=== PATIENT | male | born 1955 | race American Indian/Alaskan Native ===

== ENCOUNTER 2017-05-17 18:49 | Emergency (ER) | payer MEDICARE ==
--- NOTE | 2017-05-17 23:46 | Emergency Department Report ---
- General Chief Complaint: Extremity Injury, Lower Stated Complaint: WOUND ON RIGHT FOOT Time Seen by Provider: 05/17/17 23:05 Source: patient Mode of arrival: Wheelchair Limitations: Physical Limitation - History of Present Illness Initial Comments: 61 YO WITH MULTIPLE VISITS TO THE ER FOR RIGHT FOOT ULCER BUT REFUSES XRAY AND REFUSES LAB WORK BUT WANTS ULCER WRAPED UP AND ANTIBIOTICS. -: month(s) Location: other (RIGHT FOOT ULCERATION MOST OF THE HEEL AND PLANTAR AREA IN MID FOOT) Extremity Location: Right: Foot Place: home Patient Tetanus UTD: Yes Associated Symptoms: pain - Related Data Previous Rx's Medication Instructions Recorded Last Taken Type Levofloxacin [Levaquin TAB] 500 mg PO QDAY #14 tablet 05/18/17 Unknown Rx Allergies Allergy/AdvReac Type Severity Reaction Status Date / Time No Known Allergies Allergy Unverified 05/17/17 20:22 ED Review of Systems ROS: Stated complaint: WOUND ON RIGHT FOOT Other details as noted in HPI Constitutional: denies: chills, fever Eyes: denies: eye pain, eye discharge, vision change ENT: denies: ear pain, throat pain Respiratory: denies: cough, shortness of breath, wheezing Cardiovascular: denies: chest pain, palpitations Endocrine: no symptoms reported Gastrointestinal: denies: abdominal pain, nausea, diarrhea Genitourinary: denies: urgency, dysuria Musculoskeletal: arthralgia. denies: back pain, joint swelling Skin: lesions (LARGE ULCERATION ). denies: rash Neurological: denies: headache, weakness, paresthesias Psychiatric: denies: anxiety, depression Hematological/Lymphatic: denies: easy bleeding, easy bruising ED Past Medical Hx - Past Medical History Previous Medical History?: Yes Hx Hypertension: Yes Hx Congestive Heart Failure: Yes Hx Diabetes: Yes Hx COPD: Yes Additional medical history: Right foot diabetic ulcer, Recently admitted for right diabetic foot ulcer March 2017 - Surgical History Past Surgical History?: Yes Additional Surgical History: Bilateral knee surgeries - Social History Smoking Status: Never Smoker - Medications Home Medications: Home Medications Medication Instructions Recorded Confirmed Last Taken Type Levofloxacin [Levaquin TAB] 500 mg PO QDAY #14 tablet 05/18/17 Unknown Rx ED Physical Exam - General Limitations: Physical Limitation General appearance: alert, in no apparent distress - Head Head exam: Present: atraumatic, normocephalic - Eye Eye exam: Present: normal appearance, EOMI - ENT ENT exam: Present: mucous membranes moist - Neck Neck exam: Present: normal inspection - Respiratory Respiratory exam: Present: normal lung sounds bilaterally. Absent: respiratory distress - Cardiovascular Cardiovascular Exam: Present: regular rate, normal rhythm. Absent: systolic murmur, diastolic murmur, rubs, gallop - GI/Abdominal GI/Abdominal exam: Present: soft, normal bowel sounds - Rectal Rectal exam: Present: deferred - External exam: Present: other (URINATED ON HIMSELF) - Extremities Exam Extremities exam: Present: normal inspection, tenderness (RIGHT HEEL,LARGE ULCERATION ENCOMPASSING ALL OF THE HEEL AND HALD OF PLANTAR SURFACE) - Back Exam Back exam: Present: full ROM - Neurological Exam Neurological exam: Present: alert, oriented X3 - Psychiatric Psychiatric exam: Present: normal affect, normal mood - Skin Skin exam: Present: warm, dry, intact, normal color. Absent: rash ED Course Vital Signs 05/17/17 05/17/17 05/17/17 19:34 20:36 23:53 Temperature 98.5 F 98.5 F 98 F Pulse Rate 76 75 83 Respiratory 18 18 18 Rate Blood Pressure 180/77 180/77 Blood Pressure 122/79 [Left] O2 Sat by Pulse 100 100 97 Oximetry Critical care attestation.: If time is entered above; I have spent that time in minutes in the direct care of this critically ill patient, excluding procedure time. ED Disposition Clinical Impression: Hyperglycemia, Morbid obesity Diabetic foot ulcers Qualifiers: Diabetic foot ulcer location: heel Diabetes mellitus type: type 2 Laterality: right Non-pressure ulcer stage: unspecified non-pressure ulcer stage Qualified Code(s): E11.621 - Type 2 diabetes mellitus with foot ulcer Disposition: -01 TO HOME OR SELFCARE Is pt being admited?: No Does the pt Need Aspirin: No Condition: Stable Instructions: Diabetes Mellitus Type 2 in Adults (ED), Levofloxacin (By mouth) Prescriptions: Levofloxacin [Levaquin TAB] 500 mg PO QDAY #14 tablet Referrals: PRIMARY CARE, [Referring] - 3-5 Days Time of Disposition: 00:07
[2017-05-18] MEDS ORDERED: LEVAQUIN PO ONE (00:05)
[2017-05-18] MEDS ORDERED: XYLOCAINE 1% MPF 5 mL INFILTRATI ONE (00:05)
[2017-05-18] MEDS ORDERED: ROCEPHIN IM ONE (00:05)
[2017-05-18 01:12] VITALS: BP 134/72
== END 2017-05-18 01:11 | disposition home or self-care (01) ==
LOC: EDSEX → ED 18:49
DX: E11.621 Type 2 diabetes mellitus with foot ulcer (principal); E11.65 Type 2 diabetes mellitus with hyperglycemia; E66.01 Morbid (severe) obesity due to excess calories; I10 Essential (primary) hypertension; I50.9 Heart failure, unspecified; J44.9 Chronic obstructive pulmonary disease, unspecified
CPT/HCPCS: 82962; 96372; 99283; J0696

== ENCOUNTER 2017-05-23 23:11 | Inpatient (IN) | payer MEDICARE ==
--- NOTE | 2017-05-24 06:55 | Emergency Department Report ---
HPI - General Chief Complaint: Extremity Injury, Lower Time Seen by Provider: 05/24/17 06:24 - HPI HPI: The patient's is 61-year-old male with a history of diabetes presents for evaluation of pain and wound to the left foot. The patient reports progressive pain and open ulcer to the sole of the right foot, 10/10 in severity, throbbing in quality, worse with weightbearing. He admits to worsening redness, swelling , and drainage from the wound. He has not sought wound care and has been non- compliant. He denies trauma to the foot, penetrating wound to the foot, fever, loss of sensation or motor function. ED Past Medical Hx - Past Medical History Previous Medical History?: Yes Hx Hypertension: Yes Hx Congestive Heart Failure: Yes Hx Diabetes: Yes Hx Deep Vein Thrombosis: No Hx Renal Disease: Yes (RUPA) Hx Arthritis: Yes Hx Kidney Stones: Yes Hx Asthma: No Hx COPD: Yes Hx HIV: No Additional medical history: Right foot diabetic ulcer, Recently admitted for right diabetic foot ulcer March 2017 - Surgical History Past Surgical History?: Yes Hx Pacemaker: No Hx Internal Defibrillator: No Additional Surgical History: Bilateral knee surgeries - Social History Smoking Status: Current Every Day Smoker Substance Use Type: None - Medications Home Medications: Home Medications Medication Instructions Recorded Confirmed Last Taken Type Gabapentin [Neurontin] 300 mg PO Q8HR #90 capsule 11/04/15 04/05/17 1 Day Ago Rx ~03/01/17 AtorvaSTATin [Lipitor] 20 mg PO QHS 04/09/16 04/05/17 1 Day Ago History ~03/01/17 Ergocalciferol(Vitamin D2)(Nf) 50,000 unit PO QWEEK 04/09/16 04/05/17 1 Day Ago History [Vitamin D (Nf)] ~03/01/17 Insulin Lispro Prot/Lispro 30 unit SQ BID 03/05/17 04/05/17 Unknown History [HumaLOG Mix 75/25 Vial] Leucovorin/Pyridox/Mecobalamin 1 tab PO QDAY 03/12/17 04/05/17 Unknown History [Folinic-Plus Caplet] hydrALAZINE [Apresoline TAB] 100 mg PO TID 03/12/17 04/05/17 Unknown History Carvedilol [Coreg] 12.5 mg PO BID #30 tablet 04/14/17 Unknown Rx Fluconazole [Diflucan TAB] 100 mg PO QDAY #7 tablet 04/14/17 Unknown Rx Folic Acid/Vit Bcomp&C/Cu/Znox 1 each PO QDAY #30 tablet 04/14/17 Unknown Rx [Folbee Plus Cz] Furosemide [Lasix TAB] 40 mg PO BID@0600,1800 #14 tablet 04/14/17 Unknown Rx Levofloxacin [Levaquin TAB] 750 mg PO Q24HR #8 tablet 04/14/17 Unknown Rx Sodium Bicarbonate 1,300 mg PO BID #14 tablet 04/14/17 Unknown Rx amLODIPine [Norvasc] 10 mg PO DAILY #30 tablet 04/14/17 Unknown Rx oxyCODONE /ACETAMINOPHEN [Percocet 1 tab PO Q6H PRN #10 tablet 04/14/17 Unknown Rx 5/325 mg] Levofloxacin [Levaquin TAB] 500 mg PO QDAY #14 tablet 05/18/17 Unknown Rx ED Review of Systems ROS: Stated complaint: DIABETIC FOOT ULCER Other details as noted in HPI Constitutional: denies: fever ENT: denies: throat or neck pain Respiratory: denies: cough, shortness of breath Cardiovascular: denies: chest pain Endocrine: denies unexplained weight loss or gain Gastrointestinal: denies: abdominal pain, nausea Genitourinary: denies: dysuria Musculoskeletal: foot pain and swelling denies: leg swelling Skin: denies: rash Neurological: denies: headache Hematological/Lymphatic: denies: easy bleeding or easy bruising Psych: denies sadness or hopelessness Physical Exam - Physical Exam Vital Signs: Vital Signs 05/23/17 05/24/17 05/24/17 23:59 00:43 03:54 Temperature 97.3 F L 97.3 F L Pulse Rate 81 81 85 Respiratory 18 17 15 Rate Blood Pressure 221/98 221/98 Blood Pressure [Left] O2 Sat by Pulse 100 99 Oximetry 05/24/17 05/24/17 05/24/17 04:01 04:06 04:15 Temperature 98.3 F Pulse Rate 85 84 81 Respiratory 10 L 18 11 L Rate Blood Pressure 175/73 175/73 Blood Pressure 175/73 [Left] O2 Sat by Pulse 100 100 100 Oximetry 05/24/17 05/24/17 05/24/17 04:31 04:45 05:01 Temperature Pulse Rate 80 82 83 Respiratory 13 12 13 Rate Blood Pressure 175/73 175/73 160/72 Blood Pressure [Left] O2 Sat by Pulse 100 100 99 Oximetry 05/24/17 05/24/17 05/24/17 05:15 05:31 05:45 Temperature Pulse Rate 83 84 83 Respiratory 10 L 13 14 Rate Blood Pressure 160/72 160/72 160/72 Blood Pressure [Left] O2 Sat by Pulse 100 100 100 Oximetry 05/24/17 05/24/17 06:00 06:20 Temperature Pulse Rate 81 Respiratory 16 20 Rate Blood Pressure 154/67 Blood Pressure [Left] O2 Sat by Pulse 98 100 Oximetry Physical Exam: General: well-nourished, well-developed, no acute distress Head: Normocephalic, atraumatic Eyes: normal sclera ENT: Mucous membranes are pink and moist Neck: trachea midline, neck supple, No neck stiffness, no cervical adenopathy Respiratory: Breath sounds equal bilaterally, no wheezing, rales, or rhonchi Cardio: S1 and S2 present, no murmurs, rubs, gallops, capillary refill is brisk Abdomen: Normoactive bowel sounds, soft abdomen, no tenderness Musc: Large superficial ulcer presents to the sole of the right foot, surrounding erythema present, copious drainage present, no crepitus or fluctuance at this time, distal pulses intact Skin: No rash Neuro: no facial drooping, normal speech Psych: Normal affect ED Course Vital Signs 05/23/17 05/24/17 05/24/17 23:59 00:43 03:54 Temperature 97.3 F L 97.3 F L Pulse Rate 81 81 85 Respiratory 18 17 15 Rate Blood Pressure 221/98 221/98 Blood Pressure [Left] O2 Sat by Pulse 100 99 Oximetry 05/24/17 05/24/17 05/24/17 04:01 04:06 04:15 Temperature 98.3 F Pulse Rate 85 84 81 Respiratory 10 L 18 11 L Rate Blood Pressure 175/73 175/73 Blood Pressure 175/73 [Left] O2 Sat by Pulse 100 100 100 Oximetry 05/24/17 05/24/17 05/24/17 04:31 04:45 05:01 Temperature Pulse Rate 80 82 83 Respiratory 13 12 13 Rate Blood Pressure 175/73 175/73 160/72 Blood Pressure [Left] O2 Sat by Pulse 100 100 99 Oximetry 05/24/17 05/24/17 05/24/17 05:15 05:31 05:45 Temperature Pulse Rate 83 84 83 Respiratory 10 L 13 14 Rate Blood Pressure 160/72 160/72 160/72 Blood Pressure [Left] O2 Sat by Pulse 100 100 100 Oximetry 05/24/17 05/24/17 06:00 06:20 Temperature Pulse Rate 81 Respiratory 16 20 Rate Blood Pressure 154/67 Blood Pressure [Left] O2 Sat by Pulse 98 100 Oximetry ED Medical Decision Making - Lab Data Result diagrams: 05/24/17 13:00 05/24/17 13:00 - Medical Decision Making The patient was seen and examined by myself. The patient is placed on a career services officer and continuous pulse ox. On initial evaluation, the patient was found to be in no distress. The patient is given pain medicine. X-ray of the right foot reveals soft tissue swelling and an ulcer to the sole of the right foot. Evaluation orders were placed. Lab results revealed elevated CRP 2.8, low hemoglobin of 7.5, and electrolyte disturbance. The patient is given IV clindamycin and Rocephin for treatment of cellulitis. The on-call hospitalist service was contacted. They agreed to admit the patient for further treatment and close monitoring. The ED admit order was placed. The patient was admitted in guarded condition. Critical care attestation.: If time is entered above; I have spent that time in minutes in the direct care of this critically ill patient, excluding procedure time. ED Disposition Clinical Impression: Cellulitis of foot without toes, right Diabetic foot ulcers Qualifiers: Diabetic foot ulcer location: heel Diabetes mellitus type: type 2 Laterality: right Non-pressure ulcer stage: limited to breakdown of skin Qualified Code(s): E11.621 - Type 2 diabetes mellitus with foot ulcer; L97.411 - Non-pressure chronic ulcer of right heel and midfoot limited to breakdown of skin; L97.411 - Non-pressure chronic ulcer of right heel and midfoot limited to breakdown of skin; L97.411 - Non-pressure chronic ulcer of right heel and midfoot limited to breakdown of skin; L97.411 - Non-pressure chronic ulcer of right heel and midfoot limited to breakdown of skin Disposition: OP ADMIT IP TO THIS HOSP Is pt being admited?: Yes Does the pt Need Aspirin: Yes Condition: Serious Instructions: Diabetes Mellitus Type 2 in Adults (ED) Referrals: PRIMARY CARE, [Primary Care Provider] - 3-5 Days Time of Disposition: 07:16
[2017-05-24] MEDS ORDERED: NACL 0.9% 1000 ML 1,000 ML IV ONE (07:52)
[2017-05-24] MEDS ORDERED: MORPHINE IV ONE (07:52)
[2017-05-24] MEDS ORDERED: CLEOCIN 600 MG/50 mL 600 MG/50 ML BAG IV ONE ×2 (07:52→11:27)
[2017-05-24] MEDS ORDERED: BABY ASPIRIN PO ONE (07:54)
[2017-05-24] MEDS ORDERED: ROCEPHIN/NS 1 GM/50 ML 1 GM/50 ML BAG IV SCH (08:00)
[2017-05-24] MEDS ORDERED: cefTRIAXone 1 GM in NACL 0.9% 20 ML IV ONE (08:00)
--- NOTE | 2017-05-24 11:09 | XRay Report ---
FINAL REPORT EXAM: XR FOOT 2V RT HISTORY: plantar pain and ulcer TECHNIQUE: AP and lateral radiographs of the right foot. PRIORS: None. FINDINGS: No fracture. No dislocation. There is diffuse osteopenia. Vascular calculi are seen. No bony erosion or periosteal reaction. There is soft tissue swelling over the dorsum of the right foot. Plantar calcaneal enthesophyte is seen superiorly. There is an ulceration posterior to the calcaneus. IMPRESSION: Soft tissue swelling of the right foot without acute osseous abnormality. Ulceration posterior to the calcaneus.
[2017-05-24] MEDS ORDERED: BABY ASPIRIN ONE (11:28)
[2017-05-24] MEDS ORDERED: NACL 0.9% 1000 ML 1,000 ML ONE (11:29)
[2017-05-24] MEDS ORDERED: MORPHINE ONE (11:35)
[2017-05-24] MEDS ORDERED: D50W (25GM) Vial IV PRN (13:00)
[2017-05-24 13:15] LABS: Basophils # (Auto) 0.1 K/mm3 (0.0-0.1); Basophils % (Auto) 1.1 % (0.0-1.8); Eosinophils # (Auto) 0.8 K/mm3 (0.0-0.4); Eosinophils % (Auto) 10.3 % (0.0-4.3); Hematocrit 23.9 % (35.5-45.6); Hemoglobin 7.5 gm/dl (11.8-15.2); Lymphocytes # (Auto) 1.7 K/mm3 (1.2-5.4); Lymphocytes % (Auto) 22.8 % (13.4-35.0); Mean Corpuscular HGB Conc 31 % (32-34); Mean Corpuscular Hemoglobin 26 pg (28-32); Mean Corpuscular Volume 84 fl (84-94); Monocytes # (Auto) 0.7 K/mm3 (0.0-0.8); Monocytes % (Auto) 9.6 % (0.0-7.3); Platelet Count 352 K/mm3 (140-440); Red Blood Count 2.86 M/mm3 (3.65-5.03); Red Cell Distribution Width 17.2 % (13.2-15.2)
[2017-05-24 13:33] LABS: C-Reactive Protein 2.8 mg/dL (0.00-1.30); Calcium 8.6 mg/dL (8.4-10.2)
[2017-05-24] MEDS: HEPARIN SUB-Q SCH ×3 (14:15→22:27)
[2017-05-24] MEDS: NORVASC PO SCH (14:16)
[2017-05-24] MEDS: NEURONTIN PO SCH ×2 (14:18→22:25)
[2017-05-24] MEDS: APRESOLINE PO SCH ×2 (14:18→20:12)
[2017-05-24] MEDS: PERCOCET 5/325 PO PRN (14:31)
--- NOTE | 2017-05-24 14:45 | History and Physical Report ---
History of Present Illness Date of examination: 05/24/17 Date of admission: 05/24/17 12:21 Chief complaint: Right foot pain History of present illness: 61-year-old -[place] male with past medical history significant for DM, CHF, COPD, hypertension, hyperlipidemia, homelessness presented to the emergency department complaining of right foot pain. Patient claimed he has ulcer in the right foot for the last one and half years, and has chronic pain but getting worse recently. The patient is to being, to [facility], with no radiation, worse with weightbearing, but denied fever, chills. Patient said he has been compliant with his medications. Patient was uncooperative. Per Chart review the patient has been admitted a month ago and he was evaluated by vascular surgery, ID, general surgery, wound care and was discharged home with antibiotics. Patient said she has been run out of his medications. REVIEW OF SYSTEMS: GENERAL: no weight change, no fatigue, no fever HEAD: no head ache EYES: no blurry vision, no acute visual loss EARS: no hearing loss, no discharge, no earache NOSE: no stuffiness, no sneezing, no discharge MOUTH, THROAT AND NECK: no bleeding gums, no sore throat, no swollen neck CARDIAC: no palpitations, no dyspnea on exertion, no orthopnea, no PND, no edema , no chest pain RESPIRATORY: no shortness of breath, no wheeze, no cough, no sputum, no hemoptysis, no asthma GI: no decreased appetite, no nausea, no vomiting, no dysphagia, no diarrhea, no constipation, no abdominal pain URINARY: no change in frequency, no urgency, no polyuria, no hematuria, no incontinence MUSCULOSKELETAL: As stated in the HPI. NEUROLOGIC: no loss of sensation/numbness, no tingling, no tremors, no weakness/ paralysis HEMATOLOGIC: no anemia, no easy bruising SKIN: no rashes ENDOCRINE: no heat/cold intolerance, no polyuria, no polydipsia, no thyroid problems, + diabetes PSYCHIATRIC: no anxiety, no depression, no suicidal ideations Past History Past Medical History: COPD, diabetes, heart failure, hypertension, hyperlipidemia Past Surgical History: Other (bilateral knee surgery, wound debridement) Social history: full code. denies: smoking, alcohol abuse, prescription drug abuse, IV drug use Family history: CAD, hypertension Medications and Allergies Allergies Allergy/AdvReac Type Severity Reaction Status Date / Time No Known Allergies Allergy Verified 05/18/17 00:10 Home Medications Medication Instructions Recorded Confirmed Last Taken Type Gabapentin [Neurontin] 300 mg PO Q8HR #90 capsule 11/04/15 04/05/17 1 Day Ago Rx ~03/01/17 AtorvaSTATin [Lipitor] 20 mg PO QHS 04/09/16 04/05/17 1 Day Ago History ~03/01/17 Ergocalciferol(Vitamin D2)(Nf) 50,000 unit PO QWEEK 04/09/16 04/05/17 1 Day Ago History [Vitamin D (Nf)] ~03/01/17 Insulin Lispro Prot/Lispro 30 unit SQ BID 03/05/17 04/05/17 Unknown History [HumaLOG Mix 75/25 Vial] Leucovorin/Pyridox/Mecobalamin 1 tab PO QDAY 03/12/17 04/05/17 Unknown History [Folinic-Plus Caplet] hydrALAZINE [Apresoline TAB] 100 mg PO TID 03/12/17 04/05/17 Unknown History Carvedilol [Coreg] 12.5 mg PO BID #30 tablet 04/14/17 Unknown Rx Fluconazole [Diflucan TAB] 100 mg PO QDAY #7 tablet 04/14/17 Unknown Rx Folic Acid/Vit Bcomp&C/Cu/Znox 1 each PO QDAY #30 tablet 04/14/17 Unknown Rx [Folbee Plus Cz] Furosemide [Lasix TAB] 40 mg PO BID@0600,1800 #14 tablet 04/14/17 Unknown Rx Levofloxacin [Levaquin TAB] 750 mg PO Q24HR #8 tablet 04/14/17 Unknown Rx Sodium Bicarbonate 1,300 mg PO BID #14 tablet 04/14/17 Unknown Rx amLODIPine [Norvasc] 10 mg PO DAILY #30 tablet 04/14/17 Unknown Rx oxyCODONE /ACETAMINOPHEN [Percocet 1 tab PO Q6H PRN #10 tablet 04/14/17 Unknown Rx 5/325 mg] Levofloxacin [Levaquin TAB] 500 mg PO QDAY #14 tablet 05/18/17 Unknown Rx Active Meds: Active Medications Amlodipine Besylate (Norvasc) 10 mg PO DAILY [facility] Last Admin: 05/24/17 14:16 Dose: 10 mg Atorvastatin Calcium (Lipitor) 20 mg PO QHS [facility] Carvedilol (Coreg) 12.5 mg PO BID [facility] Dextrose (D50w (25gm) Vial) 25 gm IV PRN PRN PRN Reason: HYPOGLYCEMIA Furosemide (Lasix) 40 mg PO BID@0600,1800 [facility] Gabapentin (Neurontin) 300 mg PO Q8HR [facility] Last Admin: 05/24/17 14:18 Dose: 300 mg Heparin Sodium (Porcine) (Heparin) 5,000 unit SUB-Q BID [facility] Last Admin: 05/24/17 14:30 Dose: Not Given Hydralazine HCl (Apresoline) 100 mg PO TID [facility] Last Admin: 05/24/17 14:18 Dose: 100 mg Levofloxacin/Dextrose (Levaquin 750mg/150ml) 750 mg in 150 mls @ 100 mls/hr IV Q24HR [facility] PRN Reason: Protocol Insulin Aspart (Novolog) 0 units SUB-Q ACHS [facility] PRN Reason: Protocol Insulin Human Isoph/Insulin Regular (Novolin 70/30) 30 unit SUB-Q BIDDIAB [facility] Oxycodone/Acetaminophen (Percocet 5/325) 1 tab PO Q6H PRN PRN Reason: Pain, Moderate (4-6) Last Admin: 05/24/17 14:31 Dose: 1 tab Vitamin B Complex/Folic Acid (Folbee Plus Cz) 1 each PO QDAY [facility] Exam - Physical Exam Narrative exam: Not in cardiopulmonary distress. The patient appeared well nourished and normally developed. Vital signs as documented. Head exam is unremarkable. No scleral icterus . Neck is without jugular venous distension, thyromegaly, or carotid bruits. Lungs are clear to auscultation. Cardiac exam reveals regular rate and Rhythm. First and second heart sounds normal. No murmurs, rubs or gallops. Abdominal exam reveals normal bowel sounds, no masses, no organomegaly and no aortic enlargement. Extremities right foot ulcer with offensive discharge. 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 No focal weakness. - Constitutional Vitals: Temp Pulse Resp BP Pulse Ox 98.3 F 87 12 170/89 100 05/24/17 04:06 05/24/17 14:16 05/24/17 14:15 05/24/17 14:16 05/24/17 13:39 Results - Labs CBC & Chem 7: 05/24/17 13:00 05/24/17 13:00 Labs: Laboratory Last Values WBC 7.6 K/mm3 (4.5-11.0) 05/24/17 13:00 RBC 2.86 M/mm3 (3.65-5.03) L 05/24/17 13:00 Hgb 7.5 gm/dl (11.8-15.2) L 05/24/17 13:00 Hct 23.9 % (35.5-45.6) L 05/24/17 13:00 MCV 84 fl (84-94) 05/24/17 13:00 MCH 26 pg (28-32) L 05/24/17 13:00 MCHC 31 % (32-34) L 05/24/17 13:00 RDW 17.2 % (13.2-15.2) H 05/24/17 13:00 Plt Count 352 K/mm3 (140-440) 05/24/17 13:00 Lymph % (Auto) 22.8 % (13.4-35.0) 05/24/17 13:00 [place] % (Auto) 9.6 % (0.0-7.3) H 05/24/17 13:00 Eos % (Auto) 10.3 % (0.0-4.3) H 05/24/17 13:00 Baso % (Auto) 1.1 % (0.0-1.8) 05/24/17 13:00 Lymph # 1.7 K/mm3 (1.2-5.4) 05/24/17 13:00 [place] # 0.7 K/mm3 (0.0-0.8) 05/24/17 13:00 Eos # 0.8 K/mm3 (0.0-0.4) H 05/24/17 13:00 Baso # 0.1 K/mm3 (0.0-0.1) 05/24/17 13:00 Seg Neutrophils % 56.2 % (40.0-70.0) 05/24/17 13:00 Seg Neutrophils # 4.3 K/mm3 (1.8-7.7) 05/24/17 13:00 VBG pH 7.346 (7.320-7.420) 05/24/17 13:00 Sodium 141 mmol/L (137-145) 05/24/17 13:00 Potassium 4.7 mmol/L (3.6-5.0) 05/24/17 13:00 Chloride 107.4 mmol/L (98-107) H 05/24/17 13:00 Carbon Dioxide 21 mmol/L (22-30) L 05/24/17 13:00 Anion Gap 17 mmol/L 05/24/17 13:00 BUN 33 mg/dL (9-20) H 05/24/17 13:00 Creatinine 1.5 mg/dL (0.8-1.5) 05/24/17 13:00 Estimated GFR 57 ml/min 05/24/17 13:00 BUN/Creatinine Ratio 22 % 05/24/17 13:00 Glucose 178 mg/dL (75-100) H 05/24/17 13:00 Lactic Acid 0.70 mmol/L (0.7-2.0) 05/24/17 13:00 Calcium 8.6 mg/dL (8.4-10.2) 05/24/17 13:00 C-Reactive Protein 2.80 mg/dL (0.00-1.30) H 05/24/17 13:00 NT-Pro-B Natriuret Pep 469.5 pg/mL (0-900) 05/24/17 13:00 - Imaging and Cardiology Imaging and Cardiology: X-ray of the right foot: Soft tissue swelling of the right foot. Ulceration of the posterior calcaneus. Assessment and Plan Assessment and plan: Right foot ulcer Cellulitis of the right foot Diabetes mellitus with hyperglycemia Anemia Hypertension Homelessness Noncompliant with medications - Patient is on IV Levaquin, based on his previous culture result, ID consult - Wound care consulted, Dr. Ly consulted for possible debridement - Vascular surgery consulted, had evaluated him and didn't do further study because of his renal insufficiency but currently stable - Continue home dose of insulin and add sliding scale insulin - Continue appropriate home medications - Anemia is likely multifactorial and need further workup, follow H&H DVT prophylaxis Heparin Disposition Admit to [facility]. Advance Directives: Yes VTE prophylaxis?: Chemical Plan of care discussed with patient/family: Yes
[2017-05-24] MEDS ORDERED: NOVOLOG SUB-Q ONE (14:51)
[2017-05-24] MEDS: NOVOLOG SUB-Q SCH ×3 (14:58→22:44)
[2017-05-24] MEDS: COREG PO SCH ×2 (14:59→22:26)
[2017-05-24] MEDS: LEVAQUIN 750MG/150ML 750 MG/150 ML BAG IV SCH (18:15)
[2017-05-24] MEDS: LASIX PO SCH (20:10)
[2017-05-24] MEDS ORDERED: INSULIN LISPRO PROT SQ SCH (22:00)
[2017-05-24] MEDS ORDERED: LISPRO SQ SCH (22:00)
[2017-05-25 06:04] LABS: Basophils # (Auto) 0.1 K/mm3 (0.0-0.1); Basophils % (Auto) 1.7 % (0.0-1.8); Eosinophils # (Auto) 0.7 K/mm3 (0.0-0.4); Eosinophils % (Auto) 9.5 % (0.0-4.3); Hematocrit 21.4 % (35.5-45.6); Lymphocytes # (Auto) 1.7 K/mm3 (1.2-5.4); Lymphocytes % (Auto) 21.2 % (13.4-35.0); Mean Corpuscular HGB Conc 33 % (32-34); Mean Corpuscular Hemoglobin 27 pg (28-32); Mean Corpuscular Volume 83 fl (84-94); Monocytes # (Auto) 0.8 K/mm3 (0.0-0.8); Monocytes % (Auto) 9.6 % (0.0-7.3); Platelet Count 348 K/mm3 (140-440); Red Blood Count 2.58 M/mm3 (3.65-5.03); Red Cell Distribution Width 17.1 % (13.2-15.2)
[2017-05-25 06:24] LABS: Calcium 8.3 mg/dL (8.4-10.2)
[2017-05-25] MEDS: NEURONTIN PO SCH ×3 (06:53→21:34)
[2017-05-25] MEDS: LASIX PO SCH ×2 (06:53→17:23)
[2017-05-25] MEDS: APRESOLINE PO SCH ×3 (08:08→21:35)
[2017-05-25] MEDS: NOVOLOG SUB-Q SCH ×4 (08:09→21:33)
--- NOTE | 2017-05-25 08:49 | XRay Report ---
AP CHEST: HISTORY: CHF There is poor inspiration. AP view of the chest demonstrates a normal mediastinal and cardiac contour with clear lungs and normal bony and soft tissue structures. IMPRESSION: Unremarkable AP chest.
[2017-05-25] MEDS: NORVASC PO SCH (09:14)
[2017-05-25] MEDS: COREG PO SCH ×2 (09:14→21:35)
[2017-05-25] MEDS: HEPARIN SUB-Q SCH ×2 (09:15→22:53)
--- NOTE | 2017-05-25 10:02 | Event Note ---
Date: 05/25/17 cr is 1.5 to 1.7, and at baseline, no acute renal issues and has history of refusing labs and renal workup. if emergent indication of nephrology consult needed, please call directly.
[2017-05-25] MEDS: FOLBEE PLUS CZ PO SCH (11:51)
--- NOTE | 2017-05-25 12:15 | Consultation ---
History of Present Illness Consult date: 05/25/17 Reason for consult: other (Right heel ulcer) - History of present illness History of present illness: 61 yo male with a chronic right heel ulcer. I have debrided this in the past. Pt has Type II DM and CHF. Past History Past Medical History: COPD, diabetes, heart failure, hypertension, hyperlipidemia Past Surgical History: Other (bilateral knee surgery, wound debridement) Social history: full code. denies: smoking, alcohol abuse, prescription drug abuse, IV drug use Family history: CAD, hypertension Medications and Allergies Allergies Allergy/AdvReac Type Severity Reaction Status Date / Time No Known Allergies Allergy Verified 05/18/17 00:10 Home Medications Medication Instructions Recorded Confirmed Last Taken Type Gabapentin [Neurontin] 300 mg PO Q8HR #90 capsule 11/04/15 04/05/17 1 Day Ago Rx ~03/01/17 AtorvaSTATin [Lipitor] 20 mg PO QHS 04/09/16 04/05/17 1 Day Ago History ~03/01/17 Ergocalciferol(Vitamin D2)(Nf) 50,000 unit PO QWEEK 04/09/16 04/05/17 1 Day Ago History [Vitamin D (Nf)] ~03/01/17 Insulin Lispro Prot/Lispro 30 unit SQ BID 03/05/17 04/05/17 Unknown History [HumaLOG Mix 75/25 Vial] Leucovorin/Pyridox/Mecobalamin 1 tab PO QDAY 03/12/17 04/05/17 Unknown History [Folinic-Plus Caplet] hydrALAZINE [Apresoline TAB] 100 mg PO TID 03/12/17 04/05/17 Unknown History Carvedilol [Coreg] 12.5 mg PO BID #30 tablet 04/14/17 Unknown Rx Fluconazole [Diflucan TAB] 100 mg PO QDAY #7 tablet 04/14/17 Unknown Rx Folic Acid/Vit Bcomp&C/Cu/Znox 1 each PO QDAY #30 tablet 04/14/17 Unknown Rx [Folbee Plus Cz] Furosemide [Lasix TAB] 40 mg PO BID@0600,1800 #14 tablet 04/14/17 Unknown Rx Levofloxacin [Levaquin TAB] 750 mg PO Q24HR #8 tablet 04/14/17 Unknown Rx Sodium Bicarbonate 1,300 mg PO BID #14 tablet 04/14/17 Unknown Rx amLODIPine [Norvasc] 10 mg PO DAILY #30 tablet 04/14/17 Unknown Rx oxyCODONE /ACETAMINOPHEN [Percocet 1 tab PO Q6H PRN #10 tablet 04/14/17 Unknown Rx 5/325 mg] Levofloxacin [Levaquin TAB] 500 mg PO QDAY #14 tablet 05/18/17 Unknown Rx Active Meds: Active Medications Amlodipine Besylate (Norvasc) 10 mg PO DAILY [facility] Last Admin: 05/25/17 09:14 Dose: 10 mg Atorvastatin Calcium (Lipitor) 20 mg PO QHS [facility] Last Admin: 05/24/17 22:24 Dose: 20 mg Carvedilol (Coreg) 12.5 mg PO BID [facility] Last Admin: 05/25/17 09:14 Dose: 12.5 mg Dextrose (D50w (25gm) Vial) 25 gm IV PRN PRN PRN Reason: HYPOGLYCEMIA Furosemide (Lasix) 40 mg PO BID@0600,1800 [facility] Last Admin: 05/25/17 06:53 Dose: 40 mg Gabapentin (Neurontin) 300 mg PO Q8HR [facility] Last Admin: 05/25/17 06:53 Dose: 300 mg Heparin Sodium (Porcine) (Heparin) 5,000 unit SUB-Q BID [facility] Last Admin: 05/25/17 09:15 Dose: Not Given Hydralazine HCl (Apresoline) 100 mg PO TID [facility] Last Admin: 05/25/17 08:08 Dose: 100 mg Levofloxacin/Dextrose (Levaquin 750mg/150ml) 750 mg in 150 mls @ 100 mls/hr IV Q24H [facility] PRN Reason: Protocol Last Admin: 05/24/17 18:15 Dose: 100 mls/hr Insulin Aspart (Novolog) 0 units SUB-Q ACHS [facility] PRN Reason: Protocol Last Admin: 05/25/17 11:51 Dose: Not Given Insulin Human Isoph/Insulin Regular (Novolin 70/30) 30 unit SUB-Q BIDDIAB [facility] Last Admin: 05/25/17 08:08 Dose: 30 unit Oxycodone/Acetaminophen (Percocet 5/325) 1 tab PO Q6H PRN PRN Reason: Pain, Moderate (4-6) Last Admin: 05/24/17 14:31 Dose: 1 tab Vitamin B Complex/Folic Acid (Folbee Plus Cz) 1 each PO QDAY [facility] Last Admin: 05/25/17 11:51 Dose: 1 each Review of Systems All systems: negative Exam Vital Signs Temp Pulse Resp BP Pulse Ox 97.3 F L 81 18 221/98 100 05/23/17 23:59 05/23/17 23:59 05/23/17 23:59 05/23/17 23:59 05/23/17 23:59 - General physical appearance Positive: well developed, well nourished, no distress - Eyes Positive: PERRL, normal occular movement - ENT Positive: normal pinna, normal nares, normal mucosa, no hearing loss, no congestion - Neck Positive: no masses, no bruits, trachea midline, no venous distension - Respiratory Positive: normal expansion, normal respiratory effort, clear to auscultation - Cardiovascular Rhythm: regular Heart Sounds: Present: S1 & S2. Absent: rub, click - Extremities Extremities: abnormal (There is a large full thickness ulcer over his right heel with just a small amount of non-viable SQ fat over the calcaneus bone. There is necrotic skin and SQ tissue involving the wound as well but this does not seem to be a source of systemic infection.) Extremity abnormal: other (Right DP and PT pulses are non-palpable and this may be secondary to 2-3+ edema of the right foot.) Results - Labs 05/25/17 05:42 05/25/17 05:42 Abnormal lab results 05/24/17 05/24/17 05/24/17 Range/Units 13:00 13:00 14:42 RBC 2.86 L (3.65-5.03) M/mm3 Hgb 7.5 L (11.8-15.2) gm/dl Hct 23.9 L (35.5-45.6) % MCV (84-94) fl MCH 26 L (28-32) pg MCHC 31 L (32-34) % RDW 17.2 H (13.2-15.2) % [place] % (Auto) 9.6 H (0.0-7.3) % Eos % (Auto) 10.3 H (0.0-4.3) % Eos # 0.8 H (0.0-0.4) K/mm3 Potassium (3.6-5.0) mmol/L Chloride 107.4 H (98-107) mmol/L Carbon Dioxide 21 L (22-30) mmol/L BUN 33 H (9-20) mg/dL Creatinine (0.8-1.5) mg/dL Glucose 178 H (75-100) mg/dL POC Glucose 172 H (70-105) Calcium (8.4-10.2) mg/dL C-Reactive Protein 2.80 H (0.00-1.30) mg/dL 05/24/17 05/24/17 05/25/17 Range/Units 17:37 22:26 05:42 RBC 2.58 L (3.65-5.03) M/mm3 Hgb 7.0 L (11.8-15.2) gm/dl Hct 21.4 L (35.5-45.6) % MCV 83 L (84-94) fl MCH 27 L (28-32) pg MCHC (32-34) % RDW 17.1 H (13.2-15.2) % [place] % (Auto) 9.6 H (0.0-7.3) % Eos % (Auto) 9.5 H (0.0-4.3) % Eos # 0.7 H (0.0-0.4) K/mm3 Potassium (3.6-5.0) mmol/L Chloride (98-107) mmol/L Carbon Dioxide (22-30) mmol/L BUN (9-20) mg/dL Creatinine (0.8-1.5) mg/dL Glucose (75-100) mg/dL POC Glucose 177 H 167 H (70-105) Calcium (8.4-10.2) mg/dL C-Reactive Protein (0.00-1.30) mg/dL 05/25/17 05/25/17 Range/Units 05:42 11:49 RBC (3.65-5.03) M/mm3 Hgb (11.8-15.2) gm/dl Hct (35.5-45.6) % MCV (84-94) fl MCH (28-32) pg MCHC (32-34) % RDW (13.2-15.2) % [place] % (Auto) (0.0-7.3) % Eos % (Auto) (0.0-4.3) % Eos # (0.0-0.4) K/mm3 Potassium 5.2 H (3.6-5.0) mmol/L Chloride 107.2 H (98-107) mmol/L Carbon Dioxide 21 L (22-30) mmol/L BUN 34 H (9-20) mg/dL Creatinine 1.7 H (0.8-1.5) mg/dL Glucose 136 H (75-100) mg/dL POC Glucose 110 H (70-105) Calcium 8.3 L (8.4-10.2) mg/dL C-Reactive Protein (0.00-1.30) mg/dL Diabetes panel 05/24/17 05/25/17 Range/Units 13:00 05:42 Sodium 141 141 (137-145) mmol/L Potassium 4.7 5.2 H (3.6-5.0) mmol/L Chloride 107.4 H 107.2 H (98-107) mmol/L Carbon Dioxide 21 L 21 L (22-30) mmol/L BUN 33 H 34 H (9-20) mg/dL Creatinine 1.5 1.7 H (0.8-1.5) mg/dL Glucose 178 H 136 H (75-100) mg/dL Calcium 8.6 8.3 L (8.4-10.2) mg/dL Calcium panel 05/24/17 05/25/17 Range/Units 13:00 05:42 Calcium 8.6 8.3 L (8.4-10.2) mg/dL Pituitary panel 05/24/17 05/25/17 Range/Units 13:00 05:42 Sodium 141 141 (137-145) mmol/L Potassium 4.7 5.2 H (3.6-5.0) mmol/L Chloride 107.4 H 107.2 H (98-107) mmol/L Carbon Dioxide 21 L 21 L (22-30) mmol/L BUN 33 H 34 H (9-20) mg/dL Creatinine 1.5 1.7 H (0.8-1.5) mg/dL Glucose 178 H 136 H (75-100) mg/dL Calcium 8.6 8.3 L (8.4-10.2) mg/dL Adrenal panel 05/24/17 05/25/17 Range/Units 13:00 05:42 Sodium 141 141 (137-145) mmol/L Potassium 4.7 5.2 H (3.6-5.0) mmol/L Chloride 107.4 H 107.2 H (98-107) mmol/L Carbon Dioxide 21 L 21 L (22-30) mmol/L BUN 33 H 34 H (9-20) mg/dL Creatinine 1.5 1.7 H (0.8-1.5) mg/dL Glucose 178 H 136 H (75-100) mg/dL Calcium 8.6 8.3 L (8.4-10.2) mg/dL
--- NOTE | 2017-05-25 12:24 | Consultation ---
History of Present Illness - Reason for Consult Consult date: 05/25/17 foot ulcer Requesting physician: MINA COBB - History of Present Illness 61 year old male with history of CHF, COPD, DVT, diabetes, hypertension, HLP and a chronic right heel decubitus ulcer; well known to ID service, recently admitted on 03/31 - 04/14/17 due to worsening right foot pain. He had arterial ultrasound which shows monophasic flow in the right popliteal artery and the anterior and posterior tibial arteries. However, velocities are only marginally diminished in the proximal and mid sections of these vessels. MRI + dorsal foot cellulitis no osteo but increased marrow edema in the calcaneous ? osteo. He underwent Right heel debridement finding +necrotic skin, SQ and ligaments. OR tissue cx + Proteus and Enterobacter both sensitive to levaquin. He could not have revascularization due to kidney failure. He was discharged on PO levaquin total 21 days from 03/31-04/20. It is unclear if he took it. Patient is not a good historian, very argumentative and keeps asking for "pain meds" so unable to provide a full history. In the emergency room, his initial temperature was 97.3, heart rate 81, blood pressure 221/98. Initial white count was 7.6. Hemoglobin 7.5. Creatinine was 1.5. Urinalysis was negative for infection. XR foot no evidence of osteo. +ulcer in the calcaneous. CXR neg. Micro: none Antimicrobial: levaquin 05/24 Past History Past Medical History: COPD, diabetes, heart failure, hypertension, hyperlipidemia Past Surgical History: Other (bilateral knee surgery, wound debridement) Social history: full code. denies: smoking, alcohol abuse, prescription drug abuse, IV drug use Family history: CAD, hypertension Medications and Allergies Allergies Allergy/AdvReac Type Severity Reaction Status Date / Time No Known Allergies Allergy Verified 05/18/17 00:10 Home Medications Medication Instructions Recorded Confirmed Last Taken Type Gabapentin [Neurontin] 300 mg PO Q8HR #90 capsule 11/04/15 04/05/17 1 Day Ago Rx ~03/01/17 AtorvaSTATin [Lipitor] 20 mg PO QHS 04/09/16 04/05/17 1 Day Ago History ~03/01/17 Ergocalciferol(Vitamin D2)(Nf) 50,000 unit PO QWEEK 04/09/16 04/05/17 1 Day Ago History [Vitamin D (Nf)] ~03/01/17 Insulin Lispro Prot/Lispro 30 unit SQ BID 03/05/17 04/05/17 Unknown History [HumaLOG Mix 75/25 Vial] Leucovorin/Pyridox/Mecobalamin 1 tab PO QDAY 03/12/17 04/05/17 Unknown History [Folinic-Plus Caplet] hydrALAZINE [Apresoline TAB] 100 mg PO TID 03/12/17 04/05/17 Unknown History Carvedilol [Coreg] 12.5 mg PO BID #30 tablet 04/14/17 Unknown Rx Fluconazole [Diflucan TAB] 100 mg PO QDAY #7 tablet 04/14/17 Unknown Rx Folic Acid/Vit Bcomp&C/Cu/Znox 1 each PO QDAY #30 tablet 04/14/17 Unknown Rx [Folbee Plus Cz] Furosemide [Lasix TAB] 40 mg PO BID@0600,1800 #14 tablet 04/14/17 Unknown Rx Levofloxacin [Levaquin TAB] 750 mg PO Q24HR #8 tablet 04/14/17 Unknown Rx Sodium Bicarbonate 1,300 mg PO BID #14 tablet 04/14/17 Unknown Rx amLODIPine [Norvasc] 10 mg PO DAILY #30 tablet 04/14/17 Unknown Rx oxyCODONE /ACETAMINOPHEN [Percocet 1 tab PO Q6H PRN #10 tablet 04/14/17 Unknown Rx 5/325 mg] Levofloxacin [Levaquin TAB] 500 mg PO QDAY #14 tablet 05/18/17 Unknown Rx Active Meds: Active Medications Amlodipine Besylate (Norvasc) 10 mg PO DAILY [facility] Last Admin: 05/25/17 09:14 Dose: 10 mg Atorvastatin Calcium (Lipitor) 20 mg PO QHS [facility] Last Admin: 05/24/17 22:24 Dose: 20 mg Carvedilol (Coreg) 12.5 mg PO BID [facility] Last Admin: 05/25/17 09:14 Dose: 12.5 mg Dextrose (D50w (25gm) Vial) 25 gm IV PRN PRN PRN Reason: HYPOGLYCEMIA Furosemide (Lasix) 40 mg PO BID@0600,1800 [facility] Last Admin: 05/25/17 06:53 Dose: 40 mg Gabapentin (Neurontin) 300 mg PO Q8HR [facility] Last Admin: 12/04/17 06:53 Dose: 300 mg Heparin Sodium (Porcine) (Heparin) 5,000 unit SUB-Q BID [facility] Last Admin: 05/25/17 09:15 Dose: Not Given Hydralazine HCl (Apresoline) 100 mg PO TID [facility] Last Admin: 05/25/17 08:08 Dose: 100 mg Levofloxacin/Dextrose (Levaquin 750mg/150ml) 750 mg in 150 mls @ 100 mls/hr IV Q24H [facility] PRN Reason: Protocol Last Admin: 05/24/17 18:15 Dose: 100 mls/hr Insulin Aspart (Novolog) 0 units SUB-Q ACHS [facility] PRN Reason: Protocol Last Admin: 05/25/17 11:51 Dose: Not Given Insulin Human Isoph/Insulin Regular (Novolin 70/30) 30 unit SUB-Q BIDDIAB [facility] Last Admin: 05/25/17 08:08 Dose: 30 unit Oxycodone/Acetaminophen (Percocet 5/325) 1 tab PO Q6H PRN PRN Reason: Pain, Moderate (4-6) Last Admin: 05/24/17 14:31 Dose: 1 tab Vitamin B Complex/Folic Acid (Folbee Plus Cz) 1 each PO QDAY [facility] Last Admin: 05/25/17 11:51 Dose: 1 each Review of Systems ROS unobtainable: due to mental status Physical Examination - Physical Exam Narrative exam: General appearance: Alert in NAD, conversant Eyes: anicteric sclerae, moist conjunctivae; no lid-lag; PERRLA HENT: Atraumatic; oropharynx clear with moist mucous membranes and no mucosal ulcerations/no oral thrush; normal hard and soft palate. Normal external ears. Neck: Trachea midline; supple, no thyromegaly or lymphadenopathy Lungs: CTA, with normal respiratory effort and no intercostal retractions CV: RRR, no murmurs Abdomen: Soft, non-tender; no masses or hepatosplenomegaly Extremities: marked elton leg edema. Right heel with ulcer with necrotic tissue and purulence Skin: Normal temperature, turgor and texture; no rash, ulcers or subcutaneous nodules Psych: Appropriate affect, alert and oriented to person, place and time. Neuro: alert and oriented x 3. Moving all extermities Lines: No CVL / PICC - Constitutional Vitals: Vital Signs Temp Pulse Resp BP Pulse Ox 98.8 F 71 18 94/41 98 05/25/17 08:26 05/25/17 08:26 05/25/17 08:26 05/25/17 08:26 05/25/17 08:26 Temperature -Last 24 Hours Temperature 98.8 F Temperature 98.9 F Temperature 99.0 F Results - Labs CBC & Chem 7: 05/25/17 05:42 05/25/17 05:42 Labs: Abnormal lab results 05/24/17 05/24/17 05/24/17 Range/Units 13:00 13:00 14:42 RBC 2.86 L (3.65-5.03) M/mm3 Hgb 7.5 L (11.8-15.2) gm/dl Hct 23.9 L (35.5-45.6) % MCV (84-94) fl MCH 26 L (28-32) pg MCHC 31 L (32-34) % RDW 17.2 H (13.2-15.2) % [place] % (Auto) 9.6 H (0.0-7.3) % Eos % (Auto) 10.3 H (0.0-4.3) % Eos # 0.8 H (0.0-0.4) K/mm3 Potassium (3.6-5.0) mmol/L Chloride 107.4 H (98-107) mmol/L Carbon Dioxide 21 L (22-30) mmol/L BUN 33 H (9-20) mg/dL Creatinine (0.8-1.5) mg/dL Glucose 178 H (75-100) mg/dL POC Glucose 172 H (70-105) Calcium (8.4-10.2) mg/dL C-Reactive Protein 2.80 H (0.00-1.30) mg/dL 05/24/17 05/24/17 05/25/17 Range/Units 17:37 22:26 05:42 RBC 2.58 L (3.65-5.03) M/mm3 Hgb 7.0 L (11.8-15.2) gm/dl Hct 21.4 L (35.5-45.6) % MCV 83 L (84-94) fl MCH 27 L (28-32) pg MCHC (32-34) % RDW 17.1 H (13.2-15.2) % [place] % (Auto) 9.6 H (0.0-7.3) % Eos % (Auto) 9.5 H (0.0-4.3) % Eos # 0.7 H (0.0-0.4) K/mm3 Potassium (3.6-5.0) mmol/L Chloride (98-107) mmol/L Carbon Dioxide (22-30) mmol/L BUN (9-20) mg/dL Creatinine (0.8-1.5) mg/dL Glucose (75-100) mg/dL POC Glucose 177 H 167 H (70-105) Calcium (8.4-10.2) mg/dL C-Reactive Protein (0.00-1.30) mg/dL 05/25/17 05/25/17 Range/Units 05:42 11:49 RBC (3.65-5.03) M/mm3 Hgb (11.8-15.2) gm/dl Hct (35.5-45.6) % MCV (84-94) fl MCH (28-32) pg MCHC (32-34) % RDW (13.2-15.2) % [place] % (Auto) (0.0-7.3) % Eos % (Auto) (0.0-4.3) % Eos # (0.0-0.4) K/mm3 Potassium 5.2 H (3.6-5.0) mmol/L Chloride 107.2 H (98-107) mmol/L Carbon Dioxide 21 L (22-30) mmol/L BUN 34 H (9-20) mg/dL Creatinine 1.7 H (0.8-1.5) mg/dL Glucose 136 H (75-100) mg/dL POC Glucose 110 H (70-105) Calcium 8.3 L (8.4-10.2) mg/dL C-Reactive Protein (0.00-1.30) mg/dL Assessment and Plan Assessment: 1) Right heel pressure ulcer likely necrotic and infected: - Per Vascular arterial ultrasound has monophasic flow in the right popliteal artery and the anterior and posterior tibial arteries. However, velocities are only marginally diminished in the proximal and mid sections of these vessels. - Previous MRI + dorsal foot cellulitis no osteo but increased marrow edema in the calcaneous ? osteo -S/P Right heel debridement on 04/08/17 finding +necrotic skin, SQ and ligaments. OR tissue cx + Proteus and Enterobacter both sensitive to levaquin 2) RUPA 3) NON-compliance Plan: -needs revascularization and debridement -continue levaquin renally dosed -continue legs elevation Poor prognosis ultimately he may need amputation due to non compliance Thank you Dr Dove for your consultation, will follow up with you. Soniya Contreras MD Infectious Diseases Specialist [facility] M [phone] O [phone]
--- NOTE | 2017-05-25 13:52 | Progress Note ---
<ROGERAGUEDA COOPER - Last Filed: 05/25/17 14:26> Assessment and Plan Assessment and plan: 61-year-old -[place] male with past medical history significant for DM , CHF, COPD, hypertension, hyperlipidemia, homelessness presented to the emergency department complaining of right foot pain. Right heel pressure ulcer likely necrotic and infected S/P Right heel debridement on 04/08/17 finding +necrotic skin, SQ and ligaments. Previous MRI + dorsal foot cellulitis no osteo but increased marrow edema in the calcaneous ? osteo Continue on Levaquin as Following by Vascular surgery Following by Wound care; Dr. Ly for possible debridement Diabetes mellitus Accu-Chek before meals and at bedtime Sliding scale insulin/NovoLog ADA carbohydrate consistent diet Anemia Stable at this time, transfusion not needed. Closely monitor H&H Hypertensive urgency Continue home antihypertensive medications Closely monitor blood pressure Homelessness Patient needs SNF placement Case management aware Hyperlipidemia Continue on home antilipid agents Noncompliant with medications Counseled Chronic renal failure Serum creatinine 1.6 but DVT prophylaxis -Heparin History Interval history: Patient complaints lower leg pain and he rated his pain level 10/10. Labs and nursing notes reviewed. Hospitalist Physical - Constitutional Vitals: Temp Pulse Resp BP Pulse Ox 98.8 F 71 18 94/41 98 05/25/17 08:26 05/25/17 08:26 05/25/17 08:26 05/25/17 08:26 05/25/17 08:26 General appearance: Present: no acute distress - EENT Eyes: Present: PERRL ENT: hearing intact - Neck Neck: Present: supple - Respiratory Respiratory effort: normal - Extremities Extremity abnormal: edema, other (marked elton leg edema. Right heel with ulcer with necrotic tissue and purulence) - Abdominal General gastrointestinal: soft, non-tender - Integumentary Integumentary: Present: clear ( Right heel with ulcer with necrotic tissue and purulence), warm - Psychiatric Psychiatric: appropriate mood/affect - Neurologic Neurologic: moves all extremities - Allied Health Allied health notes reviewed: nursing Results - Labs CBC & Chem 7: 05/25/17 05:42 05/25/17 05:42 Labs: Laboratory Last Values WBC 7.9 K/mm3 (4.5-11.0) 05/25/17 05:42 RBC 2.58 M/mm3 (3.65-5.03) L 05/25/17 05:42 Hgb 7.0 gm/dl (11.8-15.2) L 05/25/17 05:42 Hct 21.4 % (35.5-45.6) L 05/25/17 05:42 MCV 83 fl (84-94) L 05/25/17 05:42 MCH 27 pg (28-32) L 05/25/17 05:42 MCHC 33 % (32-34) 05/25/17 05:42 RDW 17.1 % (13.2-15.2) H 05/25/17 05:42 Plt Count 348 K/mm3 (140-440) 05/25/17 05:42 Lymph % (Auto) 21.2 % (13.4-35.0) 05/25/17 05:42 [place] % (Auto) 9.6 % (0.0-7.3) H 05/25/17 05:42 Eos % (Auto) 9.5 % (0.0-4.3) H 05/25/17 05:42 Baso % (Auto) 1.7 % (0.0-1.8) 05/25/17 05:42 Lymph # 1.7 K/mm3 (1.2-5.4) 05/25/17 05:42 [place] # 0.8 K/mm3 (0.0-0.8) 05/25/17 05:42 Eos # 0.7 K/mm3 (0.0-0.4) H 05/25/17 05:42 Baso # 0.1 K/mm3 (0.0-0.1) 05/25/17 05:42 Seg Neutrophils % 58.0 % (40.0-70.0) 05/25/17 05:42 Seg Neutrophils # 4.6 K/mm3 (1.8-7.7) 05/25/17 05:42 VBG pH 7.346 (7.320-7.420) 05/24/17 13:00 Sodium 141 mmol/L (137-145) 05/25/17 05:42 Potassium 5.2 mmol/L (3.6-5.0) H 05/25/17 05:42 Chloride 107.2 mmol/L (98-107) H 05/25/17 05:42 Carbon Dioxide 21 mmol/L (22-30) L 05/25/17 05:42 Anion Gap 18 mmol/L 05/25/17 05:42 BUN 34 mg/dL (9-20) H 05/25/17 05:42 Creatinine 1.7 mg/dL (0.8-1.5) H 05/25/17 05:42 Estimated GFR 50 ml/min 05/25/17 05:42 BUN/Creatinine Ratio 20 % 05/25/17 05:42 Glucose 136 mg/dL (75-100) H 05/25/17 05:42 POC Glucose 110 (70-105) H 05/25/17 11:49 Lactic Acid 0.70 mmol/L (0.7-2.0) 05/24/17 13:00 Calcium 8.3 mg/dL (8.4-10.2) L 05/25/17 05:42 C-Reactive Protein 2.80 mg/dL (0.00-1.30) H 05/24/17 13:00 NT-Pro-B Natriuret Pep 469.5 pg/mL (0-900) 05/24/17 13:00 <MAYELIN WHITLOCK - Last Filed: 05/25/17 17:18> Assessment and Plan Assessment and plan: I saw and evaluated the patient. I agree with the findings and the plan of care as documented in the Nurse Practitioner's~note, with the following corrections and additions. Patient with infected foot ulcer. [place] Physician and vascular surgery consulted. Hospitalist Physical - Constitutional Vitals: Temp Pulse Resp BP Pulse Ox 98.4 F 71 20 124/67 98 05/25/17 13:04 05/25/17 13:04 05/25/17 13:04 05/25/17 13:04 05/25/17 13:04 Results - Labs CBC & Chem 7: 05/25/17 05:42 05/25/17 05:42 Labs: Laboratory Last Values WBC 7.9 K/mm3 (4.5-11.0) 05/25/17 05:42 RBC 2.58 M/mm3 (3.65-5.03) L 05/25/17 05:42 Hgb 7.0 gm/dl (11.8-15.2) L 05/25/17 05:42 Hct 21.4 % (35.5-45.6) L 05/25/17 05:42 MCV 83 fl (84-94) L 05/25/17 05:42 MCH 27 pg (28-32) L 05/25/17 05:42 MCHC 33 % (32-34) 05/25/17 05:42 RDW 17.1 % (13.2-15.2) H 05/25/17 05:42 Plt Count 348 K/mm3 (140-440) 05/25/17 05:42 Lymph % (Auto) 21.2 % (13.4-35.0) 05/25/17 05:42 [place] % (Auto) 9.6 % (0.0-7.3) H 05/25/17 05:42 Eos % (Auto) 9.5 % (0.0-4.3) H 05/25/17 05:42 Baso % (Auto) 1.7 % (0.0-1.8) 05/25/17 05:42 Lymph # 1.7 K/mm3 (1.2-5.4) 05/25/17 05:42 [place] # 0.8 K/mm3 (0.0-0.8) 05/25/17 05:42 Eos # 0.7 K/mm3 (0.0-0.4) H 05/25/17 05:42 Baso # 0.1 K/mm3 (0.0-0.1) 05/25/17 05:42 Seg Neutrophils % 58.0 % (40.0-70.0) 05/25/17 05:42 Seg Neutrophils # 4.6 K/mm3 (1.8-7.7) 05/25/17 05:42 VBG pH 7.346 (7.320-7.420) 05/24/17 13:00 Sodium 141 mmol/L (137-145) 05/25/17 05:42 Potassium 5.2 mmol/L (3.6-5.0) H 05/25/17 05:42 Chloride 107.2 mmol/L (98-107) H 05/25/17 05:42 Carbon Dioxide 21 mmol/L (22-30) L 05/25/17 05:42 Anion Gap 18 mmol/L 05/25/17 05:42 BUN 34 mg/dL (9-20) H 05/25/17 05:42 Creatinine 1.7 mg/dL (0.8-1.5) H 05/25/17 05:42 Estimated GFR 50 ml/min 05/25/17 05:42 BUN/Creatinine Ratio 20 % 05/25/17 05:42 Glucose 136 mg/dL (75-100) H 05/25/17 05:42 POC Glucose 204 (70-105) H 05/25/17 16:42 Lactic Acid 0.70 mmol/L (0.7-2.0) 05/24/17 13:00 Calcium 8.3 mg/dL (8.4-10.2) L 05/25/17 05:42 C-Reactive Protein 2.80 mg/dL (0.00-1.30) H 05/24/17 13:00 NT-Pro-B Natriuret Pep 469.5 pg/mL (0-900) 05/24/17 13:00
[2017-05-25] MEDS ORDERED: KIONEX PO ONE (15:00)
[2017-05-25] MEDS: PERCOCET 5/325 PO PRN (15:15)
--- NOTE | 2017-05-25 15:17 | Consultation ---
History of Present Illness - Reason for Consult Consult date: 05/25/17 Requesting physician: MAYELIN WHITLOCK - History of Present Illness This patient is a 61-year-old male that was admitted via the emergency room on 05/24/2017 due to right foot pain. He has a chronic wound to his right foot which has been present for the last 1-2 years. He was recently admitted to the hospital. He was followed by the wound care service. A Vascular surgery consult had been placed. He had underlying peripheral vascular disease, but he was unable to undergo angiography given underlying kidney failure and the risk of contrast nephropathy. Despite abnormal blood flow to his right lower extremity, with good inpatient wound care his wounds showed improvement with granulation tissue formation. The patient was discharged to a "custodial house" and subsequently "kicked out" until cleared medically to live unsupervised. He has returned to the hospital for further evaluation. Following admission vascular surgery, wound care, ID, and nephrology consult have been reconsulted. The patient states following discharge, he was unable to follow-up with the outpt wound care clinic. He reports having difficulty removing the bandages, and has not receive routine dressing changes. Past History Past Medical History: COPD, diabetes, heart failure, hypertension, hyperlipidemia Past Surgical History: Other (bilateral knee surgery, wound debridement) Social history: Lives alone (Homeless), full code. denies: smoking, alcohol abuse, prescription drug abuse, IV drug use Family history: CAD, hypertension Medications and Allergies Allergies Allergy/AdvReac Type Severity Reaction Status Date / Time No Known Allergies Allergy Verified 05/18/17 00:10 Home Medications Medication Instructions Recorded Confirmed Last Taken Type Gabapentin [Neurontin] 300 mg PO Q8HR #90 capsule 11/04/15 04/05/17 1 Day Ago Rx ~03/01/17 AtorvaSTATin [Lipitor] 20 mg PO QHS 04/09/16 04/05/17 1 Day Ago History ~03/01/17 Ergocalciferol(Vitamin D2)(Nf) 50,000 unit PO QWEEK 04/09/16 04/05/17 1 Day Ago History [Vitamin D (Nf)] ~03/01/17 Insulin Lispro Prot/Lispro 30 unit SQ BID 03/05/17 04/05/17 Unknown History [HumaLOG Mix 75/25 Vial] Leucovorin/Pyridox/Mecobalamin 1 tab PO QDAY 03/12/17 04/05/17 Unknown History [Folinic-Plus Caplet] hydrALAZINE [Apresoline TAB] 100 mg PO TID 03/12/17 04/05/17 Unknown History Carvedilol [Coreg] 12.5 mg PO BID #30 tablet 04/14/17 Unknown Rx Fluconazole [Diflucan TAB] 100 mg PO QDAY #7 tablet 04/14/17 Unknown Rx Folic Acid/Vit Bcomp&C/Cu/Znox 1 each PO QDAY #30 tablet 04/14/17 Unknown Rx [Folbee Plus Cz] Furosemide [Lasix TAB] 40 mg PO BID@0600,1800 #14 tablet 04/14/17 Unknown Rx Levofloxacin [Levaquin TAB] 750 mg PO Q24HR #8 tablet 04/14/17 Unknown Rx Sodium Bicarbonate 1,300 mg PO BID #14 tablet 04/14/17 Unknown Rx amLODIPine [Norvasc] 10 mg PO DAILY #30 tablet 04/14/17 Unknown Rx oxyCODONE /ACETAMINOPHEN [Percocet 1 tab PO Q6H PRN #10 tablet 04/14/17 Unknown Rx 5/325 mg] Levofloxacin [Levaquin TAB] 500 mg PO QDAY #14 tablet 05/18/17 Unknown Rx Active Meds: Active Medications Amlodipine Besylate (Norvasc) 10 mg PO DAILY [facility] Last Admin: 05/25/17 09:14 Dose: 10 mg Atorvastatin Calcium (Lipitor) 20 mg PO QHS [facility] Last Admin: 05/24/17 22:24 Dose: 20 mg Carvedilol (Coreg) 12.5 mg PO BID [facility] Last Admin: 05/25/17 09:14 Dose: 12.5 mg Dextrose (D50w (25gm) Vial) 25 gm IV PRN PRN PRN Reason: HYPOGLYCEMIA Furosemide (Lasix) 40 mg PO BID@0600,1800 [facility] Last Admin: 05/25/17 06:53 Dose: 40 mg Gabapentin (Neurontin) 300 mg PO Q8HR [facility] Last Admin: 05/25/17 13:19 Dose: 300 mg Heparin Sodium (Porcine) (Heparin) 5,000 unit SUB-Q BID [facility] Last Admin: 05/25/17 09:15 Dose: Not Given Hydralazine HCl (Apresoline) 100 mg PO TID [facility] Last Admin: 05/25/17 13:19 Dose: 100 mg Levofloxacin/Dextrose (Levaquin 750mg/150ml) 750 mg in 150 mls @ 100 mls/hr IV Q24H [facility] PRN Reason: Protocol Last Admin: 05/24/17 18:15 Dose: 100 mls/hr Insulin Aspart (Novolog) 0 units SUB-Q ACHS [facility] PRN Reason: Protocol Last Admin: 05/25/17 11:51 Dose: Not Given Insulin Human Isoph/Insulin Regular (Novolin 70/30) 30 unit SUB-Q BIDDIAB [facility] Last Admin: 05/25/17 08:08 Dose: 30 unit Oxycodone/Acetaminophen (Percocet 5/325) 1 tab PO Q6H PRN PRN Reason: Pain, Moderate (4-6) Last Admin: 05/24/17 14:31 Dose: 1 tab Vitamin B Complex/Folic Acid (Folbee Plus Cz) 1 each PO QDAY [facility] Last Admin: 05/25/17 11:51 Dose: 1 each Review of Systems All systems: negative Exam - Constitutional Vitals: Temp Pulse Resp BP Pulse Ox 98.4 F 71 20 124/67 98 05/25/17 13:04 05/25/17 13:04 05/25/17 13:04 05/25/17 13:04 05/25/17 13:04 General appearance: Present: no acute distress, disheveled - EENT Eyes: Present: EOM intact - Neck Neck: Present: supple - Respiratory Respiratory effort: normal - Extremities Extremities: no ischemia, normal temperature, abnormal (Large posterior right heel wound. Red granulation wound base with yellow/brown fibrinous slough. See pictures.) Extremity abnormal: black (blackened eschar to the distal tip of the right great toe), other (superficial ulceration of the crease across the dorsum of his right foot) - Psychiatric Psychiatric: no appropriate mood/affect (frequently confrontational with other members of staff), cooperative - Additional findings Additional findings: Results - Labs CBC & Chem 7: 05/25/17 05:42 05/25/17 05:42 Labs: Abnormal lab results 05/24/17 05/24/17 05/24/17 Range/Units 14:42 17:37 22:26 RBC (3.65-5.03) M/mm3 Hgb (11.8-15.2) gm/dl Hct (35.5-45.6) % MCV (84-94) fl MCH (28-32) pg RDW (13.2-15.2) % [place] % (Auto) (0.0-7.3) % Eos % (Auto) (0.0-4.3) % Eos # (0.0-0.4) K/mm3 Potassium (3.6-5.0) mmol/L Chloride (98-107) mmol/L Carbon Dioxide (22-30) mmol/L BUN (9-20) mg/dL Creatinine (0.8-1.5) mg/dL Glucose (75-100) mg/dL POC Glucose 172 H 177 H 167 H (70-105) Calcium (8.4-10.2) mg/dL 05/25/17 05/25/17 05/25/17 Range/Units 05:42 05:42 11:49 RBC 2.58 L (3.65-5.03) M/mm3 Hgb 7.0 L (11.8-15.2) gm/dl Hct 21.4 L (35.5-45.6) % MCV 83 L (84-94) fl MCH 27 L (28-32) pg RDW 17.1 H (13.2-15.2) % [place] % (Auto) 9.6 H (0.0-7.3) % Eos % (Auto) 9.5 H (0.0-4.3) % Eos # 0.7 H (0.0-0.4) K/mm3 Potassium 5.2 H (3.6-5.0) mmol/L Chloride 107.2 H (98-107) mmol/L Carbon Dioxide 21 L (22-30) mmol/L BUN 34 H (9-20) mg/dL Creatinine 1.7 H (0.8-1.5) mg/dL Glucose 136 H (75-100) mg/dL POC Glucose 110 H (70-105) Calcium 8.3 L (8.4-10.2) mg/dL Assessment and Plan This patient has mild underlying peripheral vascular disease with a chronic ulceration to his right foot. However, despite this his wounds show granulation tissue. The risk of contrast nephropathy likely outweigh the benefit of improved arterial flow to his right lower extremity. Continue with local wound care. Should his wounds fail to improve, angiography could be reconsidered. This was discussed with the patient. - Patient Problems (1) Atherosclerosis of [place] arteries of the extremities with ulceration Current Visit: Yes Status: Acute (2) Noncompliance Current Visit: No Status: Suspected (3) HTN (hypertension) Current Visit: No Status: Acute (4) IDDM (insulin dependent diabetes mellitus) Current Visit: No Status: Acute (5) Renal insufficiency Current Visit: No Status: Acute (6) Diabetes mellitus Current Visit: No Status: Chronic Qualifiers: Diabetes mellitus type: other specified (including ZAINA) Diabetes mellitus complication status: with hyperglycemia
[2017-05-25] MEDS: LEVAQUIN 750MG/150ML 750 MG/150 ML BAG IV SCH (15:23)
[2017-05-26] MEDS: LASIX PO SCH ×2 (05:22→18:01)
[2017-05-26] MEDS: NEURONTIN PO SCH ×3 (05:22→21:04)
--- NOTE | 2017-05-26 08:30 | Progress Note ---
<AGUEDA CUNHA - Last Filed: 05/26/17 15:21> Assessment and Plan Assessment and plan: Patient is a 61-year-old -Chinese male with past medical history significant for DM, CHF, COPD, hypertension, hyperlipidemia, homelessness presented to the emergency department complaining of right foot pain. Right heel pressure ulcer likely necrotic and infected S/P Right heel debridement on 04/08/17 finding +necrotic skin, SQ and ligaments. Previous MRI + dorsal foot cellulitis no osteo but increased marrow edema in the calcaneous ? osteo Continue on Levaquin as Following by Vascular surgery Following by Wound care; Dr. Ly for possible debridement Infectious diseases following Diabetes mellitus Accu-Chek before meals and at bedtime Sliding scale insulin/NovoLog ADA carbohydrate consistent diet Anemia Stable at this time, transfusion not needed. Closely monitor H&H Hypertensive urgency Continue home antihypertensive medications Closely monitor blood pressure Homelessness Patient needs SNF placement Case management aware Hyperlipidemia Continue on home antilipid agents Noncompliant with medications Counseled Chronic renal failure Serum creatinine 1.6 today if renal function not improve with fluid we will consider nephrology Repeat BMP Closely monitor DVT prophylaxis -Heparin History Interval history: Patient denies having pain at present time. labs and nursing notes reviewed. Hospitalist Physical - Constitutional Vitals: Temp Pulse Resp BP Pulse Ox 99.4 F 84 20 114/62 99 05/26/17 08:19 05/26/17 08:19 05/26/17 08:19 05/26/17 08:19 05/26/17 08:19 General appearance: Present: no acute distress, disheveled - EENT Eyes: Present: PERRL ENT: hearing intact - Neck Neck: Present: supple - Respiratory Respiratory effort: normal Respiratory: bilateral: CTA - Cardiovascular Rhythm: regular Heart Sounds: Present: S1 & S2 - Extremities Extremities: no ischemia Extremity abnormal: other (marked elton leg edema. Right heel with ulcer with necrotic tissue and purulence) - Abdominal General gastrointestinal: soft, non-tender - Integumentary Integumentary: Present: clear (Right heel with ulcer with necrotic tissue and purulence) - Psychiatric Psychiatric: appropriate mood/affect - Neurologic Neurologic: CNII-XII intact - Allied Health Allied health notes reviewed: nursing Results - Labs CBC & Chem 7: 05/25/17 05:42 05/25/17 05:42 Labs: Laboratory Last Values WBC 7.9 K/mm3 (4.5-11.0) 05/25/17 05:42 RBC 2.58 M/mm3 (3.65-5.03) L 05/25/17 05:42 Hgb 7.0 gm/dl (11.8-15.2) L 05/25/17 05:42 Hct 21.4 % (35.5-45.6) L 05/25/17 05:42 MCV 83 fl (84-94) L 05/25/17 05:42 MCH 27 pg (28-32) L 05/25/17 05:42 MCHC 33 % (32-34) 05/25/17 05:42 RDW 17.1 % (13.2-15.2) H 05/25/17 05:42 Plt Count 348 K/mm3 (140-440) 05/25/17 05:42 Lymph % (Auto) 21.2 % (13.4-35.0) 05/25/17 05:42 [place] % (Auto) 9.6 % (0.0-7.3) H 05/25/17 05:42 Eos % (Auto) 9.5 % (0.0-4.3) H 05/25/17 05:42 Baso % (Auto) 1.7 % (0.0-1.8) 05/25/17 05:42 Lymph # 1.7 K/mm3 (1.2-5.4) 05/25/17 05:42 [place] # 0.8 K/mm3 (0.0-0.8) 05/25/17 05:42 Eos # 0.7 K/mm3 (0.0-0.4) H 05/25/17 05:42 Baso # 0.1 K/mm3 (0.0-0.1) 05/25/17 05:42 Seg Neutrophils % 58.0 % (40.0-70.0) 05/25/17 05:42 Seg Neutrophils # 4.6 K/mm3 (1.8-7.7) 05/25/17 05:42 VBG pH 7.346 (7.320-7.420) 05/24/17 13:00 Sodium 141 mmol/L (137-145) 05/25/17 05:42 Potassium 5.2 mmol/L (3.6-5.0) H 05/25/17 05:42 Chloride 107.2 mmol/L (98-107) H 05/25/17 05:42 Carbon Dioxide 21 mmol/L (22-30) L 05/25/17 05:42 Anion Gap 18 mmol/L 05/25/17 05:42 BUN 34 mg/dL (9-20) H 05/25/17 05:42 Creatinine 1.7 mg/dL (0.8-1.5) H 05/25/17 05:42 Estimated GFR 50 ml/min 05/25/17 05:42 BUN/Creatinine Ratio 20 % 05/25/17 05:42 Glucose 136 mg/dL (75-100) H 05/25/17 05:42 POC Glucose 206 (70-105) H 05/26/17 05:21 Lactic Acid 0.70 mmol/L (0.7-2.0) 05/24/17 13:00 Calcium 8.3 mg/dL (8.4-10.2) L 05/25/17 05:42 C-Reactive Protein 2.80 mg/dL (0.00-1.30) H 05/24/17 13:00 NT-Pro-B Natriuret Pep 469.5 pg/mL (0-900) 05/24/17 13:00 <MAYELIN WHITLOCK - Last Filed: 05/26/17 16:04> Assessment and Plan Assessment and plan: I saw and evaluated the patient. I agree with the findings and the plan of care as documented in the Nurse Practitioner's~note, with the following corrections and additions. Patient is 61 yo with infected right heel ulcer. For surgery tomorrow. Hospitalist Physical - Constitutional Vitals: Temp Pulse Resp BP Pulse Ox 99.4 F 84 20 114/62 99 05/26/17 08:19 05/26/17 08:19 05/26/17 08:19 05/26/17 08:19 05/26/17 08:19 Results - Labs CBC & Chem 7: 05/25/17 05:42 05/25/17 05:42 Labs: Laboratory Last Values WBC 7.9 K/mm3 (4.5-11.0) 05/25/17 05:42 RBC 2.58 M/mm3 (3.65-5.03) L 05/25/17 05:42 Hgb 7.0 gm/dl (11.8-15.2) L 05/25/17 05:42 Hct 21.4 % (35.5-45.6) L 05/25/17 05:42 MCV 83 fl (84-94) L 05/25/17 05:42 MCH 27 pg (28-32) L 05/25/17 05:42 MCHC 33 % (32-34) 05/25/17 05:42 RDW 17.1 % (13.2-15.2) H 05/25/17 05:42 Plt Count 348 K/mm3 (140-440) 05/25/17 05:42 Lymph % (Auto) 21.2 % (13.4-35.0) 05/25/17 05:42 [place] % (Auto) 9.6 % (0.0-7.3) H 05/25/17 05:42 Eos % (Auto) 9.5 % (0.0-4.3) H 05/25/17 05:42 Baso % (Auto) 1.7 % (0.0-1.8) 05/25/17 05:42 Lymph # 1.7 K/mm3 (1.2-5.4) 05/25/17 05:42 [place] # 0.8 K/mm3 (0.0-0.8) 05/25/17 05:42 Eos # 0.7 K/mm3 (0.0-0.4) H 05/25/17 05:42 Baso # 0.1 K/mm3 (0.0-0.1) 05/25/17 05:42 Seg Neutrophils % 58.0 % (40.0-70.0) 05/25/17 05:42 Seg Neutrophils # 4.6 K/mm3 (1.8-7.7) 05/25/17 05:42 VBG pH 7.346 (7.320-7.420) 05/24/17 13:00 Sodium 141 mmol/L (137-145) 05/25/17 05:42 Potassium 5.2 mmol/L (3.6-5.0) H 05/25/17 05:42 Chloride 107.2 mmol/L (98-107) H 05/25/17 05:42 Carbon Dioxide 21 mmol/L (22-30) L 05/25/17 05:42 Anion Gap 18 mmol/L 05/25/17 05:42 BUN 34 mg/dL (9-20) H 05/25/17 05:42 Creatinine 1.7 mg/dL (0.8-1.5) H 05/25/17 05:42 Estimated GFR 50 ml/min 05/25/17 05:42 BUN/Creatinine Ratio 20 % 05/25/17 05:42 Glucose 136 mg/dL (75-100) H 05/25/17 05:42 POC Glucose 205 (70-105) H 05/26/17 11:53 Lactic Acid 0.70 mmol/L (0.7-2.0) 05/24/17 13:00 Calcium 8.3 mg/dL (8.4-10.2) L 05/25/17 05:42 C-Reactive Protein 2.80 mg/dL (0.00-1.30) H 05/24/17 13:00 NT-Pro-B Natriuret Pep 469.5 pg/mL (0-900) 05/24/17 13:00
[2017-05-26] MEDS: APRESOLINE PO SCH ×3 (09:09→21:04)
[2017-05-26] MEDS: NOVOLOG SUB-Q SCH ×4 (09:09→23:00)
[2017-05-26] MEDS: FOLBEE PLUS CZ PO SCH (09:10)
[2017-05-26] MEDS: NORVASC PO SCH (09:10)
[2017-05-26] MEDS: HEPARIN SUB-Q SCH ×2 (09:10→23:00)
[2017-05-26] MEDS: COREG PO SCH ×2 (09:10→21:04)
--- NOTE | 2017-05-26 14:23 | Progress Note ---
Assessment and Plan - Patient Problems (1) Diabetic foot ulcers Current Visit: Yes Status: Acute Qualifiers: Diabetic foot ulcer location: heel Diabetes mellitus type: type 2 Laterality: right Non-pressure ulcer stage: limited to breakdown of skin Qualified Code(s): E11.621 - Type 2 diabetes mellitus with foot ulcer; L97.411 - Non-pressure chronic ulcer of right heel and midfoot limited to breakdown of skin; L97.411 - Non-pressure chronic ulcer of right heel and midfoot limited to breakdown of skin; L97.411 - Non-pressure chronic ulcer of right heel and midfoot limited to breakdown of skin; L97.411 - Non-pressure chronic ulcer of right heel and midfoot limited to breakdown of skin Plan to address problem: 1) NPO after MN 2) Debride in the OR tomorrow Subjective Date of service: 05/26/17 Patient Reports: Positive: no new complaints Narrative: Vascular has decided not to pursue angiography. Objective Vital Signs - 12hr 05/26/17 08:19 Temperature 99.4 F Pulse Rate 84 Respiratory 20 Rate Blood Pressure 114/62 O2 Sat by Pulse 99 Oximetry - Integumentary other (Right foot ulcer is without change.) - Labs 05/25/17 05:42 05/25/17 05:42
[2017-05-26] MEDS: LEVAQUIN 750MG/150ML 750 MG/150 ML BAG IV SCH (18:00)
[2017-05-27] MEDS: NEURONTIN PO SCH ×3 (05:05→22:29)
[2017-05-27] MEDS: LASIX PO SCH ×2 (05:05→18:24)
[2017-05-27] MEDS: NOVOLOG SUB-Q SCH ×4 (07:30→22:48)
--- NOTE | 2017-05-27 08:52 | Anesthesia Day of Surgery ---
Anesthesia Day of Surgery - Day of Surgery Patient Examined: Yes Patient H&P Reviewed: Yes Patient is NPO: Yes
--- NOTE | 2017-05-27 08:52 | Anesthesia Consultation ---
Anesthesia Consult and Med Hx Date of service: 05/27/17 - Airway Anesthetic Teeth Evaluation: Poor ROM Head & Neck: Adequate Mental/Hyoid Distance: Adequate Mallampati Class: Class II Intubation Access Assessment: Good - Pulmonary Exam CTA: Yes - Cardiac Exam Cardiac Exam: RRR - Pre-Operative Health Status ASA Pre-Surgery Classification: ASA3 Proposed Anesthetic Plan: MAC - Pulmonary Hx Smoking: Yes (former smoker) Hx Asthma: No COPD: Yes Hx Pneumonia: Yes Hx Sleep Apnea: No (high risk) - Cardiovascular System Hx Hypertension: Yes Hx Pacemaker: No Hx Internal Defibrillator: No Hx Peripheral Vascular Disease: Yes - Endocrine Hx Renal Disease: Yes (RUPA) Hx End Stage Renal Disease: No Hx Insulin Dependent Diabetes: Yes Hx Non-Insulin Dependent Diabetes: Yes - Hematic Hx Anemia: Yes - Other Systems Hx Alcohol Use: Yes Hx Cancer: No Hx Obesity: Yes (BMI > 40)
[2017-05-27] MEDS ORDERED: DIPRIVAN 10 MG/ML IV ONE ×2 (08:54→09:50)
[2017-05-27] MEDS ORDERED: SUBLIMAZE ONE (08:54)
[2017-05-27] MEDS ORDERED: XYLOCAINE MPF 2% ONE (08:54)
[2017-05-27] MEDS ORDERED: MARCAINE 0.25% INFILTRATI ONE (09:15)
[2017-05-27] MEDS: NACL 0.9% 1000 ML 1,000 ML IV SCH ×2 (09:20→13:41)
[2017-05-27] MEDS ORDERED: NACL 0.9% IR ONE (09:34)
--- NOTE | 2017-05-27 09:36 | Progress Note ---
<AGUEDA CUNHA - Last Filed: 05/27/17 16:31> Assessment and Plan Assessment and plan: Patient is a 61-year-old -[place] male with past medical history significant for DM, CHF, COPD, hypertension, hyperlipidemia, homelessness presented to the emergency department complaining of right foot pain. Right heel pressure ulcer likely necrotic and infected S/P repeat debridement today05/27/17. S/P Right heel debridement on 04/08/17 finding +necrotic skin, SQ and ligaments. Previous MRI + dorsal foot cellulitis no osteo but increased marrow edema in the calcaneous ? osteo Continue on Levaquin as Following by Vascular surgery Following by Wound care; Dr. Ly for possible debridement Infectious diseases following Diabetes mellitus Accu-Chek before meals and at bedtime Sliding scale insulin/NovoLog ADA carbohydrate consistent diet Anemia Stable at this time, transfusion not needed. Closely monitor H&H Hypertensive urgency Continue home antihypertensive medications Closely monitor blood pressure Homelessness Patient needs SNF placement Case management aware Hyperlipidemia Continue on home antilipid agents Noncompliant with medications Counseled Chronic renal failure Elevated Serum creatinine Nephrology following Repeat BMP Closely monitor DVT prophylaxis -Heparin History Interval history: Patient denies having pain at present time. labs and nursing notes reviewed. Hospitalist Physical - Constitutional Vitals: Temp Pulse Resp BP Pulse Ox 98.5 F 71 19 111/42 90 05/27/17 07:35 05/27/17 07:35 05/27/17 07:35 05/27/17 07:35 05/27/17 07:35 General appearance: Present: no acute distress, disheveled - EENT Eyes: Present: PERRL ENT: hearing intact - Neck Neck: Present: supple - Respiratory Respiratory effort: normal Respiratory: bilateral: CTA - Cardiovascular Rhythm: regular Heart Sounds: Present: S1 & S2 - Extremities Extremity abnormal: other (marked [place] leg edema. Right heel with ulcer with necrotic tissue and purulence) - Abdominal General gastrointestinal: soft, non-tender - Integumentary Integumentary: Present: clear ( Right heel with ulcer with necrotic tissue and purulence) - Psychiatric Psychiatric: appropriate mood/affect - Allied Health Allied health notes reviewed: nursing Results - Labs CBC & Chem 7: 05/25/17 05:42 05/25/17 05:42 Labs: Laboratory Last Values WBC 7.9 K/mm3 (4.5-11.0) 05/25/17 05:42 RBC 2.58 M/mm3 (3.65-5.03) L 05/25/17 05:42 Hgb 7.0 gm/dl (11.8-15.2) L 05/25/17 05:42 Hct 21.4 % (35.5-45.6) L 05/25/17 05:42 MCV 83 fl (84-94) L 05/25/17 05:42 MCH 27 pg (28-32) L 05/25/17 05:42 MCHC 33 % (32-34) 05/25/17 05:42 RDW 17.1 % (13.2-15.2) H 05/25/17 05:42 Plt Count 348 K/mm3 (140-440) 05/25/17 05:42 Lymph % (Auto) 21.2 % (13.4-35.0) 05/25/17 05:42 [place] % (Auto) 9.6 % (0.0-7.3) H 05/25/17 05:42 Eos % (Auto) 9.5 % (0.0-4.3) H 05/25/17 05:42 Baso % (Auto) 1.7 % (0.0-1.8) 05/25/17 05:42 Lymph # 1.7 K/mm3 (1.2-5.4) 05/25/17 05:42 [place] # 0.8 K/mm3 (0.0-0.8) 05/25/17 05:42 Eos # 0.7 K/mm3 (0.0-0.4) H 05/25/17 05:42 Baso # 0.1 K/mm3 (0.0-0.1) 05/25/17 05:42 Seg Neutrophils % 58.0 % (40.0-70.0) 05/25/17 05:42 Seg Neutrophils # 4.6 K/mm3 (1.8-7.7) 05/25/17 05:42 VBG pH 7.346 (7.320-7.420) 05/24/17 13:00 Sodium 141 mmol/L (137-145) 05/25/17 05:42 Potassium 5.2 mmol/L (3.6-5.0) H 05/25/17 05:42 Chloride 107.2 mmol/L (98-107) H 05/25/17 05:42 Carbon Dioxide 21 mmol/L (22-30) L 05/25/17 05:42 Anion Gap 18 mmol/L 05/25/17 05:42 BUN 34 mg/dL (9-20) H 05/25/17 05:42 Creatinine 1.7 mg/dL (0.8-1.5) H 05/25/17 05:42 Estimated GFR 50 ml/min 05/25/17 05:42 BUN/Creatinine Ratio 20 % 05/25/17 05:42 Glucose 136 mg/dL (75-100) H 05/25/17 05:42 POC Glucose 159 (70-105) H 05/27/17 09:32 Lactic Acid 0.70 mmol/L (0.7-2.0) 05/24/17 13:00 Calcium 8.3 mg/dL (8.4-10.2) L 05/25/17 05:42 C-Reactive Protein 2.80 mg/dL (0.00-1.30) H 05/24/17 13:00 NT-Pro-B Natriuret Pep 469.5 pg/mL (0-900) 05/24/17 13:00 <MAYELIN WHITLOCK O - Last Filed: 05/28/17 06:19> Assessment and Plan Assessment and plan: I saw and evaluated the patient. I agree with the findings and the plan of care as documented in the Nurse Practitioner's~note, with the following corrections and additions. Patient with infected diabetic right heel ulcer. For debridement by Malachi Narayanan today. Hospitalist Physical - Constitutional Vitals: Temp Pulse Resp BP Pulse Ox 98.9 F 79 16 111/54 97 05/27/17 20:34 05/27/17 22:34 05/27/17 20:34 05/27/17 22:34 05/27/17 16:14 Results - Labs CBC & Chem 7: 05/25/17 05:42 05/25/17 05:42 Labs: Laboratory Last Values WBC 7.9 K/mm3 (4.5-11.0) 05/25/17 05:42 RBC 2.58 M/mm3 (3.65-5.03) L 05/25/17 05:42 Hgb 7.0 gm/dl (11.8-15.2) L 05/25/17 05:42 Hct 21.4 % (35.5-45.6) L 05/25/17 05:42 MCV 83 fl (84-94) L 05/25/17 05:42 MCH 27 pg (28-32) L 05/25/17 05:42 MCHC 33 % (32-34) 05/25/17 05:42 RDW 17.1 % (13.2-15.2) H 05/25/17 05:42 Plt Count 348 K/mm3 (140-440) 05/25/17 05:42 Lymph % (Auto) 21.2 % (13.4-35.0) 05/25/17 05:42 [place] % (Auto) 9.6 % (0.0-7.3) H 05/25/17 05:42 Eos % (Auto) 9.5 % (0.0-4.3) H 05/25/17 05:42 Baso % (Auto) 1.7 % (0.0-1.8) 05/25/17 05:42 Lymph # 1.7 K/mm3 (1.2-5.4) 05/25/17 05:42 [place] # 0.8 K/mm3 (0.0-0.8) 05/25/17 05:42 Eos # 0.7 K/mm3 (0.0-0.4) H 05/25/17 05:42 Baso # 0.1 K/mm3 (0.0-0.1) 05/25/17 05:42 Seg Neutrophils % 58.0 % (40.0-70.0) 05/25/17 05:42 Seg Neutrophils # 4.6 K/mm3 (1.8-7.7) 05/25/17 05:42 VBG pH 7.346 (7.320-7.420) 05/24/17 13:00 Sodium 141 mmol/L (137-145) 05/25/17 05:42 Potassium 5.2 mmol/L (3.6-5.0) H 05/25/17 05:42 Chloride 107.2 mmol/L (98-107) H 05/25/17 05:42 Carbon Dioxide 21 mmol/L (22-30) L 05/25/17 05:42 Anion Gap 18 mmol/L 05/25/17 05:42 BUN 34 mg/dL (9-20) H 05/25/17 05:42 Creatinine 1.7 mg/dL (0.8-1.5) H 05/25/17 05:42 Estimated GFR 50 ml/min 05/25/17 05:42 BUN/Creatinine Ratio 20 % 05/25/17 05:42 Glucose 136 mg/dL (75-100) H 05/25/17 05:42 POC Glucose 158 (70-105) H 05/27/17 22:33 Lactic Acid 0.70 mmol/L (0.7-2.0) 05/24/17 13:00 Calcium 8.3 mg/dL (8.4-10.2) L 05/25/17 05:42 C-Reactive Protein 2.80 mg/dL (0.00-1.30) H 05/24/17 13:00 NT-Pro-B Natriuret Pep 469.5 pg/mL (0-900) 05/24/17 13:00
[2017-05-27] MEDS ORDERED: LEVAQUIN 750MG/150ML 750 MG/150 ML BAG IV SCH (10:00)
--- NOTE | 2017-05-27 10:10 | Post Operative Note ---
Pre-op diagnosis: Non-healing diabetic right heel ulcer with necrotic skin, SQ and fascia Post-op diagnosis: same Procedure: Debridement of necrotic skin, SQ and fascia, right heel, 25 cm Anesthesia: MAC Surgeon: ISHA ABRAHAM Estimated blood loss: minimal Pathology: none Condition: stable Disposition: PACU (Pt will probably need a BKA the next time he presents as he has minimal soft tissue covering his calcaneus.)
[2017-05-27] MEDS: NORVASC PO SCH (13:32)
[2017-05-27] MEDS: COREG PO SCH ×2 (13:32→22:34)
[2017-05-27] MEDS: APRESOLINE PO SCH ×3 (13:33→22:33)
[2017-05-27] MEDS: FOLBEE PLUS CZ PO SCH (13:33)
[2017-05-27] MEDS: HEPARIN SUB-Q SCH ×2 (13:36→22:39)
--- NOTE | 2017-05-27 14:36 | Progress Note ---
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 However, velocities are only marginally diminished in the proximal and mid sections of these vessels. - Previous MRI + dorsal foot cellulitis no osteo but increased marrow edema in the calcaneous ? osteo -S/P Right heel debridement on 04/08/17 finding +necrotic skin, SQ and ligaments. OR tissue cx + Proteus and Enterobacter both sensitive to levaquin -S/P repeat debridement today-wound Cx + Staph 2) RUPA - worsneing 3) NON-compliance Plan: -add linezolid for now -continue levaquin renally dosed -wound cx Poor prognosis ultimately he may need amputation due to non compliance Thank you Dr Dove for your consultation, will follow up with you. Soniya Contreras MD Infectious Diseases Specialist [facility], [place], [facility] ([facility]) M [phone] O [phone] Subjective Date of service: 05/27/17 Interval history: Feels ok non verbal, alert no fever, went tot the OR Micro: Wound cx 05/25 Staph aureus Antimicrobial: levaquin 05/24 Objective - Exam Narrative Exam: General appearance: Alert in NAD, conversant Eyes: anicteric sclerae, moist conjunctivae; no lid-lag; PERRLA HENT: Atraumatic; oropharynx clear with moist mucous membranes and no mucosal ulcerations/no oral thrush; normal hard and soft palate. Normal external ears. Neck: Trachea midline; supple, no thyromegaly or lymphadenopathy Lungs: CTA, with normal respiratory effort and no intercostal retractions CV: RRR, no murmurs Abdomen: Soft, non-tender; no masses or hepatosplenomegaly Extremities: marked elton leg edema. Right heel with ulcer with necrotic tissue and purulence Skin: Normal temperature, turgor and texture; no rash, ulcers or subcutaneous nodules Psych: Appropriate affect, alert and oriented to person, place and time. Neuro: alert and oriented x 3. Moving all extermities Lines: No CVL / PICC - Constitutional Vitals: Vital Signs Temp Pulse Resp BP Pulse Ox 98.6 F 72 18 139/64 100 05/27/17 10:14 05/27/17 13:32 05/27/17 10:35 05/27/17 13:32 05/27/17 10:35 Temperature -Last 24 Hours Temperature 98.6 F Temperature 97.6 F Temperature 98.6 F Temperature 98.5 F Temperature 99.8 F - Labs CBC & Chem 7: 05/25/17 05:42 05/25/17 05:42 Labs: Abnormal lab results 05/26/17 05/26/17 05/27/17 Range/Units 18:10 21:14 05:33 POC Glucose 153 H 189 H 264 H (70-105) 05/27/17 05/27/17 05/27/17 Range/Units 09:32 10:23 11:29 POC Glucose 159 H 165 H 240 H (70-105)
[2017-05-27] MEDS: PERCOCET 5/325 PO PRN (15:37)
[2017-05-27] MEDS: ZYVOX 600MG/300ML 600 MG/300 ML BAG IV SCH ×2 (18:23→22:30)
[2017-05-28] MEDS: NEURONTIN PO SCH ×3 (05:58→22:56)
[2017-05-28] MEDS: LASIX PO SCH ×2 (05:58→17:07)
[2017-05-28] MEDS: NOVOLOG SUB-Q SCH ×3 (08:16→16:55)
--- NOTE | 2017-05-28 09:35 | Progress Note ---
<AGUEDA CUNHA - Last Filed: 05/28/17 15:47> Assessment and Plan Assessment and plan: Patient is a 61-year-old -F[place]ish male with past medical history significant for DM, CHF, COPD, hypertension, hyperlipidemia, homelessness presented to the emergency department complaining of right foot pain. Right heel pressure ulcer likely necrotic and infected S/P repeat debridement today05/27/17. S/P Right heel debridement on 04/08/17 finding +necrotic skin, SQ and ligaments. Previous MRI + dorsal foot cellulitis no osteo but increased marrow edema in the calcaneous ? osteo Continue on Levaquin as Following by Vascular surgery Following by Wound care; Dr. Ly for possible debridement Started vancomycin 1 g IV q day for now total 6 weeks from 05/25 until 07/05/17. Keep vanco trough 14-18 per ID Patient awaiting for placement he might be discharge today or tomorrow Infectious diseases following Diabetes mellitus Accu-Chek before meals and at bedtime Sliding scale insulin/NovoLog ADA carbohydrate consistent diet Anemia Stable at this time, transfusion not needed. Closely monitor H&H Hypertensive urgency Continue home antihypertensive medications Closely monitor blood pressure Homelessness Patient needs SNF placement Case management aware Hyperlipidemia Continue on home antilipid agents Noncompliant with medications Counseled Chronic renal failure Elevated Serum creatinine Nephrology following Repeat BMP Closely monitor DVT prophylaxis Heparin History Interval history: Patient denies having pain at present time. labs and nursing notes reviewed. Hospitalist Physical - Constitutional Vitals: Temp Pulse Resp BP Pulse Ox 98.7 F 72 16 112/50 98 05/28/17 07:24 05/28/17 07:24 05/28/17 07:24 05/28/17 07:24 05/28/17 07:24 General appearance: Present: no acute distress, disheveled - EENT Eyes: Present: PERRL ENT: hearing intact - Neck Neck: Present: supple - Respiratory Respiratory effort: normal Respiratory: bilateral: CTA - Cardiovascular Rhythm: regular Heart Sounds: Present: S1 & S2 - Extremities Extremity abnormal: other (marked elton leg edema. Right heel with ulcer with necrotic tissue and purulence) - Abdominal General gastrointestinal: soft, non-tender - Integumentary Integumentary: Present: clear (Right heel with ulcer with necrotic tissue and purulence), warm, dry - Psychiatric Psychiatric: appropriate mood/affect - Neurologic Neurologic: CNII-XII intact - Allied Health Allied health notes reviewed: nursing Results - Labs CBC & Chem 7: 05/28/17 12:15 05/28/17 12:15 Labs: Laboratory Last Values WBC 7.9 K/mm3 (4.5-11.0) 05/25/17 05:42 RBC 2.58 M/mm3 (3.65-5.03) L 05/25/17 05:42 Hgb 7.0 gm/dl (11.8-15.2) L 05/25/17 05:42 Hct 21.4 % (35.5-45.6) L 05/25/17 05:42 MCV 83 fl (84-94) L 05/25/17 05:42 MCH 27 pg (28-32) L 05/25/17 05:42 MCHC 33 % (32-34) 05/25/17 05:42 RDW 17.1 % (13.2-15.2) H 05/25/17 05:42 Plt Count 348 K/mm3 (140-440) 05/25/17 05:42 Lymph % (Auto) 21.2 % (13.4-35.0) 05/25/17 05:42 Denali % (Auto) 9.6 % (0.0-7.3) H 05/25/17 05:42 Eos % (Auto) 9.5 % (0.0-4.3) H 05/25/17 05:42 Baso % (Auto) 1.7 % (0.0-1.8) 05/25/17 05:42 Lymph # 1.7 K/mm3 (1.2-5.4) 05/25/17 05:42 Denali # 0.8 K/mm3 (0.0-0.8) 05/25/17 05:42 Eos # 0.7 K/mm3 (0.0-0.4) H 05/25/17 05:42 Baso # 0.1 K/mm3 (0.0-0.1) 05/25/17 05:42 Seg Neutrophils % 58.0 % (40.0-70.0) 05/25/17 05:42 Seg Neutrophils # 4.6 K/mm3 (1.8-7.7) 05/25/17 05:42 VBG pH 7.346 (7.320-7.420) 05/24/17 13:00 Sodium 141 mmol/L (137-145) 05/25/17 05:42 Potassium 5.2 mmol/L (3.6-5.0) H 05/25/17 05:42 Chloride 107.2 mmol/L (98-107) H 05/25/17 05:42 Carbon Dioxide 21 mmol/L (22-30) L 05/25/17 05:42 Anion Gap 18 mmol/L 05/25/17 05:42 BUN 34 mg/dL (9-20) H 05/25/17 05:42 Creatinine 1.7 mg/dL (0.8-1.5) H 05/25/17 05:42 Estimated GFR 50 ml/min 05/25/17 05:42 BUN/Creatinine Ratio 20 % 05/25/17 05:42 Glucose 136 mg/dL (75-100) H 05/25/17 05:42 POC Glucose 93 (70-105) 05/28/17 06:29 Lactic Acid 0.70 mmol/L (0.7-2.0) 05/24/17 13:00 Calcium 8.3 mg/dL (8.4-10.2) L 05/25/17 05:42 C-Reactive Protein 2.80 mg/dL (0.00-1.30) H 05/24/17 13:00 NT-Pro-B Natriuret Pep 469.5 pg/mL (0-900) 05/24/17 13:00 <NE NETTLES R - Last Filed: 05/28/17 22:49> Assessment and Plan Assessment and plan: I saw and evaluated the patient. I agree with the findings and the plan of care as documented in the Nurse Practitioner's~note. Hospitalist Physical - Constitutional Vitals: Temp Pulse Resp BP Pulse Ox 98.0 F 78 20 127/65 80 L 05/28/17 18:00 05/28/17 18:00 05/28/17 18:00 05/28/17 18:00 05/28/17 18:00 Results - Labs CBC & Chem 7: 05/28/17 12:15 05/28/17 12:15 Labs: Laboratory Last Values WBC 13.8 K/mm3 (4.5-11.0) H 05/28/17 12:15 RBC 3.10 M/mm3 (3.65-5.03) L 05/28/17 12:15 Hgb 8.1 gm/dl (11.8-15.2) L 05/28/17 12:15 Hct 26.3 % (35.5-45.6) L 05/28/17 12:15 MCV 85 fl (84-94) 05/28/17 12:15 MCH 26 pg (28-32) L 05/28/17 12:15 MCHC 31 % (32-34) L 05/28/17 12:15 RDW 17.1 % (13.2-15.2) H 05/28/17 12:15 Plt Count 350 K/mm3 (140-440) 05/28/17 12:15 Lymph % (Auto) 21.2 % (13.4-35.0) 05/25/17 05:42 Denali % (Auto) 9.6 % (0.0-7.3) H 05/25/17 05:42 Eos % (Auto) 9.5 % (0.0-4.3) H 05/25/17 05:42 Baso % (Auto) 1.7 % (0.0-1.8) 05/25/17 05:42 Lymph # 1.7 K/mm3 (1.2-5.4) 05/25/17 05:42 Denali # 0.8 K/mm3 (0.0-0.8) 05/25/17 05:42 Eos # 0.7 K/mm3 (0.0-0.4) H 05/25/17 05:42 Baso # 0.1 K/mm3 (0.0-0.1) 05/25/17 05:42 Add Manual Diff Complete 05/28/17 12:15 Total Counted 100 05/28/17 12:15 Seg Neutrophils % 58.0 % (40.0-70.0) 05/25/17 05:42 Seg Neuts % (Manual) 72.0 % (40.0-70.0) H 05/28/17 12:15 Band Neutrophils % 3.0 % 05/28/17 12:15 Lymphocytes % (Manual) 16.0 % (13.4-35.0) 05/28/17 12:15 Reactive Lymphs % (Man) 0 % 05/28/17 12:15 Monocytes % (Manual) 2.0 % (0.0-7.3) 05/28/17 12:15 Eosinophils % (Manual) 7.0 % (0.0-4.3) H 05/28/17 12:15 Basophils % (Manual) 0 % (0.0-1.8) 05/28/17 12:15 Metamyelocytes % 0 % 05/28/17 12:15 Myelocytes % 0 % 05/28/17 12:15 Promyelocytes % 0 % 05/28/17 12:15 Blast Cells % 0 % 05/28/17 12:15 Nucleated RBC % Not Reportable 05/28/17 12:15 Seg Neutrophils # 4.6 K/mm3 (1.8-7.7) 05/25/17 05:42 Seg Neutrophils # Man 0.0 K/mm3 (1.8-7.7) L 05/28/17 12:15 Band Neutrophils # 0.0 K/mm3 05/28/17 12:15 Lymphocytes # (Manual) 0.0 K/mm3 (1.2-5.4) L 05/28/17 12:15 Abs React Lymphs (Man) 0.0 K/mm3 05/28/17 12:15 Monocytes # (Manual) 0.0 K/mm3 (0.0-0.8) 05/28/17 12:15 Eosinophils # (Manual) 0.0 K/mm3 (0.0-0.4) 05/28/17 12:15 Basophils # (Manual) 0.0 K/mm3 (0.0-0.1) 05/28/17 12:15 Metamyelocytes # 0.0 K/mm3 05/28/17 12:15 Myelocytes # 0.0 K/mm3 05/28/17 12:15 Promyelocytes # 0.0 K/mm3 05/28/17 12:15 Blast Cells # 0.0 K/mm3 05/28/17 12:15 WBC Morphology Not Reportable 05/28/17 12:15 Hypersegmented Neuts Not Reportable 05/28/17 12:15 Hyposegmented Neuts Not Reportable 05/28/17 12:15 Hypogranular Neuts Not Reportable 05/28/17 12:15 Smudge Cells Not Reportable 05/28/17 12:15 Toxic Granulation Not Reportable 05/28/17 12:15 Toxic Vacuolation Not Reportable 05/28/17 12:15 Dohle Bodies Not Reportable 05/28/17 12:15 Pelger-Huet Anomaly Not Reportable 05/28/17 12:15 May Rods Not Reportable 05/28/17 12:15 Platelet Estimate Not Reportable 05/28/17 12:15 Clumped Platelets Not Reportable 05/28/17 12:15 Plt Clumps, EDTA Not Reportable 05/28/17 12:15 Large Platelets Not Reportable 05/28/17 12:15 Giant Platelets Not Reportable 05/28/17 12:15 Platelet Satelliting Not Reportable 05/28/17 12:15 Plt Morphology Comment Not Reportable 05/28/17 12:15 RBC Morphology Not Reportable 05/28/17 12:15 Dimorphic RBCs Not Reportable 05/28/17 12:15 Polychromasia Not Reportable 05/28/17 12:15 Hypochromasia 1+ 05/28/17 12:15 Poikilocytosis Not Reportable 05/28/17 12:15 Anisocytosis 1+ 05/28/17 12:15 Microcytosis Not Reportable 05/28/17 12:15 Macrocytosis Not Reportable 05/28/17 12:15 Spherocytes Not Reportable 05/28/17 12:15 Pappenheimer Bodies Not Reportable 05/28/17 12:15 Sickle Cells Not Reportable 05/28/17 12:15 Target Cells Not Reportable 05/28/17 12:15 Tear Drop Cells Not Reportable 05/28/17 12:15 Ovalocytes Not Reportable 05/28/17 12:15 Helmet Cells Not Reportable 05/28/17 12:15 Bennett-Deanville Bodies Not Reportable 05/28/17 12:15 Weaver Rings Not Reportable 05/28/17 12:15 Matthieu Cells Not Reportable 05/28/17 12:15 Bite Cells Not Reportable 05/28/17 12:15 Crenated Cell Not Reportable 05/28/17 12:15 Elliptocytes Not Reportable 05/28/17 12:15 Acanthocytes (Spur) Not Reportable 05/28/17 12:15 Rouleaux Not Reportable 05/28/17 12:15 Hemoglobin C Crystals Not Reportable 05/28/17 12:15 Schistocytes Not Reportable 05/28/17 12:15 Malaria parasites Not Reportable 05/28/17 12:15 Carlitos Bodies Not Reportable 05/28/17 12:15 Hem Pathologist Commnt No 05/28/17 12:15 VBG pH 7.346 (7.320-7.420) 05/24/17 13:00 Sodium 142 mmol/L (137-145) 05/28/17 12:15 Potassium 5.2 mmol/L (3.6-5.0) H 05/28/17 12:15 Chloride 104.1 mmol/L (98-107) 05/28/17 12:15 Carbon Dioxide 20 mmol/L (22-30) L 05/28/17 12:15 Anion Gap 23 mmol/L 05/28/17 12:15 BUN 43 mg/dL (9-20) H 05/28/17 12:15 Creatinine 2.1 mg/dL (0.8-1.5) H 05/28/17 12:15 Estimated GFR 39 ml/min 05/28/17 12:15 BUN/Creatinine Ratio 20 % 05/28/17 12:15 Glucose 166 mg/dL (75-100) H 05/28/17 12:15 POC Glucose 237 (70-105) H 05/28/17 22:41 Lactic Acid 0.70 mmol/L (0.7-2.0) 05/24/17 13:00 Calcium 8.9 mg/dL (8.4-10.2) 05/28/17 12:15 C-Reactive Protein 2.80 mg/dL (0.00-1.30) H 05/24/17 13:00 NT-Pro-B Natriuret Pep 469.5 pg/mL (0-900) 05/24/17 13:00
[2017-05-28] MEDS: NORVASC PO SCH (09:59)
[2017-05-28] MEDS ORDERED: LEVAQUIN PO SCH (10:00)
[2017-05-28] MEDS: COREG PO SCH ×2 (10:00→22:57)
[2017-05-28] MEDS: HEPARIN SUB-Q SCH ×2 (10:01→22:00)
[2017-05-28] MEDS: APRESOLINE PO SCH ×3 (10:08→20:00)
[2017-05-28] MEDS: PERCOCET 5/325 PO PRN ×3 (10:35→22:56)
--- NOTE | 2017-05-28 11:10 | Progress Note ---
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 However, velocities are only marginally diminished in the proximal and mid sections of these vessels. - Previous MRI + dorsal foot cellulitis no osteo but increased marrow edema in the calcaneous ? osteo -S/P Right heel debridement on 04/08/17 finding +necrotic skin, SQ and ligaments. OR tissue cx + Proteus and Enterobacter both sensitive to levaquin -S/P repeat debridement 05/25 -wound Cx + MRSA 2) RUPA - worsening 3) NON-compliance Plan: -stop linezolid -contact isolation -start vancomycin 1 g IV q day for now total 6 weeks from 05/25 until 07/05/17. Keep vanco trough -place a PICC -wound care Poor prognosis ultimately he may need amputation due to non compliance Thank you Dr Dove for your consultation, will follow up with you. Soniya Contreras MD Infectious Diseases Specialist [facility] ([facility] ([facility]) M [phone] O [phone] Subjective Date of service: 05/28/17 Principal diagnosis: heel infection Interval history: Feels ok no complaints, alert no fever, went tot the OR Micro: Wound cx 05/25 MRSA Antimicrobial: zyvox 05/26 Previous: levaquin 05/24 Objective - Exam Narrative Exam: General appearance: Alert in NAD, conversant Eyes: anicteric sclerae, moist conjunctivae; no lid-lag; PERRLA HENT: Atraumatic; oropharynx clear Neck: Trachea midline; supple, no thyromegaly or lymphadenopathy Lungs: CTA CV: RRR Abdomen: Soft, non-tender; no masses or hepatosplenomegaly Extremities: marked elton leg edema. Right heel with ulcer with dressings Skin: Normal temperature, turgor and texture; no rash, ulcers or subcutaneous nodules Psych: Appropriate affect, alert and oriented to person, place and time. Neuro: alert and oriented x 3. Moving all extermities Lines: No CVL / PICC - Constitutional Vitals: Vital Signs Temp Pulse Resp BP Pulse Ox 98.7 F 72 16 112/50 98 05/28/17 07:24 05/28/17 07:24 05/28/17 07:24 05/28/17 07:24 05/28/17 07:24 Temperature -Last 24 Hours Temperature 98.7 F Temperature 98.9 F Temperature 98.5 F Temperature 99.0 F - Labs CBC & Chem 7: 05/25/17 05:42 05/25/17 05:42 Labs: Abnormal lab results 05/27/17 05/27/17 05/27/17 Range/Units 10:23 11:29 16:23 POC Glucose 165 H 240 H 304 H (70-105) 05/27/17 Range/Units 22:33 POC Glucose 158 H (70-105)
[2017-05-28] MEDS ORDERED: VANCOMYCIN PHARMACY TO DOSE IV SCH (12:00)
[2017-05-28] MEDS ORDERED: VANCOMYCIN VIAL 1,000 MG in NACL 0.9% 100 ML IV SCH (12:00)
[2017-05-28 12:53] LABS: Hematocrit 26.3 % (35.5-45.6); Hemoglobin 8.1 gm/dl (11.8-15.2); Mean Corpuscular HGB Conc 31 % (32-34); Mean Corpuscular Hemoglobin 26 pg (28-32); Mean Corpuscular Volume 85 fl (84-94); Red Cell Distribution Width 17.1 % (13.2-15.2)
[2017-05-28 13:11] LABS: Calcium 8.9 mg/dL (8.4-10.2)
[2017-05-28] MEDS: ZYVOX 600MG/300ML 600 MG/300 ML BAG IV SCH (13:42)
[2017-05-28 14:15] LABS: Anisocytosis 1+; Basophils % (Manual) 0 % (0.0-1.8); Hypochromasia 1+; Total Cells Counted 100
[2017-05-28 14:34] LABS: Platelet Count 350 K/mm3 (140-440)
[2017-05-28] MEDS: VANCOMYCIN 2,000 MG in NACL 0.9% 500 ML 500 ML IV ONE ×2 (16:39→17:53)
[2017-05-28] MEDS: FOLBEE PLUS CZ PO SCH (16:54)
--- NOTE | 2017-05-28 17:05 | XRay Report ---
FINAL REPORT PROCEDURE: XR CHEST 1V AP TECHNIQUE: Chest radiograph anteroposterior view. CPT 48693 HISTORY: R arm PICC placement COMPARISON: No prior studies are available for comparison. FINDINGS: Left CP angle is partially excluded. Right-sided PICC line terminates in the region of the right atrium of the heart. It is located approximately 4.8 cm distal to the mid SVC. The heart is normal in size. There is no focal infiltrate, pneumothorax or pleural effusion. IMPRESSION: Right-sided PICC line terminates in the region of the right atrium of the heart, approximately 4.8 cm distal to the mid SVC.
[2017-05-28] MEDS ORDERED: KIONEX PO PRN (22:46)
[2017-05-29] MEDS: NOVOLOG SUB-Q SCH ×5 (00:32→22:41)
[2017-05-29] MEDS: NEURONTIN PO SCH ×3 (06:04→22:16)
[2017-05-29] MEDS: LASIX PO SCH ×2 (06:05→18:31)
[2017-05-29] MEDS: APRESOLINE PO SCH ×3 (09:58→22:16)
[2017-05-29] MEDS: COREG PO SCH ×2 (10:01→22:16)
[2017-05-29] MEDS: NORVASC PO SCH (10:02)
[2017-05-29] MEDS: FOLBEE PLUS CZ PO SCH (10:04)
[2017-05-29] MEDS: HEPARIN SUB-Q SCH ×2 (10:12→22:11)
--- NOTE | 2017-05-29 10:16 | Progress Note ---
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 However, velocities are only marginally diminished in the proximal and mid sections of these vessels. - Previous MRI + dorsal foot cellulitis no osteo but increased marrow edema in the calcaneous ? osteo -S/P Right heel debridement on 04/08/17 finding +necrotic skin, SQ and ligaments. OR tissue cx + Proteus and Enterobacter both sensitive to levaquin -S/P repeat debridement 05/25 -wound Cx + MRSA and GNRs 2) RUPA - worsening 3) NON-compliance Plan: -contact isolation -continue vancomycin 1 g IV q day for now total 6 weeks from 05/25 until . Keep vanco trough -add levaquin PO in view of GNR growing on cultures -place a PICC -wound care I will be off this weekend, but available over the phone. Poor prognosis ultimately he may need amputation due to non compliance Thank you Dr Dove for your consultation, will follow up with you. Soniya Contreras MD Infectious Diseases Specialist [facility] ([facility]) M [phone] O [phone] Subjective Date of service: 05/29/17 Principal diagnosis: heel infection Interval history: Feels ok no complaints, alert no fever Micro: Wound cx 05/25 MRSA + GNR Antimicrobial: zyvox 05/26 Previous: levaquin 05/24 Objective - Exam Narrative Exam: General appearance: Alert in NAD, conversant Eyes: anicteric sclerae, moist conjunctivae; no lid-lag; PERRLA HENT: Atraumatic; oropharynx clear Neck: Trachea midline; supple, no thyromegaly or lymphadenopathy Lungs: CTA CV: RRR Abdomen: Soft, non-tender; no masses or hepatosplenomegaly Extremities: marked elton leg edema. Right heel with ulcer with dressings Skin: Normal temperature, turgor and texture; no rash, ulcers or subcutaneous nodules Psych: Appropriate affect, alert and oriented to person, place and time. Neuro: alert and oriented x 3. Moving all extermities Lines: No CVL / PICC - Constitutional Vitals: Vital Signs Temp Pulse Resp BP Pulse Ox 98.4 F 79 18 132/63 98 05/29/17 08:46 05/29/17 10:02 05/29/17 08:46 05/29/17 10:02 05/29/17 08:46 Temperature -Last 24 Hours Temperature 98.4 F Temperature 98.2 F Temperature 98.4 F Temperature 98.0 F - Labs CBC & Chem 7: 05/28/17 12:15 05/28/17 12:15 Labs: Abnormal lab results 05/28/17 05/28/17 05/28/17 Range/Units 12:15 12:15 12:46 WBC 13.8 H (4.5-11.0) K/mm3 RBC 3.10 L (3.65-5.03) M/mm3 Hgb 8.1 L (11.8-15.2) gm/dl Hct 26.3 L (35.5-45.6) % MCH 26 L (28-32) pg MCHC 31 L (32-34) % RDW 17.1 H (13.2-15.2) % Seg Neuts % (Manual) 72.0 H (40.0-70.0) % Eosinophils % (Manual) 7.0 H (0.0-4.3) % Seg Neutrophils # Man 0.0 L (1.8-7.7) K/mm3 Lymphocytes # (Manual) 0.0 L (1.2-5.4) K/mm3 Potassium 5.2 H (3.6-5.0) mmol/L Carbon Dioxide 20 L (22-30) mmol/L BUN 43 H (9-20) mg/dL Creatinine 2.1 H (0.8-1.5) mg/dL Glucose 166 H (75-100) mg/dL POC Glucose 184 H (70-105) 05/28/17 05/28/17 05/29/17 Range/Units 15:47 22:41 06:25 WBC (4.5-11.0) K/mm3 RBC (3.65-5.03) M/mm3 Hgb (11.8-15.2) gm/dl Hct (35.5-45.6) % MCH (28-32) pg MCHC (32-34) % RDW (13.2-15.2) % Seg Neuts % (Manual) (40.0-70.0) % Eosinophils % (Manual) (0.0-4.3) % Seg Neutrophils # Man (1.8-7.7) K/mm3 Lymphocytes # (Manual) (1.2-5.4) K/mm3 Potassium (3.6-5.0) mmol/L Carbon Dioxide (22-30) mmol/L BUN (9-20) mg/dL Creatinine (0.8-1.5) mg/dL Glucose (75-100) mg/dL POC Glucose 264 H 237 H 168 H (70-105)
[2017-05-29] MEDS ORDERED: LEVAQUIN PO SCH (11:00)
[2017-05-29 11:35] LABS: Basophils # (Auto) 0.1 K/mm3 (0.0-0.1); Basophils % (Auto) 1.1 % (0.0-1.8); Eosinophils # (Auto) 0.7 K/mm3 (0.0-0.4); Hematocrit 23.6 % (35.5-45.6); Hemoglobin 7.4 gm/dl (11.8-15.2); Lymphocytes # (Auto) 1.4 K/mm3 (1.2-5.4); Lymphocytes % (Auto) 17.9 % (13.4-35.0); Mean Corpuscular HGB Conc 31 % (32-34); Mean Corpuscular Hemoglobin 26 pg (28-32); Mean Corpuscular Volume 84 fl (84-94); Monocytes # (Auto) 0.7 K/mm3 (0.0-0.8); Monocytes % (Auto) 8.6 % (0.0-7.3); Platelet Count 305 K/mm3 (140-440); Red Blood Count 2.81 M/mm3 (3.65-5.03); Red Cell Distribution Width 17.3 % (13.2-15.2)
[2017-05-29 11:52] LABS: Calcium 8.3 mg/dL (8.4-10.2)
[2017-05-29] MEDS ORDERED: NACL 0.9% 500 ML 500 ML IV ONE ×2 (12:53→17:00)
[2017-05-29] MEDS: VANCOMYCIN 1,500 MG in NACL 0.9% 500 ML 500 ML IV SCH (13:27)
[2017-05-29] MEDS: LEVAQUIN PO SCH (13:27)
[2017-05-29 14:17] LABS: Iron 25 ug/dL (49-181); Total Iron Binding Capacity 188 mcg/dL (250-450)
--- NOTE | 2017-05-29 16:21 | Progress Note ---
Assessment and Plan Patient is a 61-year-old -[place] male with past medical history significant for DM, CHF, COPD, hypertension, hyperlipidemia, homelessness presented to the emergency department complaining of right foot pain. / Right heel pressure ulcer likely necrotic and infected S/P repeat debridement today05/27/17. S/P Right heel debridement on 04/08/17 finding +necrotic skin, SQ and ligaments. Previous MRI + dorsal foot cellulitis no osteo but increased marrow edema in the calcaneous ? osteo Continue on Levaquin as Following by Vascular surgery Following by Wound care; Dr. Ly for possible debridement Started vancomycin 1 g IV q day for now total 6 weeks from 05/25 until 07/05/17. Keep vanco trough 14-18 per ID Patient awaiting for placement he might be discharge today or tomorrow Infectious diseases following / Diabetes mellitus Accu-Chek before meals and at bedtime Sliding scale insulin/NovoLog ADA carbohydrate consistent diet / Anemia Stable at this time, transfuse one unit today. Closely monitor H&H /Hypertensive urgency Continue home antihypertensive medications Closely monitor blood pressure /Homelessness Patient needs SNF placement Case management aware /Hyperlipidemia Continue on home antilipid agents /Noncompliant with medications Counseled /Chronic renal failure Elevated Serum creatinine Nephrology following Repeat BMP Closely monitor /Hyperkalemia From chronic renal disease, we'll continue to monitor BMP Kayexalate if potassium level molded 5.2 /DVT prophylaxis Heparin Hospitalist Physical General appearance: Present: no acute distress, disheveled - EENT Eyes: Present: PERRL ENT: hearing intact - Neck Neck: Present: supple - Respiratory Respiratory effort: normal Respiratory: bilateral: CTA - Cardiovascular Rhythm: regular Heart Sounds: Present: S1 & S2 - Extremities Extremity abnormal: other (marked elton leg edema. Right heel with ulcer with necrotic tissue and purulence) - Abdominal General gastrointestinal: soft, non-tender - Integumentary Integumentary: Present: clear (Right heel with ulcer with necrotic tissue and purulence), warm, dry - Psychiatric Psychiatric: appropriate mood/affect - Neurologic Neurologic: CNII-XII intact - Allied Health Allied health notes reviewed: nursing Subjective Date of service: 05/29/17 Principal diagnosis: heel infection Interval history: Patient seen and examined. Medical records and medication list reviewed. No acute event overnight noted by the RN. Patient denies any chest pain or difficulty breathing. Patient is tolerating diet. Today complain of right foot pain Discussed at bedside with patient and public health social worker about his disposition options Patient for now agrees for custodial placement to complete his antibiotic regimen Objective - Constitutional Vitals: Vital Signs - 12hr 05/29/17 05/29/17 05/29/17 08:46 10:01 10:02 Temperature 98.4 F Pulse Rate 79 79 79 Respiratory 18 Rate Blood Pressure 132/63 132/63 132/63 O2 Sat by Pulse 98 Oximetry - Labs CBC & Chem 7: 05/29/17 11:20 05/29/17 11:20 Labs: Abnormal lab results 05/28/17 05/29/17 05/29/17 Range/Units 22:41 06:25 11:20 RBC (3.65-5.03) M/mm3 Hgb (11.8-15.2) gm/dl Hct (35.5-45.6) % MCH (28-32) pg MCHC (32-34) % RDW (13.2-15.2) % Davie % (Auto) (0.0-7.3) % Eos % (Auto) (0.0-4.3) % Eos # (0.0-0.4) K/mm3 Potassium 5.1 H (3.6-5.0) mmol/L Carbon Dioxide 21 L (22-30) mmol/L BUN 41 H (9-20) mg/dL Creatinine 2.2 H (0.8-1.5) mg/dL Glucose 178 H (75-100) mg/dL POC Glucose 237 H 168 H (70-105) Calcium 8.3 L (8.4-10.2) mg/dL Iron (49-181) ug/dL TIBC (250-450) mcg/dL Vitamin B12 (211-911) pg/mL Crossmatch 05/29/17 05/29/17 05/29/17 Range/Units 11:20 12:16 13:45 RBC 2.81 L (3.65-5.03) M/mm3 Hgb 7.4 L (11.8-15.2) gm/dl Hct 23.6 L (35.5-45.6) % MCH 26 L (28-32) pg MCHC 31 L (32-34) % RDW 17.3 H (13.2-15.2) % Davie % (Auto) 8.6 H (0.0-7.3) % Eos % (Auto) 9.0 H (0.0-4.3) % Eos # 0.7 H (0.0-0.4) K/mm3 Potassium (3.6-5.0) mmol/L Carbon Dioxide (22-30) mmol/L BUN (9-20) mg/dL Creatinine (0.8-1.5) mg/dL Glucose (75-100) mg/dL POC Glucose 219 H (70-105) Calcium (8.4-10.2) mg/dL Iron (49-181) ug/dL TIBC (250-450) mcg/dL Vitamin B12 (211-911) pg/mL Crossmatch See Detail 05/29/17 05/29/17 Range/Units 13:45 13:45 RBC (3.65-5.03) M/mm3 Hgb (11.8-15.2) gm/dl Hct (35.5-45.6) % MCH (28-32) pg MCHC (32-34) % RDW (13.2-15.2) % Davie % (Auto) (0.0-7.3) % Eos % (Auto) (0.0-4.3) % Eos # (0.0-0.4) K/mm3 Potassium (3.6-5.0) mmol/L Carbon Dioxide (22-30) mmol/L BUN (9-20) mg/dL Creatinine (0.8-1.5) mg/dL Glucose (75-100) mg/dL POC Glucose (70-105) Calcium (8.4-10.2) mg/dL Iron 25 L (49-181) ug/dL TIBC 188 L (250-450) mcg/dL Vitamin B12 1771 H (211-911) pg/mL Crossmatch
[2017-05-29] MEDS: PERCOCET 5/325 PO PRN (17:41)
[2017-05-30] MEDS: LASIX PO SCH ×2 (06:26→17:23)
[2017-05-30] MEDS: NEURONTIN PO SCH ×3 (06:26→22:26)
[2017-05-30] MEDS: NOVOLOG SUB-Q SCH ×4 (08:11→22:28)
[2017-05-30 09:38] LABS: Basophils # (Auto) 0.1 K/mm3 (0.0-0.1); Basophils % (Auto) 1.2 % (0.0-1.8); Eosinophils # (Auto) 0.7 K/mm3 (0.0-0.4); Eosinophils % (Auto) 8.7 % (0.0-4.3); Hematocrit 21.5 % (35.5-45.6); Hemoglobin 6.8 gm/dl (11.8-15.2); Lymphocytes # (Auto) 1.7 K/mm3 (1.2-5.4); Lymphocytes % (Auto) 21.8 % (13.4-35.0); Mean Corpuscular HGB Conc 32 % (32-34); Mean Corpuscular Hemoglobin 26 pg (28-32); Mean Corpuscular Volume 83 fl (84-94); Monocytes % (Auto) 12.4 % (0.0-7.3); Platelet Count 276 K/mm3 (140-440); Red Blood Count 2.58 M/mm3 (3.65-5.03); Red Cell Distribution Width 17.2 % (13.2-15.2)
[2017-05-30 09:53] LABS: Calcium 8.3 mg/dL (8.4-10.2)
[2017-05-30] MEDS: COREG PO SCH ×2 (10:29→22:26)
[2017-05-30] MEDS: APRESOLINE PO SCH ×3 (10:29→22:26)
[2017-05-30] MEDS: NORVASC PO SCH (10:29)
[2017-05-30] MEDS: FOLBEE PLUS CZ PO SCH (10:31)
[2017-05-30] MEDS: HEPARIN SUB-Q SCH ×2 (10:32→22:27)
[2017-05-30] MEDS: VANCOMYCIN 1,500 MG in NACL 0.9% 500 ML 500 ML IV SCH (13:06)
[2017-05-30] MEDS: LEVAQUIN PO SCH (13:13)
--- NOTE | 2017-05-30 15:06 | Progress Note ---
Assessment and Plan Patient is a 61-year-old -Spanish male with past medical history significant for DM, CHF, COPD, hypertension, hyperlipidemia, homelessness presented to the emergency department complaining of right foot pain. / Right heel pressure ulcer likely necrotic and infected S/P repeat debridement today05/27/17. S/P Right heel debridement on 04/08/17 finding +necrotic skin, SQ and ligaments. Previous MRI + dorsal foot cellulitis no osteo but increased marrow edema in the calcaneous ? osteo Continue on Levaquin as Following by Vascular surgery Following by Wound care; Dr. Ly for possible debridement Started vancomycin 1 g IV q day for now total 6 weeks from 05/25 until 07/05/17. Keep vanco trough 14-18 per ID Patient awaiting for placement he might be discharge today or tomorrow Infectious diseases following / Diabetes mellitus Accu-Chek before meals and at bedtime Sliding scale insulin/NovoLog ADA carbohydrate consistent diet / microcytic Anemia with iron deficiency hb dropped to 6.8, refusing transfusion after multiple discussion and counselling Closely monitor H&H, start iron replacement /Hypertensive urgency Continue home antihypertensive medications Closely monitor blood pressure /Homelessness Patient needs SNF placement Case management aware /Hyperlipidemia Continue on home antilipid agents /Noncompliant with medications Counseled /Chronic renal failure Elevated Serum creatinine Nephrology following Repeat BMP Closely monitor /Hyperkalemia From chronic renal disease, we'll continue to monitor BMP Kayexalate if potassium level molded 5.2 /DVT prophylaxis Heparin Hospitalist Physical General appearance: Present: no acute distress, disheveled - EENT Eyes: Present: PERRL ENT: hearing intact - Neck Neck: Present: supple - Respiratory Respiratory effort: normal Respiratory: bilateral: CTA - Cardiovascular Rhythm: regular Heart Sounds: Present: S1 & S2 - Extremities Extremity abnormal: other (marked elton leg edema. Right heel with ulcer with necrotic tissue and purulence) - Abdominal General gastrointestinal: soft, non-tender - Integumentary Integumentary: Present: clear (Right heel with ulcer with wound dressing), warm , dry - Psychiatric Psychiatric: appropriate mood/affect - Neurologic Neurologic: CNII-XII intact - Allied Health Allied health notes reviewed: nursing Subjective Date of service: 05/30/17 Principal diagnosis: heel infection Interval history: Patient seen and examined. Medical records and medication list reviewed. No acute event overnight noted by the RN. Patient denies any chest pain or difficulty breathing. Patient is tolerating diet. Today complain of right foot pain, Hb 6.8 today, refusing blood transfusion Discussed at bedside with patient and his brother by phone Objective - Constitutional Vitals: Vital Signs - 12hr 05/30/17 05/30/17 08:20 10:29 Temperature 97.8 F Pulse Rate 88 Respiratory 20 Rate Blood Pressure 138/65 138/65 O2 Sat by Pulse 97 Oximetry - Labs CBC & Chem 7: 05/30/17 08:45 05/30/17 08:45 Labs: Abnormal lab results 05/29/17 05/29/17 05/30/17 Range/Units 16:43 22:12 06:14 RBC (3.65-5.03) M/mm3 Hgb (11.8-15.2) gm/dl Hct (35.5-45.6) % MCV (84-94) fl MCH (28-32) pg RDW (13.2-15.2) % [place] % (Auto) (0.0-7.3) % Eos % (Auto) (0.0-4.3) % [place] # (0.0-0.8) K/mm3 Eos # (0.0-0.4) K/mm3 Chloride (98-107) mmol/L Carbon Dioxide (22-30) mmol/L BUN (9-20) mg/dL Creatinine (0.8-1.5) mg/dL Glucose (75-100) mg/dL POC Glucose 261 H 264 H 140 H (70-105) Calcium (8.4-10.2) mg/dL 05/30/17 05/30/17 05/30/17 Range/Units 08:45 08:45 11:52 RBC 2.58 L (3.65-5.03) M/mm3 Hgb 6.8 L (11.8-15.2) gm/dl Hct 21.5 L (35.5-45.6) % MCV 83 L (84-94) fl MCH 26 L (28-32) pg RDW 17.2 H (13.2-15.2) % [place] % (Auto) 12.4 H (0.0-7.3) % Eos % (Auto) 8.7 H (0.0-4.3) % [place] # 1.0 H (0.0-0.8) K/mm3 Eos # 0.7 H (0.0-0.4) K/mm3 Chloride 107.7 H (98-107) mmol/L Carbon Dioxide 21 L (22-30) mmol/L BUN 40 H (9-20) mg/dL Creatinine 2.0 H (0.8-1.5) mg/dL Glucose 120 H (75-100) mg/dL POC Glucose 174 H (70-105) Calcium 8.3 L (8.4-10.2) mg/dL
[2017-05-30] MEDS: FEOSOL PO SCH (22:26)
[2017-05-31] MEDS: LASIX PO SCH ×2 (05:44→18:15)
[2017-05-31] MEDS: NEURONTIN PO SCH ×3 (05:44→22:50)
[2017-05-31] MEDS: PERCOCET 5/325 PO PRN ×2 (06:31→14:35)
[2017-05-31] MEDS: NOVOLOG SUB-Q SCH ×4 (08:01→22:55)
[2017-05-31] MEDS: NORVASC PO SCH (09:21)
[2017-05-31] MEDS: FEOSOL PO SCH ×2 (09:21→22:50)
[2017-05-31] MEDS: FOLBEE PLUS CZ PO SCH (09:21)
[2017-05-31] MEDS: APRESOLINE PO SCH ×3 (09:22→21:00)
[2017-05-31] MEDS: COREG PO SCH ×2 (09:22→22:50)
[2017-05-31] MEDS: HEPARIN SUB-Q SCH ×2 (09:24→22:50)
[2017-05-31] MEDS: LEVAQUIN PO SCH (14:21)
[2017-05-31] MEDS: VANCOMYCIN 1,500 MG in NACL 0.9% 500 ML 500 ML IV SCH (14:22)
[2017-05-31] MEDS: NACL 0.9% 1000 ML 1,000 ML IV SCH (14:35)
--- NOTE | 2017-05-31 22:00 | Progress Note ---
Assessment and Plan Patient is a 61-year-old -Senegalese male with past medical history significant for DM, CHF, COPD, hypertension, hyperlipidemia, homelessness presented to the emergency department complaining of right foot pain. / Right heel pressure ulcer likely necrotic and infected S/P repeat debridement today05/27/17. S/P Right heel debridement on 04/08/17 finding +necrotic skin, SQ and ligaments. Previous MRI + dorsal foot cellulitis no osteo but increased marrow edema in the calcaneous ? osteo Following by Vascular surgery and Wound care; Dr. Ly, s/p debridement Started on vancomycin 1 g IV q day for now total 6 weeks from 05/25 until . Keep vanco trough 14-18 per ID Patient awaiting for placement he might be discharge today or tomorrow Infectious diseases following / Diabetes mellitus Accu-Chek before meals and at bedtime Sliding scale insulin/NovoLog ADA carbohydrate consistent diet / microcytic Anemia with iron deficiency hb dropped to 6.8, refusing transfusion after multiple discussion and counselling Closely monitor H&H, start iron replacement ordered stool for occult blood /Hypertensive urgency Continue home antihypertensive medications Closely monitor blood pressure /Homelessness Patient needs SNF placement Case management aware /Hyperlipidemia Continue on home antilipid agents /Noncompliant with medications Counseled /Chronic renal failure Elevated Serum creatinine Nephrology following Repeat BMP Closely monitor /Hyperkalemia From chronic renal disease, we'll continue to monitor BMP Kayexalate if potassium level molded 5.2 /DVT prophylaxis will change to scd for anemia Hospitalist Physical General appearance: Present: no acute distress, disheveled - EENT Eyes: Present: PERRL ENT: hearing intact - Neck Neck: Present: supple - Respiratory Respiratory effort: normal Respiratory: bilateral: CTA - Cardiovascular Rhythm: regular Heart Sounds: Present: S1 & S2 - Extremities Extremity abnormal: other (marked elton leg edema. Right heel with ulcer with necrotic tissue and purulence) - Abdominal General gastrointestinal: soft, non-tender - Integumentary Integumentary: Present: clear (Right heel with ulcer with wound dressing), warm , dry - Psychiatric Psychiatric: appropriate mood/affect - Neurologic Neurologic: CNII-XII intact - Allied Health Allied health notes reviewed: nursing Subjective Date of service: 05/31/17 Principal diagnosis: heel infection Interval history: Patient seen and examined. Medical records and medication list reviewed. No acute event overnight noted by the RN. Patient denies any chest pain or difficulty breathing. Patient is tolerating diet. Today complain of right foot pain, Hb 6.8 today, refusing blood transfusion Discussed at bedside with patient and his brother by phone Objective - Constitutional Vitals: Vital Signs - 12hr 05/31/17 05/31/17 05/31/17 15:47 21:15 21:23 Temperature 98.5 F 98.7 F 98.9 F Pulse Rate 83 Respiratory 20 18 16 Rate Blood Pressure 146/78 164/77 149/64 O2 Sat by Pulse 97 Oximetry - Labs CBC & Chem 7: 05/30/17 08:45 05/30/17 08:45 Labs: Abnormal lab results 05/31/17 05/31/17 05/31/17 Range/Units 05:43 12:25 18:01 POC Glucose 124 H 159 H 237 H (70-105) Vancomycin Trough (5.0-20.0) ug/mL 05/31/17 Range/Units 18:15 POC Glucose (70-105) Vancomycin Trough 49.2 H (5.0-20.0) ug/mL
[2017-06-01] MEDS: PERCOCET 5/325 PO PRN ×3 (00:25→17:29)
[2017-06-01] MEDS: LASIX PO SCH ×2 (06:49→17:30)
[2017-06-01] MEDS: NEURONTIN PO SCH ×2 (06:49→13:31)
--- NOTE | 2017-06-01 09:31 | Consultation ---
History of Present Illness - History of Present Illness Thank you for the consultation patient was evaluated today. Source of information; patient himself current records were also reviewed History of presenting illness; Patient is a 61-year-old -[place]guill[place] male who has been admitted here with multiple health issues. Patient is currently being followed by Dr. Polanco in outpatient setting but does not recallhaving been told to have any history of chronic kidney disease. Patient however is a very poor historian. Off and on he has used nonsteroidal drugs in the past and does have history of long- standing hypertension diabetes and obesity poor eating habits etc. patient has been admitted with heel ulcer which has not been healing underwent debridement currently on antibiotic therapy hemoglobin has been fairly low but patient has been refusing packed red blood cell transfusion. Patient denies having a history suggestive of lupus hepatitis HIV or any follow -up paraproteinemias. He does not have any history suggestive of any recurrent or frequent epistaxis. he does wake up several times during the night to make urine.patient's current creatinine is around 2 Past medical history is significant for diabetes mellitus type 2 Hypertension Nonsteroidal medications use Allergies: no known drug allergies Social history: denies any history of recreational drug or substance abuse Family history: denies having any history of chronic kidney disease Review of system is positive for Complete review of systems obtained pertinent positive above mother's review of systems negative Physical examination General: No acute distress HEENT: Oral mucosa moist no pharyngeal erythema no pallor or icterus no uremic order Neck: Supple no evidence of any thyromegaly trachea midline no JVD Chest: Clear to auscultation no crackles are also wheezes anteriorly Heart: Regular rate and rhythm S1-S2 heard no S3-S4 Abdomen: Soft nontender no renal bruit no CVA tenderness no suprapubic fullness no organomegaly Extremity: Minimal edema dry skin no peripheral cyanosis pulses palpable Neurological: Alert awake follows command grossly nonfocal examination Back: Nontender thoracolumbar spine Musculoskeletal: No joint effusion noted Skin: No petechial rash/noted Assessment and plan 1.renal failure patient who is 61-year-old with multiple risk factors for underlying chronic kidney disease including hypertension diabetes non-discharge abuse off and on poor eating habits and lifestyle. He is currently being followed by Dr. Polanco in outpatient setting. patient is a need for further workup for his renal failure as well as follow-up in office in absence of which his renal prognosis will be very poor patient will be at higher risk for progression of renal failure over time 2.hypertension: Goal blood pressure will be around 130 systolic diet and lifestyle changes have been discussed with patient,future will depend on the degree of compliance 3.long- standingdiabetes: extensively counseled and educated about diet and lifestyle changes,patient has been admitted with right heel ulcer also has been severely anemic refusing packed red blood cell transfusion 4.edema approximately 1+ check for proteinuria 5.obesity: Discussed with patient about lifestyle changes 6.patient appears to be very poorly involved in his health care 7.anemia: Multifactorial please do the workup patient has been refusing packed red blood cell transfusion\ Patient appears to be very poorly compliant with medical advice which will make his overall prognosis very poor and he will remain at high risk for complications resulting from all this his mortality risk is also going to be high if he continues to be noncompliant Nature and issue of renal-related issues were discussed with patient, all questions were answered and simple [place] Patient does have good understanding about renal-related issues. Renal prognosis is guarded at this time, Advil totally dependent patient's compliance, which she is not complying Counseled and educated to get further education from [facility] and related links, and if any further question to clarify with me We'll continue to follow and make recommendations from renal standpoint If you have any questions please feel free to contact me at [phone] Past History Past Medical History: COPD, diabetes, heart failure, hypertension, hyperlipidemia Past Surgical History: Other (bilateral knee surgery, wound debridement) Social history: Lives alone (Homeless), full code. denies: smoking, alcohol abuse, prescription drug abuse, IV drug use Family history: CAD, hypertension Medications and Allergies Allergies Allergy/AdvReac Type Severity Reaction Status Date / Time No Known Allergies Allergy Verified 05/18/17 00:10 Home Medications Medication Instructions Recorded Confirmed Last Taken Type Gabapentin [Neurontin] 300 mg PO Q8HR #90 capsule 11/04/15 06/04/17 1 Day Ago Rx ~03/01/17 AtorvaSTATin [Lipitor] 20 mg PO QHS 04/09/16 06/04/17 1 Day Ago History ~03/01/17 Ergocalciferol(Vitamin D2)(Nf) 50,000 unit PO QWEEK 04/09/16 06/04/17 1 Day Ago History [Vitamin D (Nf)] ~03/01/17 Insulin Lispro Prot/Lispro 30 unit SQ BID 03/05/17 06/04/17 Unknown History [HumaLOG Mix 75/25 Vial] hydrALAZINE [Apresoline TAB] 100 mg PO TID 03/12/17 06/04/17 Unknown History Carvedilol [Coreg] 12.5 mg PO BID #30 tablet 04/14/17 06/04/17 Unknown Rx Folic Acid/Vit Bcomp&C/Cu/Znox 1 each PO QDAY #30 tablet 04/14/17 06/04/17 Unknown Rx [Folbee Plus Cz] Furosemide [Lasix TAB] 40 mg PO BID@0600,1800 #14 tablet 04/14/17 06/04/17 Unknown Rx Sodium Bicarbonate 1,300 mg PO BID #14 tablet 04/14/17 06/04/17 Unknown Rx amLODIPine [Norvasc] 10 mg PO DAILY #30 tablet 04/14/17 06/04/17 Unknown Rx oxyCODONE /ACETAMINOPHEN [Percocet 1 tab PO Q6H PRN #10 tablet 04/14/17 Unknown Rx 5/325 mg] Vancomycin 1,000 mg IV Q24H 37 Days mg 05/29/17 Unknown Rx Active Meds: Active Medications Amlodipine Besylate (Norvasc) 10 mg PO DAILY [facility] Last Admin: 05/31/17 09:21 Dose: 10 mg Atorvastatin Calcium (Lipitor) 20 mg PO QHS [facility] Last Admin: 05/31/17 22:50 Dose: 20 mg Carvedilol (Coreg) 12.5 mg PO BID [facility] Last Admin: 05/31/17 22:50 Dose: 12.5 mg Dextrose (D50w (25gm) Vial) 25 gm IV PRN PRN PRN Reason: HYPOGLYCEMIA Ferrous Sulfate (Feosol) 325 mg PO BID [facility] Last Admin: 05/31/17 22:50 Dose: 325 mg Furosemide (Lasix) 40 mg PO BID@0600,1800 [facility] Last Admin: 06/01/17 06:49 Dose: 40 mg Gabapentin (Neurontin) 300 mg PO Q8HR [facility] Last Admin: 06/01/17 06:49 Dose: 300 mg Heparin Sodium (Porcine) (Heparin) 5,000 unit SUB-Q BID [facility] Last Admin: 05/31/17 22:50 Dose: Not Given Hydralazine HCl (Apresoline) 100 mg PO TID [facility] Last Admin: 05/31/17 21:00 Dose: 100 mg Sodium Chloride (Nacl 0.9% 1000 Ml) 1,000 mls @ 75 mls/hr IV DIRECT [facility] Last Admin: 05/31/17 14:35 Dose: 75 mls/hr Vancomycin HCl 1,500 mg/ (Sodium Chloride) 515 mls @ 333.333 mls/hr IV Q24H [facility] Last Admin: 05/31/17 14:22 Dose: 333.333 mls/hr Insulin Aspart (Novolog) 0 units SUB-Q ACHS [facility] PRN Reason: Protocol Last Admin: 05/31/17 22:55 Dose: 4 units Insulin Human Isoph/Insulin Regular (Novolin 70/30) 30 unit SUB-Q BIDDIAB [facility] Last Admin: 05/31/17 18:14 Dose: 30 unit Levofloxacin (Levaquin) 750 mg PO Q24H [facility] Last Admin: 05/31/17 14:21 Dose: 750 mg Oxycodone/Acetaminophen (Percocet 5/325) 1 tab PO Q6H PRN PRN Reason: Pain, Moderate (4-6) Last Admin: 06/01/17 00:25 Dose: 1 tab Sodium Polystyrene Sulfonate (Kionex) 15 gm PO Q6H PRN PRN Reason: Hyperkalemia Vancomycin HCl (Vancomycin Pharmacy To Dose) 1 each IV PKCONSULT [facility] PRN Reason: Protocol Vitamin B Complex/Folic Acid (Folbee Plus Cz) 1 each PO QDAY [facility] Last Admin: 05/31/17 09:21 Dose: 1 each Exam - Vital Signs Vital signs: Vital Signs Temp Pulse Resp BP Pulse Ox 97.3 F L 81 18 221/98 100 05/23/17 23:59 05/23/17 23:59 05/23/17 23:59 05/23/17 23:59 05/23/17 23:59 Results - Lab Results 06/03/17 13:00 06/05/17 05:21 Most recent lab results Calcium 8.3 mg/dL (8.4-10.2) L 05/30/17 08:45
[2017-06-01] MEDS: COREG PO SCH (09:44)
[2017-06-01] MEDS: FEOSOL PO SCH (09:44)
[2017-06-01] MEDS: APRESOLINE PO SCH ×3 (09:44→21:10)
[2017-06-01] MEDS: FOLBEE PLUS CZ PO SCH (09:44)
[2017-06-01] MEDS: NORVASC PO SCH (09:45)
[2017-06-01] MEDS: HEPARIN SUB-Q SCH (09:45)
[2017-06-01] MEDS: NOVOLOG SUB-Q SCH ×3 (09:46→17:45)
--- NOTE | 2017-06-01 10:45 | Progress Note ---
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 However, velocities are only marginally diminished in the proximal and mid sections of these vessels. - Previous MRI + dorsal foot cellulitis no osteo but increased marrow edema in the calcaneous ? osteo -S/P Right heel debridement on 04/08/17 finding +necrotic skin, SQ and ligaments. OR tissue cx + Proteus and Enterobacter both sensitive to levaquin -S/P repeat debridement 05/25 -wound Cx + MRSA and E coli resistant to levaquin 2) RUPA - worsening 3) NON-compliance Plan: -contact isolation -continue vancomycin 1 g IV q day for now total 6 weeks from 05/25 until . Keep vanco trough -stop levaquin - E coli resistant to levaquin, start ceftin PO -wound care -Psych eval pt non compliance, with very difficult personality, multiple re- admission due to non compliance Thank you Dr Dove for your consultation, will follow up with you. Soniya Contreras MD Infectious Diseases Specialist [facility] ([facility]) M [phone] O [phone] Subjective Date of service: 06/01/17 Principal diagnosis: heel infection Interval history: Feels ok complaining of foot pain, alert no fever, covered from head to toes no eye contact Micro: Wound cx 05/25 MRSA + E coli resist to levaquin, sens to ceftin Antimicrobial: zyvox 05/26 Previous: levaquin 05/24 Objective - Exam Narrative Exam: General appearance: Alert in NAD head covered difficult exam Eyes: anicteric sclerae, moist conjunctivae; no lid-lag; PERRLA HENT: Atraumatic; oropharynx clear Neck: Trachea midline; supple, no thyromegaly or lymphadenopathy Lungs: CTA CV: RRR Abdomen: Soft, non-tender; no masses or hepatosplenomegaly Extremities: marked elton leg edema. Right heel with ulcer with dressings Skin: Normal temperature, turgor and texture; no rash, ulcers or subcutaneous nodules Psych: Appropriate affect, alert and oriented to person, place and time. Neuro: alert and oriented x 3. Moving all extermities Lines: No CVL / PICC - Constitutional Vitals: Vital Signs Temp Pulse Resp BP Pulse Ox 97.5 F L 80 20 149/78 100 06/01/17 07:44 06/01/17 07:44 06/01/17 07:44 06/01/17 07:44 06/01/17 07:44 Temperature -Last 24 Hours Temperature 97.5 F Temperature 98.9 F Temperature 98.7 F Temperature 98.5 F - Labs CBC & Chem 7: 05/30/17 08:45 05/30/17 08:45 Labs: Abnormal lab results 05/31/17 05/31/17 05/31/17 Range/Units 12:25 18:01 18:15 POC Glucose 159 H 237 H (70-105) Vancomycin Trough 49.2 H (5.0-20.0) ug/mL 05/31/17 06/01/17 Range/Units 21:17 06:53 POC Glucose 210 H 150 H (70-105) Vancomycin Trough (5.0-20.0) ug/mL
[2017-06-01] MEDS: LEVAQUIN PO SCH (13:31)
--- NOTE | 2017-06-01 15:08 | Progress Note ---
Assessment and Plan Patient is a 61-year-old -Tuval[place] male with past medical history significant for DM, CHF, COPD, hypertension, hyperlipidemia, homelessness presented to the emergency department complaining of right foot pain. / Right heel pressure ulcer likely necrotic and infected S/P repeat debridement today05/27/17. S/P Right heel debridement on 04/08/17 finding +necrotic skin, SQ and ligaments. Previous MRI + dorsal foot cellulitis no osteo but increased marrow edema in the calcaneous ? osteo Following by Vascular surgery and Wound care; Dr. Ly, -S/P repeat debridement 05/25 -wound Cx + MRSA and E coli resistant to levaquin Started on vancomycin 1 g IV q day for now total 6 weeks from 05/25 until . Keep vanco trough per ID Patient awaiting for placement, he is refusing placement Infectious diseases following / Diabetes mellitus Accu-Chek before meals and at bedtime Sliding scale insulin/NovoLog ADA carbohydrate consistent diet / microcytic Anemia with iron deficiency and likely from CKD hb dropped to 6.8 ( wonder if that a lab error), refused transfusion after multiple discussion and counselling Closely monitor H&H, started on iron replacement ordered stool for occult blood, pending hb 7.7 today /Hypertensive urgency Continue home antihypertensive medications Closely monitor blood pressure /Homelessness Patient needs SNF placement, but he is refusing as he does not want to give up his SS check Case management aware /Hyperlipidemia Continue on home antilipid agents /Noncompliant with medications Counseled, wonder he has medical decision making capacity cpnsulted psych /Chronic renal failure Elevated Serum creatinine Nephrology following Repeat BMP Closely monitor /Hyperkalemia From chronic renal disease, we'll continue to monitor BMP Kayexalate if potassium level molded 5.2 /DVT prophylaxis Changed to scd for anemia Hospitalist Physical General appearance: Present: no acute distress, disheveled - EENT Eyes: Present: PERRL ENT: hearing intact - Neck Neck: Present: supple - Respiratory Respiratory effort: normal Respiratory: bilateral: CTA - Cardiovascular Rhythm: regular Heart Sounds: Present: S1 & S2 - Extremities Extremity abnormal: other (marked elton leg edema. Right heel with ulcer with necrotic tissue and purulence) - Abdominal General gastrointestinal: soft, non-tender - Integumentary Integumentary: Present: clear (Right heel with ulcer with wound dressing), warm , dry - Psychiatric Psychiatric: appropriate mood/affect - Neurologic Neurologic: CNII-XII intact - Allied Health Allied health notes reviewed: nursing Subjective Date of service: 06/01/17 Principal diagnosis: heel infection Interval history: Patient seen and examined. Medical records and medication list reviewed. No acute event overnight noted by the RN. Patient denies any chest pain or difficulty breathing. Patient is tolerating diet. he refused lab this am, refusing to go to SNF Objective - Constitutional Vitals: Vital Signs - 12hr 06/01/17 07:44 Temperature 97.5 F L Pulse Rate 80 Respiratory 20 Rate Blood Pressure 149/78 O2 Sat by Pulse 100 Oximetry - Labs CBC & Chem 7: 06/01/17 16:20 06/01/17 16:21 Labs: Abnormal lab results 05/29/17 05/31/17 05/31/17 Range/Units 13:45 18:01 18:15 POC Glucose 237 H (70-105) Vancomycin Trough 49.2 H (5.0-20.0) ug/mL Crossmatch See Detail 05/31/17 06/01/17 06/01/17 Range/Units 21:17 06:53 11:29 POC Glucose 210 H 150 H 177 H (70-105) Vancomycin Trough (5.0-20.0) ug/mL Crossmatch
--- NOTE | 2017-06-01 16:05 | Query- Renal Failure ---
Terese Rojo___Neeraj Date:__06/01/2017 Residential Insurance Inspector/CDS:__Joanna Phone#:__[phone] Exercise your independent professional judgment when responding to query. Questions asked do not imply a particular answer is desired or expected. We greatly appreciate your clarification on this issue. Clinical Documentation States: 61 Year old male was admitted on 05/24/2017 for complaining of right foot pain. The ID (Dr. Mason) progress note on 06/01/2017 states "2) RUPA - worsening." Clinical Findings Show: 05/24 05/25 05/28 05/29 05/30 Ctreatinine 1.5 1.7 2.1 2.2 2.0 Please clarify if you mean: Acute Renal Failure with or due to: [ ] Tubular Necrosis [ ] Medullary Necrosis [X ] Vasomotor Nephropathy [ ] Shock Kidney [ ] Tubular Nephrosis [ ] Renal Tubular Stasis [ ] Cortical Necrosis [ ] Acute Renal Failure (unspecified) [ ] Lower Tubular Nephrosis [ ] Other: [ ] Not Applicable Present on Admission: [X ] Yes (Y) [ ] Clinically undeterminable (W) [ ] No (N) Please also document response in your Progress Notes and/or Discharge Summary and indicate if the condition was present on admission. [email or web address]
[2017-06-01 17:06] LABS: Calcium 8.8 mg/dL (8.4-10.2)
[2017-06-01 17:07] LABS: Hematocrit 24.4 % (35.5-45.6); Hemoglobin 7.7 gm/dl (11.8-15.2); Mean Corpuscular HGB Conc 32 % (32-34); Mean Corpuscular Hemoglobin 26 pg (28-32); Mean Corpuscular Volume 83 fl (84-94); Platelet Count 312 K/mm3 (140-440); Red Blood Count 2.94 M/mm3 (3.65-5.03); Red Cell Distribution Width 17.4 % (13.2-15.2)
[2017-06-01] MEDS: VANCOMYCIN 1,500 MG in NACL 0.9% 500 ML 500 ML IV SCH (17:32)
[2017-06-02] MEDS: NOVOLOG SUB-Q SCH ×5 (00:01→23:53)
[2017-06-02] MEDS: FEOSOL PO SCH ×3 (00:02→23:54)
[2017-06-02] MEDS: NEURONTIN PO SCH ×4 (00:02→23:53)
[2017-06-02] MEDS: COREG PO SCH ×3 (00:05→23:56)
[2017-06-02] MEDS: HEPARIN SUB-Q SCH ×3 (00:11→22:00)
[2017-06-02] MEDS: PERCOCET 5/325 PO PRN ×2 (00:28→10:22)
[2017-06-02] MEDS: LASIX PO SCH ×2 (06:05→17:12)
[2017-06-02] MEDS: APRESOLINE PO SCH ×3 (08:00→23:55)
[2017-06-02] MEDS ORDERED: CEFTIN PO SCH (10:00)
[2017-06-02] MEDS: NORVASC PO SCH (10:00)
[2017-06-02] MEDS: FOLBEE PLUS CZ PO SCH (10:10)
--- NOTE | 2017-06-02 11:14 | Progress Note ---
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 However, velocities are only marginally diminished in the proximal and mid sections of these vessels. - Previous MRI + dorsal foot cellulitis no osteo but increased marrow edema in the calcaneous ? osteo -S/P Right heel debridement on 04/08/17 finding +necrotic skin, SQ and ligaments. OR tissue cx + Proteus and Enterobacter both sensitive to levaquin -S/P repeat debridement 05/25 -wound Cx + MRSA and E coli resistant to levaquin 2) RUPA - worsening 3) NON-compliance Plan: -contact isolation -continue vancomycin 1.5 g IV q day and ceftin 500 mg PO q 48h total 6 weeks from 05/25 until 07/05/17. Keep vanco trough -wound care Thank you Dr Dove for your consultation, will follow up with you. Soniya Contreras MD Infectious Diseases Specialist [facility] ([facility]) M [phone] O [phone] Subjective Date of service: 06/02/17 Principal diagnosis: heel infection Interval history: Feels ok complaining of foot pain, alert no fever, covered from head to toes minimal eye contact Micro: Wound cx 05/25 MRSA + E coli resist to levaquin, sens to ceftin Antimicrobial: zyvox 05/26 Previous: levaquin 05/24 Objective - Exam Narrative Exam: General appearance: Alert in NAD head covered difficult exam Eyes: anicteric sclerae, moist conjunctivae; no lid-lag; PERRLA HENT: Atraumatic; oropharynx clear Neck: Trachea midline; supple, no thyromegaly or lymphadenopathy Lungs: CTA CV: RRR Abdomen: Soft, non-tender; no masses or hepatosplenomegaly Extremities: marked elton leg edema. Right heel with ulcer with dressings Skin: Normal temperature, turgor and texture; no rash, ulcers or subcutaneous nodules Psych: Appropriate affect, alert and oriented to person, place and time. Neuro: alert and oriented x 3. Moving all extermities Lines: No CVL / PICC - Constitutional Vitals: Vital Signs Temp Pulse Resp BP Pulse Ox 98.7 F 74 20 108/48 97 06/02/17 07:46 06/02/17 07:46 06/02/17 10:22 06/02/17 07:46 06/02/17 07:46 Temperature -Last 24 Hours Temperature 98.7 F Temperature 98.7 F Temperature 98.3 F - Labs CBC & Chem 7: 06/01/17 16:20 06/01/17 16:21 Labs: Abnormal lab results 05/29/17 06/01/17 06/01/17 Range/Units 13:45 11:29 16:20 RBC 2.94 L (3.65-5.03) M/mm3 Hgb 7.7 L (11.8-15.2) gm/dl Hct 24.4 L (35.5-45.6) % MCV 83 L (84-94) fl MCH 26 L (28-32) pg RDW 17.4 H (13.2-15.2) % Potassium (3.6-5.0) mmol/L BUN (9-20) mg/dL Creatinine (0.8-1.5) mg/dL Glucose (75-100) mg/dL POC Glucose 177 H (70-105) Vancomycin Trough (5.0-20.0) ug/mL Crossmatch See Detail 06/01/17 06/01/17 06/01/17 Range/Units 16:21 16:21 16:30 RBC (3.65-5.03) M/mm3 Hgb (11.8-15.2) gm/dl Hct (35.5-45.6) % MCV (84-94) fl MCH (28-32) pg RDW (13.2-15.2) % Potassium 5.3 H (3.6-5.0) mmol/L BUN 41 H (9-20) mg/dL Creatinine 2.0 H (0.8-1.5) mg/dL Glucose 134 H (75-100) mg/dL POC Glucose 154 H (70-105) Vancomycin Trough 39.1 H (5.0-20.0) ug/mL Crossmatch 06/01/17 06/02/17 Range/Units 22:08 05:40 RBC (3.65-5.03) M/mm3 Hgb (11.8-15.2) gm/dl Hct (35.5-45.6) % MCV (84-94) fl MCH (28-32) pg RDW (13.2-15.2) % Potassium (3.6-5.0) mmol/L BUN (9-20) mg/dL Creatinine (0.8-1.5) mg/dL Glucose (75-100) mg/dL POC Glucose 174 H 170 H (70-105) Vancomycin Trough (5.0-20.0) ug/mL Crossmatch
--- NOTE | 2017-06-02 12:55 | Progress Note ---
Assessment and Plan Patient is a 61-year-old -[place] male with past medical history significant for DM, CHF, COPD, hypertension, hyperlipidemia, homelessness presented to the emergency department complaining of right foot pain. / Right heel pressure ulcer likely necrotic and infected S/P repeat debridement today05/27/17. S/P Right heel debridement on 04/08/17 finding +necrotic skin, SQ and ligaments. Previous MRI + dorsal foot cellulitis no osteo but increased marrow edema in the calcaneous ? osteo Following by Vascular surgery and Wound care; Dr. Ly, -S/P repeat debridement 05/25 -wound Cx + MRSA and E coli resistant to levaquin continue vancomycin 1.5 g IV q day and ceftin 500 mg PO q 48h total 6 weeks from 05/25 until 07/05/17. Keep vanco trough - per ID Patient awaiting for placement, he is refusing placement Infectious diseases following / Diabetes mellitus Accu-Chek before meals and at bedtime Sliding scale insulin/NovoLog ADA carbohydrate consistent diet / microcytic Anemia with iron deficiency and likely from CKD hb dropped to 6.8 ( wonder if that a lab error), refused transfusion after multiple discussion and counselling Closely monitor H&H, started on iron replacement ordered stool for occult blood, pending hb at 7.7 /Hypertensive urgency Continue home antihypertensive medications Closely monitor blood pressure /Homelessness Patient needs SNF placement, but he is refusing as he does not want to give up his SS check Case management aware /Hyperlipidemia Continue on home antilipid agents /Noncompliant with medications Counseled, wonder he has medical decision making capacity consulted psych, consult pending /Chronic renal failure Elevated Serum creatinine Nephrology following Repeat BMP Closely monitor /Hyperkalemia From chronic renal disease, we'll continue to monitor BMP, but he is resuing lab Kayexalate if potassium level > 5.2 /DVT prophylaxis Changed to scd for anemia Hospitalist Physical General appearance: Present: no acute distress, disheveled - EENT Eyes: Present: PERRL ENT: hearing intact - Neck Neck: Present: supple - Respiratory Respiratory effort: normal Respiratory: bilateral: CTA - Cardiovascular Rhythm: regular Heart Sounds: Present: S1 & S2 - Extremities Extremity abnormal: other (marked elton leg edema. Right heel with ulcer with necrotic tissue and purulence) - Abdominal General gastrointestinal: soft, non-tender - Integumentary Integumentary: Present: clear (Right heel with ulcer with wound dressing), warm , dry - Psychiatric Psychiatric: appropriate mood/affect - Neurologic Neurologic: CNII-XII intact - Allied Health Allied health notes reviewed: nursing Subjective Date of service: 06/02/17 Principal diagnosis: heel infection Interval history: Patient seen and examined. Medical records and medication list reviewed. No acute event overnight noted by the RN. Patient is tolerating diet. he refusing lab, refusing to go to SNF psych eval pending Objective - Constitutional Vitals: Vital Signs - 12hr 06/02/17 06/02/17 07:46 10:22 Temperature 98.7 F Pulse Rate 74 Respiratory 20 20 Rate Blood Pressure 108/48 O2 Sat by Pulse 97 Oximetry - Labs CBC & Chem 7: 06/01/17 16:20 06/01/17 16:21 Labs: Abnormal lab results 05/29/17 06/01/17 06/01/17 Range/Units 13:45 16:20 16:21 RBC 2.94 L (3.65-5.03) M/mm3 Hgb 7.7 L (11.8-15.2) gm/dl Hct 24.4 L (35.5-45.6) % MCV 83 L (84-94) fl MCH 26 L (28-32) pg RDW 17.4 H (13.2-15.2) % Potassium 5.3 H (3.6-5.0) mmol/L BUN 41 H (9-20) mg/dL Creatinine 2.0 H (0.8-1.5) mg/dL Glucose 134 H (75-100) mg/dL POC Glucose (70-105) Vancomycin Trough (5.0-20.0) ug/mL Crossmatch See Detail 06/01/17 06/01/17 06/01/17 Range/Units 16:21 16:30 22:08 RBC (3.65-5.03) M/mm3 Hgb (11.8-15.2) gm/dl Hct (35.5-45.6) % MCV (84-94) fl MCH (28-32) pg RDW (13.2-15.2) % Potassium (3.6-5.0) mmol/L BUN (9-20) mg/dL Creatinine (0.8-1.5) mg/dL Glucose (75-100) mg/dL POC Glucose 154 H 174 H (70-105) Vancomycin Trough 39.1 H (5.0-20.0) ug/mL Crossmatch 06/02/17 06/02/17 Range/Units 05:40 11:40 RBC (3.65-5.03) M/mm3 Hgb (11.8-15.2) gm/dl Hct (35.5-45.6) % MCV (84-94) fl MCH (28-32) pg RDW (13.2-15.2) % Potassium (3.6-5.0) mmol/L BUN (9-20) mg/dL Creatinine (0.8-1.5) mg/dL Glucose (75-100) mg/dL POC Glucose 170 H 158 H (70-105) Vancomycin Trough (5.0-20.0) ug/mL Crossmatch
--- NOTE | 2017-06-02 15:49 | Progress Note ---
Subjective Principal diagnosis: heel infection Interval history: Patient was seen today for follow-up, on many renal related issues remembers me from yesterday he is still sitting in the chair with covers on his face, Interdisciplinary notes were reviewed Vitals labs intake and output medications were reviewed from today Allergies: Reviewed Social history: Reviewed Family history: Reviewed Physical examination HEENT: Oral mucosa moist no pharyngeal erythema Neck: Supple no JVD Chest: Clear to auscultation no crackles rales or wheezes Heart: Regular rate and rhythm S1-S2 heard no S3-S4 Abdomen: Soft nontender no renal bruit no CVA tenderness no suprapubic fullness Extremity: 2+ edema dry skinno purpuric rash Neurological: Alert awake Musculoskeletal: No joint effusion noted Assessment and plan chronic kidney disease in a patient who is 61-year-old with multiple risk factors for, renal failure as well as a progression to ESRD over time patient is very poorly compliant in terms of diet lifestyle suffers from morbid obesity and several other risk factors. Had a detailed discussion with patient about modifying his diet and lifestyle as much as he can do in the absence of which his progression to end-stage renal disease can happen in the next few years. Anemia multifactorial partly also related to renal failure patient is in need for at least 1-2 unit of packed red blood cell transfusion, we'll give him erythropoietin, he may benefit from hematology evaluation edema moderately severe check the degree of proteinuria continue with Lasix as tolerated to keep creatinine of 2.2 Poorly compliant patient extensively counseled and educated to comply with medical instructions and advice in the absence of which not only his renal but his overall prognosis going to be very poor and his mortality rate may be high, he has received enough education from renal standpoint Labs were discussed with patient explained and simple Romansh does have good understanding off renal related issues, Will continue to follow and make recommendation from renal standpoint Objective - Vital Signs Vital signs: Vital Signs - 12hr 06/02/17 06/02/17 07:46 10:22 Temperature 98.7 F Pulse Rate 74 Respiratory 20 20 Rate Blood Pressure 108/48 O2 Sat by Pulse 97 Oximetry - Lab 06/01/17 16:20 06/01/17 16:21 Most recent lab results Calcium 8.8 mg/dL (8.4-10.2) 06/01/17 16:21
[2017-06-02] MEDS: CEFTIN PO SCH (23:54)
[2017-06-03] MEDS: LASIX PO SCH (06:26)
[2017-06-03] MEDS: NEURONTIN PO SCH ×3 (06:26→22:41)
[2017-06-03] MEDS ORDERED: CATHFLO IV ONE (08:38)
[2017-06-03] MEDS: NOVOLOG SUB-Q SCH ×4 (08:39→22:54)
--- NOTE | 2017-06-03 09:18 | Progress Note ---
Subjective Principal diagnosis: heel infection Interval history: Patient was seen today for follow-up on multiple renal related issues Events of 24 hours vitals labs intake output medications were reviewed Interdisciplinary Notes were also reviewed Past medical history: Reviewed Social history: Reviewed Allergies: Reviewed Medication: Reviewed Labs: Reviewed Physical examination Gen.: No acute distress HEENT: Oral mucosa moist, mild pallor no icterus Neck: Supple no thyromegaly nodular mass or JVD Chest: Clear to auscultation anteriorly Heart: Regular rate and rhythm S1 and S2 heard Abdomen: Soft nontender no renal bruit no CVA tenderness no suprapubic fullness Extremity: Edema approximately 1+ dry skin no purpuric rash Dermatology: Dry skin no rash Neurological: Assessment and plan chronic kidney disease in a patient who is 61-year-old with multiple risk factors for a kidney disease Patient is very poorly compliant with diet lifestyle Hyperkalemia mild suggest giving Kayexalate 45 g and follow-up not a candidate for HODA inhibitors or angiotensin receptor farida, this may be resulting from diabetes, heparin Monitor potassium on a daily basis, change Lasix to 80 mg once a day and follow Anemia multifactorial partly also related to renal failure we'll give him erythropoietin, he may benefit from hematology evaluation,20,000 units subcutaneous 1k today edema moderately severe check the degree of proteinuria continue with Lasix as tolerated to keep creatinine of 2.2 Poorly compliant patient extensively counseled and educated to comply with medical instructions and advice in the absence of which not only his renal but his overall prognosis going to be very poor and his mortality rate may be high, he has received enough education from renal standpoint Had a detailed discussion with patient about multiple renal related issues, explained and simple Croatian. Patient does exhibit good understanding off multiple renal related issues We'll continue to follow and make recommendation from renal standpoint Objective - Vital Signs Vital signs: Vital Signs - 12hr 06/02/17 06/02/17 23:26 23:56 Temperature 98.1 F Pulse Rate 75 60 Respiratory 20 Rate Blood Pressure 143/59 130/70 O2 Sat by Pulse 98 Oximetry - Lab 06/03/17 13:00 06/05/17 05:21 Most recent lab results Calcium 8.8 mg/dL (8.4-10.2) 06/01/17 16:21
[2017-06-03] MEDS ORDERED: WATER FOR INJ (PF) 10 ML ONE (09:24)
[2017-06-03] MEDS ORDERED: KIONEX PO ONE ×2 (10:00→14:51)
[2017-06-03] MEDS ORDERED: LASIX PO SCH (10:00)
[2017-06-03] MEDS: COREG PO SCH ×2 (10:44→22:41)
[2017-06-03] MEDS: APRESOLINE PO SCH ×3 (10:44→23:36)
[2017-06-03] MEDS: FEOSOL PO SCH ×2 (10:44→22:40)
[2017-06-03] MEDS: CEFTIN PO SCH ×2 (10:44→22:40)
[2017-06-03] MEDS: NORVASC PO SCH (10:44)
[2017-06-03] MEDS: HEPARIN SUB-Q SCH ×2 (10:47→22:23)
[2017-06-03] MEDS: FOLBEE PLUS CZ PO SCH (11:23)
[2017-06-03] MEDS: PERCOCET 5/325 PO PRN ×2 (11:25→22:53)
[2017-06-03 13:17] LABS: Calcium 8.5 mg/dL (8.4-10.2)
[2017-06-03 13:28] LABS: Hematocrit 23.5 % (35.5-45.6); Hemoglobin 7.5 gm/dl (11.8-15.2)
--- NOTE | 2017-06-03 14:21 | Consultation ---
History of Present Illness - Reason for Consult Reason for consult: decisional capacity for consent to IV antibiotic treatment - History of Present Psychiatric Illness The patient was seen by myself today after briefly discussing the reason for the consultation with the nurse and catalytic case operator. I attempted to contact the attending shop assistant to better understand the reason for consultation, but was unable to reach her. As far as I was able to ascertain, the reason for the consultation is to determine whether or not the patient has decisional capacity to consent for IV antibiotic treatment for an ongoing infectious process. Upon my clinical encounter, I found the patient to be fairly oppositional and uncooperative. When asking questions about general orientation, patient refused to answer and remarked that I was asking "stupid questions". Therefore , we moved to questions that were more relevant to him. Of note, during my interview he did not answer any questions regarding orientation to person place time. Patient noted that he was in pain and questions related to his pain were more relevant than questions about where he was or the date. Consequently, he was able to describe that he had some pain in his foot and that it was related to an infection. He was able to state that he wants treatment for this infection, but when questioned about whether or not he refused consent for IV antibiotics earlier he noted that he had not refused. Per my discussion with nursing staff and case management, it was suggested that he had been refusing such treatment options intermittently. Upon further questioning, patient became persistently irritable and again refused to interact with my clinical interview. Subsequently, he prompted me to leave the room and speak with him another day. From then on, he refused to answer the remained of the questions I had for him. At the current time, the full capacity evaluation was unable to be completed due to the patient's inability or unwillingness to cooperate. I am outlining the detailed process of how to complete a capacity evaluation below, if the primary team would like to engage in that process with the patient independently at another point in time. At the moment of my evaluation, I would say that the patient does not have the capacity to make the specific decision about consenting to IV antibiotic treatment for his infection. Decisional capacity is subject to change from time to time and needs to be assessed each time a decision is being made by the patient regarding their medical care. The consent process for treatment usually fulfills the requirements necessary for decisional capacity and it can be used to determine decisional capacity when augmented by the specific steps outlined below. *We have 4 criteria (based on Alfonso & Mark in 1988) to assess TASK- specific decision-making capacity: 1) communicating a consistent choice 2) understanding pertinent information (nature of illness) 3) appreciate the circumstances & consequences (treatment options, prognosis with and without treatment, risk/ benefit ratio of treatment) 4) ability to rationally manipulate the information. It is fluid and may change from day to day. If order for a capacity evaluation to be complete, the following information needs to be assessed and documented by the primary team. A. Please document why there is a concern about lack of capacity and the specific task that we are evaluating. Capacity must be TASK specific evaluating vs global evaluation for competency. 1. For example- does the patient have capacity to leave AMA or refuse a surgery? 2. Global Capacity (a.k.a. Competency) is determined by the legal system. B. Please document the patients understanding of specific problems and treatment options? ( if possible, use their own words) C. Is the patient able to explain the consequences (risks vs benefits) of treatment options? Please document their explanation. D. Is the patient able to reason through their treatment options and manipulate information in regards to themselves? E. Does the patient display a clear and consistent choice? F. If the patient is unable to demonstrate that they have capacity, then a surrogate decision maker should be named to assist with decision making. Medications and Allergies Allergies Allergy/AdvReac Type Severity Reaction Status Date / Time No Known Allergies Allergy Verified 05/18/17 00:10 Home Medications Medication Instructions Recorded Confirmed Last Taken Type Gabapentin [Neurontin] 300 mg PO Q8HR #90 capsule 11/04/15 04/05/17 1 Day Ago Rx ~03/01/17 AtorvaSTATin [Lipitor] 20 mg PO QHS 04/09/16 04/05/17 1 Day Ago History ~03/01/17 Ergocalciferol(Vitamin D2)(Nf) 50,000 unit PO QWEEK 04/09/16 04/05/17 1 Day Ago History [Vitamin D (Nf)] ~03/01/17 Insulin Lispro Prot/Lispro 30 unit SQ BID 03/05/17 04/05/17 Unknown History [HumaLOG Mix 75/25 Vial] hydrALAZINE [Apresoline TAB] 100 mg PO TID 03/12/17 04/05/17 Unknown History Carvedilol [Coreg] 12.5 mg PO BID #30 tablet 04/14/17 Unknown Rx Folic Acid/Vit Bcomp&C/Cu/Znox 1 each PO QDAY #30 tablet 04/14/17 Unknown Rx [Folbee Plus Cz] Furosemide [Lasix TAB] 40 mg PO BID@0600,1800 #14 tablet 04/14/17 Unknown Rx Sodium Bicarbonate 1,300 mg PO BID #14 tablet 04/14/17 Unknown Rx amLODIPine [Norvasc] 10 mg PO DAILY #30 tablet 04/14/17 Unknown Rx oxyCODONE /ACETAMINOPHEN [Percocet 1 tab PO Q6H PRN #10 tablet 04/14/17 Unknown Rx 5/325 mg] Vancomycin 1,000 mg IV Q24H 37 Days mg 05/29/17 Unknown Rx Active Meds: Active Medications Amlodipine Besylate (Norvasc) 10 mg PO DAILY [facility] Last Admin: 06/03/17 10:44 Dose: 10 mg Atorvastatin Calcium (Lipitor) 20 mg PO QHS [facility] Last Admin: 06/02/17 23:55 Dose: 20 mg Carvedilol (Coreg) 12.5 mg PO BID [facility] Last Admin: 06/03/17 10:44 Dose: 12.5 mg Cefuroxime Axetil (Ceftin) 500 mg PO Q12HR [facility] Last Admin: 06/03/17 10:44 Dose: 500 mg Dextrose (D50w (25gm) Vial) 25 gm IV PRN PRN PRN Reason: HYPOGLYCEMIA Ferrous Sulfate (Feosol) 325 mg PO BID [facility] Last Admin: 06/03/17 10:44 Dose: 325 mg Furosemide (Lasix) 80 mg PO DAILY [facility] Last Admin: 06/03/17 11:23 Dose: 80 mg Gabapentin (Neurontin) 300 mg PO Q8HR [facility] Last Admin: 06/03/17 06:26 Dose: 300 mg Heparin Sodium (Porcine) (Heparin) 5,000 unit SUB-Q BID [facility] Last Admin: 06/03/17 10:47 Dose: Not Given Hydralazine HCl (Apresoline) 100 mg PO TID [facility] Last Admin: 06/03/17 10:44 Dose: 100 mg Sodium Chloride (Nacl 0.9% 1000 Ml) 1,000 mls @ 75 mls/hr IV DIRECT [facility] Last Admin: 05/31/17 14:35 Dose: 75 mls/hr Insulin Aspart (Novolog) 0 units SUB-Q ACHS [facility] PRN Reason: Protocol Last Admin: 06/03/17 11:25 Dose: Not Given Insulin Human Isoph/Insulin Regular (Novolin 70/30) 30 unit SUB-Q BIDDIAB [facility] Last Admin: 06/03/17 08:39 Dose: Not Given Oxycodone/Acetaminophen (Percocet 5/325) 1 tab PO Q6H PRN PRN Reason: Pain, Moderate (4-6) Last Admin: 06/03/17 11:25 Dose: 1 tab Sodium Polystyrene Sulfonate (Kionex) 15 gm PO Q6H PRN PRN Reason: Hyperkalemia Vancomycin HCl (Vancomycin Pharmacy To Dose) 1 each IV PKCONSULT [facility] PRN Reason: Protocol Vitamin B Complex/Folic Acid (Folbee Plus Cz) 1 each PO QDAY [facility] Last Admin: 06/03/17 11:23 Dose: 1 each Mental Status Exam - Vital signs Last Vital Signs Temp 98.1 F 06/02/17 23:26 Pulse 60 06/02/17 23:56 Resp 20 06/02/17 23:26 BP 130/70 06/02/17 23:56 Pulse Ox 98 06/02/17 23:26 Results Result Diagrams: 06/03/17 13:00 06/03/17 12:30 Abnormal lab results 06/02/17 06/02/17 06/03/17 Range/Units 15:48 21:01 05:46 Hgb (11.8-15.2) gm/dl Hct (35.5-45.6) % Sodium (137-145) mmol/L Potassium (3.6-5.0) mmol/L Carbon Dioxide (22-30) mmol/L BUN (9-20) mg/dL Creatinine (0.8-1.5) mg/dL Glucose (75-100) mg/dL POC Glucose 390 H 183 H 158 H (70-105) 06/03/17 06/03/17 06/03/17 Range/Units 11:08 12:30 13:00 Hgb 7.5 L (11.8-15.2) gm/dl Hct 23.5 L (35.5-45.6) % Sodium 136 L (137-145) mmol/L Potassium 5.3 H (3.6-5.0) mmol/L Carbon Dioxide 21 L (22-30) mmol/L BUN 56 H (9-20) mg/dL Creatinine 2.5 H (0.8-1.5) mg/dL Glucose 110 H (75-100) mg/dL POC Glucose 120 H (70-105) All other labs normal.
--- NOTE | 2017-06-03 14:59 | Progress Note ---
Assessment and Plan / Right heel pressure ulcer likely necrotic and infected S/P repeat debridement today05/27/17. S/P Right heel debridement on 04/08/17 finding +necrotic skin, SQ and ligaments. Previous MRI + dorsal foot cellulitis no osteo but increased marrow edema in the calcaneous ? osteo Following by Vascular surgery and Wound care; Dr. Ly, -S/P repeat debridement 05/25 -wound Cx + MRSA and E coli resistant to levaquin continue vancomycin 1.5 g IV q day and ceftin 500 mg PO q 48h total 6 weeks from 05/25 until 07/05/17. Keep vanco trough 14-18 per ID Patient awaiting for placement, he is refusing placement Infectious diseases following / Diabetes mellitus Accu-Chek before meals and at bedtime Sliding scale insulin/NovoLog ADA carbohydrate consistent diet refusing subqu insulin / microcytic Anemia with iron deficiency and likely from CKD hb dropped to 6.8 ( wonder if that a lab error), refused transfusion after multiple discussion and counselling Closely monitor H&H, started on iron replacement ordered stool for occult blood, pending hb at 7.7 /Hypertensive urgency Continue home antihypertensive medications Closely monitor blood pressure refused all BP meds /Homelessness Patient needs SNF placement, but he is refusing as he does not want to give up his SS check Case management aware /Hyperlipidemia Continue on home lipitor /Noncompliant with medications and treatment options Counseled, wonder he has medical decision making capacity. left AMA multiple times Per my assessment : 1) he does not communicate well when asked a question in regards of medications/ SNF placement/treatment options 2) Patient is very difficult, although he has good insight to his medical condition he lacks the understanding and ability to accommodate his current environment and management that is required current treatment. 3) he does not appreciate the circumstances & consequences (treatment options, prognosis with and without treatment, risk/ benefit ratio of treatment) and repeatedly reported he will do what he wants to do and he will not go to SNF ( because he does not want to give up his checks) , will not get blood transfusion or heparin by any means. he also does not want any other meds except abx and pain medication. 4) he choose what question to answer and for others he does not respond Consulted psych, but he did not cooperate with complete eval. Wait for further recommendation from psych in terms of ability to refuse medications or to leave AMA. May need risk management involve /Chronic renal failure Elevated Serum creatinine Nephrology following Repeat BMP Closely monitor renal function /Hyperkalemia From chronic renal disease, we'll continue to monitor BMP, Kayexalate if potassium level > 5.2, but he is refusing med /DVT prophylaxis Changed to scd for anemia Brief History: Patient is a 61-year-old -[place] male with past medical history significant for DM, CHF, COPD, hypertension, hyperlipidemia, homelessness presented to the emergency department complaining of right foot pain. Hospitalist Physical General appearance: Present: no acute distress, disheveled - EENT Eyes: Present: PERRL ENT: hearing intact - Neck Neck: Present: supple - Respiratory Respiratory effort: normal Respiratory: bilateral: CTA - Cardiovascular Rhythm: regular Heart Sounds: Present: S1 & S2 - Extremities Extremity abnormal: other (marked elton leg edema. Right heel with ulcer with wound dressing) - Abdominal General gastrointestinal: soft, non-tender - Integumentary Integumentary: Present: clear (Right heel with ulcer with wound dressing), warm , dry - Psychiatric Psychiatric: appropriate mood/affect - Neurologic Neurologic: CNII-XII intact - Allied Health Allied health notes reviewed: nursing Subjective Date of service: 06/03/17 Principal diagnosis: heel infection Interval history: Patient seen and examined. Medical records and medication list reviewed. Patient is tolerating diet. he refusing heparin and other meds, refusing to go to SNF to complete abx regimen did not cooperate with psych eval Objective - Labs CBC & Chem 7: 06/03/17 13:00 06/03/17 12:30 Labs: Abnormal lab results 06/02/17 06/02/17 06/03/17 Range/Units 15:48 21:01 05:46 Hgb (11.8-15.2) gm/dl Hct (35.5-45.6) % Sodium (137-145) mmol/L Potassium (3.6-5.0) mmol/L Carbon Dioxide (22-30) mmol/L BUN (9-20) mg/dL Creatinine (0.8-1.5) mg/dL Glucose (75-100) mg/dL POC Glucose 390 H 183 H 158 H (70-105) 06/03/17 06/03/17 06/03/17 Range/Units 11:08 12:30 13:00 Hgb 7.5 L (11.8-15.2) gm/dl Hct 23.5 L (35.5-45.6) % Sodium 136 L (137-145) mmol/L Potassium 5.3 H (3.6-5.0) mmol/L Carbon Dioxide 21 L (22-30) mmol/L BUN 56 H (9-20) mg/dL Creatinine 2.5 H (0.8-1.5) mg/dL Glucose 110 H (75-100) mg/dL POC Glucose 120 H (70-105)
[2017-06-03 19:16] LABS: Creatinine,Urine 97.6 mg/dL (0.1-20.0)
[2017-06-04] MEDS: NEURONTIN PO SCH ×3 (05:36→22:38)
[2017-06-04] MEDS: PERCOCET 5/325 PO PRN ×3 (05:41→23:16)
[2017-06-04] MEDS: NOVOLOG SUB-Q SCH ×4 (07:30→22:39)
--- NOTE | 2017-06-04 09:15 | Progress Note ---
Subjective Principal diagnosis: heel infection Interval history: Patient was seen today for follow-up on multiple renal related issues Events of 24 hours vitals labs intake output medications were reviewed Patient is talking to me through the covers and has had would not open his blanket Creatinine was 2.5 potassium 5.3 no basic metabolic profile today Interdisciplinary Notes were also reviewed Past medical history: Reviewed Social history: Reviewed Allergies: Reviewed Medication: Reviewed Labs: Reviewed Physical examination Gen.: No acute distress HEENT: Oral mucosa moist, mild pallor no icterus Neck: Supple no thyromegaly nodular mass or JVD Chest: Clear to auscultation anteriorly Heart: Regular rate and rhythm S1 and S2 heard Abdomen: Soft nontender no renal bruit no CVA tenderness no suprapubic fullness Extremity: Edema approximately 1+ dry skin no purpuric rash Dermatology: Dry skin no rash Neurological: Assessment and plan Chronic kidney disease in a patient who is 61-year-old with multiple risk factors for a kidney disease, monitor renal function patient does need labs today We'll order for renal ultrasonogram Erythropoietin has been administered for anemia Patient refusing packed red blood cell transfusion Overall prognosis long-term poor Worry about psychiatric issues here Involvement in care: From patient's perspective very poor We'll continue to follow and make recommendation from renal standpoint Objective - Vital Signs Vital signs: Vital Signs - 12hr 06/03/17 06/03/17 06/04/17 21:36 22:41 07:52 Temperature 98.7 F 98.4 F Pulse Rate 79 79 81 Respiratory 16 20 Rate Blood Pressure 149/69 149/69 124/59 O2 Sat by Pulse 97 95 Oximetry - Lab 06/03/17 13:00 06/05/17 05:21 Most recent lab results Calcium 8.5 mg/dL (8.4-10.2) 06/03/17 12:30 Urine Creatinine 97.6 mg/dL (0.1-20.0) H 06/03/17 15:00 Urine Total Protein 32 mg/dL (5-11.8) H 06/03/17 15:00
[2017-06-04] MEDS: FEOSOL PO SCH ×2 (10:15→22:38)
[2017-06-04] MEDS: CEFTIN PO SCH ×2 (10:15→22:40)
[2017-06-04] MEDS: NORVASC PO SCH (10:16)
[2017-06-04] MEDS: APRESOLINE PO SCH ×3 (10:16→20:44)
[2017-06-04] MEDS: COREG PO SCH ×2 (10:16→22:38)
[2017-06-04] MEDS: HEPARIN SUB-Q SCH ×2 (10:16→22:41)
[2017-06-04] MEDS ORDERED: CATHFLO IV ONE (10:43)
--- NOTE | 2017-06-04 11:27 | Progress Note ---
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 However, velocities are only marginally diminished in the proximal and mid sections of these vessels. - Previous MRI + dorsal foot cellulitis no osteo but increased marrow edema in the calcaneous ? osteo -S/P Right heel debridement on 04/08/17 finding +necrotic skin, SQ and ligaments. OR tissue cx + Proteus and Enterobacter both sensitive to levaquin -S/P repeat debridement 05/25 -wound Cx + MRSA and E coli resistant to levaquin 2) RUPA - worsening 3) NON-compliance Plan: -contact isolation -continue vancomycin 1.5 g IV q day and ceftin 500 mg PO q 48h total 6 weeks from 05/25 until 07/05/17. Keep vanco trough -wound care I am signing off Thank you Dr Dove for your consultation, will follow up with you. Soniya Contreras MD Infectious Diseases Specialist [facility] ([facility]) M [phone] O [phone] Subjective Date of service: 06/04/17 Principal diagnosis: heel infection Interval history: Feels better, no fever Micro: Wound cx 05/25 MRSA + E coli resist to levaquin, sens to ceftin Antimicrobial: vanco 05/28 ceftin 06/02 Previous: levaquin 05/24 zyvox 05/26 Objective - Exam Narrative Exam: General appearance: Alert in NAD head covered difficult exam Eyes: anicteric sclerae, moist conjunctivae; no lid-lag; PERRLA HENT: Atraumatic; oropharynx clear Neck: Trachea midline; supple, no thyromegaly or lymphadenopathy Lungs: CTA CV: RRR Abdomen: Soft, non-tender; no masses or hepatosplenomegaly Extremities: marked elton leg edema. Right heel with ulcer with dressings Skin: Normal temperature, turgor and texture; no rash, ulcers or subcutaneous nodules Psych: Appropriate affect, alert and oriented to person, place and time. Neuro: alert and oriented x 3. Moving all extermities Lines: No CVL / PICC - Constitutional Vitals: Vital Signs Temp Pulse Resp BP Pulse Ox 98.4 F 81 20 124/59 95 06/04/17 07:52 06/04/17 07:52 06/04/17 07:52 06/04/17 07:52 06/04/17 07:52 Temperature -Last 24 Hours Temperature 98.4 F Temperature 98.7 F Temperature 98.3 F - Labs CBC & Chem 7: 06/03/17 13:00 06/03/17 12:30 Labs: Abnormal lab results 06/03/17 06/03/17 06/03/17 Range/Units 12:30 13:00 15:00 Hgb 7.5 L (11.8-15.2) gm/dl Hct 23.5 L (35.5-45.6) % Sodium 136 L (137-145) mmol/L Potassium 5.3 H (3.6-5.0) mmol/L Carbon Dioxide 21 L (22-30) mmol/L BUN 56 H (9-20) mg/dL Creatinine 2.5 H (0.8-1.5) mg/dL Glucose 110 H (75-100) mg/dL POC Glucose (70-105) Urine Creatinine 97.6 H (0.1-20.0) mg/dL Urine Total Protein 32 H (5-11.8) mg/dL 06/03/17 06/03/17 06/04/17 Range/Units 16:17 21:44 05:24 Hgb (11.8-15.2) gm/dl Hct (35.5-45.6) % Sodium (137-145) mmol/L Potassium (3.6-5.0) mmol/L Carbon Dioxide (22-30) mmol/L BUN (9-20) mg/dL Creatinine (0.8-1.5) mg/dL Glucose (75-100) mg/dL POC Glucose 204 H 197 H 148 H (70-105) Urine Creatinine (0.1-20.0) mg/dL Urine Total Protein (5-11.8) mg/dL
--- NOTE | 2017-06-04 15:43 | Progress Note ---
Assessment and Plan / Right heel pressure ulcer likely necrotic and infected S/P repeat debridement today05/27/17. S/P Right heel debridement on 04/08/17 finding +necrotic skin, SQ and ligaments. Previous MRI + dorsal foot cellulitis no osteo but increased marrow edema in the calcaneous ? osteo Following by Vascular surgery and Wound care; Dr. Ly, -S/P repeat debridement 05/25 -wound Cx + MRSA and E coli resistant to levaquin continue vancomycin 1.5 g IV q day and ceftin 500 mg PO q 48h total 6 weeks from 05/25 until 07/05/17. Keep vanco trough 14-18 per ID Patient awaiting for placement, he is refusing placement Infectious diseases following / Diabetes mellitus Accu-Chek before meals and at bedtime Sliding scale insulin/NovoLog ADA carbohydrate consistent diet refusing subqu insulin / microcytic Anemia with iron deficiency and likely from CKD hb dropped to 6.8 ( wonder if that a lab error), refused transfusion after multiple discussion and counselling Closely monitor H&H, started on iron replacement ordered stool for occult blood, pending cont to monitor h and H /Hypertensive urgency Continue home antihypertensive medications Closely monitor blood pressure taking all BP meds now /Homelessness Patient needs SNF placement, but he is refusing as he does not want to give up his SS check Case management aware /Hyperlipidemia Continue on home lipitor /Noncompliant with medications and treatment options Counseled, wonder he has medical decision making capacity. left AMA multiple times Per my assessment : 1) he does not communicate well when asked a question in regards of medications/ SNF placement/treatment options 2) Patient is very difficult, although he has good insight to his medical condition he lacks the understanding and ability to accommodate his current environment and management that is required current treatment. 3) he does not appreciate the circumstances & consequences (treatment options, prognosis with and without treatment, risk/ benefit ratio of treatment) and repeatedly reported he will do what he wants to do and he will not go to SNF ( because he does not want to give up his checks) , will not get blood transfusion or heparin by any means. he also does not want any other meds except abx, BP meds and pain medication. 4) he choose what question to answer and for others he does not respond Consulted psych, but he did not cooperate with complete eval. Wait for further recommendation from psych in terms of ability to refuse medications or to leave AMA. May need risk management involve /Chronic renal failure Elevated Serum creatinine Nephrology following Repeat BMP Closely monitor renal function /Hyperkalemia From chronic renal disease, we'll continue to monitor BMP, Kayexalate if potassium level > 5.2, but he is refusing med /DVT prophylaxis Changed to scd for anemia Brief History: Patient is a 61-year-old -[place]ong[place]ian male with past medical history significant for DM, CHF, COPD, hypertension, hyperlipidemia, homelessness presented to the emergency department complaining of right foot pain. Hospitalist Physical General appearance: Present: no acute distress, disheveled - EENT Eyes: Present: PERRL ENT: hearing intact - Neck Neck: Present: supple - Respiratory Respiratory effort: normal Respiratory: bilateral: CTA - Cardiovascular Rhythm: regular Heart Sounds: Present: S1 & S2 - Extremities Extremity abnormal: other (marked elton leg edema. Right heel with ulcer with wound dressing) - Abdominal General gastrointestinal: soft, non-tender - Integumentary Integumentary: Present: clear (Right heel with ulcer with wound dressing), warm , dry - Psychiatric Psychiatric: appropriate mood/affect - Neurologic Neurologic: CNII-XII intact - Allied Health Allied health notes reviewed: nursing Subjective Date of service: 06/04/17 Principal diagnosis: heel infection Interval history: Patient seen and examined. Medical records and medication list reviewed. Patient is tolerating diet. he is refusing certain meds except abx/antihypertensive, refusing to go to SNF to complete abx regimen he stated to me that he will not cooperate with psych eval Objective - Constitutional Vitals: Vital Signs - 12hr 06/04/17 06/04/17 07:52 10:00 Temperature 98.4 F Pulse Rate 81 Respiratory 20 Rate Blood Pressure 124/59 O2 Sat by Pulse 95 95 Oximetry - Labs CBC & Chem 7: 06/03/17 13:00 06/05/17 05:21 Labs: Abnormal lab results 06/03/17 06/03/17 06/03/17 Range/Units 15:00 16:17 21:44 POC Glucose 204 H 197 H (70-105) Urine Creatinine 97.6 H (0.1-20.0) mg/dL Urine Total Protein 32 H (5-11.8) mg/dL 12/14/17 12/14/17 Range/Units 05:24 12:00 POC Glucose 148 H 149 H (70-105) Urine Creatinine (0.1-20.0) mg/dL Urine Total Protein (5-11.8) mg/dL
[2017-06-04] MEDS: FOLBEE PLUS CZ PO SCH (15:47)
[2017-06-04 16:10] LABS: Calcium 8.2 mg/dL (8.4-10.2)
--- NOTE | 2017-06-04 16:58 | Consultation ---
History of Present Illness - Reason for Consult Consult date: 06/04/17 Reason for consult: Decisional capacity to sign out AMA Requesting physician: NE NETTLES - Chief Complaint Chief complaint: Today the patient is calm, but uncooperative during the evaluation. This decisional capacity evaluation is to determine if the patient can sign out AMA. Currently, the patient has an ongoing infection and receiving antibiotic treatment. When asking questions about general orientation (person, place, and time), the patient refused to answer. When he was asked generalized questions about his current medical condition he stated, "Those are stupid questions." Patient was asked about where would he go once discharged and why would he sign out AMA, he refused to answer. I tried to discuss the wound dressing on his right lower LE, he stated, "Can you leave, I am done talking." Multiple attempts was made to engage the patient, but was unsuccessful. Per information from staff, the patient had mentioned signing himself out of the hospital. At the current time, the full capacity evaluation was unable to be completed due to the patient's inability or unwillingness to cooperate. I am outlining the detailed process of how to complete a capacity evaluation below, if the primary team would like to engage in that process with the patient independently at another point in time. Per this evaluation, I would say that the patient does not have the capacity to make the specific decision about signing out AMA. Decisional capacity is subject to change from time to time and needs to be assessed each time a decision is being made by the patient regarding their medical care. The consent process for treatment usually fulfills the requirements necessary for decisional capacity and it can be used to determine decisional capacity when augmented by the specific steps outlined below. *We have 4 criteria (based on Alfonso & Adelitao in 1988) to assess TASK- specific decision-making capacity: 1) communicating a consistent choice 2) understanding pertinent information (nature of illness) 3) appreciate the circumstances & consequences (treatment options, prognosis with and without treatment, risk/ benefit ratio of treatment) 4) ability to rationally manipulate the information. It is fluid and may change from day to day. If order for a capacity evaluation to be complete, the following information needs to be assessed and documented by the primary team. A. Please document why there is a concern about lack of capacity and the specific task that we are evaluating. Capacity must be TASK specific evaluating vs global evaluation for competency. 1. For example- does the patient have capacity to leave AMA or refuse a surgery? 2. Global Capacity (a.k.a. Competency) is determined by the legal system. B. Please document the patients understanding of specific problems and treatment options? ( if possible, use their own words) C. Is the patient able to explain the consequences (risks vs benefits) of treatment options? Please document their explanation. D. Is the patient able to reason through their treatment options and manipulate information in regards to themselves? E. Does the patient display a clear and consistent choice? F. If the patient is unable to demonstrate that they have capacity, then a surrogate decision maker should be named to assist with decision making. Medications and Allergies Allergies Allergy/AdvReac Type Severity Reaction Status Date / Time No Known Allergies Allergy Verified 05/18/17 00:10 Home Medications Medication Instructions Recorded Confirmed Last Taken Type Gabapentin [Neurontin] 300 mg PO Q8HR #90 capsule 11/04/15 06/04/17 1 Day Ago Rx ~03/01/17 AtorvaSTATin [Lipitor] 20 mg PO QHS 04/09/16 06/04/17 1 Day Ago History ~03/01/17 Ergocalciferol(Vitamin D2)(Nf) 50,000 unit PO QWEEK 04/09/16 06/04/17 1 Day Ago History [Vitamin D (Nf)] ~03/01/17 Insulin Lispro Prot/Lispro 30 unit SQ BID 03/05/17 06/04/17 Unknown History [HumaLOG Mix 75/25 Vial] hydrALAZINE [Apresoline TAB] 100 mg PO TID 03/12/17 06/04/17 Unknown History Carvedilol [Coreg] 12.5 mg PO BID #30 tablet 04/14/17 06/04/17 Unknown Rx Folic Acid/Vit Bcomp&C/Cu/Znox 1 each PO QDAY #30 tablet 04/14/17 06/04/17 Unknown Rx [Folbee Plus Cz] Furosemide [Lasix TAB] 40 mg PO BID@0600,1800 #14 tablet 04/14/17 06/04/17 Unknown Rx Sodium Bicarbonate 1,300 mg PO BID #14 tablet 04/14/17 06/04/17 Unknown Rx amLODIPine [Norvasc] 10 mg PO DAILY #30 tablet 04/14/17 06/04/17 Unknown Rx oxyCODONE /ACETAMINOPHEN [Percocet 1 tab PO Q6H PRN #10 tablet 04/14/17 Unknown Rx 5/325 mg] Vancomycin 1,000 mg IV Q24H 37 Days mg 05/29/17 Unknown Rx Active Meds: Active Medications Amlodipine Besylate (Norvasc) 10 mg PO DAILY [facility] Last Admin: 06/04/17 10:16 Dose: 10 mg Atorvastatin Calcium (Lipitor) 20 mg PO QHS [facility] Last Admin: 06/03/17 22:41 Dose: 20 mg Carvedilol (Coreg) 12.5 mg PO BID [facility] Last Admin: 06/04/17 10:16 Dose: 12.5 mg Cefuroxime Axetil (Ceftin) 500 mg PO Q12HR [facility] Stop: 07/05/17 23:59 Last Admin: 06/04/17 10:15 Dose: 500 mg Dextrose (D50w (25gm) Vial) 25 gm IV PRN PRN PRN Reason: HYPOGLYCEMIA Ferrous Sulfate (Feosol) 325 mg PO BID [facility] Last Admin: 06/04/17 10:15 Dose: 325 mg Gabapentin (Neurontin) 300 mg PO Q8HR [facility] Last Admin: 06/04/17 15:13 Dose: 300 mg Heparin Sodium (Porcine) (Heparin) 5,000 unit SUB-Q BID [facility] Last Admin: 06/04/17 10:16 Dose: Not Given Hydralazine HCl (Apresoline) 100 mg PO TID [facility] Last Admin: 06/04/17 15:13 Dose: 100 mg Sodium Chloride (Nacl 0.9% 1000 Ml) 1,000 mls @ 75 mls/hr IV DIRECT [facility] Last Admin: 05/31/17 14:35 Dose: 75 mls/hr Insulin Aspart (Novolog) 0 units SUB-Q ACHS [facility] PRN Reason: Protocol Last Admin: 06/04/17 14:53 Dose: Not Given Insulin Human Isoph/Insulin Regular (Novolin 70/30) 30 unit SUB-Q BIDDIAB [facility] Last Admin: 06/04/17 08:00 Dose: Not Given Oxycodone/Acetaminophen (Percocet 5/325) 1 tab PO Q6H PRN PRN Reason: Pain, Moderate (4-6) Last Admin: 06/04/17 15:47 Dose: 1 tab Sodium Polystyrene Sulfonate (Kionex) 15 gm PO Q6H PRN PRN Reason: Hyperkalemia Vancomycin HCl (Vancomycin Pharmacy To Dose) 1 each IV PKCONSULT [facility] PRN Reason: Protocol Stop: 07/05/17 23:59 Vitamin B Complex/Folic Acid (Folbee Plus Cz) 1 each PO QDAY [facility] Last Admin: 06/04/17 15:47 Dose: 1 each Mental Status Exam - Vital signs Last Vital Signs Temp 98.0 F 06/04/17 15:19 Pulse 81 06/04/17 07:52 Resp 20 06/04/17 15:19 BP 149/58 06/04/17 15:19 Pulse Ox 95 06/04/17 10:00 Results Result Diagrams: 06/03/17 13:00 06/05/17 05:21 Abnormal lab results 06/03/17 06/03/17 06/04/17 Range/Units 15:00 21:44 05:24 Sodium (137-145) mmol/L Potassium (3.6-5.0) mmol/L BUN (9-20) mg/dL Creatinine (0.8-1.5) mg/dL Glucose (75-100) mg/dL POC Glucose 197 H 148 H (70-105) Calcium (8.4-10.2) mg/dL Urine Creatinine 97.6 H (0.1-20.0) mg/dL Urine Total Protein 32 H (5-11.8) mg/dL 06/04/17 06/04/17 06/04/17 Range/Units 12:00 15:30 16:41 Sodium 136 L (137-145) mmol/L Potassium 5.2 H (3.6-5.0) mmol/L BUN 57 H (9-20) mg/dL Creatinine 2.4 H (0.8-1.5) mg/dL Glucose 208 H (75-100) mg/dL POC Glucose 149 H 213 H (70-105) Calcium 8.2 L (8.4-10.2) mg/dL Urine Creatinine (0.1-20.0) mg/dL Urine Total Protein (5-11.8) mg/dL All other labs normal.
[2017-06-05] MEDS: NEURONTIN PO SCH ×3 (05:40→21:29)
[2017-06-05] MEDS: PERCOCET 5/325 PO PRN (05:57)
[2017-06-05 06:36] LABS: Calcium 8.4 mg/dL (8.4-10.2)
[2017-06-05] MEDS: NOVOLOG SUB-Q SCH ×4 (07:30→22:42)
[2017-06-05] MEDS: APRESOLINE PO SCH ×2 (08:00→14:00)
[2017-06-05] MEDS ORDERED: D50W (25GM) Vial IV PRN (09:27)
[2017-06-05] MEDS ORDERED: D50W (25GM) Syringe IV PRN (09:29)
[2017-06-05] MEDS: CEFTIN PO SCH ×2 (10:00→21:29)
[2017-06-05] MEDS: HEPARIN SUB-Q SCH ×3 (10:00→21:32)
[2017-06-05] MEDS: NORVASC PO SCH (10:00)
[2017-06-05] MEDS: COREG PO SCH ×2 (10:00→21:29)
[2017-06-05] MEDS: FOLBEE PLUS CZ PO SCH (10:00)
[2017-06-05] MEDS: FEOSOL PO SCH ×2 (10:00→21:29)
--- NOTE | 2017-06-05 10:37 | Progress Note ---
Subjective Principal diagnosis: heel infection Interval history: Patient was seen today for follow-up on multiple renal related issues he is alert awake laying in in the bed Renal function appears to have stabilized Patient has very poor understanding of his overall health despite ongoing counseling and education which is unfortunate Interdisciplinary Notes were also reviewed Past medical history: Reviewed Social history: Reviewed Allergies: Reviewed Medication: Reviewed Labs: Reviewed Physical examination Gen.: No acute distress HEENT: Oral mucosa moist, mild pallor no icterus Neck: Supple no thyromegaly nodular mass or JVD Chest: Clear to auscultation anteriorly Heart: Regular rate and rhythm S1 and S2 heard Abdomen: Soft nontender no renal bruit no CVA tenderness no suprapubic fullness Extremity: Edema approximately 1+ dry skin no purpuric rash Dermatology: Dry skin no rash Neurological: Alert and awake follows commands Assessment and plan Chronic kidney disease in a patient who is 61-year-old with multiple risk factors for a kidney disease,creatinine little better today creatinine appears to be stable for now monitor renal function closely follow up on the result of ultrasonogram continue to hold Lasix for now Multiple risk factors for progression of renal failure over time Patient is very poorly involved in his health Hypertension adequately controlled Hyperkalemia improving Overall prognosis very poor counselor and educated to the best of my knowledge in brief as far as kidney function failure electrolyte blood pressure anemia issues are concerned We'll continue to follow and make recommendation from renal standpoint Objective - Vital Signs Vital signs: Vital Signs - 12hr 06/04/17 06/04/17 06/05/17 22:38 23:16 00:16 Temperature Pulse Rate 83 Respiratory 20 21 Rate Blood Pressure 137/63 O2 Sat by Pulse Oximetry 06/05/17 06/05/17 06/05/17 05:57 06:57 07:31 Temperature 97.9 F Pulse Rate 82 Respiratory 20 20 20 Rate Blood Pressure 134/67 O2 Sat by Pulse 94 Oximetry - Lab 06/03/17 13:00 06/05/17 05:21 Most recent lab results Calcium 8.4 mg/dL (8.4-10.2) 06/05/17 05:21 Urine Creatinine 97.6 mg/dL (0.1-20.0) H 06/03/17 15:00 Urine Total Protein 32 mg/dL (5-11.8) H 06/03/17 15:00
--- NOTE | 2017-06-05 12:56 | Ultrasound Report ---
FINAL REPORT EXAM: US RENAL BILAT HISTORY: renal failure TECHNIQUE: Grayscale and color doppler ultrasound imaging of the kidneys and urinary bladder was performed. PRIORS: None. FINDINGS: Kidneys: The kidneys are normal in echogenicity without urinary tract dilation, mass, cyst or calcification. The right kidney measures 11.7 x 5.6 x 5.2 centimeters. The left kidney measures 10.8 x 6.4 x 6.2 centimeters. No renal cortical thinning. Urinary bladder: No wall thickening or internal debris. IMPRESSION: Normal ultrasound of the kidneys and urinary bladder.
--- NOTE | 2017-06-05 14:49 | Progress Note ---
Assessment and Plan / Right heel pressure ulcer likely necrotic and infected S/P repeat debridement today05/27/17. S/P Right heel debridement on 04/08/17 finding +necrotic skin, SQ and ligaments. Previous MRI + dorsal foot cellulitis no osteo but increased marrow edema in the calcaneous ? osteo Following by Vascular surgery and Wound care; Dr. Ly, -S/P repeat debridement 05/25 -wound Cx + MRSA and E coli resistant to levaquin continue vancomycin 1.5 g IV q day and ceftin 500 mg PO q 48h total 6 weeks from 05/25 until 07/05/17. Keep vanco trough 14-18 per ID Patient awaiting for placement, he is refusing placement Infectious diseases following / Diabetes mellitus Accu-Chek before meals and at bedtime Sliding scale insulin/NovoLog ADA carbohydrate consistent diet refusing subqu insulin / microcytic Anemia with iron deficiency and likely from CKD hb dropped to 6.8 ( wonder if that a lab error), refused transfusion after multiple discussion and counselling Closely monitor H&H, started on iron replacement negative stool for occult blood, cont to monitor h and H /Hypertensive urgency Continue home antihypertensive medications Closely monitor blood pressure taking all BP meds now /Homelessness Patient needs SNF placement, but he is refusing as he does not want to give up his SS check Case management aware /Hyperlipidemia Continue on home lipitor /Noncompliant with medications and treatment options Counseled, wonder he has medical decision making capacity. left AMA multiple times Per my assessment : 1) he does not communicate well when asked a question in regards of medications/ SNF placement/treatment options 2) Patient is very difficult, although he has good insight to his medical condition he lacks the understanding and ability to accommodate his current environment and management that is required current treatment. 3) he does not appreciate the circumstances & consequences (treatment options, prognosis with and without treatment, risk/ benefit ratio of treatment) and repeatedly reported he will do what he wants to do and he will not go to SNF ( because he does not want to give up his checks) , will not get blood transfusion or heparin by any means. he also does not want any other meds except abx, BP meds and pain medication. 4) he choose what question to answer and for others he does not respond Consulted psych, but he did not cooperate with complete eval. Wait for further recommendation from psych in terms of ability to refuse medications or to leave AMA. May need risk management involve /Chronic renal failure Elevated Serum creatinine Nephrology following Repeat BMP Closely monitor renal function /Hyperkalemia From chronic renal disease, we'll continue to monitor BMP, Kayexalate if potassium level > 5.2, but he is refusing med /DVT prophylaxis Changed to scd for anemia Brief History: Patient is a 61-year-old -[place] male with past medical history significant for DM, CHF, COPD, hypertension, hyperlipidemia, homelessness presented to the emergency department complaining of right foot pain. Hospitalist Physical General appearance: Present: no acute distress, disheveled - EENT Eyes: Present: PERRL ENT: hearing intact - Neck Neck: Present: supple - Respiratory Respiratory effort: normal Respiratory: bilateral: CTA - Cardiovascular Rhythm: regular Heart Sounds: Present: S1 & S2 - Extremities Extremity abnormal: other (marked elton leg edema. Right heel with ulcer with wound dressing) - Abdominal General gastrointestinal: soft, non-tender - Integumentary Integumentary: Present: clear (Right heel with ulcer with wound dressing), warm , dry - Psychiatric Psychiatric: appropriate mood/affect - Neurologic Neurologic: CNII-XII intact - Allied Health Allied health notes reviewed: nursing Subjective Date of service: 06/05/17 Principal diagnosis: heel infection Interval history: Patient seen and examined. Medical records and medication list reviewed. Patient is tolerating diet. he is refusing meds except abx/antihypertensive, refusing to go to SNF to complete abx regimen Objective - Constitutional Vitals: Vital Signs - 12hr 06/05/17 06/05/17 06/05/17 05:57 06:57 07:31 Temperature 97.9 F Pulse Rate 82 Respiratory 20 20 20 Rate Blood Pressure 134/67 O2 Sat by Pulse 94 Oximetry - Labs CBC & Chem 7: 06/03/17 13:00 06/05/17 05:21 Labs: Abnormal lab results 06/04/17 06/04/17 06/04/17 Range/Units 15:30 16:41 21:22 Sodium 136 L (137-145) mmol/L Potassium 5.2 H (3.6-5.0) mmol/L BUN 57 H (9-20) mg/dL Creatinine 2.4 H (0.8-1.5) mg/dL Glucose 208 H (75-100) mg/dL POC Glucose 213 H 221 H (70-105) Calcium 8.2 L (8.4-10.2) mg/dL 06/05/17 06/05/17 06/05/17 Range/Units 05:21 05:26 11:06 Sodium (137-145) mmol/L Potassium 5.2 H (3.6-5.0) mmol/L BUN 55 H (9-20) mg/dL Creatinine 2.2 H (0.8-1.5) mg/dL Glucose 161 H (75-100) mg/dL POC Glucose 172 H 155 H (70-105) Calcium (8.4-10.2) mg/dL
[2017-06-06] MEDS: APRESOLINE PO SCH ×6 (00:15→23:44)
[2017-06-06] MEDS: NEURONTIN PO SCH ×4 (06:30→23:42)
--- NOTE | 2017-06-06 08:46 | Progress Note ---
Subjective Principal diagnosis: heel infection Interval history: Patient was seen today for follow-up, on many renal related issues resting in bed comfortably Interdisciplinary notes were reviewed Vitals labs intake and output medications were reviewed from today Allergies: Reviewed Social history: Reviewed Family history: Reviewed Physical examination HEENT: Oral mucosa moist no pharyngeal erythema Neck: Supple no JVD Chest: Clear to auscultation no crackles rales or wheezes Heart: Regular rate and rhythm S1-S2 heard no S3-S4 Abdomen: Soft nontender no renal bruit no CVA tenderness no suprapubic fullness Extremity: 2+ edema dry skin no peripheral cyanosis pulses palpable Neurological: Alert awake Musculoskeletal: No joint effusion noted Assessment and plan acute renal failure: Patient does have multiple risk factors for underlying chronic kidney disease Anemia: Multifactorial refusing transfusion Renal ultrasonogram: Unremarkable hyperkalemia: Mild treated medically renal prognosis: Very poor, patient has been educated as much as possible Edema: Diabetes assessment held due to worsening renal function very poor hygiene Vancomycin; discussed with infectious disease to monitor closely ,monitor renal function closely Will continue to follow and make recommendation from renal standpoint Objective - Vital Signs Vital signs: Vital Signs - 12hr 06/05/17 06/06/17 21:22 04:04 Temperature 99.2 F 99.3 F Pulse Rate 81 77 Respiratory 16 20 Rate Blood Pressure 172/78 150/72 O2 Sat by Pulse 97 100 Oximetry - Lab 06/03/17 13:00 06/05/17 05:21 Most recent lab results Calcium 8.4 mg/dL (8.4-10.2) 06/05/17 05:21 Urine Creatinine 97.6 mg/dL (0.1-20.0) H 06/03/17 15:00 Urine Total Protein 32 mg/dL (5-11.8) H 06/03/17 15:00
[2017-06-06] MEDS: FOLBEE PLUS CZ PO SCH ×2 (12:30→18:00)
[2017-06-06] MEDS: NOVOLOG SUB-Q SCH ×3 (12:30→23:30)
[2017-06-06] MEDS: COREG PO SCH ×3 (12:31→23:43)
[2017-06-06] MEDS: CEFTIN PO SCH ×3 (12:31→23:42)
[2017-06-06] MEDS: NORVASC PO SCH ×2 (12:32→18:00)
[2017-06-06] MEDS: FEOSOL PO SCH ×3 (12:32→23:42)
[2017-06-06] MEDS: HEPARIN SUB-Q SCH ×2 (12:32→23:42)
--- NOTE | 2017-06-06 12:59 | Progress Note ---
Assessment and Plan / Right heel pressure ulcer likely necrotic and infected S/P repeat debridement today05/27/17. S/P Right heel debridement on 04/08/17 finding +necrotic skin, SQ and ligaments. Previous MRI + dorsal foot cellulitis no osteo but increased marrow edema in the calcaneous ? osteo Following by Vascular surgery and Wound care; Dr. Ly, -S/P repeat debridement 05/25 -wound Cx + MRSA and E coli resistant to levaquin continue vancomycin 1.5 g IV q day and ceftin 500 mg PO q 48h total 6 weeks from 05/25 until 07/05/17. Keep vanco trough 14-18 per ID Patient awaiting for placement, he is refusing placement Infectious diseases following / Diabetes mellitus Accu-Chek before meals and at bedtime Sliding scale insulin/NovoLog ADA carbohydrate consistent diet refusing subqu insulin / microcytic Anemia with iron deficiency and likely from CKD hb dropped to 6.8 ( wonder if that a lab error), refused transfusion after multiple discussion and counselling Closely monitor H&H, started on iron replacement negative stool for occult blood, cont to monitor h and H /Hypertensive urgency Continue home antihypertensive medications Closely monitor blood pressure taking all BP meds now /Homelessness Patient needs SNF placement, but he is refusing as he does not want to give up his SS check Case management aware /Hyperlipidemia Continue on home lipitor /Noncompliant with medications and treatment options Counseled, wonder he has medical decision making capacity. left AMA multiple times Per my assessment : 1) he does not communicate well when asked a question in regards of medications/ SNF placement/treatment options 2) Patient is very difficult, although he has good insight to his medical condition he lacks the understanding and ability to accommodate his current environment and management that is required current treatment. 3) he does not appreciate the circumstances & consequences (treatment options, prognosis with and without treatment, risk/ benefit ratio of treatment) and repeatedly reported he will do what he wants to do and he will not go to SNF ( because he does not want to give up his checks) , will not get blood transfusion or heparin by any means. he also does not want any other meds except abx, BP meds and pain medication. 4) he choose what question to answer and for others he does not respond Consulted psych, but he did not cooperate with complete eval. Wait for further recommendation from psych in terms of ability to refuse medications or to leave AMA. May need risk management involve /Chronic renal failure Elevated Serum creatinine Nephrology following Closely monitor renal function refused lab today /Hyperkalemia From chronic renal disease, we'll continue to monitor BMP, ordered Kayexalate if potassium level > 5.2, but he is refusing med /DVT prophylaxis Changed to scd for anemia Brief History: Patient is a 61-year-old -[place] male with past medical history significant for DM, CHF, COPD, hypertension, hyperlipidemia, homelessness presented to the emergency department complaining of right foot pain. Hospitalist Physical General appearance: Present: no acute distress, disheveled - EENT Eyes: Present: PERRL ENT: hearing intact - Neck Neck: Present: supple - Respiratory Respiratory effort: normal Respiratory: bilateral: CTA - Cardiovascular Rhythm: regular Heart Sounds: Present: S1 & S2 - Extremities Extremity abnormal: other (marked elton leg edema. Right heel with ulcer with wound dressing) - Abdominal General gastrointestinal: soft, non-tender - Integumentary Integumentary: Present: clear (Right heel with ulcer with wound dressing), warm , dry - Psychiatric Psychiatric: appropriate mood/affect - Neurologic Neurologic: CNII-XII intact - Allied Health Allied health notes reviewed: nursing Subjective Date of service: 06/06/17 Principal diagnosis: heel infection Interval history: Patient seen and examined. Medical records and medication list reviewed. Patient is tolerating diet. he is refusing meds except abx/antihypertensive, refusing to go to SNF to complete abx regimen refused lab this morning Objective - Constitutional Vitals: Vital Signs - 12hr 06/06/17 04:04 Temperature 99.3 F Pulse Rate 77 Respiratory 20 Rate Blood Pressure 150/72 O2 Sat by Pulse 100 Oximetry - Labs CBC & Chem 7: 06/03/17 13:00 06/05/17 05:21 Labs: Abnormal lab results 06/05/17 06/06/17 Range/Units 22:23 06:20 POC Glucose 182 H 224 H (70-105)
[2017-06-06] MEDS ORDERED: VANCOMYCIN 2,000 MG in NACL 0.9% 500 ML 500 ML IV ONE (18:00)
[2017-06-06] MEDS ORDERED: VANCOMYCIN 1,500 MG in NACL 0.9% 500 ML 500 ML IV ONE (18:00)
[2017-06-07] MEDS: PERCOCET 5/325 PO PRN ×2 (06:24→17:21)
[2017-06-07] MEDS: NEURONTIN PO SCH ×3 (06:24→22:11)
--- NOTE | 2017-06-07 08:47 | Progress Note ---
Subjective Principal diagnosis: heel infection Objective - Vital Signs Vital signs: Vital Signs - 12hr 06/06/17 06/06/17 23:27 23:43 Temperature 98.6 F Pulse Rate 84 82 Respiratory 20 Rate Blood Pressure 163/55 163/55 O2 Sat by Pulse 95 Oximetry - Lab 06/03/17 13:00 06/05/17 05:21 Most recent lab results Calcium 8.4 mg/dL (8.4-10.2) 06/05/17 05:21 Urine Creatinine 97.6 mg/dL (0.1-20.0) H 06/03/17 15:00 Urine Total Protein 32 mg/dL (5-11.8) H 06/03/17 15:00
[2017-06-07] MEDS: APRESOLINE PO SCH ×3 (10:00→22:10)
[2017-06-07] MEDS: FEOSOL PO SCH ×2 (10:15→22:01)
[2017-06-07] MEDS: CEFTIN PO SCH ×2 (10:15→22:01)
[2017-06-07] MEDS: FOLBEE PLUS CZ PO SCH (10:16)
[2017-06-07] MEDS: COREG PO SCH ×2 (10:17→22:02)
[2017-06-07] MEDS: NORVASC PO SCH (10:17)
[2017-06-07] MEDS: NOVOLOG SUB-Q SCH ×4 (12:30→22:16)
[2017-06-07] MEDS: HEPARIN SUB-Q SCH ×2 (12:33→22:02)
--- NOTE | 2017-06-07 15:18 | Progress Note ---
Assessment and Plan / Right heel pressure ulcer likely necrotic and infected S/P Right heel debridement on 04/08/17 finding +necrotic skin, SQ and ligaments. Previous MRI + dorsal foot cellulitis no osteo but increased marrow edema in the calcaneous ? osteo Followed by Vascular surgery and Wound care; Dr. Ly, -S/P repeat debridement 05/25 -wound Cx + MRSA and E coli resistant to levaquin continue vancomycin 1.5 g IV q day and ceftin 500 mg PO q 48h total 6 weeks from 05/25 until 07/05/17. Keep vanco trough 14-18 per ID Patient awaiting for placement, but he is refusing placement Infectious diseases following / Diabetes mellitus Accu-Chek before meals and at bedtime Sliding scale insulin/NovoLog ADA carbohydrate consistent diet refuses subqu insulin / microcytic Anemia with iron deficiency and likely from CKD hb dropped to 6.8 ( wonder if that a lab error), refused transfusion after multiple discussion and counselling Closely monitor H&H, started on iron replacement negative stool for occult blood, cont to monitor h and H /Hypertensive urgency Continue home antihypertensive medications Closely monitor blood pressure taking all BP meds now /Homelessness Patient needs SNF placement, but he is refusing as he does not want to give up his SS check Case management aware /Hyperlipidemia Continue on home lipitor /Noncompliant with medications and treatment options Counseled, wonder he has medical decision making capacity. left AMA multiple times Per my assessment : 1) he does not communicate well when asked a question in regards of medications/ SNF placement/treatment options 2) Patient is very difficult, although he has good insight to his medical condition he lacks the understanding and ability to accommodate his current environment and management that is required current treatment. 3) he does not appreciate the circumstances & consequences (treatment options, prognosis with and without treatment, risk/ benefit ratio of treatment) and repeatedly reported he will do what he wants to do and he will not go to SNF ( because he does not want to give up his checks) , will not get blood transfusion or heparin by any means. he also does not want any other meds except abx, BP meds and pain medication. 4) he choose what question to answer and for others he does not respond Consulted psych, but he did not cooperate with complete eval. Wait for further recommendation from psych in terms of ability to refuse medications or to leave AMA. May need risk management involve /Chronic renal failure Elevated Serum creatinine Nephrology following Closely monitor renal function RENAL function slightly improved today /Hyperkalemia From chronic renal disease, we'll continue to monitor BMP, ordered Kayexalate if potassium level > 5.2, but he is refusing med /DVT prophylaxis Changed to scd for anemia Brief History: Patient is a 61-year-old -[place] male with past medical history significant for DM, CHF, COPD, hypertension, hyperlipidemia, homelessness presented to the emergency department complaining of right foot pain. Hospitalist Physical General appearance: Present: no acute distress, disheveled - EENT Eyes: Present: PERRL ENT: hearing intact - Neck Neck: Present: supple - Respiratory Respiratory effort: normal Respiratory: bilateral: CTA - Cardiovascular Rhythm: regular Heart Sounds: Present: S1 & S2 - Extremities Extremity abnormal: other (marked elton leg edema. Right heel with ulcer with wound dressing) - Abdominal General gastrointestinal: soft, non-tender - Integumentary Integumentary: Present: clear (Right heel with ulcer with wound dressing), warm , dry - Psychiatric Psychiatric: appropriate mood/affect - Neurologic Neurologic: CNII-XII intact - Allied Health Allied health notes reviewed: nursing Subjective Date of service: 06/07/17 Principal diagnosis: heel infection Interval history: Patient seen and examined. Medical records and medication list reviewed. Patient is tolerating diet. he is refusing meds except abx/antihypertensive, refusing to go to SNF to complete abx regimen Objective - Constitutional Vitals: Vital Signs - 12hr 06/07/17 06/07/17 10:00 10:17 Pulse Rate 80 Respiratory 20 Rate Blood Pressure 160/82 - Labs CBC & Chem 7: 06/07/17 18:00 06/07/17 18:00 Labs: Abnormal lab results 06/06/17 06/07/17 Range/Units 18:54 11:25 POC Glucose 162 H 160 H (70-105)
[2017-06-07 18:18] LABS: Basophils # (Auto) 0.1 K/mm3 (0.0-0.1); Eosinophils # (Auto) 0.7 K/mm3 (0.0-0.4); Eosinophils % (Auto) 7.3 % (0.0-4.3); Hematocrit 23.8 % (35.5-45.6); Hemoglobin 7.4 gm/dl (11.8-15.2); Lymphocytes # (Auto) 1.9 K/mm3 (1.2-5.4); Mean Corpuscular HGB Conc 31 % (32-34); Mean Corpuscular Volume 82 fl (84-94); Monocytes # (Auto) 1.1 K/mm3 (0.0-0.8); Monocytes % (Auto) 12.4 % (0.0-7.3); Platelet Count 283 K/mm3 (140-440); Red Cell Distribution Width 17.3 % (13.2-15.2)
[2017-06-07 18:19] LABS: Mean Corpuscular Hemoglobin 26 pg (28-32)
[2017-06-07 18:38] LABS: Calcium 8.6 mg/dL (8.4-10.2)
[2017-06-08] MEDS: NEURONTIN PO SCH ×3 (06:04→21:24)
[2017-06-08] MEDS: NOVOLOG SUB-Q SCH ×4 (08:33→21:26)
[2017-06-08] MEDS: APRESOLINE PO SCH ×3 (08:34→21:23)
[2017-06-08 09:53] LABS: Basophils # (Auto) 0.1 K/mm3 (0.0-0.1); Basophils % (Auto) 0.8 % (0.0-1.8); Eosinophils # (Auto) 0.6 K/mm3 (0.0-0.4); Eosinophils % (Auto) 6.9 % (0.0-4.3); Hematocrit 21.7 % (35.5-45.6); Hemoglobin 6.9 gm/dl (11.8-15.2); Lymphocytes # (Auto) 1.7 K/mm3 (1.2-5.4); Lymphocytes % (Auto) 21.2 % (13.4-35.0); Mean Corpuscular HGB Conc 32 % (32-34); Mean Corpuscular Hemoglobin 26 pg (28-32); Mean Corpuscular Volume 83 fl (84-94); Monocytes # (Auto) 0.9 K/mm3 (0.0-0.8); Monocytes % (Auto) 10.4 % (0.0-7.3); Platelet Count 258 K/mm3 (140-440); Red Blood Count 2.63 M/mm3 (3.65-5.03); Red Cell Distribution Width 17.7 % (13.2-15.2)
[2017-06-08 10:07] LABS: Calcium 8.3 mg/dL (8.4-10.2)
[2017-06-08] MEDS: HEPARIN SUB-Q SCH ×2 (12:58→21:26)
[2017-06-08] MEDS: FEOSOL PO SCH ×2 (13:00→21:24)
[2017-06-08] MEDS: FOLBEE PLUS CZ PO SCH (13:00)
[2017-06-08] MEDS: COREG PO SCH ×2 (13:01→21:24)
[2017-06-08] MEDS: CEFTIN PO SCH ×2 (13:01→21:23)
[2017-06-08] MEDS: NORVASC PO SCH (13:03)
[2017-06-08 13:46] LABS: Calcium 8.4 mg/dL (8.4-10.2)
[2017-06-08] MEDS: PERCOCET 5/325 PO PRN (19:04)
--- NOTE | 2017-06-08 20:45 | Progress Note ---
Assessment and Plan / Right heel pressure ulcer likely necrotic and infected S/P Right heel debridement on 04/08/17 finding +necrotic skin, SQ and ligaments. Previous MRI + dorsal foot cellulitis no osteo but increased marrow edema in the calcaneous ? osteo Followed by Vascular surgery and Wound care; Dr. Ly, -S/P repeat debridement 05/25 -wound Cx + MRSA and E coli resistant to levaquin continue vancomycin 1.5 g IV q day and ceftin 500 mg PO q 48h total 6 weeks from 05/25 until 07/05/17. Keep vanco trough per ID Patient awaiting for placement, but he is refusing placement Infectious diseases following / Diabetes mellitus Accu-Chek before meals and at bedtime Sliding scale insulin/NovoLog ADA carbohydrate consistent diet refuses insulin inj. / microcytic Anemia with iron deficiency and likely from CKD hb dropped to 6.8 ( wonder if that a lab error), refused transfusion after multiple discussion and counselling Closely monitor H&H, started on iron replacement negative stool for occult blood, cont to monitor h and H /Hypertensive urgency Continue home antihypertensive medications Closely monitor blood pressure taking all BP meds now /Homelessness Patient needs SNF placement, but he is refusing as he does not want to give up his SS check Case management aware /Hyperlipidemia Continue on home lipitor / Subjective Date of service: 06/08/17 Principal diagnosis: heel infection Interval history: no new complaint Objective - Constitutional Vitals: Vital Signs - 12hr 06/08/17 06/08/17 06/08/17 13:01 13:03 18:07 Temperature 98.0 F Respiratory 18 Rate Blood Pressure 142/71 142/71 153/48 General appearance: Present: no acute distress, well-nourished - EENT Eyes: PERRL, EOM intact - Neck Neck: supple, normal ROM - Respiratory Respiratory effort: normal Respiratory: bilateral: CTA - Cardiovascular Rhythm: regular Heart Sounds: Present: S1 & S2. Absent: gallop, rub Extremities: pulses intact, No edema, normal color, Full ROM - Gastrointestinal General gastrointestinal: Present: soft, non-tender, non-distended, normal bowel sounds - Integumentary Integumentary: clear, warm, dry - Musculoskeletal Musculoskeletal: 1, strength equal bilaterally - Neurologic Neurologic: moves all extremities - Psychiatric Psychiatric: memory intact, appropriate mood/affect, intact judgment & insight - Labs CBC & Chem 7: 06/08/17 Unknown 06/08/17 Unknown Labs: Abnormal lab results 06/07/17 06/08/17 06/08/17 Range/Units 22:04 11:17 18:11 RBC (3.65-5.03) M/mm3 Hgb (11.8-15.2) gm/dl Hct (35.5-45.6) % MCV (84-94) fl MCH (28-32) pg RDW (13.2-15.2) % [place] % (Auto) (0.0-7.3) % Eos % (Auto) (0.0-4.3) % [place] # (0.0-0.8) K/mm3 Eos # (0.0-0.4) K/mm3 Potassium (3.6-5.0) mmol/L Chlor[place] (98-107) mmol/L BUN (9-20) mg/dL Creatinine (0.8-1.5) mg/dL Glucose (75-100) mg/dL POC Glucose 232 H 203 H 187 H (70-105) Calcium (8.4-10.2) mg/dL 06/08/17 06/08/17 06/08/17 Range/Units Unknown Unknown Unknown RBC 2.63 L (3.65-5.03) M/mm3 Hgb 6.9 L (11.8-15.2) gm/dl Hct 21.7 L (35.5-45.6) % MCV 83 L (84-94) fl MCH 26 L (28-32) pg RDW 17.7 H (13.2-15.2) % [place] % (Auto) 10.4 H (0.0-7.3) % Eos % (Auto) 6.9 H (0.0-4.3) % [place] # 0.9 H (0.0-0.8) K/mm3 Eos # 0.6 H (0.0-0.4) K/mm3 Potassium 5.4 H (3.6-5.0) mmol/L Ch[place] 107.6 H (98-107) mmol/L BUN 38 H 36 H (9-20) mg/dL Creatinine 1.7 H 1.6 H (0.8-1.5) mg/dL Glucose 165 H 137 H (75-100) mg/dL POC Glucose (70-105) Calcium 8.3 L (8.4-10.2) mg/dL
[2017-06-09] MEDS: PERCOCET 5/325 PO PRN (05:34)
[2017-06-09] MEDS: NEURONTIN PO SCH ×2 (05:34→14:00)
[2017-06-09] MEDS: NOVOLOG SUB-Q SCH ×3 (07:30→16:30)
[2017-06-09] MEDS: APRESOLINE PO SCH ×3 (08:00→23:49)
[2017-06-09] MEDS: NORVASC PO SCH (10:00)
[2017-06-09] MEDS: FEOSOL PO SCH ×2 (10:44→23:47)
[2017-06-09] MEDS: COREG PO SCH ×2 (10:44→23:47)
[2017-06-09] MEDS: FOLBEE PLUS CZ PO SCH (10:46)
[2017-06-09] MEDS: CEFTIN PO SCH ×2 (10:47→23:47)
[2017-06-09] MEDS: HEPARIN SUB-Q SCH ×2 (10:50→23:50)
[2017-06-09] MEDS ORDERED: NACL 0.9% 500 ML 500 ML IV ONE (15:14)
--- NOTE | 2017-06-09 15:17 | Progress Note ---
Assessment and Plan Assessment and plan: 61-year-old -[place]i male with past medical history significant for DM, CHF, COPD, hypertension, hyperlipidemia, homelessness presented to the emergency department complaining of right foot pain. Patient claimed he has ulcer in the right foot for the last one and half years, and has chronic pain but getting worse recently. Non compliant, frequently signs out AMA Acute on chronic CKD vasomotor nephropathy improving / Right heel pressure ulcer likely necrotic and infected/Sepsis S/P Right heel debridement on 04/08/17 finding +necrotic skin, SQ and ligaments. Previous MRI + dorsal foot cellulitis no osteo but increased marrow edema in the calcaneous ? osteo Followed by Vascular surgery and Wound care; Dr. Ly, -S/P repeat debridement 05/25 -wound Cx + MRSA and E coli resistant to levaquin continue vancomycin 1.5 g IV q day and ceftin 500 mg PO q 48h total 6 weeks from 05/25 until 07/05/17. Keep vanco trough 14-18 per ID Patient awaiting for placement, but he is refusing placement in SNF, only agreeable to LTACH Infectious diseases following / Diabetes mellitus Accu-Chek before meals and at bedtime Sliding scale insulin/NovoLog ADA carbohydrate consistent diet refuses subqu insulin / microcytic Anemia with iron deficiency and likely from CKD refused transfusion after multiple discussion and counselling Closely monitor H&H, started on iron replacement negative stool for occult blood, cont to monitor h and H transfuse one unit prbc if patient later agrees /Hypertensive urgency Continue home antihypertensive medications Closely monitor blood pressure taking all BP meds now /Homelessness Patient needs SNF placement, but he is refusing as he does not want to give up his SS check Case management aware /Hyperlipidemia Continue on home lipitor /Noncompliant with medications and treatment options Counseled, patient is very intelligent and he has medical decision making capacity. left AMA multiple times -he is agreeable to completing treatment this time History Interval history: continues to have drainage from R foot, no pain, no fevers Review of systems Constitutional: No fevers, no malaise, no joint pains CVS: No chest pain, no orthopnea, no dyspnea on exertion, no pedal edema GI: No abdominal pain, no diarrhea, no vomiting, no constipation Respiratory: No shortness of breath, no wheezing, no coughing Hospitalist Physical - Physical exam Narrative exam: General.: Appears well, no distress, nontoxic HEENT: Moist mucous membranes, extraocular muscles intact, no lymphadenopathy Neck: supple Cardiac: S1-S2 heard Lungs: clear to auscultation bilaterally Abdomen: soft , nontender, nondistended, bowel sounds positive Extremities: Right foot with chronic skin changes cw stasis, wound on Right foot /heel-; patient refused removal of dressing Skin: no rash or lesions Neurologic: no gross focal deficits Psych: appropriate behavior, appropriate mood, corporative, judgment intact - Constitutional Vitals: Temp Pulse Resp BP Pulse Ox 98.2 F 72 16 154/56 99 06/09/17 12:02 06/09/17 10:44 06/09/17 12:02 06/09/17 12:02 06/09/17 03:00 General appearance: Present: no acute distress, well-nourished Results - Labs CBC & Chem 7: 06/08/17 Unknown 06/10/17 06:40 Labs: Laboratory Last Values WBC 8.2 K/mm3 (4.5-11.0) 06/08/17 Unknown RBC 2.63 M/mm3 (3.65-5.03) L 06/08/17 Unknown Hgb 6.9 gm/dl (11.8-15.2) L 06/08/17 Unknown Hct 21.7 % (35.5-45.6) L 06/08/17 Unknown MCV 83 fl (84-94) L 06/08/17 Unknown MCH 26 pg (28-32) L 06/08/17 Unknown MCHC 32 % (32-34) 06/08/17 Unknown RDW 17.7 % (13.2-15.2) H 06/08/17 Unknown Plt Count 258 K/mm3 (140-440) 06/08/17 Unknown Lymph % (Auto) 21.2 % (13.4-35.0) 06/08/17 Unknown [place] % (Auto) 10.4 % (0.0-7.3) H 06/08/17 Unknown Eos % (Auto) 6.9 % (0.0-4.3) H 06/08/17 Unknown Baso % (Auto) 0.8 % (0.0-1.8) 06/08/17 Unknown Lymph # 1.7 K/mm3 (1.2-5.4) 06/08/17 Unknown [place] # 0.9 K/mm3 (0.0-0.8) H 06/08/17 Unknown Eos # 0.6 K/mm3 (0.0-0.4) H 06/08/17 Unknown Baso # 0.1 K/mm3 (0.0-0.1) 06/08/17 Unknown Add Manual Diff Complete 05/28/17 12:15 Total Counted 100 05/28/17 12:15 Seg Neutrophils % 60.7 % (40.0-70.0) 06/08/17 Unknown Seg Neuts % (Manual) 72.0 % (40.0-70.0) H 05/28/17 12:15 Band Neutrophils % 3.0 % 05/28/17 12:15 Lymphocytes % (Manual) 16.0 % (13.4-35.0) 05/28/17 12:15 Reactive Lymphs % (Man) 0 % 05/28/17 12:15 Monocytes % (Manual) 2.0 % (0.0-7.3) 05/28/17 12:15 Eosinophils % (Manual) 7.0 % (0.0-4.3) H 05/28/17 12:15 Basophils % (Manual) 0 % (0.0-1.8) 05/28/17 12:15 Metamyelocytes % 0 % 05/28/17 12:15 Myelocytes % 0 % 05/28/17 12:15 Promyelocytes % 0 % 05/28/17 12:15 Blast Cells % 0 % 05/28/17 12:15 Nucleated RBC % Not Reportable 05/28/17 12:15 Seg Neutrophils # 5.0 K/mm3 (1.8-7.7) 06/08/17 Unknown Seg Neutrophils # Man 0.0 K/mm3 (1.8-7.7) L 05/28/17 12:15 Band Neutrophils # 0.0 K/mm3 05/28/17 12:15 Lymphocytes # (Manual) 0.0 K/mm3 (1.2-5.4) L 05/28/17 12:15 Abs React Lymphs (Man) 0.0 K/mm3 05/28/17 12:15 Monocytes # (Manual) 0.0 K/mm3 (0.0-0.8) 05/28/17 12:15 Eosinophils # (Manual) 0.0 K/mm3 (0.0-0.4) 05/28/17 12:15 Basophils # (Manual) 0.0 K/mm3 (0.0-0.1) 05/28/17 12:15 Metamyelocytes # 0.0 K/mm3 05/28/17 12:15 Myelocytes # 0.0 K/mm3 05/28/17 12:15 Promyelocytes # 0.0 K/mm3 05/28/17 12:15 Blast Cells # 0.0 K/mm3 05/28/17 12:15 WBC Morphology Not Reportable 05/28/17 12:15 Hypersegmented Neuts Not Reportable 05/28/17 12:15 Hyposegmented Neuts Not Reportable 05/28/17 12:15 Hypogranular Neuts Not Reportable 05/28/17 12:15 Smudge Cells Not Reportable 05/28/17 12:15 Toxic Granulation Not Reportable 05/28/17 12:15 Toxic Vacuolation Not Reportable 05/28/17 12:15 Dohle Bodies Not Reportable 05/28/17 12:15 Pelger-Huet Anomaly Not Reportable 05/28/17 12:15 May Rods Not Reportable 05/28/17 12:15 Platelet Estimate Not Reportable 05/28/17 12:15 Clumped Platelets Not Reportable 05/28/17 12:15 Plt Clumps, EDTA Not Reportable 05/28/17 12:15 Large Platelets Not Reportable 05/28/17 12:15 Giant Platelets Not Reportable 05/28/17 12:15 Platelet Satelliting Not Reportable 05/28/17 12:15 Plt Morphology Comment Not Reportable 05/28/17 12:15 RBC Morphology Not Reportable 05/28/17 12:15 Dimorphic RBCs Not Reportable 05/28/17 12:15 Polychromasia Not Reportable 05/28/17 12:15 Hypochromasia 1+ 05/28/17 12:15 Poikilocytosis Not Reportable 05/28/17 12:15 Anisocytosis 1+ 05/28/17 12:15 Microcytosis Not Reportable 05/28/17 12:15 Macrocytosis Not Reportable 05/28/17 12:15 Spherocytes Not Reportable 05/28/17 12:15 Pappenheimer Bodies Not Reportable 05/28/17 12:15 Sickle Cells Not Reportable 05/28/17 12:15 Target Cells Not Reportable 05/28/17 12:15 Tear Drop Cells Not Reportable 05/28/17 12:15 Ovalocytes Not Reportable 05/28/17 12:15 Helmet Cells Not Reportable 05/28/17 12:15 [place] Bodies Not Reportable 05/28/17 12:15 [place] Rings Not Reportable 05/28/17 12:15 [place] Cells Not Reportable 05/28/17 12:15 Bite Cells Not Reportable 05/28/17 12:15 Crenated Cell Not Reportable 05/28/17 12:15 Elliptocytes Not Reportable 05/28/17 12:15 Acanthocytes (Spur) Not Reportable 05/28/17 12:15 Rouleaux Not Reportable 05/28/17 12:15 Hemoglobin C Crystals Not Reportable 05/28/17 12:15 Schistocytes Not Reportable 05/28/17 12:15 Malaria parasites Not Reportable 05/28/17 12:15 [place] Bodies Not Reportable 05/28/17 12:15 Hem Pathologist Commnt No 05/28/17 12:15 VBG pH 7.346 (7.320-7.420) 05/24/17 13:00 Sodium 139 mmol/L (137-145) 06/08/17 Unknown Potassium 5.4 mmol/L (3.6-5.0) H 06/08/17 Unknown Chloride 105.5 mmol/L (98-107) 06/08/17 Unknown Carbon Dioxide 23 mmol/L (22-30) 06/08/17 Unknown Anion Gap 16 mmol/L 06/08/17 Unknown BUN 38 mg/dL (9-20) H 06/08/17 Unknown Creatinine 1.7 mg/dL (0.8-1.5) H 06/08/17 Unknown Estimated GFR 50 ml/min 06/08/17 Unknown BUN/Creatinine Ratio 22 % 06/08/17 Unknown Glucose 165 mg/dL (75-100) H 06/08/17 Unknown POC Glucose 118 (70-105) H 06/09/17 12:05 Lactic Acid 0.70 mmol/L (0.7-2.0) 05/24/17 13:00 Calcium 8.4 mg/dL (8.4-10.2) 06/08/17 Unknown Iron 25 ug/dL (49-181) L 05/29/17 13:45 TIBC 188 mcg/dL (250-450) L 05/29/17 13:45 C-Reactive Protein 2.80 mg/dL (0.00-1.30) H 05/24/17 13:00 NT-Pro-B Natriuret Pep 469.5 pg/mL (0-900) 05/24/17 13:00 Vitamin B12 1771 pg/mL (211-911) H 05/29/17 13:45 Folate > 20.0 ng/mL (7.3-26.0) 05/29/17 13:45 Urine Creatinine 97.6 mg/dL (0.1-20.0) H 06/03/17 15:00 Urine Total Protein 32 mg/dL (5-11.8) H 06/03/17 15:00 Vancomycin Trough 39.1 ug/mL (5.0-20.0) H 06/01/17 16:21 Random Vancomycin 21.8 ug/mL (0-40.0) 06/09/17 10:55 Blood Type A POSITIVE 05/29/17 13:45 Antibody Screen Negative 05/29/17 13:45 Crossmatch See Detail 05/29/17 13:45
--- NOTE | 2017-06-09 15:29 | Progress Note ---
Assessment and Plan impression * Chronic kidney disease * Heel ulcer * Uncontrolled hypertension * Diabetes * Volume overload recommendations * His renal function appears to be stable * He may be at his baseline * Clinically, patient is volume overloaded. Resume diuretics * Avoid nephrotoxins * Continue local wound care and antibiotics * Patient is awaiting placement Subjective Date of service: 06/09/17 Principal diagnosis: heel infection Interval history: patient currently sitting on his wheelchair. Head covered with several blankets. Not answering questions. Patient not cooperative and difficult to examine Objective - Vital Signs Vital signs: Vital Signs - 12hr 06/09/17 06/09/17 06/09/17 05:34 06:34 10:44 Temperature Pulse Rate 72 Respiratory 20 20 Rate Blood Pressure 06/09/17 12:02 Temperature 98.2 F Pulse Rate Respiratory 16 Rate Blood Pressure 154/56 - General Appearance General appearance: well-developed, well-nourished, appears stated age EENT: PERRL, mucous membranes moist Neck: no JVD, no thyromegaly Respiratory: Present: Decreased Breath Sounds Cardiology: regular, normal heart rate Integumentary: other (2+ edema. Ankles are wrapped with bandage) - Lab 06/08/17 Unknown 06/08/17 Unknown Most recent lab results Calcium 8.4 mg/dL (8.4-10.2) 06/08/17 Unknown Urine Creatinine 97.6 mg/dL (0.1-20.0) H 06/03/17 15:00 Urine Total Protein 32 mg/dL (5-11.8) H 06/03/17 15:00
[2017-06-10] MEDS: NEURONTIN PO SCH ×4 (00:01→22:47)
[2017-06-10] MEDS: NOVOLOG SUB-Q SCH ×5 (00:01→22:48)
--- NOTE | 2017-06-10 09:28 | Progress Note ---
Assessment and Plan Assessment and plan: 61-year-old -[place] male with past medical history significant for DM, CHF, COPD, hypertension, hyperlipidemia, homelessness presented to the emergency department complaining of right foot pain. Patient claimed he has ulcer in the right foot for the last one and half years, and has chronic pain but getting worse recently. Non compliant, frequently signs out AMA -has been refusing labs and blood transfusion Anemia -refusing further labs -refusing blood transfusion -rx with iron supplements Acute on chronic CKD vasomotor nephropathy improving / Right heel pressure ulcer likely necrotic and infected/Sepsis S/P Right heel debridement on 04/08/17 finding +necrotic skin, SQ and ligaments. Previous MRI + dorsal foot cellulitis no osteo but increased marrow edema in the calcaneous ? osteo Followed by Vascular surgery and Wound care; Dr. Ly, -S/P repeat debridement 05/25 -wound Cx + MRSA and E coli resistant to levaquin continue vancomycin 1.5 g IV q day and ceftin 500 mg PO q 48h total 6 weeks from 05/25 until 07/05/17. Keep vanco trough 14-18 per ID Patient awaiting for placement, but he is refusing placement in SNF, only agreeable to LTACH Infectious diseases following / Diabetes mellitus Accu-Chek before meals and at bedtime Sliding scale insulin/NovoLog ADA carbohydrate consistent diet refuses subqu insulin / microcytic Anemia with iron deficiency and likely from CKD refused transfusion after multiple discussion and counselling Closely monitor H&H, started on iron replacement negative stool for occult blood, cont to monitor h and H transfuse one unit prbc if patient later agrees /Hypertensive urgency Continue home antihypertensive medications Closely monitor blood pressure taking all BP meds now /Homelessness Patient needs SNF placement, but he is refusing as he does not want to give up his SS check Case management aware /Hyperlipidemia Continue on home lipitor /Noncompliant with medications and treatment options Counseled, patient is very intelligent and he has medical decision making capacity. left AMA multiple times -he is agreeable to completing treatment this time History Interval history: continues to have drainage from R foot, no pain, no fevers Review of systems Constitutional: No fevers, no malaise, no joint pains CVS: No chest pain, no orthopnea, no dyspnea on exertion, no pedal edema GI: No abdominal pain, no diarrhea, no vomiting, no constipation Respiratory: No shortness of breath, no wheezing, no coughing Hospitalist Physical - Physical exam Narrative exam: General.: Appears well, no distress, nontoxic HEENT: Moist mucous membranes, extraocular muscles intact, no lymphadenopathy Neck: supple Cardiac: S1-S2 heard Lungs: clear to auscultation bilaterally Abdomen: soft , nontender, nondistended, bowel sounds positive Extremities: Right foot with chronic skin changes cw stasis, wound on Right foot /heel-; patient refused removal of dressing Skin: no rash or lesions Neurologic: no gross focal deficits Psych: appropriate behavior, appropriate mood, corporative, judgment intact - Constitutional Vitals: Temp Pulse Resp BP Pulse Ox 97.6 F 70 19 158/42 98 06/10/17 07:49 06/10/17 07:49 06/10/17 07:49 06/10/17 07:49 06/10/17 07:49 General appearance: Present: no acute distress, well-nourished Results - Labs CBC & Chem 7: 06/08/17 Unknown 06/10/17 06:40 Labs: Laboratory Last Values WBC 8.2 K/mm3 (4.5-11.0) 06/08/17 Unknown RBC 2.63 M/mm3 (3.65-5.03) L 06/08/17 Unknown Hgb 6.9 gm/dl (11.8-15.2) L 06/08/17 Unknown Hct 21.7 % (35.5-45.6) L 06/08/17 Unknown MCV 83 fl (84-94) L 06/08/17 Unknown MCH 26 pg (28-32) L 06/08/17 Unknown MCHC 32 % (32-34) 06/08/17 Unknown RDW 17.7 % (13.2-15.2) H 06/08/17 Unknown Plt Count 258 K/mm3 (140-440) 06/08/17 Unknown Lymph % (Auto) 21.2 % (13.4-35.0) 06/08/17 Unknown [place] % (Auto) 10.4 % (0.0-7.3) H 06/08/17 Unknown Eos % (Auto) 6.9 % (0.0-4.3) H 06/08/17 Unknown Baso % (Auto) 0.8 % (0.0-1.8) 06/08/17 Unknown Lymph # 1.7 K/mm3 (1.2-5.4) 06/08/17 Unknown [place] # 0.9 K/mm3 (0.0-0.8) H 06/08/17 Unknown Eos # 0.6 K/mm3 (0.0-0.4) H 06/08/17 Unknown Baso # 0.1 K/mm3 (0.0-0.1) 06/08/17 Unknown Add Manual Diff Complete 05/28/17 12:15 Total Counted 100 05/28/17 12:15 Seg Neutrophils % 60.7 % (40.0-70.0) 06/08/17 Unknown Seg Neuts % (Manual) 72.0 % (40.0-70.0) H 05/28/17 12:15 Band Neutrophils % 3.0 % 05/28/17 12:15 Lymphocytes % (Manual) 16.0 % (13.4-35.0) 05/28/17 12:15 Reactive Lymphs % (Man) 0 % 05/28/17 12:15 Monocytes % (Manual) 2.0 % (0.0-7.3) 05/28/17 12:15 Eosinophils % (Manual) 7.0 % (0.0-4.3) H 05/28/17 12:15 Basophils % (Manual) 0 % (0.0-1.8) 05/28/17 12:15 Metamyelocytes % 0 % 05/28/17 12:15 Myelocytes % 0 % 05/28/17 12:15 Promyelocytes % 0 % 05/28/17 12:15 Blast Cells % 0 % 05/28/17 12:15 Nucleated RBC % Not Reportable 05/28/17 12:15 Seg Neutrophils # 5.0 K/mm3 (1.8-7.7) 06/08/17 Unknown Seg Neutrophils # Man 0.0 K/mm3 (1.8-7.7) L 05/28/17 12:15 Band Neutrophils # 0.0 K/mm3 05/28/17 12:15 Lymphocytes # (Manual) 0.0 K/mm3 (1.2-5.4) L 05/28/17 12:15 Abs React Lymphs (Man) 0.0 K/mm3 05/28/17 12:15 Monocytes # (Manual) 0.0 K/mm3 (0.0-0.8) 05/28/17 12:15 Eosinophils # (Manual) 0.0 K/mm3 (0.0-0.4) 05/28/17 12:15 Basophils # (Manual) 0.0 K/mm3 (0.0-0.1) 05/28/17 12:15 Metamyelocytes # 0.0 K/mm3 05/28/17 12:15 Myelocytes # 0.0 K/mm3 05/28/17 12:15 Promyelocytes # 0.0 K/mm3 05/28/17 12:15 Blast Cells # 0.0 K/mm3 05/28/17 12:15 WBC Morphology Not Reportable 05/28/17 12:15 Hypersegmented Neuts Not Reportable 05/28/17 12:15 Hyposegmented Neuts Not Reportable 05/28/17 12:15 Hypogranular Neuts Not Reportable 05/28/17 12:15 Smudge Cells Not Reportable 05/28/17 12:15 Toxic Granulation Not Reportable 05/28/17 12:15 Toxic Vacuolation Not Reportable 05/28/17 12:15 Dohle Bodies Not Reportable 05/28/17 12:15 Pelger-Huet Anomaly Not Reportable 05/28/17 12:15 May Rods Not Reportable 05/28/17 12:15 Platelet Estimate Not Reportable 05/28/17 12:15 Clumped Platelets Not Reportable 05/28/17 12:15 Plt Clumps, EDTA Not Reportable 05/28/17 12:15 Large Platelets Not Reportable 05/28/17 12:15 Giant Platelets Not Reportable 05/28/17 12:15 Platelet Satelliting Not Reportable 05/28/17 12:15 Plt Morphology Comment Not Reportable 05/28/17 12:15 RBC Morphology Not Reportable 05/28/17 12:15 Dimorphic RBCs Not Reportable 05/28/17 12:15 Polychromasia Not Reportable 05/28/17 12:15 Hypochromasia 1+ 05/28/17 12:15 Poikilocytosis Not Reportable 05/28/17 12:15 Anisocytosis 1+ 05/28/17 12:15 Microcytosis Not Reportable 05/28/17 12:15 Macrocytosis Not Reportable 05/28/17 12:15 Spherocytes Not Reportable 05/28/17 12:15 Pappenheimer Bodies Not Reportable 05/28/17 12:15 Sickle Cells Not Reportable 05/28/17 12:15 Target Cells Not Reportable 05/28/17 12:15 Tear Drop Cells Not Reportable 05/28/17 12:15 Ovalocytes Not Reportable 05/28/17 12:15 Helmet Cells Not Reportable 05/28/17 12:15 [place] Bodies Not Reportable 05/28/17 12:15 [place] Rings Not Reportable 05/28/17 12:15 [place] Cells Not Reportable 05/28/17 12:15 Bite Cells Not Reportable 05/28/17 12:15 Crenated Cell Not Reportable 05/28/17 12:15 Elliptocytes Not Reportable 05/28/17 12:15 Acanthocytes (Spur) Not Reportable 05/28/17 12:15 Rouleaux Not Reportable 05/28/17 12:15 Hemoglobin C Crystals Not Reportable 05/28/17 12:15 Schistocytes Not Reportable 05/28/17 12:15 Malaria parasites Not Reportable 05/28/17 12:15 [place] Bodies Not Reportable 05/28/17 12:15 Hem Pathologist Commnt No 05/28/17 12:15 VBG pH 7.346 (7.320-7.420) 05/24/17 13:00 Sodium 139 mmol/L (137-145) 06/08/17 Unknown Potassium 5.4 mmol/L (3.6-5.0) H 06/08/17 Unknown Chloride 105.5 mmol/L (98-107) 06/08/17 Unknown Carbon Dioxide 23 mmol/L (22-30) 06/08/17 Unknown Anion Gap 16 mmol/L 06/08/17 Unknown BUN 38 mg/dL (9-20) H 06/08/17 Unknown Creatinine 1.7 mg/dL (0.8-1.5) H 06/08/17 Unknown Estimated GFR 50 ml/min 06/08/17 Unknown BUN/Creatinine Ratio 22 % 06/08/17 Unknown Glucose 165 mg/dL (75-100) H 06/08/17 Unknown POC Glucose 208 (70-105) H 06/09/17 22:12 Lactic Acid 0.70 mmol/L (0.7-2.0) 05/24/17 13:00 Calcium 8.4 mg/dL (8.4-10.2) 06/08/17 Unknown Iron 25 ug/dL (49-181) L 05/29/17 13:45 TIBC 188 mcg/dL (250-450) L 05/29/17 13:45 C-Reactive Protein 2.80 mg/dL (0.00-1.30) H 05/24/17 13:00 NT-Pro-B Natriuret Pep 469.5 pg/mL (0-900) 05/24/17 13:00 Vitamin B12 1771 pg/mL (211-911) H 05/29/17 13:45 Folate > 20.0 ng/mL (7.3-26.0) 05/29/17 13:45 Urine Creatinine 97.6 mg/dL (0.1-20.0) H 06/03/17 15:00 Urine Total Protein 32 mg/dL (5-11.8) H 06/03/17 15:00 Vancomycin Trough 39.1 ug/mL (5.0-20.0) H 06/01/17 16:21 Random Vancomycin 21.8 ug/mL (0-40.0) 06/09/17 10:55 Blood Type A POSITIVE 05/29/17 13:45 Antibody Screen Negative 05/29/17 13:45 Crossmatch See Detail 05/29/17 13:45
[2017-06-10] MEDS: APRESOLINE PO SCH ×3 (10:39→22:51)
[2017-06-10] MEDS ORDERED: VANCOMYCIN 1,500 MG in NACL 0.9% 500 ML 500 ML IV ONE (12:00)
[2017-06-10] MEDS: CEFTIN PO SCH ×2 (13:25→22:46)
[2017-06-10] MEDS: FOLBEE PLUS CZ PO SCH (13:25)
[2017-06-10] MEDS: LASIX PO SCH (13:26)
[2017-06-10] MEDS: FEOSOL PO SCH ×2 (13:26→22:47)
[2017-06-10] MEDS: NORVASC PO SCH (13:26)
[2017-06-10] MEDS: COREG PO SCH ×2 (13:26→22:47)
[2017-06-10] MEDS: PERCOCET 5/325 PO PRN (13:32)
[2017-06-10] MEDS: HEPARIN SUB-Q SCH ×2 (13:35→22:47)
[2017-06-11] MEDS: NEURONTIN PO SCH ×3 (06:00→23:05)
[2017-06-11] MEDS: PERCOCET 5/325 PO PRN ×2 (06:36→15:02)
[2017-06-11 08:05] LABS: Calcium 8.7 mg/dL (8.4-10.2)
[2017-06-11] MEDS: NOVOLOG SUB-Q SCH ×4 (08:17→23:06)
[2017-06-11] MEDS: APRESOLINE PO SCH ×3 (08:18→21:00)
[2017-06-11] MEDS ORDERED: VANCOMYCIN 1,500 MG in NACL 0.9% 500 ML 500 ML IV ONE (10:00)
[2017-06-11] MEDS: FEOSOL PO SCH ×2 (10:47→23:06)
[2017-06-11] MEDS: FOLBEE PLUS CZ PO SCH (10:47)
[2017-06-11] MEDS: NORVASC PO SCH (10:48)
[2017-06-11] MEDS: CEFTIN PO SCH ×2 (10:48→23:04)
[2017-06-11] MEDS: HEPARIN SUB-Q SCH ×2 (10:53→23:07)
[2017-06-11] MEDS: COREG PO SCH ×2 (10:53→23:05)
[2017-06-11] MEDS: LASIX PO SCH (10:54)
--- NOTE | 2017-06-11 13:39 | Progress Note ---
Assessment and Plan impression * Chronic kidney disease * Heel ulcer * Uncontrolled hypertension * Diabetes * Volume overload * Anemia recommendations * His renal function appears to be stable * He may be at his baseline * Clinically, patient is volume overloaded. Continue loop diuretics * Avoid nephrotoxins * Continue local wound care and antibiotics * Patient is awaiting placement Subjective Date of service: 06/11/17 Principal diagnosis: heel infection Interval history: Patient is comfortable. Denies any shortness of breath. No nausea vomiting or diarrhea. Objective - Vital Signs Vital signs: Vital Signs - 12hr 06/11/17 06/11/17 06/11/17 06:01 06:36 07:49 Temperature 98.9 F Pulse Rate 71 Respiratory 20 18 Rate Respiratory 20 Rate [Right Foot] Blood Pressure O2 Sat by Pulse 99 Oximetry 06/11/17 07:50 Temperature 98.9 F Pulse Rate 72 Respiratory 18 Rate Respiratory Rate [Right Foot] Blood Pressure 111/69 O2 Sat by Pulse 98 Oximetry - General Appearance General appearance: well-developed, well-nourished, appears stated age EENT: PERRL, mucous membranes moist Neck: no JVD, no thyromegaly, no carotid bruit, supple Respiratory: Present: Clear to Ascultation Cardiology: regular, normal heart rate Gastrointestinal: normal, normoactive bowel sounds Integumentary: no rash, other (2+ edema. Right heel wrapped with a bandage) - Lab 06/08/17 Unknown 06/10/17 06:40 Most recent lab results Calcium 8.7 mg/dL (8.4-10.2) 06/10/17 06:40 Urine Creatinine 97.6 mg/dL (0.1-20.0) H 06/03/17 15:00 Urine Total Protein 32 mg/dL (5-11.8) H 06/03/17 15:00
[2017-06-12] MEDS: NEURONTIN PO SCH ×2 (05:58→13:25)
[2017-06-12] MEDS: NOVOLOG SUB-Q SCH ×3 (07:30→18:29)
[2017-06-12] MEDS: APRESOLINE PO SCH ×2 (08:00→13:25)
[2017-06-12] MEDS: COREG PO SCH (10:00)
[2017-06-12] MEDS: CEFTIN PO SCH (10:00)
[2017-06-12] MEDS: HEPARIN SUB-Q SCH (10:00)
[2017-06-12] MEDS: LASIX PO SCH (10:00)
[2017-06-12] MEDS: NORVASC PO SCH (10:00)
[2017-06-12] MEDS: FEOSOL PO SCH (10:00)
[2017-06-12] MEDS: FOLBEE PLUS CZ PO SCH (10:00)
--- NOTE | 2017-06-12 14:56 | Progress Note ---
Assessment and Plan Assessment and plan: 61-year-old -[place] male with past medical history significant for DM, CHF, COPD, hypertension, hyperlipidemia, homelessness presented to the emergency department complaining of right foot pain. Patient claimed he has ulcer in the right foot for the last one and half years, and has chronic pain but getting worse recently. Non compliant, frequently signs out AMA -has been refusing labs and blood transfusion Anemia -refusing further labs -refusing blood transfusion -rx with iron supplements Acute on chronic CKD vasomotor nephropathy improving / Right heel pressure ulcer likely necrotic and infected/Sepsis S/P Right heel debridement on 04/08/17 finding +necrotic skin, SQ and ligaments. Previous MRI + dorsal foot cellulitis no osteo but increased marrow edema in the calcaneous ? osteo Followed by Vascular surgery and Wound care; Dr. Ly, -S/P repeat debridement 05/25 -wound Cx + MRSA and E coli resistant to levaquin continue vancomycin 1.5 g IV q day and ceftin 500 mg PO q 48h total 6 weeks from 05/25 until 07/05/17. Keep vanco trough 14-18 per ID Patient awaiting for placement, but he is refusing placement in SNF, only agreeable to LTACH Infectious diseases following / Diabetes mellitus Accu-Chek before meals and at bedtime Sliding scale insulin/NovoLog ADA carbohydrate consistent diet refuses subqu insulin / microcytic Anemia with iron deficiency and likely from CKD refused transfusion after multiple discussion and counselling Closely monitor H&H, started on iron replacement negative stool for occult blood, cont to monitor h and H transfuse one unit prbc if patient later agrees /Hypertensive urgency Continue home antihypertensive medications Closely monitor blood pressure taking all BP meds now /Homelessness Patient needs SNF placement, but he is refusing as he does not want to give up his SS check Case management aware /Hyperlipidemia Continue on home lipitor /Noncompliant with medications and treatment options Counseled, patient is very intelligent and he has medical decision making capacity. left AMA multiple times -he is agreeable to completing treatment this time History Interval history: continues to have drainage from R foot, no pain, no fevers Review of systems Constitutional: No fevers, no malaise, no joint pains CVS: No chest pain, no orthopnea, no dyspnea on exertion, no pedal edema GI: No abdominal pain, no diarrhea, no vomiting, no constipation Respiratory: No shortness of breath, no wheezing, no coughing Hospitalist Physical - Physical exam Narrative exam: General.: Appears well, no distress, nontoxic HEENT: Moist mucous membranes, extraocular muscles intact, no lymphadenopathy Neck: supple Cardiac: S1-S2 heard Lungs: clear to auscultation bilaterally Abdomen: soft , nontender, nondistended, bowel sounds positive Extremities: Right foot with chronic skin changes cw stasis, wound on Right foot /heel-; patient refused removal of dressing Skin: no rash or lesions Neurologic: no gross focal deficits Psych: appropriate behavior, appropriate mood, corporative, judgment intact - Constitutional Vitals: Temp Pulse Resp BP Pulse Ox 98.0 F 68 20 154/72 100 06/12/17 11:36 06/12/17 11:36 06/12/17 11:36 06/12/17 11:36 06/12/17 11:36 General appearance: Present: no acute distress, well-nourished Results - Labs CBC & Chem 7: 06/08/17 Unknown 06/10/17 06:40 Labs: Laboratory Last Values WBC 8.2 K/mm3 (4.5-11.0) 06/08/17 Unknown RBC 2.63 M/mm3 (3.65-5.03) L 06/08/17 Unknown Hgb 6.9 gm/dl (11.8-15.2) L 06/08/17 Unknown Hct 21.7 % (35.5-45.6) L 06/08/17 Unknown MCV 83 fl (84-94) L 06/08/17 Unknown MCH 26 pg (28-32) L 06/08/17 Unknown MCHC 32 % (32-34) 06/08/17 Unknown RDW 17.7 % (13.2-15.2) H 06/08/17 Unknown Plt Count 258 K/mm3 (140-440) 06/08/17 Unknown Lymph % (Auto) 21.2 % (13.4-35.0) 06/08/17 Unknown [place] % (Auto) 10.4 % (0.0-7.3) H 06/08/17 Unknown Eos % (Auto) 6.9 % (0.0-4.3) H 06/08/17 Unknown Baso % (Auto) 0.8 % (0.0-1.8) 06/08/17 Unknown Lymph # 1.7 K/mm3 (1.2-5.4) 06/08/17 Unknown [place] # 0.9 K/mm3 (0.0-0.8) H 06/08/17 Unknown Eos # 0.6 K/mm3 (0.0-0.4) H 06/08/17 Unknown Baso # 0.1 K/mm3 (0.0-0.1) 06/08/17 Unknown Add Manual Diff Complete 05/28/17 12:15 Total Counted 100 05/28/17 12:15 Seg Neutrophils % 60.7 % (40.0-70.0) 06/08/17 Unknown Seg Neuts % (Manual) 72.0 % (40.0-70.0) H 05/28/17 12:15 Band Neutrophils % 3.0 % 05/28/17 12:15 Lymphocytes % (Manual) 16.0 % (13.4-35.0) 05/28/17 12:15 Reactive Lymphs % (Man) 0 % 05/28/17 12:15 Monocytes % (Manual) 2.0 % (0.0-7.3) 05/28/17 12:15 Eosinophils % (Manual) 7.0 % (0.0-4.3) H 05/28/17 12:15 Basophils % (Manual) 0 % (0.0-1.8) 05/28/17 12:15 Metamyelocytes % 0 % 05/28/17 12:15 Myelocytes % 0 % 05/28/17 12:15 Promyelocytes % 0 % 05/28/17 12:15 Blast Cells % 0 % 05/28/17 12:15 Nucleated RBC % Not Reportable 05/28/17 12:15 Seg Neutrophils # 5.0 K/mm3 (1.8-7.7) 06/08/17 Unknown Seg Neutrophils # Man 0.0 K/mm3 (1.8-7.7) L 05/28/17 12:15 Band Neutrophils # 0.0 K/mm3 05/28/17 12:15 Lymphocytes # (Manual) 0.0 K/mm3 (1.2-5.4) L 05/28/17 12:15 Abs React Lymphs (Man) 0.0 K/mm3 05/28/17 12:15 Monocytes # (Manual) 0.0 K/mm3 (0.0-0.8) 05/28/17 12:15 Eosinophils # (Manual) 0.0 K/mm3 (0.0-0.4) 05/28/17 12:15 Basophils # (Manual) 0.0 K/mm3 (0.0-0.1) 05/28/17 12:15 Metamyelocytes # 0.0 K/mm3 05/28/17 12:15 Myelocytes # 0.0 K/mm3 05/28/17 12:15 Promyelocytes # 0.0 K/mm3 05/28/17 12:15 Blast Cells # 0.0 K/mm3 05/28/17 12:15 WBC Morphology Not Reportable 05/28/17 12:15 Hypersegmented Neuts Not Reportable 05/28/17 12:15 Hyposegmented Neuts Not Reportable 05/28/17 12:15 Hypogranular Neuts Not Reportable 05/28/17 12:15 Smudge Cells Not Reportable 05/28/17 12:15 Toxic Granulation Not Reportable 05/28/17 12:15 Toxic Vacuolation Not Reportable 05/28/17 12:15 Dohle Bodies Not Reportable 05/28/17 12:15 Pelger-Huet Anomaly Not Reportable 05/28/17 12:15 May Rods Not Reportable 05/28/17 12:15 Platelet Estimate Not Reportable 05/28/17 12:15 Clumped Platelets Not Reportable 05/28/17 12:15 Plt Clumps, EDTA Not Reportable 05/28/17 12:15 Large Platelets Not Reportable 05/28/17 12:15 Giant Platelets Not Reportable 05/28/17 12:15 Platelet Satelliting Not Reportable 05/28/17 12:15 Plt Morphology Comment Not Reportable 05/28/17 12:15 RBC Morphology Not Reportable 05/28/17 12:15 Dimorphic RBCs Not Reportable 05/28/17 12:15 Polychromasia Not Reportable 05/28/17 12:15 Hypochromasia 1+ 05/28/17 12:15 Poikilocytosis Not Reportable 05/28/17 12:15 Anisocytosis 1+ 05/28/17 12:15 Microcytosis Not Reportable 05/28/17 12:15 Macrocytosis Not Reportable 05/28/17 12:15 Spherocytes Not Reportable 05/28/17 12:15 Pappenheimer Bodies Not Reportable 05/28/17 12:15 Sickle Cells Not Reportable 05/28/17 12:15 Target Cells Not Reportable 05/28/17 12:15 Tear Drop Cells Not Reportable 05/28/17 12:15 Ovalocytes Not Reportable 05/28/17 12:15 Helmet Cells Not Reportable 05/28/17 12:15 [place] Bodies Not Reportable 05/28/17 12:15 [place] Rings Not Reportable 05/28/17 12:15 Matthieu Cells Not Reportable 05/28/17 12:15 Bite Cells Not Reportable 05/28/17 12:15 Crenated Cell Not Reportable 05/28/17 12:15 Elliptocytes Not Reportable 05/28/17 12:15 Acanthocytes (Spur) Not Reportable 05/28/17 12:15 Rouleaux Not Reportable 05/28/17 12:15 Hemoglobin C Crystals Not Reportable 05/28/17 12:15 Schistocytes Not Reportable 05/28/17 12:15 Malaria parasites Not Reportable 05/28/17 12:15 [place] Bodies Not Reportable 05/28/17 12:15 Hem Pathologist Commnt No 05/28/17 12:15 VBG pH 7.346 (7.320-7.420) 05/24/17 13:00 Sodium 140 mmol/L (137-145) 06/10/17 06:40 Potassium 5.4 mmol/L (3.6-5.0) H 06/10/17 06:40 Chloride 106.3 mmol/L (98-107) 06/10/17 06:40 Carbon Dioxide 20 mmol/L (22-30) L 06/10/17 06:40 Anion Gap 19 mmol/L 06/10/17 06:40 BUN 50 mg/dL (9-20) H 06/10/17 06:40 Creatinine 1.7 mg/dL (0.8-1.5) H 06/10/17 06:40 Estimated GFR 50 ml/min 06/10/17 06:40 BUN/Creatinine Ratio 29 % 06/10/17 06:40 Glucose 116 mg/dL (75-100) H 06/10/17 06:40 POC Glucose 168 (70-105) H 06/12/17 11:38 Lactic Acid 0.70 mmol/L (0.7-2.0) 05/24/17 13:00 Calcium 8.7 mg/dL (8.4-10.2) 06/10/17 06:40 Iron 25 ug/dL (49-181) L 05/29/17 13:45 TIBC 188 mcg/dL (250-450) L 05/29/17 13:45 C-Reactive Protein 2.80 mg/dL (0.00-1.30) H 05/24/17 13:00 NT-Pro-B Natriuret Pep 469.5 pg/mL (0-900) 05/24/17 13:00 Vitamin B12 1771 pg/mL (211-911) H 05/29/17 13:45 Folate > 20.0 ng/mL (7.3-26.0) 05/29/17 13:45 Urine Creatinine 97.6 mg/dL (0.1-20.0) H 06/03/17 15:00 Urine Total Protein 32 mg/dL (5-11.8) H 06/03/17 15:00 Vancomycin Trough 39.1 ug/mL (5.0-20.0) H 06/01/17 16:21 Random Vancomycin 21.8 ug/mL (0-40.0) 06/09/17 10:55 Blood Type A POSITIVE 05/29/17 13:45 Antibody Screen Negative 05/29/17 13:45 Crossmatch See Detail 05/29/17 13:45
--- NOTE | 2017-06-12 14:56 | Progress Note ---
Assessment and Plan Assessment and plan: 61-year-old -[place] male with past medical history significant for DM, CHF, COPD, hypertension, hyperlipidemia, homelessness presented to the emergency department complaining of right foot pain. Patient claimed he has ulcer in the right foot for the last one and half years, and has chronic pain but getting worse recently. Non compliant, frequently signs out AMA -has been refusing labs and blood transfusion Anemia -refusing further labs -refusing blood transfusion -rx with iron supplements Acute on chronic CKD vasomotor nephropathy improving / Right heel pressure ulcer likely necrotic and infected/Sepsis S/P Right heel debridement on 04/08/17 finding +necrotic skin, SQ and ligaments. Previous MRI + dorsal foot cellulitis no osteo but increased marrow edema in the calcaneous ? osteo Followed by Vascular surgery and Wound care; Dr. Ly, -S/P repeat debridement 05/25 -wound Cx + MRSA and E coli resistant to levaquin continue vancomycin 1.5 g IV q day and ceftin 500 mg PO q 48h total 6 weeks from 05/25 until 07/05/17. Keep vanco trough 14-18 per ID Patient awaiting for placement, but he is refusing placement in SNF, only agreeable to LTACH Infectious diseases following / Diabetes mellitus Accu-Chek before meals and at bedtime Sliding scale insulin/NovoLog ADA carbohydrate consistent diet refuses subqu insulin / microcytic Anemia with iron deficiency and likely from CKD refused transfusion after multiple discussion and counselling Closely monitor H&H, started on iron replacement negative stool for occult blood, cont to monitor h and H transfuse one unit prbc if patient later agrees /Hypertensive urgency Continue home antihypertensive medications Closely monitor blood pressure taking all BP meds now /Homelessness Patient needs SNF placement, but he is refusing as he does not want to give up his SS check Case management aware /Hyperlipidemia Continue on home lipitor /Noncompliant with medications and treatment options Counseled, patient is very intelligent and he has medical decision making capacity. left AMA multiple times -he is agreeable to completing treatment this time History Interval history: interval decrease in drainage from right foot Review of systems Constitutional: No fevers, no malaise, no joint pains CVS: No chest pain, no orthopnea, no dyspnea on exertion, no pedal edema GI: No abdominal pain, no diarrhea, no vomiting, no constipation Respiratory: No shortness of breath, no wheezing, no coughing Hospitalist Physical - Physical exam Narrative exam: General.: Appears well, no distress, nontoxic HEENT: Moist mucous membranes, extraocular muscles intact, no lymphadenopathy Neck: supple Cardiac: S1-S2 heard Lungs: clear to auscultation bilaterally Abdomen: soft , nontender, nondistended, bowel sounds positive Extremities: RLE with chronic skin changes cw stasis he refused removal of dressing over right foot wound Skin: no rash or lesions Neurologic: no gross focal deficits Psych: appropriate behavior, appropriate mood, corporative, judgment intact - Constitutional Vitals: Temp Pulse Resp BP Pulse Ox 98.0 F 68 20 154/72 100 06/12/17 11:36 06/12/17 11:36 06/12/17 11:36 06/12/17 11:36 06/12/17 11:36 General appearance: Present: no acute distress, well-nourished Results - Labs CBC & Chem 7: 06/08/17 Unknown 06/10/17 06:40 Labs: Laboratory Last Values WBC 8.2 K/mm3 (4.5-11.0) 06/08/17 Unknown RBC 2.63 M/mm3 (3.65-5.03) L 06/08/17 Unknown Hgb 6.9 gm/dl (11.8-15.2) L 06/08/17 Unknown Hct 21.7 % (35.5-45.6) L 06/08/17 Unknown MCV 83 fl (84-94) L 06/08/17 Unknown MCH 26 pg (28-32) L 06/08/17 Unknown MCHC 32 % (32-34) 06/08/17 Unknown RDW 17.7 % (13.2-15.2) H 06/08/17 Unknown Plt Count 258 K/mm3 (140-440) 06/08/17 Unknown Lymph % (Auto) 21.2 % (13.4-35.0) 06/08/17 Unknown [place] % (Auto) 10.4 % (0.0-7.3) H 06/08/17 Unknown Eos % (Auto) 6.9 % (0.0-4.3) H 06/08/17 Unknown Baso % (Auto) 0.8 % (0.0-1.8) 06/08/17 Unknown Lymph # 1.7 K/mm3 (1.2-5.4) 06/08/17 Unknown [place] # 0.9 K/mm3 (0.0-0.8) H 06/08/17 Unknown Eos # 0.6 K/mm3 (0.0-0.4) H 06/08/17 Unknown Baso # 0.1 K/mm3 (0.0-0.1) 06/08/17 Unknown Add Manual Diff Complete 05/28/17 12:15 Total Counted 100 05/28/17 12:15 Seg Neutrophils % 60.7 % (40.0-70.0) 06/08/17 Unknown Seg Neuts % (Manual) 72.0 % (40.0-70.0) H 05/28/17 12:15 Band Neutrophils % 3.0 % 05/28/17 12:15 Lymphocytes % (Manual) 16.0 % (13.4-35.0) 05/28/17 12:15 Reactive Lymphs % (Man) 0 % 05/28/17 12:15 Monocytes % (Manual) 2.0 % (0.0-7.3) 05/28/17 12:15 Eosinophils % (Manual) 7.0 % (0.0-4.3) H 05/28/17 12:15 Basophils % (Manual) 0 % (0.0-1.8) 05/28/17 12:15 Metamyelocytes % 0 % 05/28/17 12:15 Myelocytes % 0 % 05/28/17 12:15 Promyelocytes % 0 % 05/28/17 12:15 Blast Cells % 0 % 05/28/17 12:15 Nucleated RBC % Not Reportable 05/28/17 12:15 Seg Neutrophils # 5.0 K/mm3 (1.8-7.7) 06/08/17 Unknown Seg Neutrophils # Man 0.0 K/mm3 (1.8-7.7) L 05/28/17 12:15 Band Neutrophils # 0.0 K/mm3 05/28/17 12:15 Lymphocytes # (Manual) 0.0 K/mm3 (1.2-5.4) L 05/28/17 12:15 Abs React Lymphs (Man) 0.0 K/mm3 05/28/17 12:15 Monocytes # (Manual) 0.0 K/mm3 (0.0-0.8) 05/28/17 12:15 Eosinophils # (Manual) 0.0 K/mm3 (0.0-0.4) 05/28/17 12:15 Basophils # (Manual) 0.0 K/mm3 (0.0-0.1) 05/28/17 12:15 Metamyelocytes # 0.0 K/mm3 05/28/17 12:15 Myelocytes # 0.0 K/mm3 05/28/17 12:15 Promyelocytes # 0.0 K/mm3 05/28/17 12:15 Blast Cells # 0.0 K/mm3 05/28/17 12:15 WBC Morphology Not Reportable 05/28/17 12:15 Hypersegmented Neuts Not Reportable 05/28/17 12:15 Hyposegmented Neuts Not Reportable 05/28/17 12:15 Hypogranular Neuts Not Reportable 05/28/17 12:15 Smudge Cells Not Reportable 05/28/17 12:15 Toxic Granulation Not Reportable 05/28/17 12:15 Toxic Vacuolation Not Reportable 05/28/17 12:15 Dohle Bodies Not Reportable 05/28/17 12:15 Pelger-Huet Anomaly Not Reportable 05/28/17 12:15 May Rods Not Reportable 05/28/17 12:15 Platelet Estimate Not Reportable 05/28/17 12:15 Clumped Platelets Not Reportable 05/28/17 12:15 Plt Clumps, EDTA Not Reportable 05/28/17 12:15 Large Platelets Not Reportable 05/28/17 12:15 Giant Platelets Not Reportable 05/28/17 12:15 Platelet Satelliting Not Reportable 05/28/17 12:15 Plt Morphology Comment Not Reportable 05/28/17 12:15 RBC Morphology Not Reportable 05/28/17 12:15 Dimorphic RBCs Not Reportable 05/28/17 12:15 Polychromasia Not Reportable 05/28/17 12:15 Hypochromasia 1+ 05/28/17 12:15 Poikilocytosis Not Reportable 05/28/17 12:15 Anisocytosis 1+ 05/28/17 12:15 Microcytosis Not Reportable 05/28/17 12:15 Macrocytosis Not Reportable 05/28/17 12:15 Spherocytes Not Reportable 05/28/17 12:15 Pappenheimer Bodies Not Reportable 05/28/17 12:15 Sickle Cells Not Reportable 05/28/17 12:15 Target Cells Not Reportable 05/28/17 12:15 Tear Drop Cells Not Reportable 05/28/17 12:15 Ovalocytes Not Reportable 05/28/17 12:15 Helmet Cells Not Reportable 05/28/17 12:15 Bennett-[place] Bodies Not Reportable 05/28/17 12:15 [place] Rings Not Reportable 05/28/17 12:15 Matthieu Cells Not Reportable 05/28/17 12:15 Bite Cells Not Reportable 05/28/17 12:15 Crenated Cell Not Reportable 05/28/17 12:15 Elliptocytes Not Reportable 05/28/17 12:15 Acanthocytes (Spur) Not Reportable 05/28/17 12:15 Rouleaux Not Reportable 05/28/17 12:15 Hemoglobin C Crystals Not Reportable 05/28/17 12:15 Schistocytes Not Reportable 05/28/17 12:15 Malaria parasites Not Reportable 05/28/17 12:15 [place] Bodies Not Reportable 05/28/17 12:15 Hem Pathologist Commnt No 05/28/17 12:15 VBG pH 7.346 (7.320-7.420) 05/24/17 13:00 Sodium 140 mmol/L (137-145) 06/10/17 06:40 Potassium 5.4 mmol/L (3.6-5.0) H 06/10/17 06:40 Chloride 106.3 mmol/L (98-107) 06/10/17 06:40 Carbon Dioxide 20 mmol/L (22-30) L 06/10/17 06:40 Anion Gap 19 mmol/L 06/10/17 06:40 BUN 50 mg/dL (9-20) H 06/10/17 06:40 Creatinine 1.7 mg/dL (0.8-1.5) H 06/10/17 06:40 Estimated GFR 50 ml/min 06/10/17 06:40 BUN/Creatinine Ratio 29 % 06/10/17 06:40 Glucose 116 mg/dL (75-100) H 06/10/17 06:40 POC Glucose 168 (70-105) H 06/12/17 11:38 Lactic Acid 0.70 mmol/L (0.7-2.0) 05/24/17 13:00 Calcium 8.7 mg/dL (8.4-10.2) 06/10/17 06:40 Iron 25 ug/dL (49-181) L 05/29/17 13:45 TIBC 188 mcg/dL (250-450) L 05/29/17 13:45 C-Reactive Protein 2.80 mg/dL (0.00-1.30) H 05/24/17 13:00 NT-Pro-B Natriuret Pep 469.5 pg/mL (0-900) 05/24/17 13:00 Vitamin B12 1771 pg/mL (211-911) H 05/29/17 13:45 Folate > 20.0 ng/mL (7.3-26.0) 05/29/17 13:45 Urine Creatinine 97.6 mg/dL (0.1-20.0) H 06/03/17 15:00 Urine Total Protein 32 mg/dL (5-11.8) H 06/03/17 15:00 Vancomycin Trough 39.1 ug/mL (5.0-20.0) H 06/01/17 16:21 Random Vancomycin 21.8 ug/mL (0-40.0) 06/09/17 10:55 Blood Type A POSITIVE 05/29/17 13:45 Antibody Screen Negative 05/29/17 13:45 Crossmatch See Detail 05/29/17 13:45
[2017-06-13] MEDS: APRESOLINE PO SCH ×4 (03:55→20:00)
[2017-06-13] MEDS: CEFTIN PO SCH ×3 (03:56→22:53)
[2017-06-13] MEDS: FEOSOL PO SCH ×3 (03:57→22:53)
[2017-06-13] MEDS: HEPARIN SUB-Q SCH ×3 (03:57→22:54)
[2017-06-13] MEDS: COREG PO SCH ×3 (03:57→22:53)
[2017-06-13] MEDS: NOVOLOG SUB-Q SCH ×5 (03:58→22:55)
[2017-06-13] MEDS: NEURONTIN PO SCH ×4 (03:58→22:54)
[2017-06-13] MEDS: FOLBEE PLUS CZ PO SCH (11:01)
[2017-06-13] MEDS: NORVASC PO SCH (11:02)
[2017-06-13] MEDS: THERAGRAN-M Tab PO SCH (11:02)
[2017-06-13] MEDS: LASIX PO SCH (11:02)
--- NOTE | 2017-06-13 15:27 | Progress Note ---
Assessment and Plan Assessment and plan: 61-year-old -[place] male with past medical history significant for DM, CHF, COPD, hypertension, hyperlipidemia, homelessness presented to the emergency department complaining of right foot pain. Patient claimed he has ulcer in the right foot for the last one and half years, and has chronic pain but getting worse recently. Non compliant, frequently signs out AMA -has been refusing labs and blood transfusion Anemia -refusing further labs -refusing blood transfusion -rx with iron supplements Acute on chronic CKD vasomotor nephropathy improving / Right heel pressure ulcer likely necrotic and infected/Sepsis S/P Right heel debridement on 04/08/17 finding +necrotic skin, SQ and ligaments. Previous MRI + dorsal foot cellulitis no osteo but increased marrow edema in the calcaneous ? osteo Followed by Vascular surgery and Wound care; Dr. Ly, -S/P repeat debridement 05/25 -wound Cx + MRSA and E coli resistant to levaquin continue vancomycin 1.5 g IV q day and ceftin 500 mg PO q 48h total 6 weeks from 05/25 until 07/05/17. Keep vanco trough 14-18 per ID Patient awaiting for placement, but he is refusing placement in SNF, only agreeable to LTACH Infectious diseases following / Diabetes mellitus Accu-Chek before meals and at bedtime Sliding scale insulin/NovoLog ADA carbohydrate consistent diet refuses subqu insulin / microcytic Anemia with iron deficiency and likely from CKD refused transfusion after multiple discussion and counselling Closely monitor H&H, started on iron replacement negative stool for occult blood, cont to monitor h and H transfuse one unit prbc if patient later agrees /Hypertensive urgency Continue home antihypertensive medications Closely monitor blood pressure taking all BP meds now /Homelessness Patient needs SNF placement, but he is refusing as he does not want to give up his SS check Case management aware /Hyperlipidemia Continue on home lipitor /Noncompliant with medications and treatment options Counseled, patient is very intelligent and he has medical decision making capacity. left AMA multiple times -he is agreeable to completing treatment this time History Interval history: interval decrease in drainage from right foot Review of systems Constitutional: No fevers, no malaise, no joint pains CVS: No chest pain, no orthopnea, no dyspnea on exertion, no pedal edema GI: No abdominal pain, no diarrhea, no vomiting, no constipation Respiratory: No shortness of breath, no wheezing, no coughing Hospitalist Physical - Physical exam Narrative exam: General.: Appears well, no distress, nontoxic HEENT: Moist mucous membranes, extraocular muscles intact, no lymphadenopathy Neck: supple Cardiac: S1-S2 heard Lungs: clear to auscultation bilaterally Abdomen: soft , nontender, nondistended, bowel sounds positive Extremities: RLE with chronic skin changes cw stasis he refused removal of dressing over right foot wound Skin: no rash or lesions Neurologic: no gross focal deficits Psych: appropriate behavior, appropriate mood, corporative, judgment intact - Constitutional Vitals: Temp Pulse Resp BP Pulse Ox 98.0 F 75 20 168/115 100 06/13/17 07:43 06/13/17 07:43 06/13/17 07:43 06/13/17 07:43 06/13/17 07:43 General appearance: Present: no acute distress, well-nourished Results - Labs CBC & Chem 7: 06/08/17 Unknown 06/10/17 06:40 Labs: Laboratory Last Values WBC 8.2 K/mm3 (4.5-11.0) 06/08/17 Unknown RBC 2.63 M/mm3 (3.65-5.03) L 06/08/17 Unknown Hgb 6.9 gm/dl (11.8-15.2) L 06/08/17 Unknown Hct 21.7 % (35.5-45.6) L 06/08/17 Unknown MCV 83 fl (84-94) L 06/08/17 Unknown MCH 26 pg (28-32) L 06/08/17 Unknown MCHC 32 % (32-34) 06/08/17 Unknown RDW 17.7 % (13.2-15.2) H 06/08/17 Unknown Plt Count 258 K/mm3 (140-440) 06/08/17 Unknown Lymph % (Auto) 21.2 % (13.4-35.0) 06/08/17 Unknown [place] % (Auto) 10.4 % (0.0-7.3) H 06/08/17 Unknown Eos % (Auto) 6.9 % (0.0-4.3) H 06/08/17 Unknown Baso % (Auto) 0.8 % (0.0-1.8) 06/08/17 Unknown Lymph # 1.7 K/mm3 (1.2-5.4) 06/08/17 Unknown [place] # 0.9 K/mm3 (0.0-0.8) H 06/08/17 Unknown Eos # 0.6 K/mm3 (0.0-0.4) H 06/08/17 Unknown Baso # 0.1 K/mm3 (0.0-0.1) 06/08/17 Unknown Add Manual Diff Complete 05/28/17 12:15 Total Counted 100 05/28/17 12:15 Seg Neutrophils % 60.7 % (40.0-70.0) 06/08/17 Unknown Seg Neuts % (Manual) 72.0 % (40.0-70.0) H 05/28/17 12:15 Band Neutrophils % 3.0 % 05/28/17 12:15 Lymphocytes % (Manual) 16.0 % (13.4-35.0) 05/28/17 12:15 Reactive Lymphs % (Man) 0 % 05/28/17 12:15 Monocytes % (Manual) 2.0 % (0.0-7.3) 05/28/17 12:15 Eosinophils % (Manual) 7.0 % (0.0-4.3) H 05/28/17 12:15 Basophils % (Manual) 0 % (0.0-1.8) 05/28/17 12:15 Metamyelocytes % 0 % 05/28/17 12:15 Myelocytes % 0 % 05/28/17 12:15 Promyelocytes % 0 % 05/28/17 12:15 Blast Cells % 0 % 05/28/17 12:15 Nucleated RBC % Not Reportable 05/28/17 12:15 Seg Neutrophils # 5.0 K/mm3 (1.8-7.7) 06/08/17 Unknown Seg Neutrophils # Man 0.0 K/mm3 (1.8-7.7) L 05/28/17 12:15 Band Neutrophils # 0.0 K/mm3 05/28/17 12:15 Lymphocytes # (Manual) 0.0 K/mm3 (1.2-5.4) L 05/28/17 12:15 Abs React Lymphs (Man) 0.0 K/mm3 05/28/17 12:15 Monocytes # (Manual) 0.0 K/mm3 (0.0-0.8) 05/28/17 12:15 Eosinophils # (Manual) 0.0 K/mm3 (0.0-0.4) 05/28/17 12:15 Basophils # (Manual) 0.0 K/mm3 (0.0-0.1) 05/28/17 12:15 Metamyelocytes # 0.0 K/mm3 05/28/17 12:15 Myelocytes # 0.0 K/mm3 05/28/17 12:15 Promyelocytes # 0.0 K/mm3 05/28/17 12:15 Blast Cells # 0.0 K/mm3 05/28/17 12:15 WBC Morphology Not Reportable 05/28/17 12:15 Hypersegmented Neuts Not Reportable 05/28/17 12:15 Hyposegmented Neuts Not Reportable 05/28/17 12:15 Hypogranular Neuts Not Reportable 05/28/17 12:15 Smudge Cells Not Reportable 05/28/17 12:15 Toxic Granulation Not Reportable 05/28/17 12:15 Toxic Vacuolation Not Reportable 05/28/17 12:15 Dohle Bodies Not Reportable 05/28/17 12:15 Pelger-Huet Anomaly Not Reportable 05/28/17 12:15 May Rods Not Reportable 05/28/17 12:15 Platelet Estimate Not Reportable 05/28/17 12:15 Clumped Platelets Not Reportable 05/28/17 12:15 Plt Clumps, EDTA Not Reportable 05/28/17 12:15 Large Platelets Not Reportable 05/28/17 12:15 Giant Platelets Not Reportable 05/28/17 12:15 Platelet Satelliting Not Reportable 05/28/17 12:15 Plt Morphology Comment Not Reportable 05/28/17 12:15 RBC Morphology Not Reportable 05/28/17 12:15 Dimorphic RBCs Not Reportable 05/28/17 12:15 Polychromasia Not Reportable 05/28/17 12:15 Hypochromasia 1+ 05/28/17 12:15 Poikilocytosis Not Reportable 05/28/17 12:15 Anisocytosis 1+ 05/28/17 12:15 Microcytosis Not Reportable 05/28/17 12:15 Macrocytosis Not Reportable 05/28/17 12:15 Spherocytes Not Reportable 05/28/17 12:15 Pappenheimer Bodies Not Reportable 05/28/17 12:15 Sickle Cells Not Reportable 05/28/17 12:15 Target Cells Not Reportable 05/28/17 12:15 Tear Drop Cells Not Reportable 05/28/17 12:15 Ovalocytes Not Reportable 05/28/17 12:15 Helmet Cells Not Reportable 05/28/17 12:15 Bennett-[place] Bodies Not Reportable 05/28/17 12:15 [place] Rings Not Reportable 05/28/17 12:15 [place] Cells Not Reportable 05/28/17 12:15 Bite Cells Not Reportable 05/28/17 12:15 Crenated Cell Not Reportable 05/28/17 12:15 Elliptocytes Not Reportable 05/28/17 12:15 Acanthocytes (Spur) Not Reportable 05/28/17 12:15 Rouleaux Not Reportable 05/28/17 12:15 Hemoglobin C Crystals Not Reportable 05/28/17 12:15 Schistocytes Not Reportable 05/28/17 12:15 Malaria parasites Not Reportable 05/28/17 12:15 Carlitos Bodies Not Reportable 05/28/17 12:15 Hem Pathologist Commnt No 05/28/17 12:15 VBG pH 7.346 (7.320-7.420) 05/24/17 13:00 Sodium 140 mmol/L (137-145) 06/10/17 06:40 Potassium 5.4 mmol/L (3.6-5.0) H 06/10/17 06:40 Chloride 106.3 mmol/L (98-107) 06/10/17 06:40 Carbon Dioxide 20 mmol/L (22-30) L 06/10/17 06:40 Anion Gap 19 mmol/L 06/10/17 06:40 BUN 50 mg/dL (9-20) H 06/10/17 06:40 Creatinine 1.7 mg/dL (0.8-1.5) H 06/10/17 06:40 Estimated GFR 50 ml/min 06/10/17 06:40 BUN/Creatinine Ratio 29 % 06/10/17 06:40 Glucose 116 mg/dL (75-100) H 06/10/17 06:40 POC Glucose 211 (70-105) H 06/13/17 11:49 Lactic Acid 0.70 mmol/L (0.7-2.0) 05/24/17 13:00 Calcium 8.7 mg/dL (8.4-10.2) 06/10/17 06:40 Iron 25 ug/dL (49-181) L 05/29/17 13:45 TIBC 188 mcg/dL (250-450) L 05/29/17 13:45 C-Reactive Protein 2.80 mg/dL (0.00-1.30) H 05/24/17 13:00 NT-Pro-B Natriuret Pep 469.5 pg/mL (0-900) 05/24/17 13:00 Vitamin B12 1771 pg/mL (211-911) H 05/29/17 13:45 Folate > 20.0 ng/mL (7.3-26.0) 05/29/17 13:45 Urine Creatinine 97.6 mg/dL (0.1-20.0) H 06/03/17 15:00 Urine Total Protein 32 mg/dL (5-11.8) H 06/03/17 15:00 Vancomycin Trough 39.1 ug/mL (5.0-20.0) H 06/01/17 16:21 Random Vancomycin 21.8 ug/mL (0-40.0) 06/09/17 10:55 Blood Type A POSITIVE 05/29/17 13:45 Antibody Screen Negative 05/29/17 13:45 Crossmatch See Detail 05/29/17 13:45
[2017-06-14] MEDS: NEURONTIN PO SCH ×3 (05:21→22:03)
[2017-06-14] MEDS: NOVOLOG SUB-Q SCH ×4 (07:30→22:03)
[2017-06-14] MEDS: APRESOLINE PO SCH ×3 (08:00→22:01)
[2017-06-14] MEDS: FEOSOL PO SCH ×2 (10:00→22:02)
[2017-06-14] MEDS: FOLBEE PLUS CZ PO SCH (10:00)
[2017-06-14] MEDS: CEFTIN PO SCH ×2 (10:00→22:02)
[2017-06-14] MEDS: NORVASC PO SCH (10:00)
[2017-06-14] MEDS: HEPARIN SUB-Q SCH ×2 (10:00→22:02)
[2017-06-14] MEDS: COREG PO SCH ×2 (10:00→22:02)
[2017-06-14] MEDS: THERAGRAN-M Tab PO SCH (10:00)
[2017-06-14] MEDS: LASIX PO SCH (10:00)
--- NOTE | 2017-06-14 10:26 | Progress Note ---
Assessment and Plan Assessment and plan: 61-year-old -[place]er male with past medical history significant for DM, CHF, COPD, hypertension, hyperlipidemia, homelessness presented to the emergency department complaining of right foot pain. Patient claimed he has ulcer in the right foot for the last one and half years, and has chronic pain but getting worse recently. Non compliant, frequently signs out AMA -has been refusing labs and blood transfusion Anemia -refusing further labs -refusing blood transfusion -rx with iron supplements Acute on chronic CKD vasomotor nephropathy improving / Right heel pressure ulcer likely necrotic and infected/Sepsis S/P Right heel debridement on 04/08/17 finding +necrotic skin, SQ and ligaments. Previous MRI + dorsal foot cellulitis no osteo but increased marrow edema in the calcaneous ? osteo Followed by Vascular surgery and Wound care; Dr. Ly, -S/P repeat debridement 05/25 -wound Cx + MRSA and E coli resistant to levaquin continue vancomycin 1.5 g IV q day and ceftin 500 mg PO q 48h total 6 weeks from 05/25 until 07/05/17. Keep vanco trough 14-18 per ID Patient awaiting for placement, but he is refusing placement in SNF, only agreeable to LTACH Infectious diseases following / Diabetes mellitus Accu-Chek before meals and at bedtime Sliding scale insulin/NovoLog ADA carbohydrate consistent diet refuses subqu insulin / microcytic Anemia with iron deficiency and likely from CKD refused transfusion after multiple discussion and counselling Closely monitor H&H, started on iron replacement negative stool for occult blood, cont to monitor h and H transfuse one unit prbc if patient later agrees /Hypertensive urgency Continue home antihypertensive medications Closely monitor blood pressure taking all BP meds now /Homelessness Patient needs SNF placement, but he is refusing as he does not want to give up his SS check Case management aware /Hyperlipidemia Continue on home lipitor /Noncompliant with medications and treatment options Counseled, patient is very intelligent and he has medical decision making capacity. left AMA multiple times -he is agreeable to completing treatment this time History Interval history: interval decrease in drainage from right foot Review of systems Constitutional: No fevers, no malaise, no joint pains CVS: No chest pain, no orthopnea, no dyspnea on exertion, no pedal edema GI: No abdominal pain, no diarrhea, no vomiting, no constipation Respiratory: No shortness of breath, no wheezing, no coughing Hospitalist Physical - Physical exam Narrative exam: General.: Appears well, no distress, nontoxic HEENT: Moist mucous membranes, extraocular muscles intact, no lymphadenopathy Neck: supple Cardiac: S1-S2 heard Lungs: clear to auscultation bilaterally Abdomen: soft , nontender, nondistended, bowel sounds positive Extremities: RLE with chronic skin changes cw stasis he refused removal of dressing over right foot wound Skin: no rash or lesions Neurologic: no gross focal deficits Psych: appropriate behavior, appropriate mood, corporative, judgment intact - Constitutional Vitals: Temp Pulse Resp BP Pulse Ox 98.5 F 74 20 169/87 96 06/14/17 07:45 06/14/17 07:45 06/14/17 07:45 06/14/17 07:45 06/14/17 07:45 General appearance: Present: no acute distress, well-nourished Results - Labs CBC & Chem 7: 06/08/17 Unknown 06/10/17 06:40 Labs: Laboratory Last Values WBC 8.2 K/mm3 (4.5-11.0) 06/08/17 Unknown RBC 2.63 M/mm3 (3.65-5.03) L 06/08/17 Unknown Hgb 6.9 gm/dl (11.8-15.2) L 06/08/17 Unknown Hct 21.7 % (35.5-45.6) L 06/08/17 Unknown MCV 83 fl (84-94) L 06/08/17 Unknown MCH 26 pg (28-32) L 06/08/17 Unknown MCHC 32 % (32-34) 06/08/17 Unknown RDW 17.7 % (13.2-15.2) H 06/08/17 Unknown Plt Count 258 K/mm3 (140-440) 06/08/17 Unknown Lymph % (Auto) 21.2 % (13.4-35.0) 06/08/17 Unknown [place] % (Auto) 10.4 % (0.0-7.3) H 06/08/17 Unknown Eos % (Auto) 6.9 % (0.0-4.3) H 06/08/17 Unknown Baso % (Auto) 0.8 % (0.0-1.8) 06/08/17 Unknown Lymph # 1.7 K/mm3 (1.2-5.4) 06/08/17 Unknown [place] # 0.9 K/mm3 (0.0-0.8) H 06/08/17 Unknown Eos # 0.6 K/mm3 (0.0-0.4) H 06/08/17 Unknown Baso # 0.1 K/mm3 (0.0-0.1) 06/08/17 Unknown Add Manual Diff Complete 05/28/17 12:15 Total Counted 100 05/28/17 12:15 Seg Neutrophils % 60.7 % (40.0-70.0) 06/08/17 Unknown Seg Neuts % (Manual) 72.0 % (40.0-70.0) H 05/28/17 12:15 Band Neutrophils % 3.0 % 05/28/17 12:15 Lymphocytes % (Manual) 16.0 % (13.4-35.0) 05/28/17 12:15 Reactive Lymphs % (Man) 0 % 05/28/17 12:15 Monocytes % (Manual) 2.0 % (0.0-7.3) 05/28/17 12:15 Eosinophils % (Manual) 7.0 % (0.0-4.3) H 05/28/17 12:15 Basophils % (Manual) 0 % (0.0-1.8) 05/28/17 12:15 Metamyelocytes % 0 % 05/28/17 12:15 Myelocytes % 0 % 05/28/17 12:15 Promyelocytes % 0 % 05/28/17 12:15 Blast Cells % 0 % 05/28/17 12:15 Nucleated RBC % Not Reportable 05/28/17 12:15 Seg Neutrophils # 5.0 K/mm3 (1.8-7.7) 06/08/17 Unknown Seg Neutrophils # Man 0.0 K/mm3 (1.8-7.7) L 05/28/17 12:15 Band Neutrophils # 0.0 K/mm3 05/28/17 12:15 Lymphocytes # (Manual) 0.0 K/mm3 (1.2-5.4) L 05/28/17 12:15 Abs React Lymphs (Man) 0.0 K/mm3 05/28/17 12:15 Monocytes # (Manual) 0.0 K/mm3 (0.0-0.8) 05/28/17 12:15 Eosinophils # (Manual) 0.0 K/mm3 (0.0-0.4) 05/28/17 12:15 Basophils # (Manual) 0.0 K/mm3 (0.0-0.1) 05/28/17 12:15 Metamyelocytes # 0.0 K/mm3 05/28/17 12:15 Myelocytes # 0.0 K/mm3 05/28/17 12:15 Promyelocytes # 0.0 K/mm3 05/28/17 12:15 Blast Cells # 0.0 K/mm3 05/28/17 12:15 WBC Morphology Not Reportable 05/28/17 12:15 Hypersegmented Neuts Not Reportable 05/28/17 12:15 Hyposegmented Neuts Not Reportable 05/28/17 12:15 Hypogranular Neuts Not Reportable 05/28/17 12:15 Smudge Cells Not Reportable 05/28/17 12:15 Toxic Granulation Not Reportable 05/28/17 12:15 Toxic Vacuolation Not Reportable 05/28/17 12:15 Dohle Bodies Not Reportable 05/28/17 12:15 Pelger-Huet Anomaly Not Reportable 05/28/17 12:15 May Rods Not Reportable 05/28/17 12:15 Platelet Estimate Not Reportable 05/28/17 12:15 Clumped Platelets Not Reportable 05/28/17 12:15 Plt Clumps, EDTA Not Reportable 05/28/17 12:15 Large Platelets Not Reportable 05/28/17 12:15 Giant Platelets Not Reportable 05/28/17 12:15 Platelet Satelliting Not Reportable 05/28/17 12:15 Plt Morphology Comment Not Reportable 05/28/17 12:15 RBC Morphology Not Reportable 05/28/17 12:15 Dimorphic RBCs Not Reportable 05/28/17 12:15 Polychromasia Not Reportable 05/28/17 12:15 Hypochromasia 1+ 05/28/17 12:15 Poikilocytosis Not Reportable 05/28/17 12:15 Anisocytosis 1+ 05/28/17 12:15 Microcytosis Not Reportable 05/28/17 12:15 Macrocytosis Not Reportable 05/28/17 12:15 Spherocytes Not Reportable 05/28/17 12:15 Pappenheimer Bodies Not Reportable 05/28/17 12:15 Sickle Cells Not Reportable 05/28/17 12:15 Target Cells Not Reportable 05/28/17 12:15 Tear Drop Cells Not Reportable 05/28/17 12:15 Ovalocytes Not Reportable 05/28/17 12:15 Helmet Cells Not Reportable 05/28/17 12:15 [place] Bodies Not Reportable 05/28/17 12:15 [place] Rings Not Reportable 05/28/17 12:15 [place] Cells Not Reportable 05/28/17 12:15 Bite Cells Not Reportable 05/28/17 12:15 Crenated Cell Not Reportable 05/28/17 12:15 Elliptocytes Not Reportable 05/28/17 12:15 Acanthocytes (Spur) Not Reportable 05/28/17 12:15 Rouleaux Not Reportable 05/28/17 12:15 Hemoglobin C Crystals Not Reportable 05/28/17 12:15 Schistocytes Not Reportable 05/28/17 12:15 Malaria parasites Not Reportable 05/28/17 12:15 Carlitos Bodies Not Reportable 05/28/17 12:15 Hem Pathologist Commnt No 05/28/17 12:15 VBG pH 7.346 (7.320-7.420) 05/24/17 13:00 Sodium 140 mmol/L (137-145) 06/10/17 06:40 Potassium 5.4 mmol/L (3.6-5.0) H 06/10/17 06:40 Chloride 106.3 mmol/L (98-107) 06/10/17 06:40 Carbon Dioxide 20 mmol/L (22-30) L 06/10/17 06:40 Anion Gap 19 mmol/L 06/10/17 06:40 BUN 50 mg/dL (9-20) H 06/10/17 06:40 Creatinine 1.7 mg/dL (0.8-1.5) H 06/10/17 06:40 Estimated GFR 50 ml/min 06/10/17 06:40 BUN/Creatinine Ratio 29 % 06/10/17 06:40 Glucose 116 mg/dL (75-100) H 06/10/17 06:40 POC Glucose 167 (70-105) H 06/14/17 06:01 Lactic Acid 0.70 mmol/L (0.7-2.0) 05/24/17 13:00 Calcium 8.7 mg/dL (8.4-10.2) 06/10/17 06:40 Iron 25 ug/dL (49-181) L 05/29/17 13:45 TIBC 188 mcg/dL (250-450) L 05/29/17 13:45 C-Reactive Protein 2.80 mg/dL (0.00-1.30) H 05/24/17 13:00 NT-Pro-B Natriuret Pep 469.5 pg/mL (0-900) 05/24/17 13:00 Vitamin B12 1771 pg/mL (211-911) H 05/29/17 13:45 Folate > 20.0 ng/mL (7.3-26.0) 05/29/17 13:45 Urine Creatinine 97.6 mg/dL (0.1-20.0) H 06/03/17 15:00 Urine Total Protein 32 mg/dL (5-11.8) H 06/03/17 15:00 Vancomycin Trough 39.1 ug/mL (5.0-20.0) H 06/01/17 16:21 Random Vancomycin 21.8 ug/mL (0-40.0) 06/09/17 10:55 Blood Type A POSITIVE 05/29/17 13:45 Antibody Screen Negative 05/29/17 13:45 Crossmatch See Detail 05/29/17 13:45
[2017-06-15] MEDS: NEURONTIN PO SCH ×3 (05:17→22:49)
[2017-06-15] MEDS: APRESOLINE PO SCH ×3 (07:57→22:47)
[2017-06-15] MEDS: NOVOLOG SUB-Q SCH ×4 (07:57→22:49)
--- NOTE | 2017-06-15 10:38 | Progress Note ---
Assessment and Plan impression * Chronic kidney disease * Heel ulcer * Uncontrolled hypertension * Diabetes * Volume overload * Anemia recommendations * No recent lab work since June 10. * I have ordered lab several times. It appears that he has been refusing lab draw. * Last creatinine was 1.7 and he is nonoliguric. * He may be at his baseline * Clinically, patient is volume overloaded. Continue loop diuretics * Last serum potassium was 5.4. Hopefully diuresis has brought it down * Avoid nephrotoxins * Continue local wound care and antibiotics * Patient is awaiting placement . * Shall follow him peripherally at this time Subjective Date of service: 06/15/17 Principal diagnosis: heel infection Interval history: Patient is keeping his head covered up with a blanket. Uncooperative. Difficult to examine Objective - Vital Signs Vital signs: Vital Signs - 12hr 06/15/17 06/15/17 06/15/17 00:03 06:03 07:32 Temperature 98.4 F 99.1 F 98.6 F Pulse Rate 88 82 85 Respiratory 20 20 20 Rate Blood Pressure 210/93 144/71 180/93 O2 Sat by Pulse 98 100 96 Oximetry - General Appearance General appearance: well-developed, well-nourished, appears stated age Neck: no JVD, no thyromegaly, no carotid bruit, supple Respiratory: Present: Decreased Breath Sounds (at the bases) Cardiology: regular, normal heart rate Integumentary: other (2+ edema. Right heel wrapped with a bandage) - Lab 06/08/17 Unknown 06/10/17 06:40 Most recent lab results Calcium 8.7 mg/dL (8.4-10.2) 06/10/17 06:40 Urine Creatinine 97.6 mg/dL (0.1-20.0) H 06/03/17 15:00 Urine Total Protein 32 mg/dL (5-11.8) H 06/03/17 15:00
[2017-06-15] MEDS: CEFTIN PO SCH ×2 (11:00→22:48)
[2017-06-15] MEDS: FOLBEE PLUS CZ PO SCH (11:01)
[2017-06-15] MEDS: FEOSOL PO SCH ×2 (11:01→22:48)
[2017-06-15] MEDS: COREG PO SCH ×2 (11:01→22:48)
[2017-06-15] MEDS: HEPARIN SUB-Q SCH ×2 (11:01→22:48)
[2017-06-15] MEDS: THERAGRAN-M Tab PO SCH (11:01)
[2017-06-15] MEDS: LASIX PO SCH (11:01)
[2017-06-15] MEDS: NORVASC PO SCH (11:01)
--- NOTE | 2017-06-15 12:48 | Progress Note ---
Assessment and Plan /Acute on chronic CKD vasomotor nephropathy improving / Right heel pressure ulcer likely necrotic and infected S/P Right heel debridement on 04/08/17 finding +necrotic skin, SQ and ligaments. Previous MRI + dorsal foot cellulitis no osteo but increased marrow edema in the calcaneous ? osteo Followed by Vascular surgery and Wound care; Dr. Ly, -S/P repeat debridement 05/25 -wound Cx + MRSA and E coli resistant to levaquin continue vancomycin 1.5 g IV q day and ceftin 500 mg PO q 48h total 6 weeks from 05/25 until 07/05/17. Keep vanco trough -18 per ID Patient awaiting for placement, but he is refusing placement Infectious diseases following / Diabetes mellitus Accu-Chek before meals and at bedtime Sliding scale insulin/NovoLog ADA carbohydrate consistent diet refuses subqu insulin / microcytic Anemia with iron deficiency and likely from CKD hb dropped to 6.8 ( wonder if that a lab error), refused transfusion after multiple discussion and counselling Closely monitor H&H, started on iron replacement negative stool for occult blood, cont to monitor h and H /Hypertensive urgency Continue home antihypertensive medications Closely monitor blood pressure taking all BP meds now /Homelessness Patient needs SNF placement, but he is refusing as he does not want to give up his SS check Case management aware /Hyperlipidemia Continue on home lipitor /Noncompliant with medications and treatment options Counseled, left AMA multiple times, he is agreeable to completing treatment this time /Hyperkalemia From chronic renal disease, we'll continue to monitor BMP, ordered Kayexalate if potassium level > 5.2, but he is refusing med /DVT prophylaxis Changed to scd for anemia Brief History: Patient is a 61-year-old -French male with past medical history significant for DM, CHF, COPD, hypertension, hyperlipidemia, homelessness presented to the emergency department complaining of right foot pain. Hospitalist Physical General appearance: Present: no acute distress, disheveled - EENT Eyes: Present: PERRL ENT: hearing intact - Neck Neck: Present: supple - Respiratory Respiratory effort: normal Respiratory: bilateral: CTA - Cardiovascular Rhythm: regular Heart Sounds: Present: S1 & S2 - Extremities Extremity abnormal: other (marked elton leg edema. Right heel with ulcer with wound dressing) - Abdominal General gastrointestinal: soft, non-tender - Integumentary Integumentary: Present: clear (Right heel with ulcer with wound dressing), warm , dry - Psychiatric Psychiatric: appropriate mood/affect - Neurologic Neurologic: CNII-XII intact - Allied Health Allied health notes reviewed: nursing Subjective Date of service: 06/15/17 Principal diagnosis: heel infection Interval history: Patient seen and examined. Medical records and medication list reviewed. Patient is tolerating diet. Objective - Constitutional Vitals: Vital Signs - 12hr 06/15/17 06/15/17 06:03 07:32 Temperature 99.1 F 98.6 F Pulse Rate 82 85 Respiratory 20 20 Rate Blood Pressure 144/71 180/93 O2 Sat by Pulse 100 96 Oximetry - Labs CBC & Chem 7: 06/08/17 Unknown 06/10/17 06:40 Labs: Abnormal lab results 06/14/17 06/15/17 Range/Units 21:18 06:07 POC Glucose 242 H 223 H (70-105)
[2017-06-16] MEDS: NEURONTIN PO SCH ×3 (05:15→22:37)
[2017-06-16] MEDS ORDERED: VANCOMYCIN 1,500 MG in NACL 0.9% 500 ML 500 ML IV ONE (08:00)
[2017-06-16] MEDS: NOVOLOG SUB-Q SCH ×4 (08:36→22:47)
[2017-06-16] MEDS: THERAGRAN-M Tab PO SCH (09:46)
[2017-06-16] MEDS: FEOSOL PO SCH ×2 (09:46→22:42)
[2017-06-16] MEDS: APRESOLINE PO SCH ×3 (09:46→22:35)
[2017-06-16] MEDS: CEFTIN PO SCH ×2 (09:47→22:39)
[2017-06-16] MEDS: NORVASC PO SCH (09:47)
[2017-06-16] MEDS: FOLBEE PLUS CZ PO SCH (09:47)
[2017-06-16] MEDS: COREG PO SCH ×2 (09:47→22:36)
[2017-06-16] MEDS: HEPARIN SUB-Q SCH ×2 (09:48→22:47)
[2017-06-16] MEDS: LASIX PO SCH (09:49)
[2017-06-16] MEDS: PERCOCET 5/325 PO PRN (14:19)
[2017-06-16] MEDS ORDERED: WATER FOR INJ (PF) 10 ML ONE (15:09)
[2017-06-16] MEDS ORDERED: CATHFLO IV SCH (16:00)
--- NOTE | 2017-06-16 18:33 | Progress Note ---
Assessment and Plan /Acute on chronic CKD vasomotor nephropathy improving / Right heel pressure ulcer likely necrotic and infected S/P Right heel debridement on 04/08/17 finding +necrotic skin, SQ and ligaments. Previous MRI + dorsal foot cellulitis no osteo but increased marrow edema in the calcaneous ? osteo Followed by Vascular surgery and Wound care; Dr. Ly, -S/P repeat debridement 05/25 -wound Cx + MRSA and E coli resistant to levaquin continue vancomycin 1.5 g IV q day and ceftin 500 mg PO q 48h total 6 weeks from 05/25 until 07/05/17. Keep vanco trough -18 per ID Patient awaiting for placement, but he is refusing placement Infectious diseases following / Diabetes mellitus Accu-Chek before meals and at bedtime Sliding scale insulin/NovoLog ADA carbohydrate consistent diet refuses subqu insulin / microcytic Anemia with iron deficiency and likely from CKD hb dropped to 6.8 ( wonder if that a lab error), refused transfusion after multiple discussion and counselling Closely monitor H&H, started on iron replacement negative stool for occult blood, cont to monitor h and H /Hypertensive urgency Continue home antihypertensive medications Closely monitor blood pressure taking all BP meds now /Homelessness Patient needs SNF placement, but he is refusing as he does not want to give up his SS check Case management aware /Hyperlipidemia Continue on home lipitor /Noncompliant with medications and treatment options Counseled, left AMA multiple times, he is agreeable to completing treatment this time /Hyperkalemia From chronic renal disease, we'll continue to monitor BMP, ordered Kayexalate if potassium level > 5.2, but he is refusing med /DVT prophylaxis Changed to scd for anemia Brief History: Patient is a 61-year-old -[place] male with past medical history significant for DM, CHF, COPD, hypertension, hyperlipidemia, homelessness presented to the emergency department complaining of right foot pain. Hospitalist Physical General appearance: Present: no acute distress, disheveled - EENT Eyes: Present: PERRL ENT: hearing intact - Neck Neck: Present: supple - Respiratory Respiratory effort: normal Respiratory: bilateral: CTA - Cardiovascular Rhythm: regular Heart Sounds: Present: S1 & S2 - Extremities Extremity abnormal: other (marked elton leg edema. Right heel with ulcer with wound dressing) - Abdominal General gastrointestinal: soft, non-tender - Integumentary Integumentary: Present: clear (Right heel with ulcer with wound dressing), warm , dry - Psychiatric Psychiatric: appropriate mood/affect - Neurologic Neurologic: CNII-XII intact - Allied Health Allied health notes reviewed: nursing Subjective Date of service: 06/16/17 Principal diagnosis: heel infection Interval history: Patient seen and examined. Medical records and medication list reviewed. Patient is tolerating diet. Refusing meds, refusing fingersticks, refusing lab work he was very aggressive this am continue to cover himself with the blanket discussed with patient with CM and counselled about the medication compliance and to be cooperative to receive treatment Objective - Constitutional Vitals: Vital Signs - 12hr 06/16/17 06/16/17 07:55 15:09 Temperature 99.5 F 98.9 F Pulse Rate 82 77 Respiratory 20 20 Rate Blood Pressure 173/79 132/67 O2 Sat by Pulse 99 98 Oximetry - Labs CBC & Chem 7: 06/08/17 Unknown 06/10/17 06:40 Labs: Abnormal lab results 06/15/17 06/16/17 06/16/17 Range/Units 21:21 10:50 16:47 POC Glucose 182 H 194 H 171 H (70-105)
[2017-06-17] MEDS: NEURONTIN PO SCH ×3 (05:33→23:02)
[2017-06-17] MEDS: PERCOCET 5/325 PO PRN ×3 (05:41→22:51)
[2017-06-17 06:36] LABS: Calcium 8.5 mg/dL (8.4-10.2)
[2017-06-17] MEDS: NOVOLOG SUB-Q SCH ×4 (07:30→22:58)
[2017-06-17] MEDS: LASIX PO SCH (09:34)
[2017-06-17] MEDS: NORVASC PO SCH (09:34)
[2017-06-17] MEDS: APRESOLINE PO SCH ×3 (09:34→22:58)
[2017-06-17] MEDS: THERAGRAN-M Tab PO SCH (09:34)
[2017-06-17] MEDS: FOLBEE PLUS CZ PO SCH (09:35)
[2017-06-17] MEDS: COREG PO SCH ×2 (09:35→22:48)
[2017-06-17] MEDS: FEOSOL PO SCH ×2 (09:35→22:49)
[2017-06-17] MEDS: CEFTIN PO SCH ×2 (09:35→22:48)
[2017-06-17] MEDS: HEPARIN SUB-Q SCH ×3 (09:37→23:00)
[2017-06-17] MEDS ORDERED: KIONEX PO STA ×2 (10:05→12:32)
--- NOTE | 2017-06-17 14:07 | Progress Note ---
Assessment and Plan Assessment and plan: Patient is a 61-year-old -[place] man with past medical history significant for DM, CHF, COPD, hypertension, hyperlipidemia, homelessness and multiple [facility] visits who presented to the emergency department 05/24/2017 with right foot pain. /Acute on chronic CKD suspect stage 3, defer to Nephrology vasomotor nephropathy improving / Right heel pressure ulcer likely necrotic and infected S/P Right heel debridement on 04/08/17 finding +necrotic skin, SQ and ligaments. Previous MRI + dorsal foot cellulitis no osteo but increased marrow edema in the calcaneous ? osteo Followed by Vascular surgery and Wound care; Dr. Ly, -S/P repeat debridement 05/25 -wound Cx + MRSA and E coli resistant to levaquin continue vancomycin 1.5 g IV q day and ceftin 500 mg PO q 48h total 6 weeks from 05/25 until 07/05/17. Keep vanco trough per ID Patient awaiting for placement, but he is refusing placement Infectious diseases following / Diabetes mellitus Accu-Chek before meals and at bedtime Sliding scale insulin/NovoLog ADA carbohydrate consistent diet refuses subqu insulin / microcytic Anemia with iron deficiency and likely from CKD, acute on chronic anemia of chronic disease, poa hb dropped to 6.8 ( wonder if that a lab error), refused transfusion after multiple discussion and counselling Closely monitor H&H, started on iron replacement negative stool for occult blood, cont to monitor h and H /Hypertensive urgency Continue home antihypertensive medications Closely monitor blood pressure taking all BP meds now /Homelessness Patient needs SNF placement, but he is refusing as he does not want to give up his SS check Case management aware /Hyperlipidemia Continue on home lipitor /Noncompliant with medications and treatment options Counseled, left AMA multiple times, he is agreeable to completing treatment this time /Hyperkalemia From chronic renal disease, we'll continue to monitor BMP, ordered Kayexalate if potassium level > 5.2, but he is refusing med /DVT prophylaxis Changed to scd for anemia 06/04/17 per ID, Dr. 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 However, velocities are only marginally diminished in the proximal and mid sections of these vessels. - Previous MRI + dorsal foot cellulitis no osteo but increased marrow edema in the calcaneous ? osteo -S/P Right heel debridement on 04/08/17 finding +necrotic skin, SQ and ligaments. OR tissue cx + Proteus and Enterobacter both sensitive to levaquin -S/P repeat debridement 05/25 -wound Cx + MRSA and E coli resistant to levaquin 2) RUPA - worsening 3) NON-compliance Plan: -contact isolation -continue vancomycin 1.5 g IV q day and ceftin 500 mg PO q 48h total 6 weeks from 05/25 until 07/05/17. Keep vanco trough -wound care I am signing off " 06/04/17 per Psychiatry, Dr. Markel Lou: "Today the patient is calm, but uncooperative during the evaluation. This decisional capacity evaluation is to determine if the patient can sign out AMA. Currently, the patient has an ongoing infection and receiving antibiotic treatment. When asking questions about general orientation (person, place, and time), the patient refused to answer. When he was asked generalized questions about his current medical condition he stated, "Those are stupid questions." Patient was asked about where would he go once discharged and why would he sign out AMA, he refused to answer. I tried to discuss the wound dressing on his right lower LE, he stated, "Can you leave, I am done talking." Multiple attempts was made to engage the patient, but was unsuccessful. Per information from staff, the patient had mentioned signing himself out of the hospital. At the current time, the full capacity evaluation was unable to be completed due to the patient's inability or unwillingness to cooperate. I am outlining the detailed process of how to complete a capacity evaluation below, if the primary team would like to engage in that process with the patient independently at another point in time. Per this evaluation, I would say that the patient does not have the capacity to make the specific decision about signing out AMA. Decisional capacity is subject to change from time to time and needs to be assessed each time a decision is being made by the patient regarding their medical care. The consent process for treatment usually fulfills the requirements necessary for decisional capacity and it can be used to determine decisional capacity when augmented by the specific steps outlined below. *We have 4 criteria (based on Appplebaum & Grcoletteo in 1988) to assess TASK- specific decision-making capacity: 1) communicating a consistent choice 2) understanding pertinent information (nature of illness) 3) appreciate the circumstances & consequences (treatment options, prognosis with and without treatment, risk/ benefit ratio of treatment) 4) ability to rationally manipulate the information. It is fluid and may change from day to day. If order for a capacity evaluation to be complete, the following information needs to be assessed and documented by the primary team. A. Please document why there is a concern about lack of capacity and the specific task that we are evaluating. Capacity must be TASK specific evaluating vs global evaluation for competency. 1. For example- does the patient have capacity to leave AMA or refuse a surgery? 2. Global Capacity (a.k.a. Competency) is determined by the legal system. B. Please document the patients understanding of specific problems and treatment options? ( if possible, use their own words) C. Is the patient able to explain the consequences (risks vs benefits) of treatment options? Please document their explanation. D. Is the patient able to reason through their treatment options and manipulate information in regards to themselves? E. Does the patient display a clear and consistent choice? F. If the patient is unable to demonstrate that they have capacity, then a surrogate decision maker should be named to assist with decision making." 06/17/17: My first visit with patient, he was sitting in his own wheelchair with blankets over his head. His pants were down by his ankle and he seems unconcerned. He would not allow me to undress his left foot dsg but it looked c/ d/i. Reviewing his chart and the MRSA and e.coli are multi drug resistance, no oral choice for the E. coli. History Interval history: Patient was seen and examined. Follow-up on current diagnosis. Overnight uneventful. Patient denies any chest pain, shortness breath, nausea/vomiting or severe headaches. Imaging, nursing note, chart, labs and old chart reviewed. Discussed with patient. Hospitalist Physical - Physical exam Narrative exam: GEN: WDWN, NAD, AWAKE, ALERT, ORIENTATED HEENT: NCAT, EOMI, PERRL, OP Clear NECK: supple, no adenopathy, no thyromegaly, no JVD CVS/HEART: RRR, NORMAL S1S2, NO JVD, pulses present bilaterally CHEST/LUNGS: CTA B, Symmetrical chest expansion, good air entry bilaterally GI/Abdomen: soft, NTND, good bowel sounds, no guarding or rebound /Bladder: no suprapubic tenderness, no CVA or paraspinal tenderness EXT/Skin: no c/c/e, no obvious rash MSK: FROM x 4 Neuro: CN 2-12 grossly intact, no new focal deficits Psych: calm - Constitutional Vitals: Temp Pulse Resp BP Pulse Ox 98.4 F 72 20 136/69 100 06/17/17 08:22 06/17/17 08:22 06/17/17 08:22 06/17/17 08:22 06/17/17 08:22 General appearance: Present: no acute distress, well-nourished Results - Labs CBC & Chem 7: 06/08/17 Unknown 06/17/17 04:30 Labs: Laboratory Last Values WBC 8.2 K/mm3 (4.5-11.0) 06/08/17 Unknown RBC 2.63 M/mm3 (3.65-5.03) L 06/08/17 Unknown Hgb 6.9 gm/dl (11.8-15.2) L 06/08/17 Unknown Hct 21.7 % (35.5-45.6) L 06/08/17 Unknown MCV 83 fl (84-94) L 06/08/17 Unknown MCH 26 pg (28-32) L 06/08/17 Unknown MCHC 32 % (32-34) 06/08/17 Unknown RDW 17.7 % (13.2-15.2) H 06/08/17 Unknown Plt Count 258 K/mm3 (140-440) 06/08/17 Unknown Lymph % (Auto) 21.2 % (13.4-35.0) 06/08/17 Unknown [place] % (Auto) 10.4 % (0.0-7.3) H 06/08/17 Unknown Eos % (Auto) 6.9 % (0.0-4.3) H 06/08/17 Unknown Baso % (Auto) 0.8 % (0.0-1.8) 06/08/17 Unknown Lymph # 1.7 K/mm3 (1.2-5.4) 06/08/17 Unknown [place] # 0.9 K/mm3 (0.0-0.8) H 06/08/17 Unknown Eos # 0.6 K/mm3 (0.0-0.4) H 06/08/17 Unknown Baso # 0.1 K/mm3 (0.0-0.1) 06/08/17 Unknown Add Manual Diff Complete 05/28/17 12:15 Total Counted 100 05/28/17 12:15 Seg Neutrophils % 60.7 % (40.0-70.0) 06/08/17 Unknown Seg Neuts % (Manual) 72.0 % (40.0-70.0) H 05/28/17 12:15 Band Neutrophils % 3.0 % 05/28/17 12:15 Lymphocytes % (Manual) 16.0 % (13.4-35.0) 05/28/17 12:15 Reactive Lymphs % (Man) 0 % 05/28/17 12:15 Monocytes % (Manual) 2.0 % (0.0-7.3) 05/28/17 12:15 Eosinophils % (Manual) 7.0 % (0.0-4.3) H 05/28/17 12:15 Basophils % (Manual) 0 % (0.0-1.8) 05/28/17 12:15 Metamyelocytes % 0 % 05/28/17 12:15 Myelocytes % 0 % 05/28/17 12:15 Promyelocytes % 0 % 05/28/17 12:15 Blast Cells % 0 % 05/28/17 12:15 Nucleated RBC % Not Reportable 05/28/17 12:15 Seg Neutrophils # 5.0 K/mm3 (1.8-7.7) 06/08/17 Unknown Seg Neutrophils # Man 0.0 K/mm3 (1.8-7.7) L 05/28/17 12:15 Band Neutrophils # 0.0 K/mm3 05/28/17 12:15 Lymphocytes # (Manual) 0.0 K/mm3 (1.2-5.4) L 05/28/17 12:15 Abs React Lymphs (Man) 0.0 K/mm3 05/28/17 12:15 Monocytes # (Manual) 0.0 K/mm3 (0.0-0.8) 05/28/17 12:15 Eosinophils # (Manual) 0.0 K/mm3 (0.0-0.4) 05/28/17 12:15 Basophils # (Manual) 0.0 K/mm3 (0.0-0.1) 05/28/17 12:15 Metamyelocytes # 0.0 K/mm3 05/28/17 12:15 Myelocytes # 0.0 K/mm3 05/28/17 12:15 Promyelocytes # 0.0 K/mm3 05/28/17 12:15 Blast Cells # 0.0 K/mm3 05/28/17 12:15 WBC Morphology Not Reportable 05/28/17 12:15 Hypersegmented Neuts Not Reportable 05/28/17 12:15 Hyposegmented Neuts Not Reportable 05/28/17 12:15 Hypogranular Neuts Not Reportable 05/28/17 12:15 Smudge Cells Not Reportable 05/28/17 12:15 Toxic Granulation Not Reportable 05/28/17 12:15 Toxic Vacuolation Not Reportable 05/28/17 12:15 Dohle Bodies Not Reportable 05/28/17 12:15 Pelger-Huet Anomaly Not Reportable 05/28/17 12:15 May Rods Not Reportable 05/28/17 12:15 Platelet Estimate Not Reportable 05/28/17 12:15 Clumped Platelets Not Reportable 05/28/17 12:15 Plt Clumps, EDTA Not Reportable 05/28/17 12:15 Large Platelets Not Reportable 05/28/17 12:15 Giant Platelets Not Reportable 05/28/17 12:15 Platelet Satelliting Not Reportable 05/28/17 12:15 Plt Morphology Comment Not Reportable 05/28/17 12:15 RBC Morphology Not Reportable 05/28/17 12:15 Dimorphic RBCs Not Reportable 05/28/17 12:15 Polychromasia Not Reportable 05/28/17 12:15 Hypochromasia 1+ 05/28/17 12:15 Poikilocytosis Not Reportable 05/28/17 12:15 Anisocytosis 1+ 05/28/17 12:15 Microcytosis Not Reportable 05/28/17 12:15 Macrocytosis Not Reportable 05/28/17 12:15 Spherocytes Not Reportable 05/28/17 12:15 Pappenheimer Bodies Not Reportable 05/28/17 12:15 Sickle Cells Not Reportable 05/28/17 12:15 Target Cells Not Reportable 05/28/17 12:15 Tear Drop Cells Not Reportable 05/28/17 12:15 Ovalocytes Not Reportable 05/28/17 12:15 Helmet Cells Not Reportable 05/28/17 12:15 Bennett-Garrochales Bodies Not Reportable 05/28/17 12:15 Clyde Rings Not Reportable 05/28/17 12:15 Matthieu Cells Not Reportable 05/28/17 12:15 Bite Cells Not Reportable 05/28/17 12:15 Crenated Cell Not Reportable 05/28/17 12:15 Elliptocytes Not Reportable 05/28/17 12:15 Acanthocytes (Spur) Not Reportable 05/28/17 12:15 Rouleaux Not Reportable 05/28/17 12:15 Hemoglobin C Crystals Not Reportable 05/28/17 12:15 Schistocytes Not Reportable 05/28/17 12:15 Malaria parasites Not Reportable 05/28/17 12:15 Carlitos Bodies Not Reportable 05/28/17 12:15 Hem Pathologist Commnt No 05/28/17 12:15 VBG pH 7.346 (7.320-7.420) 05/24/17 13:00 Sodium 138 mmol/L (137-145) 06/17/17 04:30 Potassium 5.8 mmol/L (3.6-5.0) H 06/17/17 04:30 Chloride 105.5 mmol/L (98-107) 06/17/17 04:30 Carbon Dioxide 20 mmol/L (22-30) L 06/17/17 04:30 Anion Gap 18 mmol/L 06/17/17 04:30 BUN 49 mg/dL (9-20) H 06/17/17 04:30 Creatinine 1.7 mg/dL (0.8-1.5) H 06/17/17 04:30 Estimated GFR 50 ml/min 06/17/17 04:30 BUN/Creatinine Ratio 29 % 06/17/17 04:30 Glucose 162 mg/dL (75-100) H 06/17/17 04:30 POC Glucose 185 (70-105) H 06/17/17 11:39 Lactic Acid 0.70 mmol/L (0.7-2.0) 05/24/17 13:00 Calcium 8.5 mg/dL (8.4-10.2) 06/17/17 04:30 Iron 25 ug/dL (49-181) L 05/29/17 13:45 TIBC 188 mcg/dL (250-450) L 05/29/17 13:45 C-Reactive Protein 2.80 mg/dL (0.00-1.30) H 05/24/17 13:00 NT-Pro-B Natriuret Pep 469.5 pg/mL (0-900) 05/24/17 13:00 Vitamin B12 1771 pg/mL (211-911) H 05/29/17 13:45 Folate > 20.0 ng/mL (7.3-26.0) 05/29/17 13:45 Urine Creatinine 97.6 mg/dL (0.1-20.0) H 06/03/17 15:00 Urine Total Protein 32 mg/dL (5-11.8) H 06/03/17 15:00 Vancomycin Trough 39.1 ug/mL (5.0-20.0) H 06/01/17 16:21 Random Vancomycin 21.8 ug/mL (0-40.0) 06/09/17 10:55 Blood Type A POSITIVE 05/29/17 13:45 Antibody Screen Negative 05/29/17 13:45 Crossmatch See Detail 05/29/17 13:45
[2017-06-18] MEDS: NEURONTIN PO SCH ×3 (05:41→22:03)
[2017-06-18 06:52] LABS: Hematocrit 24.7 % (35.5-45.6); Hemoglobin 7.8 gm/dl (11.8-15.2); Mean Corpuscular HGB Conc 32 % (32-34); Mean Corpuscular Hemoglobin 26 pg (28-32); Mean Corpuscular Volume 82 fl (84-94); Platelet Count 271 K/mm3 (140-440); Red Blood Count 3.02 M/mm3 (3.65-5.03); Red Cell Distribution Width 17.8 % (13.2-15.2)
[2017-06-18] MEDS: NOVOLOG SUB-Q SCH ×4 (07:30→22:14)
[2017-06-18] MEDS: APRESOLINE PO SCH ×3 (08:00→20:04)
[2017-06-18] MEDS: NORVASC PO SCH (10:20)
[2017-06-18] MEDS: FEOSOL PO SCH ×2 (10:20→22:03)
[2017-06-18] MEDS: LASIX PO SCH (10:20)
[2017-06-18] MEDS: THERAGRAN-M Tab PO SCH (10:21)
[2017-06-18] MEDS: COREG PO SCH ×2 (10:21→22:03)
[2017-06-18] MEDS: FOLBEE PLUS CZ PO SCH (10:21)
[2017-06-18] MEDS: CEFTIN PO SCH ×2 (10:22→22:13)
[2017-06-18] MEDS: HEPARIN SUB-Q SCH ×2 (10:26→22:05)
--- NOTE | 2017-06-18 14:39 | Progress Note ---
Assessment and Plan Assessment and plan: Patient is a 61-year-old -[place] man with past medical history significant for DM type 2, CHF, COPD, hypertension, hyperlipidemia, homelessness and multiple [facility]As visits who presented to the emergency department 05/24/2017 with right foot pain. /Acute on chronic CKD suspect stage 3, defer to Nephrology vasomotor nephropathy improving / Right heel pressure ulcer likely necrotic and infected S/P Right heel debridement on 04/08/17 finding +necrotic skin, SQ and ligaments. Previous MRI + dorsal foot cellulitis no osteo but increased marrow edema in the calcaneous ? osteo Followed by Vascular surgery and Wound care; Dr. Ly, -S/P repeat debridement 05/25 -wound Cx + MRSA and E coli resistant to levaquin continue vancomycin 1.5 g IV q day and ceftin 500 mg PO q 48h total 6 weeks from 05/25 until 07/05/17. Keep vanco trough per ID Patient awaiting for placement, but he is refusing placement Infectious diseases following / Diabetes mellitus Accu-Chek before meals and at bedtime Sliding scale insulin/NovoLog ADA carbohydrate consistent diet refuses subqu insulin / microcytic Anemia with iron deficiency and likely from CKD, acute on chronic anemia of chronic disease, poa hb dropped to 6.8 ( wonder if that a lab error), refused transfusion after multiple discussion and counselling Closely monitor H&H, started on iron replacement negative stool for occult blood, cont to monitor h and H /Hypertensive urgency Continue home antihypertensive medications Closely monitor blood pressure taking all BP meds now /Homelessness Patient needs SNF placement, but he is refusing as he does not want to give up his SS check Case management aware /Hyperlipidemia Continue on home lipitor /Noncompliant with medications and treatment options Counseled, left AMA multiple times, he is agreeable to completing treatment this time /Hyperkalemia From chronic renal disease, we'll continue to monitor BMP, ordered Kayexalate if potassium level > 5.2, but he is refusing med /DVT prophylaxis Changed to scd for anemia 06/04/17 per ID, Dr. 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 However, velocities are only marginally diminished in the proximal and mid sections of these vessels. - Previous MRI + dorsal foot cellulitis no osteo but increased marrow edema in the calcaneous ? osteo -S/P Right heel debridement on 04/08/17 finding +necrotic skin, SQ and ligaments. OR tissue cx + Proteus and Enterobacter both sensitive to levaquin -S/P repeat debridement 05/25 -wound Cx + MRSA and E coli resistant to levaquin 2) RUPA - worsening 3) NON-compliance Plan: -contact isolation -continue vancomycin 1.5 g IV q day and ceftin 500 mg PO q 48h total 6 weeks from 05/25 until 07/05/17. Keep vanco trough -wound care I am signing off " 06/04/17 per Psychiatry, Dr. Markel Lou: "Today the patient is calm, but uncooperative during the evaluation. This decisional capacity evaluation is to determine if the patient can sign out AMA. Currently, the patient has an ongoing infection and receiving antibiotic treatment. When asking questions about general orientation (person, place, and time), the patient refused to answer. When he was asked generalized questions about his current medical condition he stated, "Those are stupid questions." Patient was asked about where would he go once discharged and why would he sign out AMA, he refused to answer. I tried to discuss the wound dressing on his right lower LE, he stated, "Can you leave, I am done talking." Multiple attempts was made to engage the patient, but was unsuccessful. Per information from staff, the patient had mentioned signing himself out of the hospital. At the current time, the full capacity evaluation was unable to be completed due to the patient's inability or unwillingness to cooperate. I am outlining the detailed process of how to complete a capacity evaluation below, if the primary team would like to engage in that process with the patient independently at another point in time. Per this evaluation, I would say that the patient does not have the capacity to make the specific decision about signing out AMA. Decisional capacity is subject to change from time to time and needs to be assessed each time a decision is being made by the patient regarding their medical care. The consent process for treatment usually fulfills the requirements necessary for decisional capacity and it can be used to determine decisional capacity when augmented by the specific steps outlined below. *We have 4 criteria (based on [employer]ieloba[employer] & Adelitao in 1988) to assess TASK- specific decision-making capacity: 1) communicating a consistent choice 2) understanding pertinent information (nature of illness) 3) appreciate the circumstances & consequences (treatment options, prognosis with and without treatment, risk/ benefit ratio of treatment) 4) ability to rationally manipulate the information. It is fluid and may change from day to day. If order for a capacity evaluation to be complete, the following information needs to be assessed and documented by the primary team. A. Please document why there is a concern about lack of capacity and the specific task that we are evaluating. Capacity must be TASK specific evaluating vs global evaluation for competency. 1. For example- does the patient have capacity to leave AMA or refuse a surgery? 2. Global Capacity (a.k.a. Competency) is determined by the legal system. B. Please document the patients understanding of specific problems and treatment options? ( if possible, use their own words) C. Is the patient able to explain the consequences (risks vs benefits) of treatment options? Please document their explanation. D. Is the patient able to reason through their treatment options and manipulate information in regards to themselves? E. Does the patient display a clear and consistent choice? F. If the patient is unable to demonstrate that they have capacity, then a surrogate decision maker should be named to assist with decision making." 06/17/17: My first visit with patient, he was sitting in his own wheelchair with blankets over his head. His pants were down by his ankle and he seems unconcerned. He would not allow me to undress his left foot dsg but it looked c/ d/i. Reviewing his chart and the MRSA and e.coli are multi drug resistance, no oral choice for the E. coli. 06/18/17: continue abx. He is periodically refusing labwork, we we discuss compliance. ?LTAC placement per case management. History Interval history: Patient was seen and examined. Follow-up on current diagnosis. Overnight uneventful. Patient denies any chest pain, shortness breath, nausea/vomiting or severe headaches. Imaging, nursing note, chart, labs and old chart reviewed. Discussed with patient. Hospitalist Physical - Physical exam Narrative exam: GEN: WDWN, NAD, AWAKE, ALERT, ORIENTATED x 3 HEENT: NCAT, EOMI, PERRL, OP Clear NECK: supple, no adenopathy, no thyromegaly, no JVD CVS/HEART: RRR, NORMAL S1S2, NO JVD, pulses present bilaterally CHEST/LUNGS: CTA B, Symmetrical chest expansion, good air entry bilaterally GI/Abdomen: soft, NTND, good bowel sounds, no guarding or rebound /Bladder: no suprapubic tenderness, no CVA or paraspinal tenderness EXT/Skin: left foot dsg intact MSK: FROM x 4 Neuro: CN 2-12 grossly intact, no new focal deficits Psych: calm - Constitutional Vitals: Temp Pulse Resp BP Pulse Ox 98.9 F 73 20 177/64 98 06/18/17 08:25 06/18/17 10:20 06/18/17 08:25 06/18/17 10:20 06/18/17 08:25 General appearance: Present: no acute distress, well-nourished Results - Labs CBC & Chem 7: 06/18/17 05:30 06/17/17 04:30 Labs: Laboratory Last Values WBC 8.4 K/mm3 (4.5-11.0) 06/18/17 05:30 RBC 3.02 M/mm3 (3.65-5.03) L 06/18/17 05:30 Hgb 7.8 gm/dl (11.8-15.2) L 06/18/17 05:30 Hct 24.7 % (35.5-45.6) L 06/18/17 05:30 MCV 82 fl (84-94) L 06/18/17 05:30 MCH 26 pg (28-32) L 06/18/17 05:30 MCHC 32 % (32-34) 06/18/17 05:30 RDW 17.8 % (13.2-15.2) H 06/18/17 05:30 Plt Count 271 K/mm3 (140-440) 06/18/17 05:30 Lymph % (Auto) 21.2 % (13.4-35.0) 06/08/17 Unknown Phillips % (Auto) 10.4 % (0.0-7.3) H 06/08/17 Unknown Eos % (Auto) 6.9 % (0.0-4.3) H 06/08/17 Unknown Baso % (Auto) 0.8 % (0.0-1.8) 06/08/17 Unknown Lymph # 1.7 K/mm3 (1.2-5.4) 06/08/17 Unknown Phillips # 0.9 K/mm3 (0.0-0.8) H 06/08/17 Unknown Eos # 0.6 K/mm3 (0.0-0.4) H 06/08/17 Unknown Baso # 0.1 K/mm3 (0.0-0.1) 06/08/17 Unknown Add Manual Diff Complete 05/28/17 12:15 Total Counted 100 05/28/17 12:15 Seg Neutrophils % 60.7 % (40.0-70.0) 06/08/17 Unknown Seg Neuts % (Manual) 72.0 % (40.0-70.0) H 05/28/17 12:15 Band Neutrophils % 3.0 % 05/28/17 12:15 Lymphocytes % (Manual) 16.0 % (13.4-35.0) 05/28/17 12:15 Reactive Lymphs % (Man) 0 % 05/28/17 12:15 Monocytes % (Manual) 2.0 % (0.0-7.3) 05/28/17 12:15 Eosinophils % (Manual) 7.0 % (0.0-4.3) H 05/28/17 12:15 Basophils % (Manual) 0 % (0.0-1.8) 05/28/17 12:15 Metamyelocytes % 0 % 05/28/17 12:15 Myelocytes % 0 % 05/28/17 12:15 Promyelocytes % 0 % 05/28/17 12:15 Blast Cells % 0 % 05/28/17 12:15 Nucleated RBC % Not Reportable 05/28/17 12:15 Seg Neutrophils # 5.0 K/mm3 (1.8-7.7) 06/08/17 Unknown Seg Neutrophils # Man 0.0 K/mm3 (1.8-7.7) L 05/28/17 12:15 Band Neutrophils # 0.0 K/mm3 05/28/17 12:15 Lymphocytes # (Manual) 0.0 K/mm3 (1.2-5.4) L 05/28/17 12:15 Abs React Lymphs (Man) 0.0 K/mm3 05/28/17 12:15 Monocytes # (Manual) 0.0 K/mm3 (0.0-0.8) 05/28/17 12:15 Eosinophils # (Manual) 0.0 K/mm3 (0.0-0.4) 05/28/17 12:15 Basophils # (Manual) 0.0 K/mm3 (0.0-0.1) 05/28/17 12:15 Metamyelocytes # 0.0 K/mm3 05/28/17 12:15 Myelocytes # 0.0 K/mm3 05/28/17 12:15 Promyelocytes # 0.0 K/mm3 05/28/17 12:15 Blast Cells # 0.0 K/mm3 05/28/17 12:15 WBC Morphology Not Reportable 05/28/17 12:15 Hypersegmented Neuts Not Reportable 05/28/17 12:15 Hyposegmented Neuts Not Reportable 05/28/17 12:15 Hypogranular Neuts Not Reportable 05/28/17 12:15 Smudge Cells Not Reportable 05/28/17 12:15 Toxic Granulation Not Reportable 05/28/17 12:15 Toxic Vacuolation Not Reportable 05/28/17 12:15 Dohle Bodies Not Reportable 05/28/17 12:15 Pelger-Huet Anomaly Not Reportable 05/28/17 12:15 May Rods Not Reportable 05/28/17 12:15 Platelet Estimate Not Reportable 05/28/17 12:15 Clumped Platelets Not Reportable 05/28/17 12:15 Plt Clumps, EDTA Not Reportable 05/28/17 12:15 Large Platelets Not Reportable 05/28/17 12:15 Giant Platelets Not Reportable 05/28/17 12:15 Platelet Satelliting Not Reportable 05/28/17 12:15 Plt Morphology Comment Not Reportable 05/28/17 12:15 RBC Morphology Not Reportable 05/28/17 12:15 Dimorphic RBCs Not Reportable 05/28/17 12:15 Polychromasia Not Reportable 05/28/17 12:15 Hypochromasia 1+ 05/28/17 12:15 Poikilocytosis Not Reportable 05/28/17 12:15 Anisocytosis 1+ 05/28/17 12:15 Microcytosis Not Reportable 05/28/17 12:15 Macrocytosis Not Reportable 05/28/17 12:15 Spherocytes Not Reportable 05/28/17 12:15 Pappenheimer Bodies Not Reportable 05/28/17 12:15 Sickle Cells Not Reportable 05/28/17 12:15 Target Cells Not Reportable 05/28/17 12:15 Tear Drop Cells Not Reportable 05/28/17 12:15 Ovalocytes Not Reportable 05/28/17 12:15 Helmet Cells Not Reportable 05/28/17 12:15 Bennett-Basin Bodies Not Reportable 05/28/17 12:15 Harrod Rings Not Reportable 05/28/17 12:15 [place] Cells Not Reportable 05/28/17 12:15 Bite Cells Not Reportable 05/28/17 12:15 Crenated Cell Not Reportable 05/28/17 12:15 Elliptocytes Not Reportable 05/28/17 12:15 Acanthocytes (Spur) Not Reportable 05/28/17 12:15 Rouleaux Not Reportable 05/28/17 12:15 Hemoglobin C Crystals Not Reportable 05/28/17 12:15 Schistocytes Not Reportable 05/28/17 12:15 Malaria parasites Not Reportable 05/28/17 12:15 Carlitos Bodies Not Reportable 05/28/17 12:15 Hem Pathologist Commnt No 05/28/17 12:15 VBG pH 7.346 (7.320-7.420) 05/24/17 13:00 Sodium 138 mmol/L (137-145) 06/17/17 04:30 Potassium 5.8 mmol/L (3.6-5.0) H 06/17/17 04:30 Chloride 105.5 mmol/L (98-107) 06/17/17 04:30 Carbon Dioxide 20 mmol/L (22-30) L 06/17/17 04:30 Anion Gap 18 mmol/L 06/17/17 04:30 BUN 49 mg/dL (9-20) H 06/17/17 04:30 Creatinine 1.7 mg/dL (0.8-1.5) H 06/17/17 04:30 Estimated GFR 50 ml/min 06/17/17 04:30 BUN/Creatinine Ratio 29 % 06/17/17 04:30 Glucose 162 mg/dL (75-100) H 06/17/17 04:30 POC Glucose 207 (70-105) H 06/18/17 11:29 Lactic Acid 0.70 mmol/L (0.7-2.0) 05/24/17 13:00 Calcium 8.5 mg/dL (8.4-10.2) 06/17/17 04:30 Iron 25 ug/dL (49-181) L 05/29/17 13:45 TIBC 188 mcg/dL (250-450) L 05/29/17 13:45 C-Reactive Protein 2.80 mg/dL (0.00-1.30) H 05/24/17 13:00 NT-Pro-B Natriuret Pep 469.5 pg/mL (0-900) 05/24/17 13:00 Vitamin B12 1771 pg/mL (211-911) H 05/29/17 13:45 Folate > 20.0 ng/mL (7.3-26.0) 05/29/17 13:45 Urine Creatinine 97.6 mg/dL (0.1-20.0) H 06/03/17 15:00 Urine Total Protein 32 mg/dL (5-11.8) H 06/03/17 15:00 Vancomycin Trough 39.1 ug/mL (5.0-20.0) H 06/01/17 16:21 Random Vancomycin 26 ug/mL (0-40.0) 06/18/17 05:30 Blood Type A POSITIVE 05/29/17 13:45 Antibody Screen Negative 05/29/17 13:45 Crossmatch See Detail 05/29/17 13:45
[2017-06-19] MEDS: NEURONTIN PO SCH ×2 (06:48→16:01)
[2017-06-19] MEDS: HEPARIN SUB-Q SCH (09:04)
[2017-06-19] MEDS: THERAGRAN-M Tab PO SCH (09:04)
[2017-06-19] MEDS: NORVASC PO SCH (09:04)
[2017-06-19] MEDS: APRESOLINE PO SCH ×2 (09:05→16:01)
[2017-06-19] MEDS: LASIX PO SCH (09:05)
[2017-06-19] MEDS: FEOSOL PO SCH (09:05)
[2017-06-19] MEDS: PERCOCET 5/325 PO PRN (09:32)
[2017-06-19] MEDS: FOLBEE PLUS CZ PO SCH (09:33)
[2017-06-19] MEDS: NOVOLOG SUB-Q SCH ×3 (09:34→15:50)
[2017-06-19 09:47] LABS: Hematocrit 24.7 % (35.5-45.6); Hemoglobin 7.6 gm/dl (11.8-15.2); Mean Corpuscular HGB Conc 31 % (32-34); Mean Corpuscular Volume 82 fl (84-94); Platelet Count 270 K/mm3 (140-440); Red Cell Distribution Width 17.8 % (13.2-15.2)
[2017-06-19 09:49] LABS: Mean Corpuscular Hemoglobin 25 pg (28-32)
--- NOTE | 2017-06-19 11:03 | Progress Note ---
Assessment and Plan Assessment and plan: Patient is a 61-year-old -Irish man with past medical history significant for DM type 2, CHF, COPD, hypertension, hyperlipidemia, homelessness and multiple AMAs visits who presented to the emergency department 05/24/2017 with right foot pain. /Acute on chronic CKD suspect stage 3, defer to Nephrology vasomotor nephropathy improving / Right heel pressure ulcer likely necrotic and infected S/P Right heel debridement on 04/08/17 finding +necrotic skin, SQ and ligaments. Previous MRI + dorsal foot cellulitis no osteo but increased marrow edema in the calcaneous ? osteo Followed by Vascular surgery and Wound care; Dr. Ly, -S/P repeat debridement 05/25 -wound Cx + MRSA and E coli resistant to levaquin continue vancomycin 1.5 g IV q day and ceftin 500 mg PO q 48h total 6 weeks from 05/25 until 07/05/17. Keep vanco trough per ID Patient awaiting for placement, but he is refusing placement Infectious diseases following / Diabetes mellitus Accu-Chek before meals and at bedtime Sliding scale insulin/NovoLog ADA carbohydrate consistent diet refuses subqu insulin / microcytic Anemia with iron deficiency and likely from CKD, acute on chronic anemia of chronic disease, poa hb dropped to 6.8 ( wonder if that a lab error), refused transfusion after multiple discussion and counselling Closely monitor H&H, started on iron replacement negative stool for occult blood, cont to monitor h and H /Hypertensive urgency Continue home antihypertensive medications Closely monitor blood pressure taking all BP meds now /Homelessness Patient needs SNF placement, but he is refusing as he does not want to give up his SS check Case management aware /Hyperlipidemia Continue on home lipitor /Noncompliant with medications and treatment options Counseled, left AMA multiple times, he is agreeable to completing treatment this time /Hyperkalemia From chronic renal disease, we'll continue to monitor BMP, ordered Kayexalate if potassium level > 5.2, but he is refusing med /DVT prophylaxis Changed to scd for anemia 06/04/17 per ID, Dr. 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 However, velocities are only marginally diminished in the proximal and mid sections of these vessels. - Previous MRI + dorsal foot cellulitis no osteo but increased marrow edema in the calcaneous ? osteo -S/P Right heel debridement on 04/08/17 finding +necrotic skin, SQ and ligaments. OR tissue cx + Proteus and Enterobacter both sensitive to levaquin -S/P repeat debridement 05/25 -wound Cx + MRSA and E coli resistant to levaquin 2) RUPA - worsening 3) NON-compliance Plan: -contact isolation -continue vancomycin 1.5 g IV q day and ceftin 500 mg PO q 48h total 6 weeks from 05/25 until 07/05/17. Keep vanco trough -wound care I am signing off " 06/04/17 per Psychiatry, Dr. Markel Lou: "Today the patient is calm, but uncooperative during the evaluation. This decisional capacity evaluation is to determine if the patient can sign out AMA. Currently, the patient has an ongoing infection and receiving antibiotic treatment. When asking questions about general orientation (person, place, and time), the patient refused to answer. When he was asked generalized questions about his current medical condition he stated, "Those are stupid questions." Patient was asked about where would he go once discharged and why would he sign out AMA, he refused to answer. I tried to discuss the wound dressing on his right lower LE, he stated, "Can you leave, I am done talking." Multiple attempts was made to engage the patient, but was unsuccessful. Per information from staff, the patient had mentioned signing himself out of the hospital. At the current time, the full capacity evaluation was unable to be completed due to the patient's inability or unwillingness to cooperate. I am outlining the detailed process of how to complete a capacity evaluation below, if the primary team would like to engage in that process with the patient independently at another point in time. Per this evaluation, I would say that the patient does not have the capacity to make the specific decision about signing out AMA. Decisional capacity is subject to change from time to time and needs to be assessed each time a decision is being made by the patient regarding their medical care. The consent process for treatment usually fulfills the requirements necessary for decisional capacity and it can be used to determine decisional capacity when augmented by the specific steps outlined below. *We have 4 criteria (based on Appcielobaum & Adelitao in 1988) to assess TASK- specific decision-making capacity: 1) communicating a consistent choice 2) understanding pertinent information (nature of illness) 3) appreciate the circumstances & consequences (treatment options, prognosis with and without treatment, risk/ benefit ratio of treatment) 4) ability to rationally manipulate the information. It is fluid and may change from day to day. If order for a capacity evaluation to be complete, the following information needs to be assessed and documented by the primary team. A. Please document why there is a concern about lack of capacity and the specific task that we are evaluating. Capacity must be TASK specific evaluating vs global evaluation for competency. 1. For example- does the patient have capacity to leave AMA or refuse a surgery? 2. Global Capacity (a.k.a. Competency) is determined by the legal system. B. Please document the patients understanding of specific problems and treatment options? ( if possible, use their own words) C. Is the patient able to explain the consequences (risks vs benefits) of treatment options? Please document their explanation. D. Is the patient able to reason through their treatment options and manipulate information in regards to themselves? E. Does the patient display a clear and consistent choice? F. If the patient is unable to demonstrate that they have capacity, then a surrogate decision maker should be named to assist with decision making." 06/17/17: My first visit with patient, he was sitting in his own wheelchair with blankets over his head. His pants were down by his ankle and he seems unconcerned. He would not allow me to undress his left foot dsg but it looked c/ d/i. Reviewing his chart and the MRSA and e.coli are multi drug resistance, no oral choice for the E. coli. 06/18/17: continue abx. He is periodically refusing labwork, we we discuss compliance. ?LTAC placement per case management. 06/19/17: continue abx. ordered am labs. History Interval history: Patient was seen and examined. Follow-up on current diagnosis. Overnight uneventful. Patient denies any chest pain, shortness breath, nausea/vomiting or severe headaches. Imaging, nursing note, chart, labs and old chart reviewed. Discussed with patient. Hospitalist Physical - Physical exam Narrative exam: GEN: WDWN, NAD, AWAKE, ALERT, ORIENTATED x 3 HEENT: NCAT, EOMI, PERRL, OP Clear NECK: supple, no adenopathy, no thyromegaly, no JVD CVS/HEART: RRR, NORMAL S1S2, NO JVD, pulses present bilaterally CHEST/LUNGS: CTA B, Symmetrical chest expansion, good air entry bilaterally GI/Abdomen: soft, NTND, good bowel sounds, no guarding or rebound /Bladder: no suprapubic tenderness, no CVA or paraspinal tenderness EXT/Skin: left foot dsg intact MSK: FROM x 4 Neuro: CN 2-12 grossly intact, no new focal deficits Psych: calm - Constitutional Vitals: Temp Pulse Resp BP Pulse Ox 99.3 F 81 20 138/74 100 06/19/17 07:58 06/19/17 07:58 06/19/17 07:58 06/19/17 07:58 06/19/17 07:58 General appearance: Present: no acute distress, well-nourished Results - Labs CBC & Chem 7: 06/19/17 09:10 06/17/17 04:30 Labs: Laboratory Last Values WBC 8.5 K/mm3 (4.5-11.0) 06/19/17 09:10 RBC 3.00 M/mm3 (3.65-5.03) L 06/19/17 09:10 Hgb 7.6 gm/dl (11.8-15.2) L 06/19/17 09:10 Hct 24.7 % (35.5-45.6) L 06/19/17 09:10 MCV 82 fl (84-94) L 06/19/17 09:10 MCH 25 pg (28-32) L 06/19/17 09:10 MCHC 31 % (32-34) L 06/19/17 09:10 RDW 17.8 % (13.2-15.2) H 06/19/17 09:10 Plt Count 270 K/mm3 (140-440) 06/19/17 09:10 Lymph % (Auto) 21.2 % (13.4-35.0) 06/08/17 Unknown Cascade % (Auto) 10.4 % (0.0-7.3) H 06/08/17 Unknown Eos % (Auto) 6.9 % (0.0-4.3) H 06/08/17 Unknown Baso % (Auto) 0.8 % (0.0-1.8) 06/08/17 Unknown Lymph # 1.7 K/mm3 (1.2-5.4) 06/08/17 Unknown Cascade # 0.9 K/mm3 (0.0-0.8) H 06/08/17 Unknown Eos # 0.6 K/mm3 (0.0-0.4) H 06/08/17 Unknown Baso # 0.1 K/mm3 (0.0-0.1) 06/08/17 Unknown Add Manual Diff Complete 05/28/17 12:15 Total Counted 100 05/28/17 12:15 Seg Neutrophils % 60.7 % (40.0-70.0) 06/08/17 Unknown Seg Neuts % (Manual) 72.0 % (40.0-70.0) H 05/28/17 12:15 Band Neutrophils % 3.0 % 05/28/17 12:15 Lymphocytes % (Manual) 16.0 % (13.4-35.0) 05/28/17 12:15 Reactive Lymphs % (Man) 0 % 05/28/17 12:15 Monocytes % (Manual) 2.0 % (0.0-7.3) 05/28/17 12:15 Eosinophils % (Manual) 7.0 % (0.0-4.3) H 05/28/17 12:15 Basophils % (Manual) 0 % (0.0-1.8) 05/28/17 12:15 Metamyelocytes % 0 % 05/28/17 12:15 Myelocytes % 0 % 05/28/17 12:15 Promyelocytes % 0 % 05/28/17 12:15 Blast Cells % 0 % 05/28/17 12:15 Nucleated RBC % Not Reportable 05/28/17 12:15 Seg Neutrophils # 5.0 K/mm3 (1.8-7.7) 06/08/17 Unknown Seg Neutrophils # Man 0.0 K/mm3 (1.8-7.7) L 05/28/17 12:15 Band Neutrophils # 0.0 K/mm3 05/28/17 12:15 Lymphocytes # (Manual) 0.0 K/mm3 (1.2-5.4) L 05/28/17 12:15 Abs React Lymphs (Man) 0.0 K/mm3 05/28/17 12:15 Monocytes # (Manual) 0.0 K/mm3 (0.0-0.8) 05/28/17 12:15 Eosinophils # (Manual) 0.0 K/mm3 (0.0-0.4) 05/28/17 12:15 Basophils # (Manual) 0.0 K/mm3 (0.0-0.1) 05/28/17 12:15 Metamyelocytes # 0.0 K/mm3 05/28/17 12:15 Myelocytes # 0.0 K/mm3 05/28/17 12:15 Promyelocytes # 0.0 K/mm3 05/28/17 12:15 Blast Cells # 0.0 K/mm3 05/28/17 12:15 WBC Morphology Not Reportable 05/28/17 12:15 Hypersegmented Neuts Not Reportable 05/28/17 12:15 Hyposegmented Neuts Not Reportable 05/28/17 12:15 Hypogranular Neuts Not Reportable 05/28/17 12:15 Smudge Cells Not Reportable 05/28/17 12:15 Toxic Granulation Not Reportable 05/28/17 12:15 Toxic Vacuolation Not Reportable 05/28/17 12:15 Dohle Bodies Not Reportable 05/28/17 12:15 Pelger-Huet Anomaly Not Reportable 05/28/17 12:15 May Rods Not Reportable 05/28/17 12:15 Platelet Estimate Not Reportable 05/28/17 12:15 Clumped Platelets Not Reportable 05/28/17 12:15 Plt Clumps, EDTA Not Reportable 05/28/17 12:15 Large Platelets Not Reportable 05/28/17 12:15 Giant Platelets Not Reportable 05/28/17 12:15 Platelet Satelliting Not Reportable 05/28/17 12:15 Plt Morphology Comment Not Reportable 05/28/17 12:15 RBC Morphology Not Reportable 05/28/17 12:15 Dimorphic RBCs Not Reportable 05/28/17 12:15 Polychromasia Not Reportable 05/28/17 12:15 Hypochromasia 1+ 05/28/17 12:15 Poikilocytosis Not Reportable 05/28/17 12:15 Anisocytosis 1+ 05/28/17 12:15 Microcytosis Not Reportable 05/28/17 12:15 Macrocytosis Not Reportable 05/28/17 12:15 Spherocytes Not Reportable 05/28/17 12:15 Pappenheimer Bodies Not Reportable 05/28/17 12:15 Sickle Cells Not Reportable 05/28/17 12:15 Target Cells Not Reportable 05/28/17 12:15 Tear Drop Cells Not Reportable 05/28/17 12:15 Ovalocytes Not Reportable 05/28/17 12:15 Helmet Cells Not Reportable 05/28/17 12:15 [place] Bodies Not Reportable 05/28/17 12:15 [place] Rings Not Reportable 05/28/17 12:15 [place] Cells Not Reportable 05/28/17 12:15 Bite Cells Not Reportable 05/28/17 12:15 Crenated Cell Not Reportable 05/28/17 12:15 Elliptocytes Not Reportable 05/28/17 12:15 Acanthocytes (Spur) Not Reportable 05/28/17 12:15 Rouleaux Not Reportable 05/28/17 12:15 Hemoglobin C Crystals Not Reportable 05/28/17 12:15 Schistocytes Not Reportable 05/28/17 12:15 Malaria parasites Not Reportable 05/28/17 12:15 Carlitos Bodies Not Reportable 05/28/17 12:15 Hem Pathologist Commnt No 05/28/17 12:15 VBG pH 7.346 (7.320-7.420) 05/24/17 13:00 Sodium 138 mmol/L (137-145) 06/17/17 04:30 Potassium 5.8 mmol/L (3.6-5.0) H 06/17/17 04:30 Chloride 105.5 mmol/L (98-107) 06/17/17 04:30 Carbon Dioxide 20 mmol/L (22-30) L 06/17/17 04:30 Anion Gap 18 mmol/L 06/17/17 04:30 BUN 49 mg/dL (9-20) H 06/17/17 04:30 Creatinine 1.7 mg/dL (0.8-1.5) H 06/17/17 04:30 Estimated GFR 50 ml/min 06/17/17 04:30 BUN/Creatinine Ratio 29 % 06/17/17 04:30 Glucose 162 mg/dL (75-100) H 06/17/17 04:30 POC Glucose 234 (70-105) H 06/18/17 16:13 Lactic Acid 0.70 mmol/L (0.7-2.0) 05/24/17 13:00 Calcium 8.5 mg/dL (8.4-10.2) 06/17/17 04:30 Iron 25 ug/dL (49-181) L 05/29/17 13:45 TIBC 188 mcg/dL (250-450) L 05/29/17 13:45 C-Reactive Protein 2.80 mg/dL (0.00-1.30) H 05/24/17 13:00 NT-Pro-B Natriuret Pep 469.5 pg/mL (0-900) 05/24/17 13:00 Vitamin B12 1771 pg/mL (211-911) H 05/29/17 13:45 Folate > 20.0 ng/mL (7.3-26.0) 05/29/17 13:45 Urine Creatinine 97.6 mg/dL (0.1-20.0) H 06/03/17 15:00 Urine Total Protein 32 mg/dL (5-11.8) H 06/03/17 15:00 Vancomycin Trough 39.1 ug/mL (5.0-20.0) H 06/01/17 16:21 Random Vancomycin 26 ug/mL (0-40.0) 06/18/17 05:30 Blood Type A POSITIVE 05/29/17 13:45 Antibody Screen Negative 05/29/17 13:45 Crossmatch See Detail 05/29/17 13:45
[2017-06-19 12:48] LABS: Calcium 8.6 mg/dL (8.4-10.2)
--- NOTE | 2017-06-19 14:24 | Discharge Summary ---
Providers - Providers Date of Admission: 05/24/17 12:21 Date of discharge: 06/19/17 Attending physician: AYANNA STARR 05/24/17 14:38 Consult to Physician [CONS] Routine Consulting Provider: PAU DAVIS Reason For Exam: chronic right leg ulcer Place consult to:: Vascular surgery Notified:: Y Was contact made?: Yes If yes, spoke with:: GINA Arellano Time called:: 15:10 05/24/17 14:39 Consult to Physician [CONS] Routine Consulting Provider: SONIYA NELSON Reason For Exam: right foot ulcer/ cellulitis Place consult to:: ID Notified:: Y Was contact made?: Yes If yes, spoke with:: DR PAGAN Time called:: 15:05 Consult to Physician [CONS] Routine Consulting Provider: ISHA LY Reason For Exam: right leg/foot ulcer Place consult to:: Genral surgeon Notified:: Y Was contact made?: Yes If yes, spoke with:: DR LY Time called:: 15:15 Comment:: may need debridment 05/24/17 15:22 Consult to Wound/ET Nurse [CONS] Routine Reason For Exam: wound eval 05/25/17 07:30 Consult to Physician [CONS] Routine Consulting Provider: SCHUYLER ANAND Reason For Exam: CKD Place consult to:: dr. anand Notified:: office Phone number called:: Was contact made?: Yes If yes, spoke with:: vandana Time called:: 09:12 05/28/17 11:11 Consult to Case Management [CONS] Stat Services Needed at Discharge: Other Notified:: second language tutor Additional Physician Instructions: [facility] Soniya Pagan MD M [phone] O [phone] OUTPATIENT PARENTERAL ANTIBIOTIC THERAPY ORDERS Diagnoses: MRSA/GNR right calcaneal osteomyeltis Antimicrobial administration: vancomycin 1.5 g IV q day and ceftin 500 mg po q12h total 6 weeks from 05/25 until . Keep vanco trough 14-18 Lines:PICC Lab monitoring: CBC, CMP, CRP and vancomycin trough once a week preferly on Thursday morning. Please fax results to [phone] and call [phone] for critical lab results. Soniya Pagan Date: 05/29/17 05/28/17 11:12 Consult to PICC Line RN [CONS] Stat Reason For Exam: IV vanco for 6 weeks Type Line:: PICC 06/01/17 11:25 Consult to Physician [CONS] Routine Consulting Provider: WILLY LOU Reason For Exam: medical decision making Place consult to:: mental health Notified:: yes If yes, spoke with:: Janice Time called:: 13:05 Primary care physician: WOMEN DESIGNER Hospitalization Condition: Stable Hospital course: Patient is a 61-year-old -[place]ian man with past medical history significant for DM type 2, CHF, COPD, hypertension, hyperlipidemia, homelessness and multiple AMAs visits who presented to the emergency department 05/24/2017 with right foot pain. /Acute on chronic CKD suspect stage 3, defer to Nephrology vasomotor nephropathy improving / Right heel pressure ulcer likely necrotic and infected S/P Right heel debridement on 04/08/17 finding +necrotic skin, SQ and ligaments. Previous MRI + dorsal foot cellulitis no osteo but increased marrow edema in the calcaneous ? osteo Followed by Vascular surgery and Wound care; Dr. Ly, -S/P repeat debridement 05/25 -wound Cx + MRSA and E coli resistant to levaquin continue vancomycin 1.5 g IV q day and ceftin 500 mg PO q 48h total 6 weeks from 05/25 until 07/05/17. Keep vanco trough 14-18 per ID Patient awaiting for placement, but he is refusing placement Infectious diseases following / Diabetes mellitus Accu-Chek before meals and at bedtime Sliding scale insulin/NovoLog ADA carbohydrate consistent diet refuses subqu insulin / microcytic Anemia with iron deficiency and likely from CKD, acute on chronic anemia of chronic disease, poa hb dropped to 6.8 ( wonder if that a lab error), refused transfusion after multiple discussion and counselling Closely monitor H&H, started on iron replacement negative stool for occult blood, cont to monitor h and H /Hypertensive urgency Continue home antihypertensive medications Closely monitor blood pressure taking all BP meds now /Homelessness Patient needs SNF placement, but he is refusing as he does not want to give up his SS check Case management aware /Hyperlipidemia Continue on home lipitor /Noncompliant with medications and treatment options Counseled, left AMA multiple times, he is agreeable to completing treatment this time /Hyperkalemia From chronic renal disease, we'll continue to monitor BMP, ordered Kayexalate if potassium level > 5.2, but he is refusing med /DVT prophylaxis Changed to scd for anemia 06/04/17 per ID, Dr. 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 However, velocities are only marginally diminished in the proximal and mid sections of these vessels. - Previous MRI + dorsal foot cellulitis no osteo but increased marrow edema in the calcaneous ? osteo -S/P Right heel debridement on 04/08/17 finding +necrotic skin, SQ and ligaments. OR tissue cx + Proteus and Enterobacter both sensitive to levaquin -S/P repeat debridement 05/25 -wound Cx + MRSA and E coli resistant to levaquin 2) RUPA - worsening 3) NON-compliance Plan: -contact isolation -continue vancomycin 1.5 g IV q day and ceftin 500 mg PO q 48h total 6 weeks from 05/25 until 07/05/17. Keep vanco trough -wound care I am signing off " 06/04/17 per Psychiatry, Dr. Markel Lou: "Today the patient is calm, but uncooperative during the evaluation. This decisional capacity evaluation is to determine if the patient can sign out AMA. Currently, the patient has an ongoing infection and receiving antibiotic treatment. When asking questions about general orientation (person, place, and time), the patient refused to answer. When he was asked generalized questions about his current medical condition he stated, "Those are stupid questions." Patient was asked about where would he go once discharged and why would he sign out AMA, he refused to answer. I tried to discuss the wound dressing on his right lower LE, he stated, "Can you leave, I am done talking." Multiple attempts was made to engage the patient, but was unsuccessful. Per information from staff, the patient had mentioned signing himself out of the hospital. At the current time, the full capacity evaluation was unable to be completed due to the patient's inability or unwillingness to cooperate. I am outlining the detailed process of how to complete a capacity evaluation below, if the primary team would like to engage in that process with the patient independently at another point in time. Per this evaluation, I would say that the patient does not have the capacity to make the specific decision about signing out AMA. Decisional capacity is subject to change from time to time and needs to be assessed each time a decision is being made by the patient regarding their medical care. The consent process for treatment usually fulfills the requirements necessary for decisional capacity and it can be used to determine decisional capacity when augmented by the specific steps outlined below. *We have 4 criteria (based on Alfonso & Adelitao in 1988) to assess TASK- specific decision-making capacity: 1) communicating a consistent choice 2) understanding pertinent information (nature of illness) 3) appreciate the circumstances & consequences (treatment options, prognosis with and without treatment, risk/ benefit ratio of treatment) 4) ability to rationally manipulate the information. It is fluid and may change from day to day. If order for a capacity evaluation to be complete, the following information needs to be assessed and documented by the primary team. A. Please document why there is a concern about lack of capacity and the specific task that we are evaluating. Capacity must be TASK specific evaluating vs global evaluation for competency. 1. For example- does the patient have capacity to leave AMA or refuse a surgery? 2. Global Capacity (a.k.a. Competency) is determined by the legal system. B. Please document the patients understanding of specific problems and treatment options? ( if possible, use their own words) C. Is the patient able to explain the consequences (risks vs benefits) of treatment options? Please document their explanation. D. Is the patient able to reason through their treatment options and manipulate information in regards to themselves? E. Does the patient display a clear and consistent choice? F. If the patient is unable to demonstrate that they have capacity, then a surrogate decision maker should be named to assist with decision making." 06/17/17: My first visit with patient, he was sitting in his own wheelchair with blankets over his head. His pants were down by his ankle and he seems unconcerned. He would not allow me to undress his left foot dsg but it looked c/ d/i. Reviewing his chart and the MRSA and e.coli are multi drug resistance, no oral choice for the E. coli. 06/18/17: continue abx. He is periodically refusing labwork, we we discuss compliance. ?LTAC placement per case management. 06/19/17: continue abx. ordered am labs==>actually labs today looks much better , still with persistence mild hyperkalemia, he declined the kayexalate I offered. Cr is 1.6 which is improved. [facility] Disposition: [id number] MEDICARE CERT [facility] Time spent for discharge: 35 minutes Core Measure Documentation - Palliative Care Palliative Care/ Comfort Measures: Not Applicable - Core Measures Any of the following diagnoses?: none - VTE Discharge Requirements Deep Vein Thrombosis/Pulmonary Embolism Present on Admission: No Has pt received <5 days of overlap therapy or INR<2.0: No Anticoagulant overlap therapy prescribed at discharge: No Contraindication No Overlap Therapy order at DC: Not Indicated Exam - Physical Exam Narrative exam: GEN: WDWN, NAD, AWAKE, ALERT, ORIENTATED x 3 HEENT: NCAT, EOMI, PERRL, OP Clear NECK: supple, no adenopathy, no thyromegaly, no JVD CVS/HEART: RRR, NORMAL S1S2, NO JVD, pulses present bilaterally CHEST/LUNGS: CTA B, Symmetrical chest expansion, good air entry bilaterally GI/Abdomen: soft, NTND, good bowel sounds, no guarding or rebound /Bladder: no suprapubic tenderness, no CVA or paraspinal tenderness EXT/Skin: left foot dsg intact MSK: FROM x 4 Neuro: CN 2-12 grossly intact, no new focal deficits Psych: calm - Constitutional Vitals: Temp Pulse Resp BP Pulse Ox 99.3 F 81 20 138/74 100 06/19/17 07:58 06/19/17 07:58 06/19/17 07:58 06/19/17 07:58 06/19/17 07:58 Plan Activity: up only with assistance, fall precautions Follow up with: PRIMARY CARE, [Primary Care Provider] - 3-5 Days Prescriptions: oxyCODONE /ACETAMINOPHEN [Percocet 5/325 mg] 1 tab PO Q6H PRN #10 tablet PRN Reason: Pain, Moderate (4-6) Vancomycin 1,000 mg IV Q24H 37 Days mg
[2017-06-19 16:16] VITALS: BP 168/76
--- NOTE | 2017-07-02 08:47 | Operative Report ---
Operative Report Operative Report: Date of operation: 05/27/2017 Preoperative diagnosis: Nonhealing diabetic right heel ulcer with necrotic skin , subcutaneous tissue and fascia Postoperative diagnosis: Same Operation: Debridement of necrotic skin, subcutaneous tissue and fascia, right heel-25 cm Surgeon: Abdulkadir Odell M.D. Findings: There was minimal soft tissue covering his calcaneus after all the necrotic tissue was removed. This will probably necessitate a below-knee amputation the next time that he presents. Anesthesia: MAC EBL: Minimal There were no complications, drains, specimens or cultures. Description of procedure patient was placed supine on the operating room table. His right leg and foot were prepped and draped. Patient was sedated intravenously by anesthesia. The right heel ulcer was sharply debrided of necrotic skin, subcutaneous tissue, muscle and fascia. This was done sharply and the debridement was excisional. Small amount of oozing was controlled with the Bovie. The final wound measurements resulted in a 25 cm wound. The wound was packed open with a dilute Betadine moistened Kerlix roll followed by a Kerlix wrap. Patient tolerated the procedure well. He was taken to PACU in stable condition.
== END 2017-06-19 17:00 | DRG 570 ==
LOC: ED 23:11 → 3A 05-24 12:21
PROVIDERS: ADMIT Internal Medicine; ATTEND Internal Medicine
PROC: 0JBQ0ZZ Excision of Right Foot Subcutaneous Tissue and Fascia, Open Approach (ICD-10-PCS; principal; 2017-05-27)
DX: L03.115 Cellulitis of right lower limb (principal); N17.0 Acute kidney failure with tubular necrosis; N18.6 End stage renal disease; I13.0 Hypertensive heart and chronic kidney disease with heart failure and stage 1 through stage 4 chronic kidney disease, or unspecified chronic kidney disease; Z68.41 Body mass index [BMI] 40.0-44.9, adult; I13.2 Hypertensive heart and chronic kidney disease with heart failure and with stage 5 chronic kidney disease, or end stage renal disease; L97.419 Non-pressure chronic ulcer of right heel and midfoot with unspecified severity; E11.621 Type 2 diabetes mellitus with foot ulcer; E11.65 Type 2 diabetes mellitus with hyperglycemia; I50.9 Heart failure, unspecified; J44.9 Chronic obstructive pulmonary disease, unspecified; E78.5 Hyperlipidemia, unspecified; G89.29 Other chronic pain; Z60.2 Problems related to living alone; I70.209 Unspecified atherosclerosis of native arteries of extremities, unspecified extremity; M19.90 Unspecified osteoarthritis, unspecified site; L89.619 Pressure ulcer of right heel, unspecified stage; I16.0 Hypertensive urgency; E87.5 Hyperkalemia; D50.9 Iron deficiency anemia, unspecified; E66.01 Morbid (severe) obesity due to excess calories; E11.22 Type 2 diabetes mellitus with diabetic chronic kidney disease; Z82.49 Family history of ischemic heart disease and other diseases of the circulatory system; Z91.19 Patient's noncompliance with other medical treatment and regimen; Z79.4 Long term (current) use of insulin; Z59.0 Homelessness; Z87.891 Personal history of nicotine dependence
CPT/HCPCS: 36415; 71010; 76770; 80048; 80202; 82140; 82270; 82570; 82607; 82747; 82805; 82962; 83550; 83880; 84156; 85007; 85014; 85018; 85025; 85027; 86140; 86850; 86900; 86901; 86920; 87076; 87116; 87186; 96374; 96375; 99285; A9270-GY; J0696; J0885; J1644; J1815; J1956; J2020; J2270; J2704; J2997; J3010; J3370; J7030; J7040

== ENCOUNTER 2017-07-30 11:21 | Outpatient (CLI) | payer MEDICARE ==
[2017-07-30] MEDS ORDERED: XYLOCAINE TOPICAL 4% TP ONE ×2 (12:58→14:02)
[2017-07-30] MEDS ORDERED: THERMAZENE 50 GRAM TP ONE (14:28)
[2017-07-30] MEDS ORDERED: THERMAZENE 50 GRAM TP SCH (15:00)
== END 2017-07-30 11:22 | disposition home or self-care (01) ==
LOC: EDBD → WOUND 11:21
PROVIDERS: ATTEND Nurse Practitioner
DX: I70.235 Atherosclerosis of native arteries of right leg with ulceration of other part of foot (principal); E11.621 Type 2 diabetes mellitus with foot ulcer; L97.421 Non-pressure chronic ulcer of left heel and midfoot limited to breakdown of skin; L97.411 Non-pressure chronic ulcer of right heel and midfoot limited to breakdown of skin; E11.51 Type 2 diabetes mellitus with diabetic peripheral angiopathy without gangrene; E11.42 Type 2 diabetes mellitus with diabetic polyneuropathy; I11.0 Hypertensive heart disease with heart failure; I50.9 Heart failure, unspecified; E11.36 Type 2 diabetes mellitus with diabetic cataract; E78.5 Hyperlipidemia, unspecified; Q82.0 Hereditary lymphedema; J44.9 Chronic obstructive pulmonary disease, unspecified; Z87.891 Personal history of nicotine dependence; Z86.718 Personal history of other venous thrombosis and embolism
CPT/HCPCS: 11042; 11045; 11055; G0463

== ENCOUNTER 2017-08-06 08:56 | Outpatient (CLI) | payer MEDICARE ==
[2017-08-06] MEDS ORDERED: XYLOCAINE TOPICAL 4% TP ONE ×2 (09:18→09:37)
[2017-08-06] MEDS ORDERED: DAKIN'S FULL STRENGTH ONE (09:42)
[2017-08-06] MEDS ORDERED: DAKIN'S FULL STRENGTH TP NR (10:00)
[2017-08-06] MEDS ORDERED: SILVER NITRATE TP ONE (10:24)
== END 2017-08-06 08:57 | disposition home or self-care (01) ==
LOC: WOUND 08:56
PROVIDERS: ATTEND Nurse Practitioner
DX: I70.234 Atherosclerosis of native arteries of right leg with ulceration of heel and midfoot (principal); E11.621 Type 2 diabetes mellitus with foot ulcer; L97.411 Non-pressure chronic ulcer of right heel and midfoot limited to breakdown of skin; L97.421 Non-pressure chronic ulcer of left heel and midfoot limited to breakdown of skin; Q82.0 Hereditary lymphedema; I11.0 Hypertensive heart disease with heart failure; I50.9 Heart failure, unspecified; E11.51 Type 2 diabetes mellitus with diabetic peripheral angiopathy without gangrene; E78.5 Hyperlipidemia, unspecified; E11.42 Type 2 diabetes mellitus with diabetic polyneuropathy; J44.9 Chronic obstructive pulmonary disease, unspecified; Z86.718 Personal history of other venous thrombosis and embolism; Z98.49 Cataract extraction status, unspecified eye; Z87.891 Personal history of nicotine dependence
CPT/HCPCS: 17250

== ENCOUNTER 2017-08-10 13:08 | Outpatient (CLI) | payer MEDICARE | END 2017-08-10 13:09 | disposition home or self-care (01) | LOC: WOUND 13:08 | PROVIDERS: ATTEND Internal Medicine | DX: E11.621 Type 2 diabetes mellitus with foot ulcer (principal); I70.234 Atherosclerosis of native arteries of right leg with ulceration of heel and midfoot; L97.421 Non-pressure chronic ulcer of left heel and midfoot limited to breakdown of skin; L97.411 Non-pressure chronic ulcer of right heel and midfoot limited to breakdown of skin; E11.36 Type 2 diabetes mellitus with diabetic cataract; E11.51 Type 2 diabetes mellitus with diabetic peripheral angiopathy without gangrene; E11.42 Type 2 diabetes mellitus with diabetic polyneuropathy; I11.0 Hypertensive heart disease with heart failure; I50.9 Heart failure, unspecified; J44.9 Chronic obstructive pulmonary disease, unspecified; Q82.0 Hereditary lymphedema; Z86.718 Personal history of other venous thrombosis and embolism; Z87.891 Personal history of nicotine dependence | CPT/HCPCS: 99214; G0463 ==

== ENCOUNTER 2017-08-13 09:56 | Outpatient (CLI) | payer MEDICARE ==
[2017-08-13] MEDS ORDERED: XYLOCAINE TOPICAL 4% TP ONE ×2 (10:51→12:34)
[2017-08-13] MEDS ORDERED: XYLOCAINE TOPICAL 2% 30ML TP ONE (11:07)
[2017-08-13] MEDS ORDERED: SILVER NITRATE TP ONE (11:54)
[2017-08-14] MEDS ORDERED: SILVER NITRATE TP ONE (14:28)
== END 2017-08-13 09:57 | disposition home or self-care (01) ==
LOC: WOUND 09:56
PROVIDERS: ATTEND Nurse Practitioner
DX: I70.234 Atherosclerosis of native arteries of right leg with ulceration of heel and midfoot (principal); E11.621 Type 2 diabetes mellitus with foot ulcer; L97.421 Non-pressure chronic ulcer of left heel and midfoot limited to breakdown of skin; L97.411 Non-pressure chronic ulcer of right heel and midfoot limited to breakdown of skin; Q82.0 Hereditary lymphedema; E11.36 Type 2 diabetes mellitus with diabetic cataract; I11.0 Hypertensive heart disease with heart failure; I50.9 Heart failure, unspecified; E11.51 Type 2 diabetes mellitus with diabetic peripheral angiopathy without gangrene; E78.5 Hyperlipidemia, unspecified; E11.42 Type 2 diabetes mellitus with diabetic polyneuropathy; J44.9 Chronic obstructive pulmonary disease, unspecified; Z86.718 Personal history of other venous thrombosis and embolism
CPT/HCPCS: 17250

== ENCOUNTER 2017-08-24 10:32 | Outpatient (CLI) | payer MEDICARE ==
[2017-08-24] MEDS ORDERED: XYLOCAINE TOPICAL 4% TP ONE (10:40)
[2017-08-24] MEDS ORDERED: DAKIN'S FULL STRENGTH ONE (12:11)
[2017-08-24] MEDS ORDERED: DAKIN'S FULL STRENGTH TP ONE (12:30)
== END 2017-08-24 10:33 | disposition home or self-care (01) ==
LOC: WOUND 10:32
PROVIDERS: ATTEND Internal Medicine
DX: I70.234 Atherosclerosis of native arteries of right leg with ulceration of heel and midfoot (principal); I70.244 Atherosclerosis of native arteries of left leg with ulceration of heel and midfoot; E11.621 Type 2 diabetes mellitus with foot ulcer; L97.421 Non-pressure chronic ulcer of left heel and midfoot limited to breakdown of skin; L97.411 Non-pressure chronic ulcer of right heel and midfoot limited to breakdown of skin; Q82.0 Hereditary lymphedema; I11.0 Hypertensive heart disease with heart failure; I50.9 Heart failure, unspecified; E11.36 Type 2 diabetes mellitus with diabetic cataract; E78.5 Hyperlipidemia, unspecified; E11.51 Type 2 diabetes mellitus with diabetic peripheral angiopathy without gangrene; E11.42 Type 2 diabetes mellitus with diabetic polyneuropathy; J44.9 Chronic obstructive pulmonary disease, unspecified; Z86.718 Personal history of other venous thrombosis and embolism; Z87.891 Personal history of nicotine dependence
CPT/HCPCS: 99214; G0463

== ENCOUNTER 2017-08-26 13:13 | Outpatient (CLI) | payer MEDICARE ==
[2017-08-26] MEDS ORDERED: AD OINTMENT TP PRN (13:29)
[2017-08-26] MEDS ORDERED: XYLOCAINE TOPICAL 4% TP ONE ×2 (13:31→14:21)
[2017-08-26] MEDS ORDERED: SILVER NITRATE TP ONE (14:21)
== END 2017-08-26 13:14 | disposition home or self-care (01) ==
LOC: WOUND 13:13
PROVIDERS: ATTEND Surgery
DX: E11.621 Type 2 diabetes mellitus with foot ulcer (principal); L97.411 Non-pressure chronic ulcer of right heel and midfoot limited to breakdown of skin; L97.421 Non-pressure chronic ulcer of left heel and midfoot limited to breakdown of skin
CPT/HCPCS: A6250

== ENCOUNTER 2017-09-02 13:05 | Outpatient (CLI) | payer MEDICARE ==
[2017-09-02] MEDS ORDERED: SILVER NITRATE TP ONE ×2 (13:57→14:00)
== END 2017-09-02 13:06 | disposition home or self-care (01) ==
LOC: EDBD → WOUND 13:05
PROVIDERS: ATTEND Surgery
DX: E11.621 Type 2 diabetes mellitus with foot ulcer (principal); L97.421 Non-pressure chronic ulcer of left heel and midfoot limited to breakdown of skin; L97.411 Non-pressure chronic ulcer of right heel and midfoot limited to breakdown of skin; E11.36 Type 2 diabetes mellitus with diabetic cataract; E11.51 Type 2 diabetes mellitus with diabetic peripheral angiopathy without gangrene; E78.5 Hyperlipidemia, unspecified; E11.40 Type 2 diabetes mellitus with diabetic neuropathy, unspecified; I11.0 Hypertensive heart disease with heart failure; I50.9 Heart failure, unspecified; J44.9 Chronic obstructive pulmonary disease, unspecified; Z86.718 Personal history of other venous thrombosis and embolism; Z87.891 Personal history of nicotine dependence

== ENCOUNTER 2017-09-07 11:59 | Inpatient (IN) | payer MEDICARE ==
--- NOTE | 2017-09-07 12:29 | Emergency Department Report ---
ED General Adult HPI - General Chief complaint: Extremity Problem,Nontraumatic Stated complaint: BILAT LEG PAIN Time Seen by Provider: 09/07/17 12:17 Source: patient, EMS (ems notes not available at time of chart dictation), RN notes reviewed Mode of arrival: Stretcher Limitations: Physical Limitation, Other (patient is a poor historian) - History of Present Illness Initial comments: This is a 62-year-old male. This patient has a past medical history of right heel osteomyelitis, diabetes, bilateral lower extremity cellulitis, recently diagnosed on CT scan of the bilateral lower extremities at this hospital within the past week, wheelchair-bound, debility, poor decision-making capacity, hypertension, congestive heart failure, chronic renal insufficiency Patient was recently admitted to this hospital for bilateral heel cellulitis and right heel osteomyelitis, and signed out AGAINST MEDICAL ADVICE. The patient presents to the ER with EMS for recurrent bilateral heel pain. The patient is a poor historian and lacks insight. He is not able to describe the nature of his pain, radiation, exacerbating or relieving factors. The patient denies headache, neck pain, chest pain, abdominal pain, shortness of breath, bleeding. The patient cannot describe exacerbating or relieving factors. As per review of old records, patient had wound culture in June 2017, which demonstrated multiple organisms of intermediate sensitivities. The case was discussed with infectious disease on-call, Dr. Adrian Contreras; she did not recommend repeat blood cultures at this time, and recommended empiric vancomycin and cefepime. The case was discussed with psychiatry nurse practitioner on-call, Adrian Jordan. During the patient's history and physical, he was a poor historian, and he does not appear to exhibit the ability to care for himself. He is not homicidal or suicidal, but I do not think the patient fully understands the implications of signing out AGAINST MEDICAL ADVICE, and therefore feel that the patient will benefit from an evaluation from psychiatry regarding capacity. The case was also presented to the Hospital physician, Dr. Dumont; he accepted the patient to the medical service. -: unknown Location: left, right, lower extremity Consistency: other Improves with: other Worsens with: other Associated Symptoms: confusion, other (per hpi) - Related Data Home Medications Medication Instructions Recorded Confirmed Last Taken AtorvaSTATin [Lipitor] 20 mg PO QHS 04/09/16 06/04/17 1 Day Ago ~03/01/17 Ergocalciferol(Vitamin D2)(Nf) 50,000 unit PO QWEEK 04/09/16 06/04/17 1 Day Ago [Vitamin D (Nf)] ~03/01/17 Insulin Lispro Prot/Lispro 30 unit SQ BID 03/05/17 06/04/17 Unknown [HumaLOG Mix 75/25 Vial] hydrALAZINE [Apresoline TAB] 100 mg PO TID 03/12/17 06/04/17 Unknown Previous Rx's Medication Instructions Recorded Last Taken Type Gabapentin [Neurontin] 300 mg PO Q8HR #90 capsule 11/04/15 1 Day Ago Rx ~03/01/17 Carvedilol [Coreg] 12.5 mg PO BID #30 tablet 04/14/17 Unknown Rx Folic Acid/Vit Bcomp&C/Cu/Znox 1 each PO QDAY #30 tablet 04/14/17 Unknown Rx [Folbee Plus Cz] Sodium Bicarbonate 1,300 mg PO BID #14 tablet 04/14/17 Unknown Rx amLODIPine [Norvasc] 10 mg PO DAILY #30 tablet 04/14/17 Unknown Rx Vancomycin 1,000 mg IV Q24H 37 Days mg 05/29/17 Unknown Rx Cefuroxime [Ceftin] 500 mg PO Q12HR tablet 06/19/17 Unknown Rx Ferrous Sulfate [Feosol 325 MG tab] 325 mg PO BID #60 tablet 06/19/17 Unknown Rx Furosemide [Lasix TAB] 40 mg PO QDAY #30 tablet 06/19/17 Unknown Rx oxyCODONE /ACETAMINOPHEN [Percocet 1 tab PO Q6H PRN #10 tablet 06/19/17 Unknown Rx 5/325 mg] Allergies Allergy/AdvReac Type Severity Reaction Status Date / Time No Known Allergies Allergy Verified 09/07/17 12:13 ED Review of Systems ROS: Stated complaint: BILAT LEG PAIN Other details as noted in HPI Comment: Unobtainable due to pts medical conditions ED Past Medical Hx - Past Medical History Previous Medical History?: Yes Hx Hypertension: Yes Hx Congestive Heart Failure: Yes Hx Diabetes: Yes Hx Deep Vein Thrombosis: No Hx Renal Disease: Yes (RUPA) Hx Arthritis: Yes Hx Kidney Stones: Yes Hx Asthma: No Hx COPD: Yes Hx HIV: No Additional medical history: Right foot diabetic ulcer, Recently admitted for right diabetic foot ulcer March 2017 - Surgical History Hx Pacemaker: No Hx Internal Defibrillator: No Additional Surgical History: Bilateral knee surgeries - Social History Smoking Status: Never Smoker - Medications Home Medications: Home Medications Medication Instructions Recorded Confirmed Last Taken Type Gabapentin [Neurontin] 300 mg PO Q8HR #90 capsule 11/04/15 06/04/17 1 Day Ago Rx ~03/01/17 AtorvaSTATin [Lipitor] 20 mg PO QHS 04/09/16 06/04/17 1 Day Ago History ~03/01/17 Ergocalciferol(Vitamin D2)(Nf) 50,000 unit PO QWEEK 04/09/16 06/04/17 1 Day Ago History [Vitamin D (Nf)] ~03/01/17 Insulin Lispro Prot/Lispro 30 unit SQ BID 03/05/17 06/04/17 Unknown History [HumaLOG Mix 75/25 Vial] hydrALAZINE [Apresoline TAB] 100 mg PO TID 03/12/17 06/04/17 Unknown History Carvedilol [Coreg] 12.5 mg PO BID #30 tablet 04/14/17 06/04/17 Unknown Rx Folic Acid/Vit Bcomp&C/Cu/Znox 1 each PO QDAY #30 tablet 04/14/17 06/04/17 Unknown Rx [Folbee Plus Cz] Sodium Bicarbonate 1,300 mg PO BID #14 tablet 04/14/17 06/04/17 Unknown Rx amLODIPine [Norvasc] 10 mg PO DAILY #30 tablet 04/14/17 06/04/17 Unknown Rx Vancomycin 1,000 mg IV Q24H 37 Days mg 05/29/17 Unknown Rx Cefuroxime [Ceftin] 500 mg PO Q12HR tablet 06/19/17 Unknown Rx Ferrous Sulfate [Feosol 325 MG tab] 325 mg PO BID #60 tablet 06/19/17 Unknown Rx Furosemide [Lasix TAB] 40 mg PO QDAY #30 tablet 06/19/17 Unknown Rx oxyCODONE /ACETAMINOPHEN [Percocet 1 tab PO Q6H PRN #10 tablet 06/19/17 Unknown Rx 5/325 mg] ED Physical Exam - General Limitations: Physical Limitation, Other (the patient is a very poor historian. The patient is a very poor historian) General appearance: in no apparent distress, obese - Head Head exam: Present: atraumatic, normocephalic - Eye Eye exam: Present: normal appearance. Absent: nystagmus - ENT ENT exam: Present: normal orophraynx, mucous membranes moist - Neck Neck exam: Present: normal inspection, full ROM - Respiratory Respiratory exam: Present: normal lung sounds bilaterally. Absent: respiratory distress - Cardiovascular Cardiovascular Exam: Present: regular rate, normal rhythm, normal heart sounds. Absent: systolic murmur, diastolic murmur, rubs, gallop - GI/Abdominal GI/Abdominal exam: Present: soft, normal bowel sounds. Absent: distended, tenderness, guarding, rebound, rigid, pulsatile mass - Rectal Rectal exam: Present: deferred - Extremities Exam Extremities exam: Present: full ROM, other (the patient has 2+ pulses in the bilateral upper extremities. 1+ pulses bilateral lower extremities. Patient has chronic discoloration of the bilateral lower extremities, venous stasis, and discoloration and hyperpigmentation. There are large bilateral unstageable heel ulcers. There is black necrosis noted on the right heel.) - Back Exam Back exam: Present: normal inspection. Absent: tenderness, CVA tenderness (R) - Neurological Exam Neurological exam: Present: alert, CN II-XII intact, other (Extraocular movements intact. Tongue midline. No facial droop. Facial sensation intact to light touch in the V1, V2, V3 distribution bilaterally. 5 and 5 strength in 4 extremities.. Sensation is intact to light touch in 4 extremities.). Absent : motor sensory deficit - Psychiatric Psychiatric exam: Present: normal affect, normal mood. Absent: homicidal ideation, suicidal ideation - Skin Skin exam: Present: warm, dry, intact, normal color. Absent: rash ED Course Vital Signs 09/07/17 09/07/17 12:11 12:47 Temperature 98.3 F Pulse Rate 71 Respiratory 16 17 Rate Blood Pressure 156/81 O2 Sat by Pulse 100 Oximetry ED Medical Decision Making - Lab Data Result diagrams: 09/07/17 12:40 09/07/17 12:40 Vital Signs 09/07/17 09/07/17 12:11 12:47 Temperature 98.3 F Pulse Rate 71 Respiratory 16 17 Rate Blood Pressure 156/81 O2 Sat by Pulse 100 Oximetry Labs 09/07/17 09/07/17 09/07/17 12:40 12:40 12:40 WBC 14.1 H RBC 2.43 L Hgb 5.9 L* Hct 19.2 L* MCV 79 L MCH 24 L MCHC 31 L RDW 19.2 H Plt Count 330 Add Manual Diff Complete Total Counted 100 Seg Neuts % (Manual) 72.0 H Band Neutrophils % 15.0 Lymphocytes % (Manual) 8.0 L Reactive Lymphs % (Man) 0 Monocytes % (Manual) 4.0 Eosinophils % (Manual) 0 Basophils % (Manual) 1.0 Metamyelocytes % 0 Myelocytes % 0 Promyelocytes % 0 Blast Cells % 0 Nucleated RBC % Not Reportable Seg Neutrophils # Man 10.2 H Band Neutrophils # 2.1 Lymphocytes # (Manual) 1.1 L Abs React Lymphs (Man) 0.0 Monocytes # (Manual) 0.6 Eosinophils # (Manual) 0.0 Basophils # (Manual) 0.1 Metamyelocytes # 0.0 Myelocytes # 0.0 Promyelocytes # 0.0 Blast Cells # 0.0 WBC Morphology Not Reportable Hypersegmented Neuts Not Reportable Hyposegmented Neuts Not Reportable Hypogranular Neuts Not Reportable Smudge Cells Not Reportable Toxic Granulation Not Reportable Toxic Vacuolation Not Reportable Dohle Bodies Not Reportable Pelger-Huet Anomaly Not Reportable May Rods Not Reportable Platelet Estimate Consistent w auto Clumped Platelets Not Reportable Plt Clumps, EDTA Not Reportable Large Platelets Not Reportable Giant Platelets Not Reportable Platelet Satelliting Not Reportable Plt Morphology Comment Not Reportable RBC Morphology Not Reportable Dimorphic RBCs Not Reportable Polychromasia Not Reportable Hypochromasia 1+ Poikilocytosis Not Reportable Anisocytosis Not Reportable Microcytosis 1+ Macrocytosis Not Reportable Spherocytes Not Reportable Pappenheimer Bodies Not Reportable Sickle Cells Not Reportable Target Cells Not Reportable Tear Drop Cells Few Ovalocytes Not Reportable Helmet Cells Not Reportable Bennett-Edenborn Bodies Not Reportable Bixby Rings Not Reportable Colbert Cells Not Reportable Bite Cells Not Reportable Crenated Cell Not Reportable Elliptocytes Not Reportable Acanthocytes (Spur) Not Reportable Rouleaux Not Reportable Hemoglobin C Crystals Not Reportable Schistocytes Not Reportable Malaria parasites Not Reportable ESR > 140.0 Carlitos Bodies Not Reportable Hem Pathologist Commnt No Sodium 132 L Potassium 5.2 H Chloride 100.0 Carbon Dioxide 17 L Anion Gap 20 BUN 41 H Creatinine 2.2 H Estimated GFR 37 BUN/Creatinine Ratio 19 Glucose 177 H Lactic Acid 0.70 Calcium 7.8 L Total Creatine Kinase 162 C-Reactive Protein 16.50 H - Radiology Data Radiology results: report reviewed, image reviewed eport Referring Physician: TIAGO LOBATO Patient Name: ISHA MURILLO Date of : 1955 Sex: Male Report Date: 2017-09-03 Report Status: Finalized Findings [address] [address] Cat Scan Report Signed Patient: ISHA MURILLO MR#: [id number] : 1955 Acct:[id number] Age/Sex: 62 / M ADM Date: 09/02/17 Loc: ED Attending Dr: Ordering Physician: TIAGO LOBATO MD Date of Service: 09/03/17 Procedure(s): CT lower extremity LT wo con Accession Number(s): [id number] cc: TIAGO LOBATO MD FINAL REPORT PROCEDURE: CT LOWER EXTREMITY LT WO CON TECHNIQUE: Computerized axial tomography of the LEFT foot was performed without contrast. HISTORY: osteomyelitis of left foot COMPARISON: No prior studies are available for comparison. FINDINGS: Bony structures including marrow spaces: Normal. Neurovascular structures: There are generalized vascular calcifications. Soft tissues: There is generalized soft tissue swelling suggesting cellulitis. There is no mass, abscess or subcutaneous air. Joint space: Normal. IMPRESSION: There is no fracture, malalignment or destructive bony process to suggest osteomyelitis. There are generalized vascular calcifications. There is generalized soft tissue swelling suggesting cellulitis. There is no mass, abscess or subcutaneous air. Transcribed By: CO Dictated By: JONNATHAN HURT MD Electronically Authenticated By: JONNATHAN HURT MD Signed Date/Time: 09/03/17 0556 Print Report Referring Physician: TIAGO LOBATO Patient Name: ISHA MURILLO Date of : 1955 Sex: Male Report Date: 2017-09-03 Report Status: Finalized Findings [address] [address] Cat Scan Report Signed Patient: ISHA MURILLO MR#: [id number] : 1955 Acct:[id number] Age/Sex: 62 / M ADM Date: 09/02/17 Loc: ED Attending Dr: Ordering Physician: TIAGO LOBATO MD Date of Service: 09/03/17 Procedure(s): CT lower extremity RT wo con Accession Number(s): [id number] cc: TIAGO LOBATO MD FINAL REPORT PROCEDURE: CT LOWER EXTREMITY RT WO CON TECHNIQUE: Computerized axial tomography of the RIGHT ankle was performed without contrast. HISTORY: osteomyelitis of the right foot COMPARISON: No prior studies are available for comparison. FINDINGS: There is a defect of the soft tissues at the posterior aspect of the calcaneus consistent with an ulcer. There is soft tissue swelling and subcutaneous air suggesting soft tissue infection possibly with gas-forming organism. There is focal destructive change of the inferior aspect of the calcaneus suggesting focal osteomyelitis. The tibia and fibula are intact. The talus, tarsal bones and metatarsal bones are intact. There are vascular calcifications. There is generalized soft tissue swelling. IMPRESSION: Focal soft tissue ulceration with cellulitis at the inferior aspect of the calcaneus. There is focal irregularity and destructive change of the calcaneus suggesting osteomyelitis. There is no abscess. Print Report Referring Physician: TIFFANY MORRIS Patient Name: ISHA MURILLO Date of : 1955 Sex: Male Report Date: 2017-04-03 Report Status: Finalized Findings [address] [address] Vascular Lab Report Signed Patient: ISHA MURILLO MR#: [id number] : 1955 Acct:[id number] Age/Sex: 61 / M ADM Date: 03/31/17 Loc: 3A A351-[address]: LUBNA SINGH MD Ordering Physician: CELINE RESTREPO Date of Service: 04/01/17 Procedure(s): VL arterial duplex LE BILAT Accession Number(s): [id number] cc: CELINE RESTREPO LOWER EXTREMITY ARTERIAL DUPLEX: REASON FOR EXAM: Leg wounds. COMMENTS ON THE RIGHT: Biphasic waveforms are seen proximally. Monophasic waveforms are seen distally. No significant velocity gradients are identified. Diffuse plaque noted throughout the vessels without stenosis. Findings are consistent with normal perfusion. Findings are consistent with the ability to heal distal wounds. COMMENTS ON THE LEFT: Biphasic waveforms are seen proximally. Monophasic waveforms are seen distally. No significant velocity gradients are identified. Diffuse plaque noted throughout the vessel without identifiable stenosis. Findings are consistent with normal perfusion. Findings are consistent with the ability to heal distal wounds. IMPRESSION: RIGHT: Essentially normal arterial flow. LEFT: Essentially normal arterial flow. Transcribed By: Dictated By: LEXI OWENS MD Electronically Authenticated By: LEXI OWENS MD Signed Date/Time: 04/03/17 0655 - Medical Decision Making Differential diagnosis, including but not limited to: Osteomyelitis, cellulitis, chronic wound, asymptomatic anemia, nonspecific mood disorder Assessment and plan: This is a 62-year-old male with bilateral lower extremity heel ulcers, CT scan in the past week has suggested a right heel osteomyelitis, patient recently signed out AGAINST MEDICAL ADVICE, I do not believe the patient has decision-making capacity does not truly understand the implications of his actions. He is amenable to hospital admission at this time, he is also found to be incidentally anemic, this is worse than prior. Antibiotics have been ordered as per the recommendation of consult infectious disease, psychiatry will follow, patient will be admitted for numerous aforementioned conditions. Critical Care Time: Yes Critical care time in (mins) excluding proc time.: 35 Critical care attestation.: If time is entered above; I have spent that time in minutes in the direct care of this critically ill patient, excluding procedure time. ED Disposition Clinical Impression: Diabetic foot ulcers, Osteomyelitis, Cellulitis, Diabetic foot infection, Renal insufficiency, Ulcer of right heel, Noncompliance Disposition: OP ADMIT IP TO THIS HOSP Is pt being admited?: Yes Condition: Fair Instructions: Diabetes Mellitus Type 2 in Adults (ED) Referrals: PRIMARY CARE, [Primary Care Provider] - 3-5 Days
[2017-09-07] MEDS ORDERED: VANCOMYCIN VIAL IV STA (12:40)
[2017-09-07] MEDS ORDERED: VANCOMYCIN PHARMACY TO DOSE IV SCH (13:00)
[2017-09-07 13:01] LABS: Mean Corpuscular HGB Conc 31 % (32-34); Mean Corpuscular Volume 79 fl (84-94); Platelet Count 330 K/mm3 (140-440); Red Blood Count 2.43 M/mm3 (3.65-5.03); Red Cell Distribution Width 19.2 % (13.2-15.2)
[2017-09-07 13:09] LABS: C-Reactive Protein 16.5 mg/dL (0.00-1.30); Calcium 7.8 mg/dL (8.4-10.2); Mean Corpuscular Hemoglobin 24 pg (28-32)
[2017-09-07 13:10] LABS: Hemoglobin 5.9 gm/dl (11.8-15.2)
[2017-09-07 13:11] LABS: Hematocrit 19.2 % (35.5-45.6)
[2017-09-07] MEDS ORDERED: MAXIPIME 1 GM in NACL 0.9% 20 ML IV SCH (13:30)
[2017-09-07] MEDS ORDERED: VANCOMYCIN 2,000 MG in NACL 0.9% 500 ML 500 ML IV ONE (14:00)
[2017-09-07 14:09] LABS: Erythrocyte Sedimentation Rate > 140.0 mm/Hr (0-20)
[2017-09-07] MEDS ORDERED: NACL 0.9% 500 ML 500 ML IV ONE (14:58)
[2017-09-07 15:07] LABS: Band Neutrophils # (Manual) 2.1 K/mm3; Eosinophils % (Manual) 0 % (0.0-4.3); Total Cells Counted 100
[2017-09-07 15:08] LABS: Hypochromasia 1+; Platelet Estimate Consistent w Auto; Tear Drop Cells Few
--- NOTE | 2017-09-07 23:00 | History and Physical Report ---
History of Present Illness Date of examination: 09/07/17 Date of admission: 09/07/17 15:20 Chief complaint: CC Bilateral foot ulcers Many months History of present illness: History of Present Illness 62-year-old male with past medical history of right heel osteomyelitis, diabetes, bilateral lower extremity cellulitis, recently diagnosed on CT scan of the bilateral lower extremities at this hospital within the past week, wheelchair-bound, debility, poor decision-making capacity, hypertension, congestive heart failure, chronic renal insufficiency signed out AGAINST MEDICAL ADVICE. The patient presents to the ER with EMS for recurrent bilateral heel pain. The patient is a poor historian and lacks insight. He is not able to describe the nature of his pain, radiation, exacerbating or relieving factors. The patient denies headache, neck pain, chest pain, abdominal pain, shortness of breath, bleeding. The patient cannot describe exacerbating or relieving factors. As per review of old records, patient had wound culture in June 2017, which demonstrated multiple organisms of intermediate sensitivities. The case was discussed with infectious disease on-call, Dr. Adrian Contreras; she did not recommend repeat blood cultures at this time, and recommended empiric vancomycin and cefepime. Past Medical History Previous Medical History?: Yes Hx Hypertension: Yes Hx Congestive Heart Failure: Yes Hx Diabetes: Yes Hx Renal Disease: Yes (RUPA) Hx Arthritis: Yes Hx Kidney Stones: Yes Hx COPD: Yes Additional medical history: Right foot diabetic ulcer, Recently admitted for right diabetic foot ulcer March 2017 Surgical History Hx Pacemaker: No Hx Internal Defibrillator: No Additional Surgical History: Bilateral knee surgeries - Social History Smoking Status: Never Smoker Family history Htn - Medications Home Medications: Home Medications Medication Instructions Recorded Confirmed Last Taken Type Gabapentin [Neurontin] 300 mg PO Q8HR #90 capsule 11/04/15 06/04/17 1 Day Ago Rx ~03/01/17 AtorvaSTATin [Lipitor] 20 mg PO QHS 04/09/16 06/04/17 1 Day Ago History ~03/01/17 Ergocalciferol(Vitamin D2)(Nf) 50,000 unit PO QWEEK 04/09/16 06/04/17 1 Day Ago History [Vitamin D (Nf)] ~03/01/17 Insulin Lispro Prot/Lispro 30 unit SQ BID 03/05/17 06/04/17 Unknown History [HumaLOG Mix 75/25 Vial] hydrALAZINE [Apresoline TAB] 100 mg PO TID 03/12/17 06/04/17 Unknown History Carvedilol [Coreg] 12.5 mg PO BID #30 tablet 04/14/17 06/04/17 Unknown Rx Folic Acid/Vit Bcomp&C/Cu/Znox 1 each PO QDAY #30 tablet 04/14/17 06/04/17 Unknown Rx [Folbee Plus Cz] Sodium Bicarbonate 1,300 mg PO BID #14 tablet 04/14/17 06/04/17 Unknown Rx amLODIPine [Norvasc] 10 mg PO DAILY #30 tablet 04/14/17 06/04/17 Unknown Rx Vancomycin 1,000 mg IV Q24H 37 Days mg 05/29/17 Unknown Rx Cefuroxime [Ceftin] 500 mg PO Q12HR tablet 06/19/17 Unknown Rx Ferrous Sulfate [Feosol 325 MG tab] 325 mg PO BID #60 tablet 06/19/17 Unknown Rx Furosemide [Lasix TAB] 40 mg PO QDAY #30 tablet 06/19/17 Unknown Rx oxyCODONE /ACETAMINOPHEN [Percocet 1 tab PO Q6H PRN #10 tablet 06/19/17 Unknown Rx 5/325 mg] Review of Systems Stated complaint: BILAT LEG PAIN Other details as noted in HPI Comment: Unobtainable due to pts medical conditions Medications and Allergies Allergies Allergy/AdvReac Type Severity Reaction Status Date / Time No Known Allergies Allergy Verified 09/07/17 12:13 Home Medications Medication Instructions Recorded Confirmed Last Taken Type Gabapentin [Neurontin] 300 mg PO Q8HR #90 capsule 11/04/15 09/07/17 1 Day Ago Rx ~03/01/17 AtorvaSTATin [Lipitor] 20 mg PO QHS 04/09/16 09/07/17 1 Day Ago History ~03/01/17 Ergocalciferol(Vitamin D2)(Nf) 50,000 unit PO QWEEK 04/09/16 09/07/17 1 Day Ago History [Vitamin D (Nf)] ~03/01/17 Insulin Lispro Prot/Lispro 30 unit SQ BID 03/05/17 09/07/17 Unknown History [HumaLOG Mix 75/25 Vial] hydrALAZINE [Apresoline TAB] 100 mg PO TID 03/12/17 09/07/17 Unknown History Carvedilol [Coreg] 12.5 mg PO BID #30 tablet 04/14/17 09/07/17 Unknown Rx Folic Acid/Vit Bcomp&C/Cu/Znox 1 each PO QDAY #30 tablet 04/14/17 09/07/17 Unknown Rx [Folbee Plus Cz] Sodium Bicarbonate 1,300 mg PO BID #14 tablet 04/14/17 09/07/17 Unknown Rx amLODIPine [Norvasc] 10 mg PO DAILY #30 tablet 04/14/17 09/07/17 Unknown Rx Vancomycin 1,000 mg IV Q24H 37 Days mg 05/29/17 09/07/17 Unknown Rx Cefuroxime [Ceftin] 500 mg PO Q12HR tablet 06/19/17 09/07/17 Unknown Rx Ferrous Sulfate [Feosol 325 MG tab] 325 mg PO BID #60 tablet 06/19/17 09/07/17 Unknown Rx Furosemide [Lasix TAB] 40 mg PO QDAY #30 tablet 06/19/17 09/07/17 Unknown Rx oxyCODONE /ACETAMINOPHEN [Percocet 1 tab PO Q6H PRN #10 tablet 06/19/17 Unknown Rx 5/325 mg] Active Meds: Active Medications Acetaminophen (Tylenol) 650 mg PO Q6HR PRN PRN Reason: Pain Cefepime HCl 1 gm/ Sodium (Chloride) 20 mls @ 20 mls/10 min IV ONCE BORIS; Protocol Last Admin: 09/07/17 13:27 Dose: 20 mls/10 min Vancomycin HCl 1,750 mg/ (Sodium Chloride) 517.5 mls @ 333.333 mls/hr IV Q24H [facility] Vancomycin HCl (Vancomycin Pharmacy To Dose) 1 each IV PKCONSULT [facility] Exam - Constitutional Vitals: Temp Pulse Resp BP Pulse Ox 98.6 F 72 18 140/100 100 09/07/17 17:18 09/07/17 17:18 09/07/17 17:18 09/07/17 17:18 09/07/17 20:17 General appearance: Present: no acute distress, well-nourished - EENT Eyes: Present: PERRL ENT: hearing intact, clear oral mucosa - Neck Neck: Present: supple, normal ROM - Respiratory Respiratory effort: normal Respiratory: bilateral: CTA - Cardiovascular Heart rate: 80 Rhythm: regular Heart Sounds: Present: S1 & S2. Absent: rub, click - Extremities Extremities: pulses symmetrical, No edema, abnormal Extremity abnormal: edema, ulceration (Rt Foot 10 cmx 6cmx0.2cm depth ulcer rt foot heel extending from back foot to mid foot with black eschar ), black, other (Lt foot 6cm x4cm with pink granulation surface) Peripheral Pulses: within normal limits - Abdominal General gastrointestinal: Present: soft, non-tender, non-distended, normal bowel sounds Male genitourinary: Present: normal - Integumentary Integumentary: Present: clear, warm, dry - Musculoskeletal Musculoskeletal: gait normal, strength equal bilaterally - Psychiatric Psychiatric: appropriate mood/affect, intact judgment & insight - Neurologic Neurologic: CNII-XII intact, moves all extremities Results - Labs CBC & Chem 7: 09/07/17 12:40 03 12:40 Labs: Laboratory Last Values WBC 14.1 K/mm3 (4.5-11.0) H 09/07/17 12:40 RBC 2.43 M/mm3 (3.65-5.03) L 09/07/17 12:40 Hgb 5.9 gm/dl (11.8-15.2) L* 09/07/17 12:40 Hct 19.2 % (35.5-45.6) L* 09/07/17 12:40 MCV 79 fl (84-94) L 09/07/17 12:40 MCH 24 pg (28-32) L 09/07/17 12:40 MCHC 31 % (32-34) L 09/07/17 12:40 RDW 19.2 % (13.2-15.2) H 09/07/17 12:40 Plt Count 330 K/mm3 (140-440) 09/07/17 12:40 Add Manual Diff Complete 09/07/17 12:40 Total Counted 100 09/07/17 12:40 Seg Neuts % (Manual) 72.0 % (40.0-70.0) H 09/07/17 12:40 Band Neutrophils % 15.0 % 09/07/17 12:40 Lymphocytes % (Manual) 8.0 % (13.4-35.0) L 09/07/17 12:40 Reactive Lymphs % (Man) 0 % 09/07/17 12:40 Monocytes % (Manual) 4.0 % (0.0-7.3) 09/07/17 12:40 Eosinophils % (Manual) 0 % (0.0-4.3) 09/07/17 12:40 Basophils % (Manual) 1.0 % (0.0-1.8) 09/07/17 12:40 Metamyelocytes % 0 % 09/07/17 12:40 Myelocytes % 0 % 09/07/17 12:40 Promyelocytes % 0 % 09/07/17 12:40 Blast Cells % 0 % 09/07/17 12:40 Nucleated RBC % Not Reportable 09/07/17 12:40 Seg Neutrophils # Man 10.2 K/mm3 (1.8-7.7) H 09/07/17 12:40 Band Neutrophils # 2.1 K/mm3 09/07/17 12:40 Lymphocytes # (Manual) 1.1 K/mm3 (1.2-5.4) L 09/07/17 12:40 Abs React Lymphs (Man) 0.0 K/mm3 09/07/17 12:40 Monocytes # (Manual) 0.6 K/mm3 (0.0-0.8) 09/07/17 12:40 Eosinophils # (Manual) 0.0 K/mm3 (0.0-0.4) 09/07/17 12:40 Basophils # (Manual) 0.1 K/mm3 (0.0-0.1) 09/07/17 12:40 Metamyelocytes # 0.0 K/mm3 09/07/17 12:40 Myelocytes # 0.0 K/mm3 09/07/17 12:40 Promyelocytes # 0.0 K/mm3 09/07/17 12:40 Blast Cells # 0.0 K/mm3 09/07/17 12:40 WBC Morphology Not Reportable 09/07/17 12:40 Hypersegmented Neuts Not Reportable 09/07/17 12:40 Hyposegmented Neuts Not Reportable 09/07/17 12:40 Hypogranular Neuts Not Reportable 09/07/17 12:40 Smudge Cells Not Reportable 09/07/17 12:40 Toxic Granulation Not Reportable 09/07/17 12:40 Toxic Vacuolation Not Reportable 09/07/17 12:40 Dohle Bodies Not Reportable 09/07/17 12:40 Pelger-Huet Anomaly Not Reportable 09/07/17 12:40 May Rods Not Reportable 09/07/17 12:40 Platelet Estimate Consistent w auto 09/07/17 12:40 Clumped Platelets Not Reportable 09/07/17 12:40 Plt Clumps, EDTA Not Reportable 09/07/17 12:40 Large Platelets Not Reportable 09/07/17 12:40 Giant Platelets Not Reportable 09/07/17 12:40 Platelet Satelliting Not Reportable 09/07/17 12:40 Plt Morphology Comment Not Reportable 09/07/17 12:40 RBC Morphology Not Reportable 09/07/17 12:40 Dimorphic RBCs Not Reportable 09/07/17 12:40 Polychromasia Not Reportable 09/07/17 12:40 Hypochromasia 1+ 09/07/17 12:40 Poikilocytosis Not Reportable 09/07/17 12:40 Anisocytosis Not Reportable 09/07/17 12:40 Microcytosis 1+ 09/07/17 12:40 Macrocytosis Not Reportable 09/07/17 12:40 Spherocytes Not Reportable 09/07/17 12:40 Pappenheimer Bodies Not Reportable 09/07/17 12:40 Sickle Cells Not Reportable 09/07/17 12:40 Target Cells Not Reportable 09/07/17 12:40 Tear Drop Cells Few 09/07/17 12:40 Ovalocytes Not Reportable 09/07/17 12:40 Helmet Cells Not Reportable 09/07/17 12:40 Bennett-Napavine Bodies Not Reportable 09/07/17 12:40 Shepherd Rings Not Reportable 09/07/17 12:40 Walton Cells Not Reportable 09/07/17 12:40 Bite Cells Not Reportable 09/07/17 12:40 Crenated Cell Not Reportable 09/07/17 12:40 Elliptocytes Not Reportable 09/07/17 12:40 Acanthocytes (Spur) Not Reportable 09/07/17 12:40 Rouleaux Not Reportable 09/07/17 12:40 Hemoglobin C Crystals Not Reportable 09/07/17 12:40 Schistocytes Not Reportable 09/07/17 12:40 Malaria parasites Not Reportable 09/07/17 12:40 ESR > 140.0 mm/Hr (0-20) 09/07/17 12:40 Carlitos Bodies Not Reportable 09/07/17 12:40 Hem Pathologist Commnt No 09/07/17 12:40 Sodium 132 mmol/L (137-145) L 09/07/17 12:40 Potassium 5.2 mmol/L (3.6-5.0) H 09/07/17 12:40 Chloride 100.0 mmol/L (98-107) 09/07/17 12:40 Carbon Dioxide 17 mmol/L (22-30) L 09/07/17 12:40 Anion Gap 20 mmol/L 09/07/17 12:40 BUN 41 mg/dL (9-20) H 09/07/17 12:40 Creatinine 2.2 mg/dL (0.8-1.5) H 09/07/17 12:40 Estimated GFR 37 ml/min 09/07/17 12:40 BUN/Creatinine Ratio 19 % 09/07/17 12:40 Glucose 177 mg/dL (75-100) H 09/07/17 12:40 Lactic Acid 0.70 mmol/L (0.7-2.0) 09/07/17 12:40 Calcium 7.8 mg/dL (8.4-10.2) L 09/07/17 12:40 Total Creatine Kinase 162 units/L (55-170) 09/07/17 12:40 C-Reactive Protein 16.50 mg/dL (0.00-1.30) H 09/07/17 12:40 Blood Type A POSITIVE 09/07/17 15:05 Antibody Screen Negative 09/07/17 15:05 Crossmatch See Detail 09/07/17 15:05 - Imaging and Cardiology EKG: report reviewed Assessment and Plan Advance Directives: Yes (Full code) VTE prophylaxis?: Chemical Plan of care discussed with patient/family: Yes - Patient Problems (1) Cellulitis Current Visit: Yes Status: Acute Qualifiers: Site of cellulitis of extremity: lower extremity Laterality: right Plan to address problem: Patient initiated on Vancomycin and Cefepime (2) Diabetic foot ulcers Current Visit: Yes Status: Chronic Qualifiers: Diabetic foot ulcer location: heel Diabetes mellitus type: type 2 Laterality: right Non-pressure ulcer stage: with fat layer exposed Qualified Code(s): E11.621 - Type 2 diabetes mellitus with foot ulcer; L97.412 - Non-pressure chronic ulcer of right heel and midfoot with fat layer exposed Plan to address problem: Needs wound care and debridement Surgery consult requested (3) Osteomyelitis Current Visit: Yes Status: Chronic Qualifiers: Osteomyelitis location: foot Laterality: right Plan to address problem: Abx as above (4) HTN (hypertension) Current Visit: Yes Status: Chronic Qualifiers: Hypertension type: essential hypertension Qualified Code(s): I10 - Essential (primary) hypertension Plan to address problem: Cont antihypertensives (5) IDDM (insulin dependent diabetes mellitus) Current Visit: Yes Status: Chronic Plan to address problem: Cont Insulin and converage Check A1c (6) HLD (hyperlipidemia) Current Visit: Yes Status: Chronic Qualifiers: Hyperlipidemia type: mixed hyperlipidemia Qualified Code(s): E78.2 - Mixed hyperlipidemia Plan to address problem: Cont statins (7) CHF (congestive heart failure) Current Visit: Yes Status: Chronic Qualifiers: Heart failure type: diastolic Plan to address problem: Cont Lasix (8) Peripheral neuropathy Current Visit: Yes Status: Chronic Qualifiers: Peripheral neuropathy type: polyneuropathy, unspecified Qualified Code(s): G62.9 - Polyneuropathy, unspecified Plan to address problem: Cont Gabapentin (9) RUPA (acute kidney injury) Current Visit: Yes Status: Acute Plan to address problem: Renal consult requested (10) Anemia Current Visit: Yes Status: Chronic Qualifiers: Anemia type: due to chronic kidney disease Chronic kidney disease stage: stage 3 (moderate) Qualified Code(s): N18.3 - Chronic kidney disease, stage 3 (moderate); D63.1 - Anemia in chronic kidney disease Plan to address problem: Transfuse 1 to 2 units (11) DVT prophylaxis Current Visit: Yes Status: Acute Plan to address problem: on heparin
[2017-09-07] MEDS ORDERED: MORPHINE IV ONE (23:10)
[2017-09-07] MEDS: HumuLIN R SUB-Q SCH (23:19)
[2017-09-08] MEDS ORDERED: LISPRO SQ SCH (01:10)
[2017-09-08] MEDS ORDERED: INSULIN LISPRO PROT SQ SCH (01:10)
[2017-09-08] MEDS ORDERED: UNASYN/NS 3 GM/100 ML 3 GM/100 ML BAG IV SCH (02:00)
[2017-09-08] MEDS ORDERED: VANCOMYCIN PHARMACY TO DOSE IV SCH (02:00)
[2017-09-08] MEDS: COREG PO SCH ×3 (02:26→23:01)
[2017-09-08] MEDS: PERCOCET 5/325 PO PRN ×2 (02:33→20:03)
[2017-09-08] MEDS: TYLENOL PO PRN (02:35)
[2017-09-08] MEDS: NEURONTIN PO SCH ×3 (05:49→23:01)
[2017-09-08] MEDS: HumuLIN R SUB-Q SCH ×4 (07:30→22:25)
--- NOTE | 2017-09-08 09:10 | Progress Note ---
Assessment and Plan (1) Cellulitis Current Visit: Yes Status: Acute Qualifiers: Site of cellulitis of extremity: lower extremity Laterality: right Plan to address problem: Patient initiated on Vancomycin and Cefepime (2) Diabetic foot ulcers Current Visit: Yes Status: Chronic Qualifiers: Diabetic foot ulcer location: heel Diabetes mellitus type: type 2 Laterality: right Non-pressure ulcer stage: with fat layer exposed Qualified Code(s): E11.621 - Type 2 diabetes mellitus with foot ulcer; L97.412 - Non-pressure chronic ulcer of right heel and midfoot with fat layer exposed Plan to address problem: Needs wound care and debridement Surgery consult requested [place] care PT declined (3) Osteomyelitis Current Visit: Yes Status: Chronic Qualifiers: Osteomyelitis location: foot Laterality: right Plan to address problem: in antibiotic (4) HTN (hypertension) Current Visit: Yes Status: Chronic Qualifiers: Hypertension type: essential hypertension Qualified Code(s): I10 - Essential (primary) hypertension Plan to address problem: Cont antihypertensives (5) IDDM (insulin dependent diabetes mellitus) Current Visit: Yes Status: Chronic Plan to address problem: Cont Insulin and converage Check A1c (6) HLD (hyperlipidemia) Current Visit: Yes Status: Chronic Qualifiers: Hyperlipidemia type: mixed hyperlipidemia Qualified Code(s): E78.2 - Mixed hyperlipidemia Plan to address problem: Cont statins (7) CHF (congestive heart failure) Current Visit: Yes Status: Chronic Qualifiers: Heart failure type: diastolic Plan to address problem: Cont Lasix (8) Peripheral neuropathy Current Visit: Yes Status: Chronic Qualifiers: Peripheral neuropathy type: polyneuropathy, unspecified Qualified Code(s): G62.9 - Polyneuropathy, unspecified Plan to address problem: Cont Gabapentin (9) RUPA (acute kidney injury) Current Visit: Yes Status: Acute Plan to address problem: Avoid nephrotoxic meds Renal consult requested (10) Anemia Current Visit: Yes Status: Chronic Qualifiers: Anemia type: due to chronic kidney disease Chronic kidney disease stage: stage 3 (moderate) Qualified Code(s): N18.3 - Chronic kidney disease, stage 3 (moderate); D63.1 - Anemia in chronic kidney disease Plan to address problem: Transfusion of 1 uinit initially ordered. Pt adamantly refused blood transfusion (11) DVT prophylaxis Current Visit: Yes Status: Acute Plan to address problem: on heparin Subjective Date of service: 09/08/17 Principal diagnosis: Cellulitis of both lower exctremities Interval history: Lying quietly in bed. No new complaint. Denies any fever or chills. Nurse and director case in the room. Adamantly refused blood transfusion Objective - Constitutional Vitals: Vital Signs - 12hr 09/08/17 09/08/17 09/08/17 01:13 02:20 02:26 Temperature 101.6 F H Pulse Rate Respiratory 20 Rate Blood Pressure 132/68 132/68 O2 Sat by Pulse 99 Oximetry 09/08/17 09/08/17 09/08/17 04:15 06:43 07:51 Temperature 99.3 F 98.8 F 99.2 F Pulse Rate 64 Respiratory 20 Rate Blood Pressure 124/61 O2 Sat by Pulse 100 Oximetry General appearance: Present: obese - EENT Eyes: PERRL - Neck Neck: supple, normal ROM - Respiratory Respiratory: bilateral: CTA - Cardiovascular Rhythm: regular Heart Sounds: Present: S1 & S2. Absent: gallop, rub Extremities: pulses intact, No edema, normal color, Full ROM - Gastrointestinal General gastrointestinal: Present: soft, non-tender, non-distended, normal bowel sounds - Integumentary Integumentary: clear, warm, dry, erythema (both LEs with open wound in the right foot) - Musculoskeletal Musculoskeletal: 1, strength equal bilaterally - Neurologic Neurologic: moves all extremities - Psychiatric Psychiatric: memory intact, appropriate mood/affect, intact judgment & insight - Labs CBC & Chem 7: 09/08/17 12:00 09/08/17 12:00 Labs: Abnormal lab results 09/07/17 09/07/17 09/07/17 Range/Units 12:40 12:40 15:05 WBC 14.1 H (4.5-11.0) K/mm3 RBC 2.43 L (3.65-5.03) M/mm3 Hgb 5.9 L* (11.8-15.2) gm/dl Hct 19.2 L* (35.5-45.6) % MCV 79 L (84-94) fl MCH 24 L (28-32) pg MCHC 31 L (32-34) % RDW 19.2 H (13.2-15.2) % Seg Neuts % (Manual) 72.0 H (40.0-70.0) % Lymphocytes % (Manual) 8.0 L (13.4-35.0) % Seg Neutrophils # Man 10.2 H (1.8-7.7) K/mm3 Lymphocytes # (Manual) 1.1 L (1.2-5.4) K/mm3 Sodium 132 L (137-145) mmol/L Potassium 5.2 H (3.6-5.0) mmol/L Carbon Dioxide 17 L (22-30) mmol/L BUN 41 H (9-20) mg/dL Creatinine 2.2 H (0.8-1.5) mg/dL Glucose 177 H (75-100) mg/dL POC Glucose (70-105) Calcium 7.8 L (8.4-10.2) mg/dL C-Reactive Protein 16.50 H (0.00-1.30) mg/dL Crossmatch See Detail 09/07/17 Range/Units 23:06 WBC (4.5-11.0) K/mm3 RBC (3.65-5.03) M/mm3 Hgb (11.8-15.2) gm/dl Hct (35.5-45.6) % MCV (84-94) fl MCH (28-32) pg MCHC (32-34) % RDW (13.2-15.2) % Seg Neuts % (Manual) (40.0-70.0) % Lymphocytes % (Manual) (13.4-35.0) % Seg Neutrophils # Man (1.8-7.7) K/mm3 Lymphocytes # (Manual) (1.2-5.4) K/mm3 Sodium (137-145) mmol/L Potassium (3.6-5.0) mmol/L Carbon Dioxide (22-30) mmol/L BUN (9-20) mg/dL Creatinine (0.8-1.5) mg/dL Glucose (75-100) mg/dL POC Glucose 200 H (70-105) Calcium (8.4-10.2) mg/dL C-Reactive Protein (0.00-1.30) mg/dL Crossmatch
[2017-09-08] MEDS ORDERED: MAXIPIME/NS 2 GM/100 ML 2 GM/100 ML BAG IV SCH (10:00)
[2017-09-08] MEDS: LASIX PO SCH (11:01)
[2017-09-08] MEDS: NORVASC PO SCH (11:01)
[2017-09-08] MEDS: FEOSOL PO SCH ×2 (11:02→23:01)
[2017-09-08] MEDS: SODIUM BICARBONATE PO SCH ×2 (11:02→23:01)
[2017-09-08] MEDS: APRESOLINE PO SCH ×3 (11:02→23:01)
[2017-09-08] MEDS: FOLBEE PLUS CZ PO SCH (11:03)
[2017-09-08] MEDS: MAXIPIME 2 GM in NACL 0.9% 20 ML IV SCH ×2 (11:19→23:11)
--- NOTE | 2017-09-08 11:35 | Consultation ---
History of Present Illness - Reason for Consult Consult date: 09/08/17 left heel infection Requesting physician: HUDSON SORIA - History of Present Illness 62 years old male with history of non complaince with medical instructions, CHF , COPD, DVT, diabetes, hypertension, HLP and a chronic right heel decubitus ulcer; well known to ID service, admitted on 03/31 - 04/14/17 due to worsening right foot pain. He had arterial ultrasound which shows monophasic flow in the right popliteal artery and the anterior and posterior tibial arteries. However , velocities are only marginally diminished in the proximal and mid sections of these vessels. MRI + dorsal foot cellulitis no osteo but increased marrow edema in the calcaneous ? osteo. He underwent Right heel debridement finding + necrotic skin, SQ and ligaments. OR tissue cx + Proteus and Enterobacter both sensitive to levaquin. He could not have revascularization due to kidney failure. He was discharged on PO levaquin total 21 days from 03/31-04/20. It is unclear if he took it. Patient is not a good historian, very argumentative and non complaint. 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 Plan was to do vancomycin 1.5 g IV q day and ceftin 500 mg PO q 48h total 6 weeks from 05/25 until 07/05/17. It is unclear is patient finished treatment. Unfortunately, patient is admitted on 09/07/2017 due to worsening right heel wound with foul-smelling drainage. Patient is a poor historian. Denies any recent fever or chills. Denies nausea, vomiting, diarrhea. In the emergency room, initial temperature 98.3, heart rate 71, respirations 16 , O2 sat 98, blood pressure 156/81. Initial white count 14.1. Hemoglobin 5.9. Platelets 3:30. Sodium 132. Potassium 5.2 creatinine 2.2 lactic acid 0.7. CRP 16.5. Microbiology: Blood cultures: Wound cultures: Wound cx 05/25 MRSA + E coli resist to levaquin, sens to ceftin Current Antimicrobials: Vancomycin Cefepime Previous Antimicrobials: Past History Past Medical History: diabetes, other (right heel necrotic ulcer, RUPA) Medications and Allergies Allergies Allergy/AdvReac Type Severity Reaction Status Date / Time No Known Allergies Allergy Verified 09/07/17 12:13 Home Medications Medication Instructions Recorded Confirmed Last Taken Type Gabapentin [Neurontin] 300 mg PO Q8HR #90 capsule 11/04/15 09/07/17 1 Day Ago Rx ~03/01/17 AtorvaSTATin [Lipitor] 20 mg PO QHS 04/09/16 09/07/17 1 Day Ago History ~03/01/17 Ergocalciferol(Vitamin D2)(Nf) 50,000 unit PO QWEEK 04/09/16 09/07/17 1 Day Ago History [Vitamin D (Nf)] ~03/01/17 Insulin Lispro Prot/Lispro 30 unit SQ BID 03/05/17 09/07/17 Unknown History [HumaLOG Mix 75/25 Vial] hydrALAZINE [Apresoline TAB] 100 mg PO TID 03/12/17 09/07/17 Unknown History Carvedilol [Coreg] 12.5 mg PO BID #30 tablet 04/14/17 09/07/17 Unknown Rx Folic Acid/Vit Bcomp&C/Cu/Znox 1 each PO QDAY #30 tablet 04/14/17 09/07/17 Unknown Rx [Folbee Plus Cz] Sodium Bicarbonate 1,300 mg PO BID #14 tablet 04/14/17 09/07/17 Unknown Rx amLODIPine [Norvasc] 10 mg PO DAILY #30 tablet 04/14/17 09/07/17 Unknown Rx Vancomycin 1,000 mg IV Q24H 37 Days mg 05/29/17 09/07/17 Unknown Rx Cefuroxime [Ceftin] 500 mg PO Q12HR tablet 06/19/17 09/07/17 Unknown Rx Ferrous Sulfate [Feosol 325 MG tab] 325 mg PO BID #60 tablet 06/19/17 09/07/17 Unknown Rx Furosemide [Lasix TAB] 40 mg PO QDAY #30 tablet 06/19/17 09/07/17 Unknown Rx oxyCODONE /ACETAMINOPHEN [Percocet 1 tab PO Q6H PRN #10 tablet 06/19/17 Unknown Rx 5/325 mg] Active Meds: Active Medications Acetaminophen (Tylenol) 650 mg PO Q6HR PRN PRN Reason: Pain Last Admin: 09/08/17 02:35 Dose: 650 mg Amlodipine Besylate (Norvasc) 10 mg PO DAILY [facility] Last Admin: 09/08/17 11:01 Dose: 10 mg Atorvastatin Calcium (Lipitor) 20 mg PO QHS [facility] Carvedilol (Coreg) 12.5 mg PO BID [facility] Last Admin: 09/08/17 11:01 Dose: 12.5 mg Ferrous Sulfate (Feosol) 325 mg PO BID [facility] Last Admin: 09/08/17 11:02 Dose: 325 mg Furosemide (Lasix) 40 mg PO QDAY [facility] Last Admin: 09/08/17 11:01 Dose: 40 mg Gabapentin (Neurontin) 300 mg PO Q8HR [facility] Last Admin: 09/08/17 05:49 Dose: 300 mg Hydralazine HCl (Apresoline) 100 mg PO TID [facility] Last Admin: 09/08/17 11:02 Dose: 100 mg Vancomycin HCl 1,750 mg/ (Sodium Chloride) 517.5 mls @ 333.333 mls/hr IV Q24H [facility] Cefepime HCl 2 gm/ Sodium (Chloride) 20 mls @ 2 mls/min IV Q12HR [facility] Last Admin: 09/08/17 11:19 Dose: 2 mls/min Insulin Human Isoph/Insulin Regular (Humulin 70/30) 30 unit SUB-Q BIDDIAB [facility] Last Admin: 09/08/17 11:03 Dose: 30 unit Insulin Human Regular (Humulin R) 0 units SUB-Q ACHS [facility]; Protocol Last Admin: 09/08/17 07:30 Dose: Not Given Oxycodone/Acetaminophen (Percocet 5/325) 1 tab PO Q6H PRN PRN Reason: Pain, Moderate (4-6) Last Admin: 09/08/17 02:33 Dose: 1 tab Sodium Bicarbonate (Sodium Bicarbonate) 1,300 mg PO BID [facility] Last Admin: 09/08/17 11:02 Dose: 1,300 mg Sodium Hypochlorite (Dakin's Full Strength) 1 applic TP Q12HR [facility] Vancomycin HCl (Vancomycin Pharmacy To Dose) 1 each IV PKCONSULT [facility]; Protocol Vitamin B Complex/Folic Acid (Folbee Plus Cz) 1 each PO QDAY [facility] Last Admin: 09/08/17 11:03 Dose: 1 each Review of Systems ROS unobtainable: due to mental status Physical Examination - Physical Exam Narrative exam: General appearance: Alert in NAD, conversant obese Eyes: anicteric sclerae, moist conjunctivae; no lid-lag; PERRLA HENT: Atraumatic; oropharynx clear with moist mucous membranes and no mucosal ulcerations/no oral thrush; normal hard and soft palate. Normal external ears. Neck: Trachea midline; supple, no thyromegaly or lymphadenopathy Lungs: CTA, with normal respiratory effort and no intercostal retractions CV: RRR, no murmurs Abdomen: Soft, non-tender; obese Extremities: +extensive elton leg edema. Right dorsa foot large blister. Right heel extensive destruction, necrosis, foul smelling. Left heel with ulcer foul smelling Skin: Normal temperature, turgor and texture; no rash, ulcers or subcutaneous nodules Psych: Appropriate affect, alert and oriented to person. Neuro: alert and oriented x 3. Moving all extermities Lines: No CVL / PICC - Constitutional Vitals: Vital Signs Temp Pulse Resp BP Pulse Ox 99.2 F 80 20 138/80 100 09/08/17 07:51 09/08/17 11:01 09/08/17 07:51 09/08/17 11:01 09/08/17 07:51 Temperature -Last 24 Hours Temperature 99.2 F Temperature 98.8 F Temperature 99.3 F Temperature 101.6 F Temperature 98.6 F Temperature 98.6 F Temperature 98.1 F Temperature 98.3 F Results - Labs CBC & Chem 7: 09/07/17 12:40 09/07/17 12:40 Labs: Abnormal lab results 09/07/17 09/07/17 09/07/17 Range/Units 12:40 12:40 15:05 WBC 14.1 H (4.5-11.0) K/mm3 RBC 2.43 L (3.65-5.03) M/mm3 Hgb 5.9 L* (11.8-15.2) gm/dl Hct 19.2 L* (35.5-45.6) % MCV 79 L (84-94) fl MCH 24 L (28-32) pg MCHC 31 L (32-34) % RDW 19.2 H (13.2-15.2) % Seg Neuts % (Manual) 72.0 H (40.0-70.0) % Lymphocytes % (Manual) 8.0 L (13.4-35.0) % Seg Neutrophils # Man 10.2 H (1.8-7.7) K/mm3 Lymphocytes # (Manual) 1.1 L (1.2-5.4) K/mm3 Sodium 132 L (137-145) mmol/L Potassium 5.2 H (3.6-5.0) mmol/L Carbon Dioxide 17 L (22-30) mmol/L BUN 41 H (9-20) mg/dL Creatinine 2.2 H (0.8-1.5) mg/dL Glucose 177 H (75-100) mg/dL POC Glucose (70-105) Calcium 7.8 L (8.4-10.2) mg/dL C-Reactive Protein 16.50 H (0.00-1.30) mg/dL Crossmatch See Detail 09/07/17 09/08/17 09/08/17 Range/Units 23:06 06:52 11:14 WBC (4.5-11.0) K/mm3 RBC (3.65-5.03) M/mm3 Hgb (11.8-15.2) gm/dl Hct (35.5-45.6) % MCV (84-94) fl MCH (28-32) pg MCHC (32-34) % RDW (13.2-15.2) % Seg Neuts % (Manual) (40.0-70.0) % Lymphocytes % (Manual) (13.4-35.0) % Seg Neutrophils # Man (1.8-7.7) K/mm3 Lymphocytes # (Manual) (1.2-5.4) K/mm3 Sodium (137-145) mmol/L Potassium (3.6-5.0) mmol/L Carbon Dioxide (22-30) mmol/L BUN (9-20) mg/dL Creatinine (0.8-1.5) mg/dL Glucose (75-100) mg/dL POC Glucose 200 H 124 H 107 H (70-105) Calcium (8.4-10.2) mg/dL C-Reactive Protein (0.00-1.30) mg/dL Crossmatch Assessment and Plan Assessment: 1) Leukocytosis: from foot infection 2) Extensive right heel necrotizing infection with bone exposure -arterial ultrasound shows monophasic flow in the right popliteal artery and the anterior and posterior tibial arteries. - MRI + dorsal foot cellulitis no osteo but increased marrow edema in the calcaneous ? osteo. -S/p Right heel debridement finding +necrotic skin, SQ and ligaments. OR tissue cx + Proteus and Enterobacter both sensitive to levaquin. treated with PO levaquin total 21 days 03/31-04/20. -No revascularization done due to kidney failure. -S/p repeat debridement 05/25/18-wound Cx + MRSA and E coli resistant to levaquin. Plan was to do vancomycin 1.5 g IV q day and ceftin 500 mg PO q 48h total 6 weeks from 05/25 until 07/05/17. It is unclear is patient finished treatment -CRP=16 3) Left heel ulcer ? infected 4) Non complaince with medical instructions 5) CHF 6) COPD 7) DVT, 8) Diabetes 9) Hypertension Plan: -patient educated about the need for right foot amputation-refused -Surgical consult Dr Ly for debridement -obtain deep tissue cultures -Vascular consult -contact isolation -continue vanco and cefepime - renally dosed -add flagyl -showcase trimmer consult for LTAC for IV abx and wound care Thank you for your consultation, will follow up with you. Soniya Contreras MD Infectious Diseases Specialist [facility] ([facility]) M [phone] O [phone]
--- NOTE | 2017-09-08 12:08 | Consultation ---
History of Present Illness - Reason for Consult Consult date: 09/08/17 Past History Past Medical History: diabetes, other (right heel necrotic ulcer, RUPA) Medications and Allergies Allergies Allergy/AdvReac Type Severity Reaction Status Date / Time No Known Allergies Allergy Verified 09/07/17 12:13 Home Medications Medication Instructions Recorded Confirmed Last Taken Type Gabapentin [Neurontin] 300 mg PO Q8HR #90 capsule 11/04/15 09/07/17 1 Day Ago Rx ~03/01/17 AtorvaSTATin [Lipitor] 20 mg PO QHS 04/09/16 09/07/17 1 Day Ago History ~03/01/17 Ergocalciferol(Vitamin D2)(Nf) 50,000 unit PO QWEEK 04/09/16 09/07/17 1 Day Ago History [Vitamin D (Nf)] ~03/01/17 Insulin Lispro Prot/Lispro 30 unit SQ BID 03/05/17 09/07/17 Unknown History [HumaLOG Mix 75/25 Vial] hydrALAZINE [Apresoline TAB] 100 mg PO TID 03/12/17 09/07/17 Unknown History Carvedilol [Coreg] 12.5 mg PO BID #30 tablet 04/14/17 09/07/17 Unknown Rx Folic Acid/Vit Bcomp&C/Cu/Znox 1 each PO QDAY #30 tablet 04/14/17 09/07/17 Unknown Rx [Folbee Plus Cz] Sodium Bicarbonate 1,300 mg PO BID #14 tablet 04/14/17 09/07/17 Unknown Rx amLODIPine [Norvasc] 10 mg PO DAILY #30 tablet 04/14/17 09/07/17 Unknown Rx Vancomycin 1,000 mg IV Q24H 37 Days mg 05/29/17 09/07/17 Unknown Rx Cefuroxime [Ceftin] 500 mg PO Q12HR tablet 06/19/17 09/07/17 Unknown Rx Ferrous Sulfate [Feosol 325 MG tab] 325 mg PO BID #60 tablet 06/19/17 09/07/17 Unknown Rx Furosemide [Lasix TAB] 40 mg PO QDAY #30 tablet 06/19/17 09/07/17 Unknown Rx oxyCODONE /ACETAMINOPHEN [Percocet 1 tab PO Q6H PRN #10 tablet 06/19/17 Unknown Rx 5/325 mg] Active Meds: Active Medications Acetaminophen (Tylenol) 650 mg PO Q6HR PRN PRN Reason: Pain Last Admin: 09/08/17 02:35 Dose: 650 mg Amlodipine Besylate (Norvasc) 10 mg PO DAILY [facility] Last Admin: 09/08/17 11:01 Dose: 10 mg Atorvastatin Calcium (Lipitor) 20 mg PO QHS [facility] Carvedilol (Coreg) 12.5 mg PO BID [facility] Last Admin: 09/08/17 11:01 Dose: 12.5 mg Ferrous Sulfate (Feosol) 325 mg PO BID [facility] Last Admin: 09/08/17 11:02 Dose: 325 mg Furosemide (Lasix) 40 mg PO QDAY [facility] Last Admin: 09/08/17 11:01 Dose: 40 mg Gabapentin (Neurontin) 300 mg PO Q8HR [facility] Last Admin: 09/08/17 05:49 Dose: 300 mg Hydralazine HCl (Apresoline) 100 mg PO TID [facility] Last Admin: 09/08/17 11:02 Dose: 100 mg Vancomycin HCl 1,750 mg/ (Sodium Chloride) 517.5 mls @ 333.333 mls/hr IV Q24H [facility] Cefepime HCl 2 gm/ Sodium (Chloride) 20 mls @ 2 mls/min IV Q12HR [facility] Last Admin: 09/08/17 11:19 Dose: 2 mls/min Insulin Human Isoph/Insulin Regular (Humulin 70/30) 30 unit SUB-Q BIDDIAB [facility] Last Admin: 09/08/17 11:03 Dose: 30 unit Insulin Human Regular (Humulin R) 0 units SUB-Q ACHS [facility]; Protocol Last Admin: 09/08/17 07:30 Dose: Not Given Oxycodone/Acetaminophen (Percocet 5/325) 1 tab PO Q6H PRN PRN Reason: Pain, Moderate (4-6) Last Admin: 09/08/17 02:33 Dose: 1 tab Sodium Bicarbonate (Sodium Bicarbonate) 1,300 mg PO BID [facility] Last Admin: 09/08/17 11:02 Dose: 1,300 mg Sodium Hypochlorite (Dakin's Full Strength) 1 applic TP Q12HR [facility] Vancomycin HCl (Vancomycin Pharmacy To Dose) 1 each IV PKCONSULT [facility]; Protocol Vitamin B Complex/Folic Acid (Folbee Plus Cz) 1 each PO QDAY [facility] Last Admin: 09/08/17 11:03 Dose: 1 each Exam - Constitutional Vitals: Temp Pulse Resp BP Pulse Ox 99.2 F 80 20 138/80 100 09/08/17 07:51 09/08/17 11:01 09/08/17 07:51 09/08/17 11:01 09/08/17 07:51 Results - Labs CBC & Chem 7: 09/07/17 12:40 09/07/17 12:40 Labs: Abnormal lab results 09/07/17 09/07/17 09/07/17 Range/Units 12:40 12:40 15:05 WBC 14.1 H (4.5-11.0) K/mm3 RBC 2.43 L (3.65-5.03) M/mm3 Hgb 5.9 L* (11.8-15.2) gm/dl Hct 19.2 L* (35.5-45.6) % MCV 79 L (84-94) fl MCH 24 L (28-32) pg MCHC 31 L (32-34) % RDW 19.2 H (13.2-15.2) % Seg Neuts % (Manual) 72.0 H (40.0-70.0) % Lymphocytes % (Manual) 8.0 L (13.4-35.0) % Seg Neutrophils # Man 10.2 H (1.8-7.7) K/mm3 Lymphocytes # (Manual) 1.1 L (1.2-5.4) K/mm3 Sodium 132 L (137-145) mmol/L Potassium 5.2 H (3.6-5.0) mmol/L Carbon Dioxide 17 L (22-30) mmol/L BUN 41 H (9-20) mg/dL Creatinine 2.2 H (0.8-1.5) mg/dL Glucose 177 H (75-100) mg/dL POC Glucose (70-105) Calcium 7.8 L (8.4-10.2) mg/dL C-Reactive Protein 16.50 H (0.00-1.30) mg/dL Crossmatch See Detail 09/07/17 09/08/17 09/08/17 Range/Units 23:06 06:52 11:14 WBC (4.5-11.0) K/mm3 RBC (3.65-5.03) M/mm3 Hgb (11.8-15.2) gm/dl Hct (35.5-45.6) % MCV (84-94) fl MCH (28-32) pg MCHC (32-34) % RDW (13.2-15.2) % Seg Neuts % (Manual) (40.0-70.0) % Lymphocytes % (Manual) (13.4-35.0) % Seg Neutrophils # Man (1.8-7.7) K/mm3 Lymphocytes # (Manual) (1.2-5.4) K/mm3 Sodium (137-145) mmol/L Potassium (3.6-5.0) mmol/L Carbon Dioxide (22-30) mmol/L BUN (9-20) mg/dL Creatinine (0.8-1.5) mg/dL Glucose (75-100) mg/dL POC Glucose 200 H 124 H 107 H (70-105) Calcium (8.4-10.2) mg/dL C-Reactive Protein (0.00-1.30) mg/dL Crossmatch
[2017-09-08 12:47] LABS: Basophils # (Auto) 0.1 K/mm3 (0.0-0.1); Basophils % (Auto) 0.8 % (0.0-1.8); Eosinophils # (Auto) 0.7 K/mm3 (0.0-0.4); Eosinophils % (Auto) 5.7 % (0.0-4.3); Hemoglobin 6.2 gm/dl (11.8-15.2); Lymphocytes # (Auto) 1.5 K/mm3 (1.2-5.4); Lymphocytes % (Auto) 12.2 % (13.4-35.0); Mean Corpuscular HGB Conc 31 % (32-34); Mean Corpuscular Volume 78 fl (84-94); Monocytes # (Auto) 1.7 K/mm3 (0.0-0.8); Monocytes % (Auto) 13.7 % (0.0-7.3); Platelet Count 337 K/mm3 (140-440); Red Blood Count 2.53 M/mm3 (3.65-5.03)
[2017-09-08] MEDS: DAKIN'S FULL STRENGTH TP SCH ×2 (12:58→22:00)
[2017-09-08 13:04] LABS: Hematocrit 19.7 % (35.5-45.6); Mean Corpuscular Hemoglobin 24 pg (28-32)
[2017-09-08 13:12] LABS: Calcium 8.1 mg/dL (8.4-10.2)
--- NOTE | 2017-09-08 14:44 | Consultation ---
History of Present Illness - Reason for Consult Consult date: 09/08/17 Reason for consult: Decisional capacity for consent to recieve PRBC's Requesting physician: ANUSHA SANTO - History of Present Psychiatric Illness The patient was seen by myself today after briefly discussing the reason for the consultation with the patient's assigned RN and nurse case manager. This patient is known to me. The reason for the consultation is to determine whether or not the patient has decisional capacity to refuse blood products (PRBC's). The patient's current H/H is 6.2/19.7. Upon my clinical encounter, I found the patient to be fairly uncooperative. He was asked multiple time if he would like his brother to be present or leave the room during the assessment, he stated, " I don't know." I left the patient's room to gave him time with his brother to make that determination. I was informed to return to the room and continue the assessment with his brother being present. He was asked about general orientation, the patient refused to answer most of those questions. Therefore, we moved to questions that were more relevant to him. He answered one question regarding his orientation reference person. He was asked to explain why he felt like he does not blood products (PRBC's) and he stated, "I don't want blood because I have to pull poop out of my butt when I receive blood." The patient answers to questions were not logical nor his conversation lucid when discussing the need for blood. He had to be redirected several time to keep him on topic. I asked the patient is okay to ask more questions, he stated, "I'm done talking," and asked me to leave. Per my discussion with nursing staff and case management, the patient had refused blood products (PRBC's) prior to his arrival to their floor from the ER. At the current time, the full capacity evaluation was unable to be completed due to the patient's inability or unwillingness to cooperate. I am outlining the detailed process of how to complete a capacity evaluation below, if the primary team would like to engage in that process with the patient independently at another point in time. At the moment of my evaluation, I would say that the patient does not have the capacity to make the specific decision to refuse blood products (PRBC's) at this time. Decisional capacity is subject to change from time to time and needs to be assessed each time a decision is being made by the patient regarding their medical care. The consent process for treatment usually fulfills the requirements necessary for decisional capacity and it can be used to determine decisional capacity when augmented by the specific steps outlined below. *We have 4 criteria (based on Alfonso & Mark in 1988) to assess TASK- specific decision-making capacity: 1) communicating a consistent choice 2) understanding pertinent information (nature of illness) 3) appreciate the circumstances & consequences (treatment options, prognosis with and without treatment, risk/ benefit ratio of treatment) 4) ability to rationally manipulate the information. It is fluid and may change from day to day. If order for a capacity evaluation to be complete, the following information needs to be assessed and documented by the primary team. A. Please document why there is a concern about lack of capacity and the specific task that we are evaluating. Capacity must be TASK specific evaluating vs global evaluation for competency. 1. For example- does the patient have capacity to leave AMA or refuse a surgery? 2. Global Capacity (a.k.a. Competency) is determined by the legal system. B. Please document the patients understanding of specific problems and treatment options? ( if possible, use their own words) C. Is the patient able to explain the consequences (risks vs benefits) of treatment options? Please document their explanation. D. Is the patient able to reason through their treatment options and manipulate information in regards to themselves? E. Does the patient display a clear and consistent choice? F. If the patient is unable to demonstrate that they have capacity, then a surrogate decision maker should be named to assist with decision making. Medications and Allergies Allergies Allergy/AdvReac Type Severity Reaction Status Date / Time No Known Allergies Allergy Verified 09/07/17 12:13 Home Medications Medication Instructions Recorded Confirmed Last Taken Type Gabapentin [Neurontin] 300 mg PO Q8HR #90 capsule 11/04/15 09/07/17 1 Day Ago Rx ~03/01/17 AtorvaSTATin [Lipitor] 20 mg PO QHS 04/09/16 09/07/17 1 Day Ago History ~03/01/17 Ergocalciferol(Vitamin D2)(Nf) 50,000 unit PO QWEEK 04/09/16 09/07/17 1 Day Ago History [Vitamin D (Nf)] ~03/01/17 Insulin Lispro Prot/Lispro 30 unit SQ BID 03/05/17 09/07/17 Unknown History [HumaLOG Mix 75/25 Vial] hydrALAZINE [Apresoline TAB] 100 mg PO TID 03/12/17 09/07/17 Unknown History Carvedilol [Coreg] 12.5 mg PO BID #30 tablet 04/14/17 09/07/17 Unknown Rx Folic Acid/Vit Bcomp&C/Cu/Znox 1 each PO QDAY #30 tablet 04/14/17 09/07/17 Unknown Rx [Folbee Plus Cz] Sodium Bicarbonate 1,300 mg PO BID #14 tablet 04/14/17 09/07/17 Unknown Rx amLODIPine [Norvasc] 10 mg PO DAILY #30 tablet 04/14/17 09/07/17 Unknown Rx Vancomycin 1,000 mg IV Q24H 37 Days mg 05/29/17 09/07/17 Unknown Rx Cefuroxime [Ceftin] 500 mg PO Q12HR tablet 06/19/17 09/07/17 Unknown Rx Ferrous Sulfate [Feosol 325 MG tab] 325 mg PO BID #60 tablet 06/19/17 09/07/17 Unknown Rx Furosemide [Lasix TAB] 40 mg PO QDAY #30 tablet 06/19/17 09/07/17 Unknown Rx oxyCODONE /ACETAMINOPHEN [Percocet 1 tab PO Q6H PRN #10 tablet 06/19/17 Unknown Rx 5/325 mg] Active Meds: Active Medications Acetaminophen (Tylenol) 650 mg PO Q6HR PRN PRN Reason: Pain Last Admin: 09/08/17 02:35 Dose: 650 mg Amlodipine Besylate (Norvasc) 10 mg PO DAILY [facility] Last Admin: 09/08/17 11:01 Dose: 10 mg Atorvastatin Calcium (Lipitor) 20 mg PO QHS [facility] Carvedilol (Coreg) 12.5 mg PO BID [facility] Last Admin: 09/08/17 11:01 Dose: 12.5 mg Ferrous Sulfate (Feosol) 325 mg PO BID [facility] Last Admin: 09/08/17 11:02 Dose: 325 mg Furosemide (Lasix) 40 mg PO QDAY [facility] Last Admin: 09/08/17 11:01 Dose: 40 mg Gabapentin (Neurontin) 300 mg PO Q8HR [facility] Last Admin: 09/08/17 05:49 Dose: 300 mg Hydralazine HCl (Apresoline) 100 mg PO TID [facility] Last Admin: 09/08/17 11:02 Dose: 100 mg Vancomycin HCl 1,750 mg/ (Sodium Chloride) 517.5 mls @ 333.333 mls/hr IV Q24H [facility] Cefepime HCl 2 gm/ Sodium (Chloride) 20 mls @ 2 mls/min IV Q12HR [facility] Last Admin: 09/08/17 11:19 Dose: 2 mls/min Insulin Human Isoph/Insulin Regular (Humulin 70/30) 30 unit SUB-Q BIDDIAB [facility] Last Admin: 09/08/17 11:03 Dose: 30 unit Insulin Human Regular (Humulin R) 0 units SUB-Q ACHS [facility]; Protocol Last Admin: 09/08/17 13:16 Dose: Not Given Oxycodone/Acetaminophen (Percocet 5/325) 1 tab PO Q6H PRN PRN Reason: Pain, Moderate (4-6) Last Admin: 09/08/17 02:33 Dose: 1 tab Sodium Bicarbonate (Sodium Bicarbonate) 1,300 mg PO BID [facility] Last Admin: 09/08/17 11:02 Dose: 1,300 mg Sodium Hypochlorite (Dakin's Full Strength) 1 applic TP Q12HR [facility] Last Admin: 09/08/17 12:58 Dose: Not Given Vancomycin HCl (Vancomycin Pharmacy To Dose) 1 each IV PKCONSULT [facility]; Protocol Vitamin B Complex/Folic Acid (Folbee Plus Cz) 1 each PO QDAY [facility] Last Admin: 09/08/17 11:03 Dose: 1 each Mental Status Exam - Vital signs Last Vital Signs Temp 99.2 F 09/08/17 07:51 Pulse 80 09/08/17 11:01 Resp 18 09/08/17 13:56 BP 138/80 09/08/17 11:01 Pulse Ox 100 09/08/17 07:51 Results Result Diagrams: 09/08/17 12:00 09/08/17 12:00 Abnormal lab results 09/07/17 09/07/17 09/07/17 Range/Units 12:40 15:05 23:06 WBC (4.5-11.0) K/mm3 RBC (3.65-5.03) M/mm3 Hgb (11.8-15.2) gm/dl Hct (35.5-45.6) % MCV (84-94) fl MCH (28-32) pg MCHC (32-34) % RDW (13.2-15.2) % Lymph % (Auto) (13.4-35.0) % Woodward % (Auto) (0.0-7.3) % Eos % (Auto) (0.0-4.3) % Woodward # (0.0-0.8) K/mm3 Eos # (0.0-0.4) K/mm3 Seg Neuts % (Manual) 72.0 H (40.0-70.0) % Lymphocytes % (Manual) 8.0 L (13.4-35.0) % Seg Neutrophils # (1.8-7.7) K/mm3 Seg Neutrophils # Man 10.2 H (1.8-7.7) K/mm3 Lymphocytes # (Manual) 1.1 L (1.2-5.4) K/mm3 Sodium (137-145) mmol/L Potassium (3.6-5.0) mmol/L Carbon Dioxide (22-30) mmol/L BUN (9-20) mg/dL Creatinine (0.8-1.5) mg/dL Glucose (75-100) mg/dL POC Glucose 200 H (70-105) Calcium (8.4-10.2) mg/dL Crossmatch See Detail 09/08/17 09/08/17 09/08/17 Range/Units 06:52 11:14 12:00 WBC 12.6 H (4.5-11.0) K/mm3 RBC 2.53 L (3.65-5.03) M/mm3 Hgb 6.2 L (11.8-15.2) gm/dl Hct 19.7 L* (35.5-45.6) % MCV 78 L (84-94) fl MCH 24 L (28-32) pg MCHC 31 L (32-34) % RDW 19.0 H (13.2-15.2) % Lymph % (Auto) 12.2 L (13.4-35.0) % Woodward % (Auto) 13.7 H (0.0-7.3) % Eos % (Auto) 5.7 H (0.0-4.3) % Woodward # 1.7 H (0.0-0.8) K/mm3 Eos # 0.7 H (0.0-0.4) K/mm3 Seg Neuts % (Manual) (40.0-70.0) % Lymphocytes % (Manual) (13.4-35.0) % Seg Neutrophils # 8.6 H (1.8-7.7) K/mm3 Seg Neutrophils # Man (1.8-7.7) K/mm3 Lymphocytes # (Manual) (1.2-5.4) K/mm3 Sodium (137-145) mmol/L Potassium (3.6-5.0) mmol/L Carbon Dioxide (22-30) mmol/L BUN (9-20) mg/dL Creatinine (0.8-1.5) mg/dL Glucose (75-100) mg/dL POC Glucose 124 H 107 H (70-105) Calcium (8.4-10.2) mg/dL Crossmatch 09/08/17 Range/Units 12:00 WBC (4.5-11.0) K/mm3 RBC (3.65-5.03) M/mm3 Hgb (11.8-15.2) gm/dl Hct (35.5-45.6) % MCV (84-94) fl MCH (28-32) pg MCHC (32-34) % RDW (13.2-15.2) % Lymph % (Auto) (13.4-35.0) % Woodward % (Auto) (0.0-7.3) % Eos % (Auto) (0.0-4.3) % Woodward # (0.0-0.8) K/mm3 Eos # (0.0-0.4) K/mm3 Seg Neuts % (Manual) (40.0-70.0) % Lymphocytes % (Manual) (13.4-35.0) % Seg Neutrophils # (1.8-7.7) K/mm3 Seg Neutrophils # Man (1.8-7.7) K/mm3 Lymphocytes # (Manual) (1.2-5.4) K/mm3 Sodium 134 L (137-145) mmol/L Potassium 5.4 H (3.6-5.0) mmol/L Carbon Dioxide 18 L (22-30) mmol/L BUN 45 H (9-20) mg/dL Creatinine 2.3 H (0.8-1.5) mg/dL Glucose 109 H (75-100) mg/dL POC Glucose (70-105) Calcium 8.1 L (8.4-10.2) mg/dL Crossmatch All other labs normal.
[2017-09-08] MEDS: VANCOMYCIN 1,750 MG in NACL 0.9% 500 ML 500 ML IV SCH (15:19)
--- NOTE | 2017-09-08 20:17 | Consultation ---
REASON FOR CONSULTATION: Acute renal failure. HISTORY OF PRESENT ILLNESS: This 62-year-old Afro-[place] male with type 2 diabetes, hypertension, bilateral lower extremity cellulitis, was brought to the Emergency Room with recurrent bilateral heel pain. His labs on 09/07/2017, showed potassium of 5.2, BUN 41, creatinine 2.2, CO2 17, hemoglobin of 5.9, hematocrit of 19.2. Today on 09/08/2017, potassium 5.4, BUN 45, creatinine 2.3. The patient is a poor historian. PAST MEDICAL HISTORY: Type 2 diabetes, COPD, CHF, DVT, hypertension, chronic right heel decubitus ulcer. ALLERGIES: No known allergies. CURRENT MEDICATIONS: Amlodipine 10 mg once a day, atorvastatin 20 mg once a day, carvedilol 12.5 mg b.i.d., IV cefepime 2 g q.12 hours, IV Lasix 40 mg once a day, Feosol 325 mg p.o. b.i.d., gabapentin 300 mg q.8 hours, hydralazine 100 mg 3 times a day, insulin, sodium bicarbonate 1300 mg p.o. b.i.d., vancomycin, and vitamin B complex once a day. FAMILY HISTORY: No family history of kidney failure. PERSONAL HISTORY: No history of smoking. REVIEW OF SYSTEMS: Complains of pain in the legs and feet, poor historian. Denies fever or chills. Denies difficulty in passing urine. Other review of systems reviewed and negative. PHYSICAL EXAMINATION: GENERAL: The patient is an alert, oriented to place and person. VITAL SIGNS: Blood pressure 138/80, pulse 80, temperature 99.2. LUNGS: Clear anteriorly. HEART: S1, S2 regular. ABDOMEN: Soft, bowel sounds present. EXTREMITIES: Significant lymphedema of both lower extremities with dressings over the feet and lower extremities. LABORATORY DATA: From 09/08/2017, WBC 12.6, hemoglobin 6.2, hematocrit 19.7, platelets 337,000. Sodium 134, potassium 5.4, chloride 101, CO2 18, BUN 45, creatinine 2.3, glucose 109, calcium 8.1. C-reactive protein 16.5. ASSESSMENT AND PLAN: 1. Acute on chronic kidney disease. The patient's serum creatinine was noted to be 1.8 on 09/03/2017, may be prerenal or rule out interstitial nephritis. 2. Right foot diabetic ulcer. 3. Bilateral lower extremity cellulitis. 4. Type 2 diabetes. 5. Noncompliance. 6. Hypoalbuminemia. 7. Severe anemia. Check urine studies. Adjust medications per renal function. Check on renal ultrasound if not done. The patient's recent medical records were reviewed. He was admitted recently and signed out against medical advice on 09/04/2017. JOB# [id number] [facility]
[2017-09-09] MEDS: PERCOCET 5/325 PO PRN ×3 (05:16→17:00)
[2017-09-09] MEDS: NEURONTIN PO SCH ×3 (05:17→22:28)
--- NOTE | 2017-09-09 08:34 | Progress Note ---
Assessment and Plan (1) Cellulitis Current Visit: Yes Status: Acute Qualifiers: Site of cellulitis of extremity: lower extremity Laterality: right Plan to address problem: Patient initiated on Vancomycin and Cefepime (2) Diabetic foot ulcers Current Visit: Yes Status: Chronic Qualifiers: Diabetic foot ulcer location: heel Diabetes mellitus type: type 2 Laterality: right Non-pressure ulcer stage: with fat layer exposed Qualified Code(s): E11.621 - Type 2 diabetes mellitus with foot ulcer; L97.412 - Non-pressure chronic ulcer of right heel and midfoot with fat layer exposed Plan to address problem: Needs wound care and debridement Surgery consult requested Amputation suggeste by [facility] JIMENES. PT declined (3) Osteomyelitis Current Visit: Yes Status: Chronic Qualifiers: Osteomyelitis location: foot Laterality: right Plan to address problem: in antibiotic Vanc and Cefapine (4) HTN (hypertension) Current Visit: Yes Status: Chronic Qualifiers: Hypertension type: essential hypertension Qualified Code(s): I10 - Essential (primary) hypertension Plan to address problem: Cont antihypertensives (5) IDDM (insulin dependent diabetes mellitus) Current Visit: Yes Status: Chronic Plan to address problem: Cont Insulin and converage Check A1c (6) HLD (hyperlipidemia) Current Visit: Yes Status: Chronic Qualifiers: Hyperlipidemia type: mixed hyperlipidemia Qualified Code(s): E78.2 - Mixed hyperlipidemia Plan to address problem: Cont statins (7) CHF (congestive heart failure) Current Visit: Yes Status: Chronic Qualifiers: Heart failure type: diastolic Plan to address problem: Cont Lasix (8) Peripheral neuropathy Current Visit: Yes Status: Chronic Qualifiers: Peripheral neuropathy type: polyneuropathy, unspecified Qualified Code(s): G62.9 - Polyneuropathy, unspecified Plan to address problem: Cont Gabapentin (9) RUPA (acute kidney injury) Current Visit: Yes Status: Acute Plan to address problem: Avoid nephrotoxic meds Renal consult requested (10) Anemia Current Visit: Yes Status: Chronic Qualifiers: Anemia type: due to chronic kidney disease Chronic kidney disease stage: stage 3 (moderate) Qualified Code(s): N18.3 - Chronic kidney disease, stage 3 (moderate); D63.1 - Anemia in chronic kidney disease Plan to address problem: Transfusion of 1 uinit initially ordered. Pt adamantly refused blood transfusion (11) DVT prophylaxis Current Visit: Yes Status: Acute Plan to address problem: on heparin Subjective Date of service: 09/09/17 Principal diagnosis: Cellulitis of both lower exctremities Interval history: Lying quietly in bed. No new complaint. Denies any fever or chills. Still adamantly refused blood transfusion. Not a Jehova witness Objective - Constitutional Vitals: Vital Signs - 12hr 09/08/17 09/08/17 09/08/17 22:54 22:58 23:17 Temperature 99.6 F Pulse Rate 68 70 Respiratory 20 Rate Blood Pressure 123/62 122/62 O2 Sat by Pulse 100 Oximetry General appearance: Present: obese - EENT Eyes: PERRL, EOM intact ENT: clear oral mucosa Ears: bilateral: normal - Neck Neck: supple, normal ROM - Respiratory Respiratory effort: normal Respiratory: bilateral: CTA - Cardiovascular Rhythm: regular Heart Sounds: Present: S1 & S2. Absent: gallop, rub Extremities: pulses intact, No edema, normal color, Full ROM - Gastrointestinal General gastrointestinal: Present: soft, non-tender, non-distended, normal bowel sounds - Integumentary Integumentary: clear, warm, dry - Musculoskeletal Musculoskeletal: 1, strength equal bilaterally - Neurologic Neurologic: moves all extremities - Psychiatric Psychiatric: memory intact, appropriate mood/affect, intact judgment & insight - Labs CBC & Chem 7: 09/09/17 13:43 09/09/17 13:43 Labs: Abnormal lab results 09/08/17 09/08/17 09/08/17 Range/Units 06:52 11:14 12:00 WBC 12.6 H (4.5-11.0) K/mm3 RBC 2.53 L (3.65-5.03) M/mm3 Hgb 6.2 L (11.8-15.2) gm/dl Hct 19.7 L* (35.5-45.6) % MCV 78 L (84-94) fl MCH 24 L (28-32) pg MCHC 31 L (32-34) % RDW 19.0 H (13.2-15.2) % Lymph % (Auto) 12.2 L (13.4-35.0) % Leon % (Auto) 13.7 H (0.0-7.3) % Eos % (Auto) 5.7 H (0.0-4.3) % Leon # 1.7 H (0.0-0.8) K/mm3 Eos # 0.7 H (0.0-0.4) K/mm3 Seg Neutrophils # 8.6 H (1.8-7.7) K/mm3 Sodium (137-145) mmol/L Potassium (3.6-5.0) mmol/L Carbon Dioxide (22-30) mmol/L BUN (9-20) mg/dL Creatinine (0.8-1.5) mg/dL Glucose (75-100) mg/dL POC Glucose 124 H 107 H (70-105) Calcium (8.4-10.2) mg/dL 09/08/17 09/08/17 09/08/17 Range/Units 12:00 16:17 21:58 WBC (4.5-11.0) K/mm3 RBC (3.65-5.03) M/mm3 Hgb (11.8-15.2) gm/dl Hct (35.5-45.6) % MCV (84-94) fl MCH (28-32) pg MCHC (32-34) % RDW (13.2-15.2) % Lymph % (Auto) (13.4-35.0) % Leon % (Auto) (0.0-7.3) % Eos % (Auto) (0.0-4.3) % Leon # (0.0-0.8) K/mm3 Eos # (0.0-0.4) K/mm3 Seg Neutrophils # (1.8-7.7) K/mm3 Sodium 134 L (137-145) mmol/L Potassium 5.4 H (3.6-5.0) mmol/L Carbon Dioxide 18 L (22-30) mmol/L BUN 45 H (9-20) mg/dL Creatinine 2.3 H (0.8-1.5) mg/dL Glucose 109 H (75-100) mg/dL POC Glucose 168 H 131 H (70-105) Calcium 8.1 L (8.4-10.2) mg/dL 09/09/17 Range/Units 05:38 WBC (4.5-11.0) K/mm3 RBC (3.65-5.03) M/mm3 Hgb (11.8-15.2) gm/dl Hct (35.5-45.6) % MCV (84-94) fl MCH (28-32) pg MCHC (32-34) % RDW (13.2-15.2) % Lymph % (Auto) (13.4-35.0) % Leon % (Auto) (0.0-7.3) % Eos % (Auto) (0.0-4.3) % Leon # (0.0-0.8) K/mm3 Eos # (0.0-0.4) K/mm3 Seg Neutrophils # (1.8-7.7) K/mm3 Sodium (137-145) mmol/L Potassium (3.6-5.0) mmol/L Carbon Dioxide (22-30) mmol/L BUN (9-20) mg/dL Creatinine (0.8-1.5) mg/dL Glucose (75-100) mg/dL POC Glucose 118 H (70-105) Calcium (8.4-10.2) mg/dL
[2017-09-09] MEDS: HumuLIN R SUB-Q SCH ×4 (09:05→22:29)
--- NOTE | 2017-09-09 09:35 | Progress Note ---
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 - MRI + dorsal foot cellulitis no osteo but increased marrow edema in the calcaneous ? osteo. -S/p Right heel debridement finding +necrotic skin, SQ and ligaments. OR tissue cx + Proteus and Enterobacter both sensitive to levaquin. treated with PO levaquin total 21 days 03/31-04/20. -No revascularization done due to kidney failure. -S/p repeat debridement 05/25/18-wound Cx + MRSA and E coli resistant to levaquin. Plan was to do vancomycin 1.5 g IV q day and ceftin 500 mg PO q 48h total 6 weeks from 05/25 until 07/05/17. It is unclear is patient finished treatment -CRP=16 3) Left heel ulcer ? infected 4) Non complaince with medical instructions 5) CHF 6) COPD 7) DVT, 8) Diabetes 9) Hypertension 10) Severe anemia Plan: -patient educated about the need for right foot amputation-refused -Surgical consult Dr Ly for debridement - pending -obtain deep tissue cultures -pending -Vascular consult - pending -contact isolation -continue vanco and cefepime - renally dosed -add flagyl -piano case and bench assembler consult for LTAC for IV abx and wound care Iw ill see him back on 09/11 Thank you for your consultation, will follow up with you. Soniya Contreras MD Infectious Diseases Specialist [facility] M [phone] Subjective Date of service: 09/09/17 Principal diagnosis: Cellulitis of both lower exctremities Interval history: Feels ok, +low grade fever 100. Microbiology: Blood cultures: Wound cultures: Wound cx 05/25 MRSA + E coli resist to levaquin, sens to ceftin Current Antimicrobials: Vancomycin 09/08 Cefepime 09/08 Previous Antimicrobials: Objective - Exam Narrative Exam: General appearance: Alert in NAD, sleepy Eyes: anicteric sclerae, moist conjunctivae; no lid-lag; PERRLA HENT: Atraumatic; oropharynx clear with moist mucous membranes and no mucosal ulcerations/no oral thrush; normal hard and soft palate. Normal external ears. Neck: Trachea midline; supple, no thyromegaly or lymphadenopathy Lungs: CTA, with normal respiratory effort and no intercostal retractions CV: RRR, no murmurs Abdomen: Soft, non-tender; obese Extremities: +extensive elton leg edema. Right dorsa foot large blister. Right heel extensive destruction, necrosis, foul smelling. Left heel with ulcer foul smelling - no examine dtoday Skin: Normal temperature, turgor and texture; no rash, ulcers or subcutaneous nodules Psych: Appropriate affect, alert and oriented to person. Neuro: alert and oriented x 3. Moving all extermities Lines: No CVL / PICC - Constitutional Vitals: Vital Signs Temp Pulse Resp BP Pulse Ox 99.7 F H 68 20 121/59 100 09/09/17 07:48 09/09/17 07:48 09/09/17 07:48 09/09/17 07:48 09/09/17 07:48 Temperature -Last 24 Hours Temperature 99.7 F Temperature 99.6 F Temperature 100.1 F - Labs CBC & Chem 7: 09/08/17 12:00 09/08/17 12:00 Labs: Abnormal lab results 09/08/17 09/08/17 09/08/17 Range/Units 11:14 12:00 12:00 WBC 12.6 H (4.5-11.0) K/mm3 RBC 2.53 L (3.65-5.03) M/mm3 Hgb 6.2 L (11.8-15.2) gm/dl Hct 19.7 L* (35.5-45.6) % MCV 78 L (84-94) fl MCH 24 L (28-32) pg MCHC 31 L (32-34) % RDW 19.0 H (13.2-15.2) % Lymph % (Auto) 12.2 L (13.4-35.0) % Johnson % (Auto) 13.7 H (0.0-7.3) % Eos % (Auto) 5.7 H (0.0-4.3) % Johnson # 1.7 H (0.0-0.8) K/mm3 Eos # 0.7 H (0.0-0.4) K/mm3 Seg Neutrophils # 8.6 H (1.8-7.7) K/mm3 Sodium 134 L (137-145) mmol/L Potassium 5.4 H (3.6-5.0) mmol/L Carbon Dioxide 18 L (22-30) mmol/L BUN 45 H (9-20) mg/dL Creatinine 2.3 H (0.8-1.5) mg/dL Glucose 109 H (75-100) mg/dL POC Glucose 107 H (70-105) Calcium 8.1 L (8.4-10.2) mg/dL 09/08/17 09/08/17 09/09/17 Range/Units 16:17 21:58 05:38 WBC (4.5-11.0) K/mm3 RBC (3.65-5.03) M/mm3 Hgb (11.8-15.2) gm/dl Hct (35.5-45.6) % MCV (84-94) fl MCH (28-32) pg MCHC (32-34) % RDW (13.2-15.2) % Lymph % (Auto) (13.4-35.0) % Johnson % (Auto) (0.0-7.3) % Eos % (Auto) (0.0-4.3) % Johnson # (0.0-0.8) K/mm3 Eos # (0.0-0.4) K/mm3 Seg Neutrophils # (1.8-7.7) K/mm3 Sodium (137-145) mmol/L Potassium (3.6-5.0) mmol/L Carbon Dioxide (22-30) mmol/L BUN (9-20) mg/dL Creatinine (0.8-1.5) mg/dL Glucose (75-100) mg/dL POC Glucose 168 H 131 H 118 H (70-105) Calcium (8.4-10.2) mg/dL
[2017-09-09] MEDS: MAXIPIME 2 GM in NACL 0.9% 20 ML IV SCH ×2 (10:40→22:21)
[2017-09-09] MEDS: COREG PO SCH ×2 (10:42→22:34)
[2017-09-09] MEDS: LASIX PO SCH (10:42)
[2017-09-09] MEDS: SODIUM BICARBONATE PO SCH ×2 (10:42→22:28)
[2017-09-09] MEDS: APRESOLINE PO SCH ×3 (10:42→19:51)
[2017-09-09] MEDS: NORVASC PO SCH (10:42)
[2017-09-09] MEDS: FEOSOL PO SCH ×2 (10:43→22:28)
[2017-09-09] MEDS: DAKIN'S FULL STRENGTH TP SCH ×2 (10:44→22:40)
[2017-09-09] MEDS: FOLBEE PLUS CZ PO SCH (11:10)
[2017-09-09] MEDS: FLAGYL 500 MG/100 ML 500 MG/100 ML BAG IV SCH ×2 (12:10→22:35)
[2017-09-09 12:29] LABS: Bilirubin,Urine NEG (Negative); Blood,Urine NEG (Negative); Color,Urine Yellow (Yellow); Urobilinogen,Urine < 2.0 mg/dL (<2.0)
--- NOTE | 2017-09-09 12:36 | Progress Note ---
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 Patient's renal function is relatively stable. Recommend to continue current management * Note patient refusal of treatment - declining pRBC products * Abx per ID * Surgery consultation pending * Continue antiHTN medications * Modify diet to add renal restrictions - patient w/ hx of hyperkalemia and refuses kayexelate * Adjust medications for patient's renal function * Avoid potential nephrotoxins * Will follow peripherally Subjective Date of service: 09/09/17 Principal diagnosis: Cellulitis of both lower exctremities Interval history: 24h events reviewed Objective - Exam Narrative Exam: Patient is not interactive; keeps blanket over head. - Vital Signs Vital signs: Vital Signs - 12hr 09/09/17 09/09/17 07:48 11:29 Temperature 99.7 F H 99.6 F Pulse Rate 68 69 Respiratory 20 20 Rate Blood Pressure 121/59 124/67 O2 Sat by Pulse 100 100 Oximetry - Lab 09/09/17 13:43 09/09/17 13:43 Most recent lab results Calcium 8.1 mg/dL (8.4-10.2) L 09/08/17 12:00 Urine Creatinine 103.7 mg/dL (0.1-20.0) H 09/09/17 12:11
[2017-09-09 13:00] LABS: Creatinine,Urine 100.6 mg/dL (0.1-20.0); Protein/Creatinine Ratio,Urine 1.9
[2017-09-09 14:01] LABS: Basophils # (Auto) 0.1 K/mm3 (0.0-0.1); Basophils % (Auto) 0.7 % (0.0-1.8); Eosinophils # (Auto) 0.7 K/mm3 (0.0-0.4); Eosinophils % (Auto) 5.7 % (0.0-4.3); Hemoglobin 6.1 gm/dl (11.8-15.2); Lymphocytes # (Auto) 1.2 K/mm3 (1.2-5.4); Mean Corpuscular HGB Conc 32 % (32-34); Mean Corpuscular Volume 76 fl (84-94); Monocytes # (Auto) 1.1 K/mm3 (0.0-0.8); Monocytes % (Auto) 8.7 % (0.0-7.3); Platelet Count 318 K/mm3 (140-440); Red Cell Distribution Width 19.5 % (13.2-15.2)
[2017-09-09 14:09] LABS: INR 1.08 (0.87-1.13)
[2017-09-09 14:18] LABS: Albumin 2.2 g/dL (3.9-5); Calcium 8.1 mg/dL (8.4-10.2)
[2017-09-09 14:21] LABS: Hematocrit 19.1 % (35.5-45.6); Mean Corpuscular Hemoglobin 25 pg (28-32)
--- NOTE | 2017-09-09 14:53 | Progress Note ---
Subjective - Reason for Consult Consult date: 09/09/17 - Chief Complaint Chief complaint: The patient was seen by myself today after briefly discussing the reason for the consultation with the patient's assigned RN and nurse case manager. This patient is known to me. The reason for the consultation is to determine whether or not the patient has decisional capacity to refuse blood products (PRBC's). The patient's current H/H is 6.2/19.7. The patient answers to questions were not logical nor his conversation lucid when discussing the need for blood. He had to be redirected several time to keep him on topic. I asked the patient is okay to ask more questions, he stated, "I'm done talking," and asked me to leave. Mental Status Exam - Vital signs Last Vital Signs Temp 99.6 F 09/09/17 11:29 Pulse 69 09/09/17 11:29 Resp 20 09/09/17 11:29 BP 124/67 09/09/17 11:29 Pulse Ox 100 09/09/17 11:29
[2017-09-09] MEDS: VANCOMYCIN 1,750 MG in NACL 0.9% 500 ML 500 ML IV SCH (17:00)
[2017-09-10] MEDS: FLAGYL 500 MG/100 ML 500 MG/100 ML BAG IV SCH ×3 (07:45→23:09)
[2017-09-10] MEDS: NEURONTIN PO SCH ×3 (07:45→23:10)
[2017-09-10] MEDS: HumuLIN R SUB-Q SCH ×4 (08:09→23:10)
[2017-09-10] MEDS: SODIUM BICARBONATE PO SCH ×2 (10:15→23:09)
[2017-09-10] MEDS: FOLBEE PLUS CZ PO SCH (10:15)
[2017-09-10] MEDS: FEOSOL PO SCH ×2 (10:16→23:09)
[2017-09-10] MEDS: APRESOLINE PO SCH ×3 (10:21→19:32)
[2017-09-10] MEDS: COREG PO SCH ×2 (10:21→23:10)
[2017-09-10] MEDS: LASIX PO SCH (10:21)
[2017-09-10] MEDS: NORVASC PO SCH (10:22)
[2017-09-10] MEDS: PERCOCET 5/325 PO PRN ×3 (10:32→23:44)
[2017-09-10] MEDS: MAXIPIME 2 GM in NACL 0.9% 20 ML IV SCH ×2 (10:34→23:50)
[2017-09-10] MEDS ORDERED: KIONEX PO ONE (14:52)
--- NOTE | 2017-09-10 14:55 | Progress Note ---
Assessment and Plan Assessment and plan: 62-year-old male with past medical history of right heel osteomyelitis, diabetes, bilateral lower extremity cellulitis, recently diagnosed on CT scan of the bilateral lower extremities at this hospital within the past week, wheelchair-bound, debility, poor decision-making capacity, hypertension, congestive heart failure, chronic renal insufficiency signed out AGAINST MEDICAL ADVICE. The patient presents to the ER with EMS for recurrent bilateral heel pain. The patient is a poor historian and lacks insight. He is not able to describe the nature of his pain, radiation, exacerbating or relieving factors. The patient denies headache, neck pain, chest pain, abdominal pain, shortness of breath, bleeding. The patient cannot describe exacerbating or relieving factors. As per review of old records, patient had wound culture in June 2017, which demonstrated multiple organisms of intermediate sensitivities. The case was discussed with infectious disease on-call, Dr. Adrian Contreras; she did not recommend repeat blood cultures at this time, and recommended empiric vancomycin and cefepime. (1) Cellulitis Current Visit: Yes Status: Acute Qualifiers: Site of cellulitis of extremity: lower extremity Laterality: right Plan to address problem: Patient initiated on Vancomycin and Cefepime (2) Diabetic foot ulcers Current Visit: Yes Status: Chronic Qualifiers: Diabetic foot ulcer location: heel Diabetes mellitus type: type 2 Laterality: right Non-pressure ulcer stage: with fat layer exposed Qualified Code(s): E11.621 - Type 2 diabetes mellitus with foot ulcer; L97.412 - Non-pressure chronic ulcer of right heel and midfoot with fat layer exposed Plan to address problem: Needs wound care and debridement Surgery consult requested Amputation suggeste by [facility] PT declined (3) Osteomyelitis Current Visit: Yes Status: Chronic Qualifiers: Osteomyelitis location: foot Laterality: right Plan to address problem: in antibiotic Vanc and Cefapine (4) HTN (hypertension) Current Visit: Yes Status: Chronic Qualifiers: Hypertension type: essential hypertension Qualified Code(s): I10 - Essential (primary) hypertension Plan to address problem: Cont antihypertensives (5) IDDM (insulin dependent diabetes mellitus) Current Visit: Yes Status: Chronic Plan to address problem: Cont Insulin and converage Check A1c (6) HLD (hyperlipidemia) Current Visit: Yes Status: Chronic Qualifiers: Hyperlipidemia type: mixed hyperlipidemia Qualified Code(s): E78.2 - Mixed hyperlipidemia Plan to address problem: Cont statins (7) CHF (congestive heart failure) Current Visit: Yes Status: Chronic Qualifiers: Heart failure type: diastolic Plan to address problem: Cont Lasix (8) Peripheral neuropathy Current Visit: Yes Status: Chronic Qualifiers: Peripheral neuropathy type: polyneuropathy, unspecified Qualified Code(s): G62.9 - Polyneuropathy, unspecified Plan to address problem: Cont Gabapentin (9) RUPA (acute kidney injury) Current Visit: Yes Status: Acute Plan to address problem: Avoid nephrotoxic meds Renal consult requested (10) Anemia Current Visit: Yes Status: Chronic Qualifiers: Anemia type: due to chronic kidney disease Chronic kidney disease stage: stage 3 (moderate) Qualified Code(s): N18.3 - Chronic kidney disease, stage 3 (moderate); D63.1 - Anemia in chronic kidney disease Plan to address problem: Transfusion of 1 unit initially ordered. Pt adamantly refused blood transfusion Hyperkalemia kayexalate ordered Non compliance patient refusing most meds, blood draws and labs, attempted to educate and newspaper delivery counselor the patient, but he was not agreeable -patient educated about the need for right foot amputation-refused -Surgical consult Dr Ly for debridement - pending -obtain deep tissue cultures -pending -Vascular consult - pending -contact isolation -continue vanco and cefepime - renally dosed -add flagyl -geriatric case manager consult for LTAC for IV abx and wound care History Interval history: Review of systems Constitutional: No fevers, no malaise, no joint pains CVS: No chest pain, no orthopnea, no dyspnea on exertion, no pedal edema GI: No abdominal pain, no diarrhea, no vomiting, no constipation Respiratory: No shortness of breath, no wheezing, no coughing Hospitalist Physical - Physical exam Narrative exam: General appearance: Present: obese - EENT Eyes: PERRL, EOM intact ENT: clear oral mucosa Ears: bilateral: normal - Neck Neck: supple, normal ROM - Respiratory Respiratory effort: normal Respiratory: bilateral: CTA - Cardiovascular Rhythm: regular Heart Sounds: Present: S1 & S2. Absent: gallop, rub Extremities: pulses intact, No edema, normal color, Full ROM - Gastrointestinal General gastrointestinal: Present: soft, non-tender, non-distended, normal bowel sounds - Integumentary Integumentary: clear, warm, dry - Musculoskeletal Musculoskeletal: 1, strength equal bilaterally - Neurologic Neurologic: moves all extremities - Psychiatric Psychiatric: memory intact, appropriate mood/affect, intact judgment & insight - Labs CBC & Chem 7: - Constitutional Vitals: Temp Pulse Resp BP Pulse Ox 99.0 F 76 24 144/73 100 09/09/17 21:34 09/09/17 22:34 09/09/17 22:00 09/09/17 22:34 09/09/17 21:34 General appearance: Present: obese Results - Labs CBC & Chem 7: 09/09/17 13:43 09/09/17 13:43 Labs: Laboratory Last Values WBC 12.1 K/mm3 (4.5-11.0) H 09/09/17 13:43 RBC 2.50 M/mm3 (3.65-5.03) L 09/09/17 13:43 Hgb 6.1 gm/dl (11.8-15.2) L 09/09/17 13:43 Hct 19.1 % (35.5-45.6) L* 09/09/17 13:43 MCV 76 fl (84-94) L 09/09/17 13:43 MCH 25 pg (28-32) L 09/09/17 13:43 MCHC 32 % (32-34) 09/09/17 13:43 RDW 19.5 % (13.2-15.2) H 09/09/17 13:43 Plt Count 318 K/mm3 (140-440) 09/09/17 13:43 Lymph % (Auto) 10.0 % (13.4-35.0) L 09/09/17 13:43 Hendricks % (Auto) 8.7 % (0.0-7.3) H 09/09/17 13:43 Eos % (Auto) 5.7 % (0.0-4.3) H 09/09/17 13:43 Baso % (Auto) 0.7 % (0.0-1.8) 09/09/17 13:43 Lymph # 1.2 K/mm3 (1.2-5.4) 09/09/17 13:43 Hendricks # 1.1 K/mm3 (0.0-0.8) H 09/09/17 13:43 Eos # 0.7 K/mm3 (0.0-0.4) H 09/09/17 13:43 Baso # 0.1 K/mm3 (0.0-0.1) 09/09/17 13:43 Add Manual Diff Complete 09/07/17 12:40 Total Counted 100 09/07/17 12:40 Seg Neutrophils % 74.9 % (40.0-70.0) H 09/09/17 13:43 Seg Neuts % (Manual) 72.0 % (40.0-70.0) H 09/07/17 12:40 Band Neutrophils % 15.0 % 09/07/17 12:40 Lymphocytes % (Manual) 8.0 % (13.4-35.0) L 09/07/17 12:40 Reactive Lymphs % (Man) 0 % 09/07/17 12:40 Monocytes % (Manual) 4.0 % (0.0-7.3) 09/07/17 12:40 Eosinophils % (Manual) 0 % (0.0-4.3) 09/07/17 12:40 Basophils % (Manual) 1.0 % (0.0-1.8) 09/07/17 12:40 Metamyelocytes % 0 % 09/07/17 12:40 Myelocytes % 0 % 09/07/17 12:40 Promyelocytes % 0 % 09/07/17 12:40 Blast Cells % 0 % 09/07/17 12:40 Nucleated RBC % Not Reportable 09/07/17 12:40 Seg Neutrophils # 9.1 K/mm3 (1.8-7.7) H 09/09/17 13:43 Seg Neutrophils # Man 10.2 K/mm3 (1.8-7.7) H 09/07/17 12:40 Band Neutrophils # 2.1 K/mm3 09/07/17 12:40 Lymphocytes # (Manual) 1.1 K/mm3 (1.2-5.4) L 09/07/17 12:40 Abs React Lymphs (Man) 0.0 K/mm3 09/07/17 12:40 Monocytes # (Manual) 0.6 K/mm3 (0.0-0.8) 09/07/17 12:40 Eosinophils # (Manual) 0.0 K/mm3 (0.0-0.4) 09/07/17 12:40 Basophils # (Manual) 0.1 K/mm3 (0.0-0.1) 09/07/17 12:40 Metamyelocytes # 0.0 K/mm3 09/07/17 12:40 Myelocytes # 0.0 K/mm3 09/07/17 12:40 Promyelocytes # 0.0 K/mm3 09/07/17 12:40 Blast Cells # 0.0 K/mm3 09/07/17 12:40 WBC Morphology Not Reportable 09/07/17 12:40 Hypersegmented Neuts Not Reportable 09/07/17 12:40 Hyposegmented Neuts Not Reportable 09/07/17 12:40 Hypogranular Neuts Not Reportable 09/07/17 12:40 Smudge Cells Not Reportable 09/07/17 12:40 Toxic Granulation Not Reportable 09/07/17 12:40 Toxic Vacuolation Not Reportable 09/07/17 12:40 Dohle Bodies Not Reportable 09/07/17 12:40 Pelger-Huet Anomaly Not Reportable 09/07/17 12:40 May Rods Not Reportable 09/07/17 12:40 Platelet Estimate Consistent w auto 09/07/17 12:40 Clumped Platelets Not Reportable 09/07/17 12:40 Plt Clumps, EDTA Not Reportable 09/07/17 12:40 Large Platelets Not Reportable 09/07/17 12:40 Giant Platelets Not Reportable 09/07/17 12:40 Platelet Satelliting Not Reportable 09/07/17 12:40 Plt Morphology Comment Not Reportable 09/07/17 12:40 RBC Morphology Not Reportable 09/07/17 12:40 Dimorphic RBCs Not Reportable 09/07/17 12:40 Polychromasia Not Reportable 09/07/17 12:40 Hypochromasia 1+ 09/07/17 12:40 Poikilocytosis Not Reportable 09/07/17 12:40 Anisocytosis Not Reportable 09/07/17 12:40 Microcytosis 1+ 09/07/17 12:40 Macrocytosis Not Reportable 09/07/17 12:40 Spherocytes Not Reportable 09/07/17 12:40 Pappenheimer Bodies Not Reportable 09/07/17 12:40 Sickle Cells Not Reportable 09/07/17 12:40 Target Cells Not Reportable 09/07/17 12:40 Tear Drop Cells Few 09/07/17 12:40 Ovalocytes Not Reportable 09/07/17 12:40 Helmet Cells Not Reportable 09/07/17 12:40 [place] Bodies Not Reportable 09/07/17 12:40 [place] Rings Not Reportable 09/07/17 12:40 Harned Cells Not Reportable 09/07/17 12:40 Bite Cells Not Reportable 09/07/17 12:40 Crenated Cell Not Reportable 09/07/17 12:40 Elliptocytes Not Reportable 09/07/17 12:40 Acanthocytes (Spur) Not Reportable 09/07/17 12:40 Rouleaux Not Reportable 09/07/17 12:40 Hemoglobin C Crystals Not Reportable 09/07/17 12:40 Schistocytes Not Reportable 09/07/17 12:40 Malaria parasites Not Reportable 09/07/17 12:40 ESR > 140.0 mm/Hr (0-20) 09/07/17 12:40 Carlitos Bodies Not Reportable 09/07/17 12:40 Hem Pathologist Commnt No 09/07/17 12:40 PT 14.6 Sec. (12.2-14.9) 09/09/17 13:43 INR 1.08 (0.87-1.13) 09/09/17 13:43 Sodium 132 mmol/L (137-145) L 09/09/17 13:43 Potassium 5.8 mmol/L (3.6-5.0) H 09/09/17 13:43 Chloride 101.0 mmol/L (98-107) 09/09/17 13:43 Carbon Dioxide 17 mmol/L (22-30) L 09/09/17 13:43 Anion Gap 20 mmol/L 09/09/17 13:43 BUN 48 mg/dL (9-20) H 09/09/17 13:43 Creatinine 2.3 mg/dL (0.8-1.5) H 09/09/17 13:43 Estimated GFR 35 ml/min 09/09/17 13:43 BUN/Creatinine Ratio 21 % 09/09/17 13:43 Glucose 131 mg/dL (75-100) H 09/09/17 13:43 POC Glucose 153 (70-105) H 09/09/17 21:39 Lactic Acid 0.70 mmol/L (0.7-2.0) 09/07/17 12:40 Calcium 8.1 mg/dL (8.4-10.2) L 09/09/17 13:43 Total Bilirubin 0.20 mg/dL (0.1-1.2) 09/09/17 13:43 AST 21 units/L (5-40) 09/09/17 13:43 ALT 15 units/L (7-56) 09/09/17 13:43 Alkaline Phosphatase 62 units/L (35-129) 09/09/17 13:43 Total Creatine Kinase 162 units/L (55-170) 09/07/17 12:40 C-Reactive Protein 16.50 mg/dL (0.00-1.30) H 09/07/17 12:40 Total Protein 7.2 g/dL (6.3-8.2) 09/09/17 13:43 Albumin 2.2 g/dL (3.9-5) L 09/09/17 13:43 Albumin/Globulin Ratio 0.4 % 09/09/17 13:43 Urine Color Yellow (Yellow) 09/09/17 12:11 Urine Turbidity Clear (Clear) 09/09/17 12:11 Urine pH 5.0 (5.0-7.0) 09/09/17 12:11 Ur Specific [place] 1.013 (1.003-1.030) 09/09/17 12:11 Urine Protein 100 mg/dl mg/dL (Negative) 09/09/17 12:11 Urine Glucose (UA) Neg mg/dL (Negative) 09/09/17 12:11 Urine Ketones Neg mg/dL (Negative) 09/09/17 12:11 Urine Blood Neg (Negative) 09/09/17 12:11 Urine Nitrite Neg (Negative) 09/09/17 12:11 Urine Bilirubin Neg (Negative) 09/09/17 12:11 Urine Urobilinogen < 2.0 mg/dL (<2.0) 09/09/17 12:11 Ur Leukocyte Esterase Neg (Negative) 09/09/17 12:11 Urine Eosinophils None seen (None Seen) 09/09/17 12:11 Urine Creatinine 100.6 mg/dL (0.1-20.0) H 09/09/17 12:11 Protein/Creatinin Ratio 1.90 09/09/17 12:11 Urine Sodium 41 mmol/L 09/09/17 12:11 Urine Chloride 24.0 mmolL (110-250) L 09/09/17 12:11 Urine Total Protein 191 mg/dL (5-11.8) H 09/09/17 12:11 Blood Type A POSITIVE 09/07/17 15:05 Antibody Screen Negative 09/07/17 15:05 Crossmatch See Detail 09/07/17 15:05
--- NOTE | 2017-09-10 14:58 | Event Note ---
Date: 09/10/17 Labs obtained yesterday afternoon notable for K 5.8. No labs today. Will order Kayexelate 60grams today. However, RN notes reviewed, and patient is refusing medications today. Continue diet restrictions as ordered.
--- NOTE | 2017-09-10 14:58 | Discharge Summary ---
Providers - Providers Date of Admission: 09/07/17 15:20 Attending physician: RODRIGUE GUEVARA MD 09/07/17 13:03 Consult to Mental Health [CONS] Urgent Reason For Exam: capacity evaluation Place consult to:: product merchandiser senior solutions workflow consultant Notified:: awaiting call back 09/07/17 17:51 Consult to Case Management [CONS] Routine Services Needed at Discharge: Frontload Driver Notified:: YES Additional Physician Instructions: discharge planning 09/07/17 17:52 Consult to Wound/ET Nurse [CONS] Routine Reason For Exam: wound eval/ legs and feet 09/08/17 07:00 Consult to Physician [CONS] Routine Comment: Consulting Provider: YESENIA FELICIANO Physician Instructions: Reason For Exam: RUPA/CKD Consult to Wound/ET Nurse [CONS] Routine Reason For Exam: wound eval 09/08/17 07:02 Consult to Physician [CONS] Routine Comment: Consulting Provider: ISSA CAMPUZANO Physician Instructions: Reason For Exam: Rt foot and left foot ulcer 09/08/17 08:06 Consult to Physician [CONS] Routine Comment: Consulting Provider: MAIRA NELSON Physician Instructions: Reason For Exam: Foot ulcer 09/08/17 10:45 Consult to Mental Health [CONS] Urgent Reason For Exam: Capacity evaluation due to refusal of blood Place consult to:: Mental Health Notified:: Yes Phone number called:: [phone] Was contact made?: Yes If yes, spoke with:: Benito Time called:: 10:45 09/08/17 11:53 Consult to Case Management [CONS] Stat Services Needed at Discharge: Other Notified:: senior solutions workflow consultant Additional Physician Instructions: case manager specialist consult for LTAC for IV abx and wound care Primary care physician: DIRECTOR OF PHOTOGRAPHY Hospitalization Condition: Fair Hospital course: 62-year-old male with past medical history of right heel osteomyelitis, diabetes, bilateral lower extremity cellulitis, recently diagnosed on CT scan of the bilateral lower extremities at this hospital within the past week, wheelchair-bound, debility, poor decision-making capacity, hypertension, congestive heart failure, chronic renal insufficiency signed out AGAINST MEDICAL ADVICE. The patient presents to the ER with EMS for recurrent bilateral heel pain. The patient is a poor historian and lacks insight. He is not able to describe the nature of his pain, radiation, exacerbating or relieving factors. The patient denies headache, neck pain, chest pain, abdominal pain, shortness of breath, bleeding. The patient cannot describe exacerbating or relieving factors. As per review of old records, patient had wound culture in June 2017, which demonstrated multiple organisms of intermediate sensitivities. The case was discussed with infectious disease on-call, Dr. Adrian Contreras; she did not recommend repeat blood cultures at this time, and recommended empiric vancomycin and cefepime. (1) Cellulitis Current Visit: Yes Status: Acute Qualifiers: Site of cellulitis of extremity: lower extremity Laterality: right Plan to address problem: Patient initiated on Vancomycin and Cefepime (2) Diabetic foot ulcers Current Visit: Yes Status: Chronic Qualifiers: Diabetic foot ulcer location: heel Diabetes mellitus type: type 2 Laterality: right Non-pressure ulcer stage: with fat layer exposed Qualified Code(s): E11.621 - Type 2 diabetes mellitus with foot ulcer; L97.412 - Non-pressure chronic ulcer of right heel and midfoot with fat layer exposed Plan to address problem: Needs wound care and debridement Surgery consult requested Amputation suggeste by [facility] PT declined (3) Osteomyelitis Current Visit: Yes Status: Chronic Qualifiers: Osteomyelitis location: foot Laterality: right Plan to address problem: in antibiotic Vanc and Cefapine (4) HTN (hypertension) Current Visit: Yes Status: Chronic Qualifiers: Hypertension type: essential hypertension Qualified Code(s): I10 - Essential (primary) hypertension Plan to address problem: Cont antihypertensives (5) IDDM (insulin dependent diabetes mellitus) Current Visit: Yes Status: Chronic Plan to address problem: Cont Insulin and converage Check A1c (6) HLD (hyperlipidemia) Current Visit: Yes Status: Chronic Qualifiers: Hyperlipidemia type: mixed hyperlipidemia Qualified Code(s): E78.2 - Mixed hyperlipidemia Plan to address problem: Cont statins (7) CHF (congestive heart failure) Current Visit: Yes Status: Chronic Qualifiers: Heart failure type: diastolic Plan to address problem: Cont Lasix (8) Peripheral neuropathy Current Visit: Yes Status: Chronic Qualifiers: Peripheral neuropathy type: polyneuropathy, unspecified Qualified Code(s): G62.9 - Polyneuropathy, unspecified Plan to address problem: Cont Gabapentin (9) RUPA (acute kidney injury) Current Visit: Yes Status: Acute Plan to address problem: Avoid nephrotoxic meds Renal consult requested (10) Anemia Current Visit: Yes Status: Chronic Qualifiers: Anemia type: due to chronic kidney disease Chronic kidney disease stage: stage 3 (moderate) Qualified Code(s): N18.3 - Chronic kidney disease, stage 3 (moderate); D63.1 - Anemia in chronic kidney disease Plan to address problem: Transfusion of 1 uinit initially ordered. Pt adamantly refused blood transfusion -patient educated about the need for right foot amputation-refused -Surgical consult Dr Ly for debridement - pending -obtain deep tissue cultures -pending -Vascular consult - pending -contact isolation -continue vanco and cefepime - renally dosed -add flagyl -case manager specialist consult for LTAC for IV abx and wound care Disposition: [id number] ([facility]) Time spent for discharge: 33 minutes Core Measure Documentation - Palliative Care Palliative Care/ Comfort Measures: Not Applicable - Core Measures Any of the following diagnoses?: none Exam - Physical Exam Narrative exam: General appearance: Present: obese - EENT Eyes: PERRL, EOM intact ENT: clear oral mucosa Ears: bilateral: normal - Neck Neck: supple, normal ROM - Respiratory Respiratory effort: normal Respiratory: bilateral: CTA - Cardiovascular Rhythm: regular Heart Sounds: Present: S1 & S2. Absent: gallop, rub Extremities: pulses intact, No edema, normal color, Full ROM - Gastrointestinal General gastrointestinal: Present: soft, non-tender, non-distended, normal bowel sounds - Integumentary Integumentary: clear, warm, dry - Musculoskeletal Musculoskeletal: 1, strength equal bilaterally - Neurologic Neurologic: moves all extremities - Psychiatric Psychiatric: memory intact, appropriate mood/affect, intact judgment & insight - Labs CBC & Chem 7: - Constitutional Vitals: Temp Pulse Resp BP Pulse Ox 99.0 F 76 24 144/73 100 09/09/17 21:34 09/09/17 22:34 09/09/17 22:00 09/09/17 22:34 09/09/17 21:34 Plan Follow up with: PRIMARY CARE, [Primary Care Provider] - 3-5 Days Prescriptions: oxyCODONE /ACETAMINOPHEN [Percocet 5/325 mg] 1 tab PO Q6H PRN #7 tablet PRN Reason: Pain, Moderate (4-6)
[2017-09-10] MEDS: DAKIN'S FULL STRENGTH TP SCH ×2 (16:30→23:11)
[2017-09-10] MEDS: VANCOMYCIN 1,750 MG in NACL 0.9% 500 ML 500 ML IV SCH (19:33)
[2017-09-11] MEDS: NEURONTIN PO SCH ×3 (06:34→22:07)
[2017-09-11] MEDS: FLAGYL 500 MG/100 ML 500 MG/100 ML BAG IV SCH ×3 (06:35→22:07)
[2017-09-11] MEDS: APRESOLINE PO SCH ×3 (10:25→22:08)
[2017-09-11] MEDS: HumuLIN R SUB-Q SCH ×4 (10:25→22:28)
[2017-09-11] MEDS: COREG PO SCH ×2 (11:00→22:11)
[2017-09-11] MEDS: NORVASC PO SCH (11:00)
[2017-09-11] MEDS: MAXIPIME 2 GM in NACL 0.9% 20 ML IV SCH ×2 (12:30→22:38)
[2017-09-11] MEDS: FEOSOL PO SCH ×2 (12:31→22:07)
[2017-09-11] MEDS: LASIX PO SCH (12:31)
[2017-09-11] MEDS: FOLBEE PLUS CZ PO SCH (12:32)
[2017-09-11] MEDS: SODIUM BICARBONATE PO SCH ×2 (12:32→22:13)
--- NOTE | 2017-09-11 13:21 | Progress Note ---
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 - MRI + dorsal foot cellulitis no osteo but increased marrow edema in the calcaneous ? osteo. -S/p Right heel debridement finding +necrotic skin, SQ and ligaments. OR tissue cx + Proteus and Enterobacter both sensitive to levaquin. treated with PO levaquin total 21 days 03/31-04/20. -No revascularization done due to kidney failure. -S/p repeat debridement 05/25/18-wound Cx + MRSA and E coli resistant to levaquin. Plan was to do vancomycin 1.5 g IV q day and ceftin 500 mg PO q 48h total 6 weeks from 05/25 until 07/05/17. It is unclear is patient finished treatment -CRP=16 3) Left heel ulcer ? infected 4) Non complaince with medical instructions 5) CHF 6) COPD 7) DVT, 8) Diabetes 9) Hypertension 10) Severe anemia Plan: -patient educated about the need for right foot amputation or even debridement- refused -IV antibiotics alone will not cure or improve this necrotizing infection -strongly recommend hospice -obtain deep tissue cultures -pending -Vascular consult - pending -contact isolation -continue vanco and cefepime/flagyl - renally dosed Will see him back on Thursday Thank you for your consultation, will follow up with you. Soniya Contreras MD Infectious Diseases Specialist [facility] M [phone] O [phone] Subjective Date of service: 09/11/17 Principal diagnosis: Cellulitis of both lower exctremities Interval history: Feels ok, no fever Microbiology: Blood cultures: Wound cultures: Wound cx 05/25 MRSA + E coli resist to levaquin, sens to ceftin Current Antimicrobials: Vancomycin 09/08 Cefepime 09/08 Previous Antimicrobials: Objective - Exam Narrative Exam: General appearance: Alert in NAD, sleepy Eyes: anicteric sclerae, moist conjunctivae; no lid-lag; PERRLA HENT: Atraumatic; oropharynx clear with moist mucous membranes and no mucosal ulcerations/no oral thrush; normal hard and soft palate. Normal external ears. Neck: Trachea midline; supple, no thyromegaly or lymphadenopathy Lungs: CTA, with normal respiratory effort and no intercostal retractions CV: RRR, no murmurs Abdomen: Soft, non-tender; obese Extremities: +extensive elton leg edema. Right dorsa foot large blister. Right heel extensive destruction, necrosis, foul smelling. Left heel with ulcer foul smelling - no examine dtoday Skin: Normal temperature, turgor and texture; no rash, ulcers or subcutaneous nodules Psych: Appropriate affect, alert and oriented to person. Neuro: alert and oriented x 3. Moving all extermities Lines: No CVL / PICC - Constitutional Vitals: Vital Signs Temp Pulse Resp BP Pulse Ox 99.1 F 76 24 159/73 97 09/10/17 19:19 09/10/17 23:10 09/10/17 23:44 09/10/17 19:19 09/10/17 19:19 Temperature -Last 24 Hours Temperature 99.1 F - Labs CBC & Chem 7: 09/09/17 13:43 09/09/17 13:43 Labs: Abnormal lab results 09/07/17 09/10/17 09/11/17 Range/Units 15:05 21:17 06:29 POC Glucose 304 H 192 H (70-105) Crossmatch See Detail
--- NOTE | 2017-09-11 13:32 | Progress Note ---
Hospitalist Physical - Constitutional Vitals: Temp Pulse Resp BP Pulse Ox 99.1 F 76 24 159/73 97 09/10/17 19:19 09/10/17 23:10 09/10/17 23:44 09/10/17 19:19 09/10/17 19:19 General appearance: Present: obese Results - Labs CBC & Chem 7: 09/09/17 13:43 09/09/17 13:43 Labs: Laboratory Last Values WBC 12.1 K/mm3 (4.5-11.0) H 09/09/17 13:43 RBC 2.50 M/mm3 (3.65-5.03) L 09/09/17 13:43 Hgb 6.1 gm/dl (11.8-15.2) L 09/09/17 13:43 Hct 19.1 % (35.5-45.6) L* 09/09/17 13:43 MCV 76 fl (84-94) L 09/09/17 13:43 MCH 25 pg (28-32) L 09/09/17 13:43 MCHC 32 % (32-34) 09/09/17 13:43 RDW 19.5 % (13.2-15.2) H 09/09/17 13:43 Plt Count 318 K/mm3 (140-440) 09/09/17 13:43 Lymph % (Auto) 10.0 % (13.4-35.0) L 09/09/17 13:43 [place] % (Auto) 8.7 % (0.0-7.3) H 09/09/17 13:43 Eos % (Auto) 5.7 % (0.0-4.3) H 09/09/17 13:43 Baso % (Auto) 0.7 % (0.0-1.8) 09/09/17 13:43 Lymph # 1.2 K/mm3 (1.2-5.4) 09/09/17 13:43 [place] # 1.1 K/mm3 (0.0-0.8) H 09/09/17 13:43 Eos # 0.7 K/mm3 (0.0-0.4) H 09/09/17 13:43 Baso # 0.1 K/mm3 (0.0-0.1) 09/09/17 13:43 Add Manual Diff Complete 09/07/17 12:40 Total Counted 100 09/07/17 12:40 Seg Neutrophils % 74.9 % (40.0-70.0) H 09/09/17 13:43 Seg Neuts % (Manual) 72.0 % (40.0-70.0) H 09/07/17 12:40 Band Neutrophils % 15.0 % 09/07/17 12:40 Lymphocytes % (Manual) 8.0 % (13.4-35.0) L 09/07/17 12:40 Reactive Lymphs % (Man) 0 % 09/07/17 12:40 Monocytes % (Manual) 4.0 % (0.0-7.3) 09/07/17 12:40 Eosinophils % (Manual) 0 % (0.0-4.3) 09/07/17 12:40 Basophils % (Manual) 1.0 % (0.0-1.8) 09/07/17 12:40 Metamyelocytes % 0 % 09/07/17 12:40 Myelocytes % 0 % 09/07/17 12:40 Promyelocytes % 0 % 09/07/17 12:40 Blast Cells % 0 % 09/07/17 12:40 Nucleated RBC % Not Reportable 09/07/17 12:40 Seg Neutrophils # 9.1 K/mm3 (1.8-7.7) H 09/09/17 13:43 Seg Neutrophils # Man 10.2 K/mm3 (1.8-7.7) H 09/07/17 12:40 Band Neutrophils # 2.1 K/mm3 09/07/17 12:40 Lymphocytes # (Manual) 1.1 K/mm3 (1.2-5.4) L 09/07/17 12:40 Abs React Lymphs (Man) 0.0 K/mm3 09/07/17 12:40 Monocytes # (Manual) 0.6 K/mm3 (0.0-0.8) 09/07/17 12:40 Eosinophils # (Manual) 0.0 K/mm3 (0.0-0.4) 09/07/17 12:40 Basophils # (Manual) 0.1 K/mm3 (0.0-0.1) 09/07/17 12:40 Metamyelocytes # 0.0 K/mm3 09/07/17 12:40 Myelocytes # 0.0 K/mm3 09/07/17 12:40 Promyelocytes # 0.0 K/mm3 09/07/17 12:40 Blast Cells # 0.0 K/mm3 09/07/17 12:40 WBC Morphology Not Reportable 09/07/17 12:40 Hypersegmented Neuts Not Reportable 09/07/17 12:40 Hyposegmented Neuts Not Reportable 09/07/17 12:40 Hypogranular Neuts Not Reportable 09/07/17 12:40 Smudge Cells Not Reportable 09/07/17 12:40 Toxic Granulation Not Reportable 09/07/17 12:40 Toxic Vacuolation Not Reportable 09/07/17 12:40 Dohle Bodies Not Reportable 09/07/17 12:40 Pelger-Huet Anomaly Not Reportable 09/07/17 12:40 May Rods Not Reportable 09/07/17 12:40 Platelet Estimate Consistent w auto 09/07/17 12:40 Clumped Platelets Not Reportable 09/07/17 12:40 Plt Clumps, EDTA Not Reportable 09/07/17 12:40 Large Platelets Not Reportable 09/07/17 12:40 Giant Platelets Not Reportable 09/07/17 12:40 Platelet Satelliting Not Reportable 09/07/17 12:40 Plt Morphology Comment Not Reportable 09/07/17 12:40 RBC Morphology Not Reportable 09/07/17 12:40 Dimorphic RBCs Not Reportable 09/07/17 12:40 Polychromasia Not Reportable 09/07/17 12:40 Hypochromasia 1+ 09/07/17 12:40 Poikilocytosis Not Reportable 09/07/17 12:40 Anisocytosis Not Reportable 09/07/17 12:40 Microcytosis 1+ 09/07/17 12:40 Macrocytosis Not Reportable 09/07/17 12:40 Spherocytes Not Reportable 09/07/17 12:40 Pappenheimer Bodies Not Reportable 09/07/17 12:40 Sickle Cells Not Reportable 09/07/17 12:40 Target Cells Not Reportable 09/07/17 12:40 Tear Drop Cells Few 09/07/17 12:40 Ovalocytes Not Reportable 09/07/17 12:40 Helmet Cells Not Reportable 09/07/17 12:40 Bennett-[place] Bodies Not Reportable 09/07/17 12:40 [place] Rings Not Reportable 09/07/17 12:40 Matthieu Cells Not Reportable 09/07/17 12:40 Bite Cells Not Reportable 09/07/17 12:40 Crenated Cell Not Reportable 09/07/17 12:40 Elliptocytes Not Reportable 09/07/17 12:40 Acanthocytes (Spur) Not Reportable 09/07/17 12:40 Rouleaux Not Reportable 09/07/17 12:40 Hemoglobin C Crystals Not Reportable 09/07/17 12:40 Schistocytes Not Reportable 09/07/17 12:40 Malaria parasites Not Reportable 09/07/17 12:40 ESR > 140.0 mm/Hr (0-20) 09/07/17 12:40 Carlitos Bodies Not Reportable 09/07/17 12:40 Hem Pathologist Commnt No 09/07/17 12:40 PT 14.6 Sec. (12.2-14.9) 09/09/17 13:43 INR 1.08 (0.87-1.13) 09/09/17 13:43 Sodium 132 mmol/L (137-145) L 09/09/17 13:43 Potassium 5.8 mmol/L (3.6-5.0) H 09/09/17 13:43 Chloride 101.0 mmol/L (98-107) 09/09/17 13:43 Carbon Dioxide 17 mmol/L (22-30) L 09/09/17 13:43 Anion Gap 20 mmol/L 09/09/17 13:43 BUN 48 mg/dL (9-20) H 09/09/17 13:43 Creatinine 2.3 mg/dL (0.8-1.5) H 09/09/17 13:43 Estimated GFR 35 ml/min 09/09/17 13:43 BUN/Creatinine Ratio 21 % 09/09/17 13:43 Glucose 131 mg/dL (75-100) H 09/09/17 13:43 POC Glucose 192 (70-105) H 09/11/17 06:29 Lactic Acid 0.70 mmol/L (0.7-2.0) 09/07/17 12:40 Calcium 8.1 mg/dL (8.4-10.2) L 09/09/17 13:43 Total Bilirubin 0.20 mg/dL (0.1-1.2) 09/09/17 13:43 AST 21 units/L (5-40) 09/09/17 13:43 ALT 15 units/L (7-56) 09/09/17 13:43 Alkaline Phosphatase 62 units/L (35-129) 09/09/17 13:43 Total Creatine Kinase 162 units/L (55-170) 09/07/17 12:40 C-Reactive Protein 16.50 mg/dL (0.00-1.30) H 09/07/17 12:40 Total Protein 7.2 g/dL (6.3-8.2) 09/09/17 13:43 Albumin 2.2 g/dL (3.9-5) L 09/09/17 13:43 Albumin/Globulin Ratio 0.4 % 09/09/17 13:43 Urine Color Yellow (Yellow) 09/09/17 12:11 Urine Turbidity Clear (Clear) 09/09/17 12:11 Urine pH 5.0 (5.0-7.0) 09/09/17 12:11 Ur Specific [place] 1.013 (1.003-1.030) 09/09/17 12:11 Urine Protein 100 mg/dl mg/dL (Negative) 09/09/17 12:11 Urine Glucose (UA) Neg mg/dL (Negative) 09/09/17 12:11 Urine Ketones Neg mg/dL (Negative) 09/09/17 12:11 Urine Blood Neg (Negative) 09/09/17 12:11 Urine Nitrite Neg (Negative) 09/09/17 12:11 Urine Bilirubin Neg (Negative) 09/09/17 12:11 Urine Urobilinogen < 2.0 mg/dL (<2.0) 09/09/17 12:11 Ur Leukocyte Esterase Neg (Negative) 09/09/17 12:11 Urine Eosinophils None seen (None Seen) 09/09/17 12:11 Urine Creatinine 100.6 mg/dL (0.1-20.0) H 09/09/17 12:11 Protein/Creatinin Ratio 1.90 09/09/17 12:11 Urine Sodium 41 mmol/L 09/09/17 12:11 Urine Chloride 24.0 mmolL (110-250) L 09/09/17 12:11 Urine Total Protein 191 mg/dL (5-11.8) H 09/09/17 12:11 Blood Type A POSITIVE 09/07/17 15:05 Antibody Screen Negative 09/07/17 15:05 Crossmatch See Detail 09/07/17 15:05
--- NOTE | 2017-09-11 14:19 | Query-Infection ---
Dear ___Teodora Date:__09/11/2017 Loan Secretary/CDS:____Joanna Phone#:__[phone] Exercise your independent professional judgment when responding to this query. Questions asked do not imply a particular answer is desired or expected. We greatly appreciate your clarification on this issue. Clinical Documentation States: 62 Year old male was admitted on 09/07/2017 for recurrent bilateral heel pain. The Hospitalist (Dr. Araiza) Progress note on 09/10/2017 states "(1) Cellulitis (2) Diabetic foot ulcers." Clinical findings show: (please check applicable parameters) WBC (09/07): 14.4 Temp (09/08): 101.6 Infection, known /suspected, with some of the following indicators; Specify the infection: 3 General parameters [X] Fever (core temp >38.30C or 100.40F) [ ] Hypothermia (core temp <36C) [ ] Heart rate >90 bpm [ ] Tachypnea: >20 bpm or pCO2 < 32 mmHg [ ] Altered mental status [ ] Significant edema / +ve fluid balance (>20 ml/kg 24 h) [ ] Hyperglycemia (Bl. glucose >110 mg/dl) w/o diabetes Inflammatory parameters [X] Leukocytosis (white blood cell count >12,000/l) [ ] Leukopenia (white blood cell count <4,000/l) [ ] Bandemia (immature WBC > 10%) [ ] Leucocyte Left Shift [ ] Plasma procalcitonin>2 SD above the normal value Hemodynamic and tissue perfusion parameters [ ] Arterial hypotension(SBP <90 mmHg, MAP <70 mmHg,or a SBP drop >40 mmHg in adults) [ ] Hyperlactatemia (>3 mmol/l) [ ] Anion Gap (> 11mEG/l) [ ] Decreased capillary refill or mottling Organ dysfunction parameters [ ] Arterial hypoxemia (PaO2/FIO2 <300) [ ] Creatinine increase =0.5 mg/dl [ ] Acute oliguria (urine output <0.5 ml | kg |h or 45 mM/l for at least 2 hrs) [ ] Coagulation abnormalities (INR >1.5 or activated partial thromboplastin time >60 s) [ ] Ileus (absent crispin wel sounds) [ ] Thrombocytopenia (platelet count <100,000/l) [ ] Hyperbilirubinemia (plasma total bilirubin >4 mg/dl) According to the clinical indications above, can Bacteremia be further specified? If so, please indicate below and in your Progress Notes and/ or Discharge Summary. Indicate if the condition was present on admission. PHYSICIAN RESPONSE: [ x] Sepsis [ ] Severe Sepsis [ ] Septic Shock [ ] Septicemia [ ] Sepsis now resolved [ ] SIRS due to non-infectious cause with organ dysfunction [ ] SIRS due to non-infectious cause without organ dysfunction [ ] Other: [ ] Comment/Explanation: Present on Admission: [ x] Yes (Y) [ ] Clinically undeterminable (W) [ ] No (N) [ ] Ruled Out Please also document response in your Progress Notes and/or Discharge Summary and indicate if the condition was present on admission Notes: SIRS/ SIRS WITH ORGAN DYSFUNCTION Systemic inflammatory response syndrome (SIRS) generally refers to the systemic response to trauma/lopez or other insult such as Acute Myocardial Infarction, Acute Pancreatitis, and Major Surgery with symptoms including fever, tachycardia , tachypnea, and leukocytosis (1). BACTEREMIA Presence of viable bacteria in the circulating blood (2). This term is reserved for patients that do not manifest above SIRS response. SEPTICEMIA Generally refers to a systemic disease associated with the presence of pathological microorganisms or toxins in the blood, which can include bacteria, viruses, fungi or other organisms (1). SEPSIS Generally refers to SIRS due infection (1). SEVERE SEPSIS Generally refers to sepsis associated with acute organ dysfunction (1). SEPTIC SHOCK Generally refers to circulatory failure associated with severe sepsis (2), and defined as hypotension or hypoperfusion despite adequate fluid resuscitation (1 hour) (3). REFERENCES: 1. [employer]/Society of Critical Care Medicine Consensus Conference. Definitions for sepsis and organ failure and guidelines for the use of innovative therapies in sepsis. Critical Care Med 1992;20:864 - 74. 2. Rick givens MM, Bernardo MP, Mohsen THOMAS, Lico E, Randall D, Angel D, Junior J, Laila HANSEN , Thomas LAMBERT, Dean G; International Sepsis Definitions Conference. 2001 SCCM/ESICM/ACCP/ATS/SIS International Sepsis Definitions Conference. Intensive Care Med. 2002;29(4):530-8. Epub 2002Sep 16. Review. PubMed PMID:[id number] 3. ICD-9-CM Official Guidelines for Coding and Reporting 4. Medscape Drugs, Diseases and Procedures references 5. [employer] Textbook of Internal Medicine. 18th Edition MTDD
--- NOTE | 2017-09-11 14:21 | Query- Renal Failure ---
Deamaude Ceron Date:___09/11/2017 Senior Bi Developer/CDS:____Joanna Phone#:__[phone] Exercise your independent professional judgment when responding to query. Questions asked do not imply a particular answer is desired or expected. We greatly appreciate your clarification on this issue. Clinical Documentation States: 62 Year old male was admitted on 09/07/2017 for recurrent bilateral heel pain. The Hospitalist (Dr. Araiza) Progress note on 09/10/2017 states "(9) RUPA (acute kidney injury)." Clinical Findings Show: Creatinine (09/07): 2.2 Please clarify if you mean: Acute Renal Failure with or due to: [ ] Tubular Necrosis [ ] Medullary Necrosis [x ] Vasomotor Nephropathy [ ] Shock Kidney [ ] Tubular Nephrosis [ ] Renal Tubular Stasis [ ] Cortical Necrosis [ ] Acute Renal Failure (unspecified) [ ] Lower Tubular Nephrosis [ ] Other: [ ] Not Applicable Present on Admission: [x ] Yes (Y) [ ] Clinically undeterminable (W) [ ] No (N) Please also document response in your Progress Notes and/or Discharge Summary and indicate if the condition was present on admission. MTDD
[2017-09-11] MEDS: DAKIN'S FULL STRENGTH TP SCH ×2 (15:15→22:29)
[2017-09-11] MEDS: VANCOMYCIN 1,750 MG in NACL 0.9% 500 ML 500 ML IV SCH (15:16)
[2017-09-11] MEDS: TYLENOL PO PRN (22:22)
[2017-09-12] MEDS: FLAGYL 500 MG/100 ML 500 MG/100 ML BAG IV SCH ×4 (05:37→21:15)
[2017-09-12] MEDS: NEURONTIN PO SCH ×3 (05:37→21:12)
[2017-09-12 07:42] VITALS: BP 166/82
[2017-09-12] MEDS: HumuLIN R SUB-Q SCH ×4 (08:00→22:53)
[2017-09-12] MEDS: APRESOLINE PO SCH ×3 (08:00→21:13)
[2017-09-12] MEDS: MAXIPIME 2 GM in NACL 0.9% 20 ML IV SCH ×2 (11:32→21:58)
[2017-09-12] MEDS: COREG PO SCH ×2 (11:32→21:13)
[2017-09-12] MEDS: LASIX PO SCH (11:33)
[2017-09-12] MEDS: FEOSOL PO SCH ×2 (11:33→21:11)
[2017-09-12] MEDS: FOLBEE PLUS CZ PO SCH (11:33)
[2017-09-12] MEDS: SODIUM BICARBONATE PO SCH ×2 (11:34→21:12)
[2017-09-12] MEDS: NORVASC PO SCH (11:34)
--- NOTE | 2017-09-12 13:29 | Progress Note ---
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 Patient's renal function is relatively stable. Recommend to continue current management * Note patient refusal of treatment - declining pRBC products * Abx per ID * Continue antiHTN medications * Modify diet to add renal restrictions - patient w/ hx of hyperkalemia and refuses kayexelate * Adjust medications for patient's renal function * Avoid potential nephrotoxins * Patient has been refusing labs. Last labs drawn where on the . Kayexalate was ordered following that. * Will follow peripherally Subjective Date of service: 09/12/17 Principal diagnosis: Cellulitis of both lower exctremities Interval history: Patient is awake and alert. Denies any shortness of breath. No nausea or vomiting. Objective - Vital Signs Vital signs: Vital Signs - 12hr 09/12/17 09/12/17 09/12/17 05:42 07:30 07:36 Temperature 98.1 F 98.6 F Pulse Rate 69 72 Respiratory 20 20 Rate Blood Pressure 167/82 166/82 O2 Sat by Pulse 98 98 Oximetry - General Appearance General appearance: well-developed, well-nourished, appears stated age, obese EENT: PERRL, mucous membranes moist Neck: no JVD, no thyromegaly, no carotid bruit, supple Respiratory: Present: Clear to Ascultation Cardiology: regular, normal heart rate Gastrointestinal: normal, normoactive bowel sounds Integumentary: other (dressing noted in both his ankles ) - Lab 09/09/17 13:43 09/09/17 13:43 Most recent lab results Calcium 8.1 mg/dL (8.4-10.2) L 09/09/17 13:43 Urine Creatinine 100.6 mg/dL (0.1-20.0) H 09/09/17 12:11 Urine Sodium 41 mmol/L 09/09/17 12:11 Urine Total Protein 191 mg/dL (5-11.8) H 09/09/17 12:11
[2017-09-12] MEDS: VANCOMYCIN 1,750 MG in NACL 0.9% 500 ML 500 ML IV SCH (15:06)
[2017-09-12] MEDS: DAKIN'S FULL STRENGTH TP SCH ×2 (15:08→22:52)
[2017-09-12] MEDS: PERCOCET 5/325 PO PRN (21:19)
[2017-09-13] MEDS: NEURONTIN PO SCH (05:12)
[2017-09-13] MEDS: FLAGYL 500 MG/100 ML 500 MG/100 ML BAG IV SCH (05:12)
[2017-09-13] MEDS: HumuLIN R SUB-Q SCH (07:30)
--- NOTE | 2017-09-14 01:14 | Progress Note ---
Hospitalist Physical - Constitutional Vitals: Temp Pulse Resp BP Pulse Ox 98.6 F 72 20 166/82 98 09/12/17 07:30 09/12/17 07:36 09/12/17 07:36 09/12/17 07:36 09/12/17 07:36 General appearance: Present: obese Results - Labs CBC & Chem 7: 09/09/17 13:43 09/09/17 13:43 Labs: Laboratory Last Values WBC 12.1 K/mm3 (4.5-11.0) H 09/09/17 13:43 RBC 2.50 M/mm3 (3.65-5.03) L 09/09/17 13:43 Hgb 6.1 gm/dl (11.8-15.2) L 09/09/17 13:43 Hct 19.1 % (35.5-45.6) L* 09/09/17 13:43 MCV 76 fl (84-94) L 09/09/17 13:43 MCH 25 pg (28-32) L 09/09/17 13:43 MCHC 32 % (32-34) 09/09/17 13:43 RDW 19.5 % (13.2-15.2) H 09/09/17 13:43 Plt Count 318 K/mm3 (140-440) 09/09/17 13:43 Lymph % (Auto) 10.0 % (13.4-35.0) L 09/09/17 13:43 [place] % (Auto) 8.7 % (0.0-7.3) H 09/09/17 13:43 Eos % (Auto) 5.7 % (0.0-4.3) H 09/09/17 13:43 Baso % (Auto) 0.7 % (0.0-1.8) 09/09/17 13:43 Lymph # 1.2 K/mm3 (1.2-5.4) 09/09/17 13:43 [place] # 1.1 K/mm3 (0.0-0.8) H 09/09/17 13:43 Eos # 0.7 K/mm3 (0.0-0.4) H 09/09/17 13:43 Baso # 0.1 K/mm3 (0.0-0.1) 09/09/17 13:43 Add Manual Diff Complete 09/07/17 12:40 Total Counted 100 09/07/17 12:40 Seg Neutrophils % 74.9 % (40.0-70.0) H 09/09/17 13:43 Seg Neuts % (Manual) 72.0 % (40.0-70.0) H 09/07/17 12:40 Band Neutrophils % 15.0 % 09/07/17 12:40 Lymphocytes % (Manual) 8.0 % (13.4-35.0) L 09/07/17 12:40 Reactive Lymphs % (Man) 0 % 09/07/17 12:40 Monocytes % (Manual) 4.0 % (0.0-7.3) 09/07/17 12:40 Eosinophils % (Manual) 0 % (0.0-4.3) 09/07/17 12:40 Basophils % (Manual) 1.0 % (0.0-1.8) 09/07/17 12:40 Metamyelocytes % 0 % 09/07/17 12:40 Myelocytes % 0 % 09/07/17 12:40 Promyelocytes % 0 % 09/07/17 12:40 Blast Cells % 0 % 09/07/17 12:40 Nucleated RBC % Not Reportable 09/07/17 12:40 Seg Neutrophils # 9.1 K/mm3 (1.8-7.7) H 09/09/17 13:43 Seg Neutrophils # Man 10.2 K/mm3 (1.8-7.7) H 09/07/17 12:40 Band Neutrophils # 2.1 K/mm3 09/07/17 12:40 Lymphocytes # (Manual) 1.1 K/mm3 (1.2-5.4) L 09/07/17 12:40 Abs React Lymphs (Man) 0.0 K/mm3 09/07/17 12:40 Monocytes # (Manual) 0.6 K/mm3 (0.0-0.8) 09/07/17 12:40 Eosinophils # (Manual) 0.0 K/mm3 (0.0-0.4) 09/07/17 12:40 Basophils # (Manual) 0.1 K/mm3 (0.0-0.1) 09/07/17 12:40 Metamyelocytes # 0.0 K/mm3 09/07/17 12:40 Myelocytes # 0.0 K/mm3 09/07/17 12:40 Promyelocytes # 0.0 K/mm3 09/07/17 12:40 Blast Cells # 0.0 K/mm3 09/07/17 12:40 WBC Morphology Not Reportable 09/07/17 12:40 Hypersegmented Neuts Not Reportable 09/07/17 12:40 Hyposegmented Neuts Not Reportable 09/07/17 12:40 Hypogranular Neuts Not Reportable 09/07/17 12:40 Smudge Cells Not Reportable 09/07/17 12:40 Toxic Granulation Not Reportable 09/07/17 12:40 Toxic Vacuolation Not Reportable 09/07/17 12:40 Dohle Bodies Not Reportable 09/07/17 12:40 Pelger-Huet Anomaly Not Reportable 09/07/17 12:40 May Rods Not Reportable 09/07/17 12:40 Platelet Estimate Consistent w auto 09/07/17 12:40 Clumped Platelets Not Reportable 09/07/17 12:40 Plt Clumps, EDTA Not Reportable 09/07/17 12:40 Large Platelets Not Reportable 09/07/17 12:40 Giant Platelets Not Reportable 09/07/17 12:40 Platelet Satelliting Not Reportable 09/07/17 12:40 Plt Morphology Comment Not Reportable 09/07/17 12:40 RBC Morphology Not Reportable 09/07/17 12:40 Dimorphic RBCs Not Reportable 09/07/17 12:40 Polychromasia Not Reportable 09/07/17 12:40 Hypochromasia 1+ 09/07/17 12:40 Poikilocytosis Not Reportable 09/07/17 12:40 Anisocytosis Not Reportable 09/07/17 12:40 Microcytosis 1+ 09/07/17 12:40 Macrocytosis Not Reportable 09/07/17 12:40 Spherocytes Not Reportable 09/07/17 12:40 Pappenheimer Bodies Not Reportable 09/07/17 12:40 Sickle Cells Not Reportable 09/07/17 12:40 Target Cells Not Reportable 09/07/17 12:40 Tear Drop Cells Few 09/07/17 12:40 Ovalocytes Not Reportable 09/07/17 12:40 Helmet Cells Not Reportable 09/07/17 12:40 [place] Bodies Not Reportable 09/07/17 12:40 [place] Rings Not Reportable 09/07/17 12:40 Matthieu Cells Not Reportable 09/07/17 12:40 Bite Cells Not Reportable 09/07/17 12:40 Crenated Cell Not Reportable 09/07/17 12:40 Elliptocytes Not Reportable 09/07/17 12:40 Acanthocytes (Spur) Not Reportable 09/07/17 12:40 Rouleaux Not Reportable 09/07/17 12:40 Hemoglobin C Crystals Not Reportable 09/07/17 12:40 Schistocytes Not Reportable 09/07/17 12:40 Malaria parasites Not Reportable 09/07/17 12:40 ESR > 140.0 mm/Hr (0-20) 09/07/17 12:40 Carlitos Bodies Not Reportable 09/07/17 12:40 Hem Pathologist Commnt No 09/07/17 12:40 PT 14.6 Sec. (12.2-14.9) 09/09/17 13:43 INR 1.08 (0.87-1.13) 09/09/17 13:43 Sodium 132 mmol/L (137-145) L 09/09/17 13:43 Potassium 5.8 mmol/L (3.6-5.0) H 09/09/17 13:43 Chloride 101.0 mmol/L (98-107) 09/09/17 13:43 Carbon Dioxide 17 mmol/L (22-30) L 09/09/17 13:43 Anion Gap 20 mmol/L 09/09/17 13:43 BUN 48 mg/dL (9-20) H 09/09/17 13:43 Creatinine 2.3 mg/dL (0.8-1.5) H 09/09/17 13:43 Estimated GFR 35 ml/min 09/09/17 13:43 BUN/Creatinine Ratio 21 % 09/09/17 13:43 Glucose 131 mg/dL (75-100) H 09/09/17 13:43 POC Glucose 195 (70-105) H 09/12/17 17:00 Lactic Acid 0.70 mmol/L (0.7-2.0) 09/07/17 12:40 Calcium 8.1 mg/dL (8.4-10.2) L 09/09/17 13:43 Total Bilirubin 0.20 mg/dL (0.1-1.2) 09/09/17 13:43 AST 21 units/L (5-40) 09/09/17 13:43 ALT 15 units/L (7-56) 09/09/17 13:43 Alkaline Phosphatase 62 units/L (35-129) 09/09/17 13:43 Total Creatine Kinase 162 units/L (55-170) 09/07/17 12:40 C-Reactive Protein 16.50 mg/dL (0.00-1.30) H 09/07/17 12:40 Total Protein 7.2 g/dL (6.3-8.2) 09/09/17 13:43 Albumin 2.2 g/dL (3.9-5) L 09/09/17 13:43 Albumin/Globulin Ratio 0.4 % 09/09/17 13:43 Urine Color Yellow (Yellow) 09/09/17 12:11 Urine Turbidity Clear (Clear) 09/09/17 12:11 Urine pH 5.0 (5.0-7.0) 09/09/17 12:11 Ur Specific [place] 1.013 (1.003-1.030) 09/09/17 12:11 Urine Protein 100 mg/dl mg/dL (Negative) 09/09/17 12:11 Urine Glucose (UA) Neg mg/dL (Negative) 09/09/17 12:11 Urine Ketones Neg mg/dL (Negative) 09/09/17 12:11 Urine Blood Neg (Negative) 09/09/17 12:11 Urine Nitrite Neg (Negative) 09/09/17 12:11 Urine Bilirubin Neg (Negative) 09/09/17 12:11 Urine Urobilinogen < 2.0 mg/dL (<2.0) 09/09/17 12:11 Ur Leukocyte Esterase Neg (Negative) 09/09/17 12:11 Urine Eosinophils None seen (None Seen) 09/09/17 12:11 Urine Creatinine 100.6 mg/dL (0.1-20.0) H 09/09/17 12:11 Protein/Creatinin Ratio 1.90 09/09/17 12:11 Urine Sodium 41 mmol/L 09/09/17 12:11 Urine Chloride 24.0 mmolL (110-250) L 09/09/17 12:11 Urine Total Protein 191 mg/dL (5-11.8) H 09/09/17 12:11 Blood Type A POSITIVE 09/07/17 15:05 Antibody Screen Negative 09/07/17 15:05 Crossmatch See Detail 09/07/17 15:05
== END 2017-09-13 11:00 | disposition hospice, inpatient (51) | DRG 871 ==
LOC: ED 11:59 → 3A 15:20
PROVIDERS: ADMIT Internal Medicine; ATTEND Internal Medicine
DX: A41.9 Sepsis, unspecified organism (principal); N17.0 Acute kidney failure with tubular necrosis; M86.9 Osteomyelitis, unspecified; L03.115 Cellulitis of right lower limb; I13.0 Hypertensive heart and chronic kidney disease with heart failure and stage 1 through stage 4 chronic kidney disease, or unspecified chronic kidney disease; L97.414 Non-pressure chronic ulcer of right heel and midfoot with necrosis of bone; E11.621 Type 2 diabetes mellitus with foot ulcer; E78.5 Hyperlipidemia, unspecified; I50.9 Heart failure, unspecified; E87.5 Hyperkalemia; E11.22 Type 2 diabetes mellitus with diabetic chronic kidney disease; N18.3 Chronic kidney disease, stage 3 (moderate); E11.69 Type 2 diabetes mellitus with other specified complication; E11.42 Type 2 diabetes mellitus with diabetic polyneuropathy; J44.9 Chronic obstructive pulmonary disease, unspecified; Z99.3 Dependence on wheelchair; Z87.442 Personal history of urinary calculi; Z79.4 Long term (current) use of insulin; Z79.899 Other long term (current) drug therapy; Z91.14 Patient's other noncompliance with medication regimen; Z53.29 Procedure and treatment not carried out because of patient's decision for other reasons
CPT/HCPCS: 36415; 80048; 80053; 81003; 82140; 82436; 82550; 82570; 82962; 84156; 84300; 85007; 85025; 85610; 85652; 86140; 86850; 86900; 86901; 86920; 89050; 96365; 96366; 99291; A9270-GY; J0295; J0692; J1815; J2270; J3370; J7040